=== PATIENT | female | born 1945 | race Caucasian/White ===

== ENCOUNTER → 2020-01-14 12:59 | Outpatient (BNVA) | payer MEDICARE, SELFPAY | PROVIDERS: PCP Pediatrics; Referring Provider Pediatrics; Visit Provider Hospitalist | DX: J44.9 Chronic obstructive pulmonary disease, unspecified (principal); Z79.899 Other long term (current) drug therapy | CPT/HCPCS: Q3014 ==

== ENCOUNTER → 2020-05-04 14:03 | Outpatient (BNVA) | payer MEDICARE, SELFPAY | PROVIDERS: PCP Pediatrics; Visit Provider Internal Medicine Pulmonary Disease | DX: J44.1 Chronic obstructive pulmonary disease with (acute) exacerbation (principal); Z87.891 Personal history of nicotine dependence | CPT/HCPCS: Q3014 ==

== ENCOUNTER → 2020-05-16 10:10 | Outpatient (BNVA) | payer MEDICARE, SELFPAY | PROVIDERS: PCP Pediatrics; Visit Provider Hospitalist | DX: J44.1 Chronic obstructive pulmonary disease with (acute) exacerbation (principal); J40 Bronchitis, not specified as acute or chronic; I50.9 Heart failure, unspecified | CPT/HCPCS: 99212 ==

== ENCOUNTER → 2020-06-13 13:39 | Outpatient (BNVA) | payer MEDICARE, SELFPAY | PROVIDERS: PCP Pediatrics; Visit Provider Hospitalist | DX: J44.9 Chronic obstructive pulmonary disease, unspecified (principal); I50.9 Heart failure, unspecified | CPT/HCPCS: 99212 ==

== ENCOUNTER → 2020-10-31 10:23 | Outpatient (BNVA) | payer MEDICARE, SELFPAY | PROVIDERS: PCP Pediatrics; Visit Provider Hospitalist | DX: J44.9 Chronic obstructive pulmonary disease, unspecified (principal); I50.9 Heart failure, unspecified; Z79.899 Other long term (current) drug therapy | CPT/HCPCS: 99212 ==

== ENCOUNTER → 2020-11-11 12:34 | Outpatient (REF) | payer MEDICARE, SELFPAY ==
--- NOTE | 2020-11-11 12:42 | ECG_ITS ---
Test Reason : COPD Blood Pressure : / mmHG Vent. Rate : 053 BPM Atrial Rate : 053 BPM P-R Int : 148 ms QRS Dur : 148 ms QT Int : 532 ms P-R-T Axes : 079 041 118 degrees QTc Int : 499 ms Sinus bradycardia Left bundle branch block Abnormal ECG No previous ECGs available Referred By: Yon Jordan Electronically Signed By:RASHAAD HOOVER
== END ==
LOC: HO.CARD 12:34
PROVIDERS: PCP Pediatrics; Visit Provider Hospitalist
DX: J44.9 Chronic obstructive pulmonary disease, unspecified (principal)
CPT/HCPCS: 93005

== ENCOUNTER → 2021-06-29 09:49 | Outpatient (BNVA) | payer OTHER, SELFPAY | PROVIDERS: PCP Pediatrics; Visit Provider Hospitalist | DX: J44.9 Chronic obstructive pulmonary disease, unspecified (principal); I50.9 Heart failure, unspecified | CPT/HCPCS: 99212 ==

== ENCOUNTER → 2021-09-29 10:13 | Outpatient (BNVA) | payer OTHER, SELFPAY | PROVIDERS: PCP Pediatrics; Visit Provider Hospitalist | DX: J44.9 Chronic obstructive pulmonary disease, unspecified (principal); I50.9 Heart failure, unspecified | CPT/HCPCS: 99212 ==

== ENCOUNTER → 2022-03-21 09:25 | Outpatient (BNVA) | payer OTHER, SELFPAY | PROVIDERS: PCP Pediatrics; Visit Provider Hospitalist | DX: J44.9 Chronic obstructive pulmonary disease, unspecified (principal); I50.9 Heart failure, unspecified; Z79.899 Other long term (current) drug therapy | CPT/HCPCS: 99212 ==

== ENCOUNTER → 2022-04-13 10:19 | Outpatient (REF) | payer OTHER, SELFPAY ==
--- NOTE | 2022-04-13 10:25 | ECG_ITS ---
Test Reason : copd Blood Pressure : / mmHG Vent. Rate : 058 BPM Atrial Rate : 058 BPM P-R Int : 152 ms QRS Dur : 160 ms QT Int : 482 ms P-R-T Axes : 088 030 119 degrees QTc Int : 473 ms Sinus bradycardia Left bundle branch block Abnormal ECG When compared with ECG of 11-NOV-2020 12:46, No significant change was found Referred By: Yon Jordan Electronically Signed By:REYNALDO JETT MD
== END ==
LOC: HO.CARD 10:19
PROVIDERS: PCP Pediatrics; Visit Provider Hospitalist
DX: J44.9 Chronic obstructive pulmonary disease, unspecified (principal)
CPT/HCPCS: 93005

== ENCOUNTER → 2022-06-01 09:27 | Outpatient (BNVA) | payer OTHER, SELFPAY | PROVIDERS: PCP Pediatrics; Visit Provider Hospitalist | DX: J44.9 Chronic obstructive pulmonary disease, unspecified (principal); J30.0 Vasomotor rhinitis; I50.9 Heart failure, unspecified | CPT/HCPCS: 99212 ==

== ENCOUNTER 2022-11-16 08:50 | Outpatient (REF) | payer OTHER, SELFPAY ==
[2022-11-16 15:02] LABS: MANUAL DIFF FLAG NO
[2022-11-16 15:09] LABS: Basophils Absolute Auto 0.1 X10*3/uL (0.0-0.2); Basophils Percent Auto 0.8 % (0-2); Eosinophils Absolute Auto 0.4 X10*3/uL (0.0-0.4); Eosinophils Percent Auto 3.9 % (0-4); Hematocrit 40.2 % (37.0-47.0); Hemoglobin 12.6 g/dl (12.0-16.0); Imm Gran Abs Auto 0.02 X10*3/uL (0.00-0.03); Imm Gran Pct Auto 0.2 % (0.0-0.4); Lymphocytes Absolute Auto 2.5 X10*3/uL (1.2-4.9); Lymphocytes Percent Auto 27.2 % (20-40); Mean Corpuscular HGB Conc 31.3 g/dl (31.0-35.0); Mean Corpuscular Volume 86.3 fL (80.0-98.0); Mean Platelet Volume 10.5 fL (9.4-12.3); Monocytes Absolute Auto 0.7 X10*3/uL (0.1-1.2); Monocytes Percent Auto 7.5 % (2-11); Neutrophils Absolute Auto 5.5 x10*3/uL (2.0-8.3); Neutrophils Percent Auto 60.4 % (45-73); Platelet Count 393 X10*3/uL (160-400); Red Blood Count 4.66 X10*6/uL (4.20-5.50); Red Cell Distribution Width 15.7 % (11.0-16.0)
[2022-11-16 15:59] LABS: Alanine Aminotransferase 10 U/L (0-31); Albumin Level 3.8 g/dL (3.5-5.0); Alkaline Phosphatase 91 U/L (39-117); Anion Gap 12 (12-20); Aspartate Amino Transferase 15 U/L (5-31); Bilirubin Direct 0.2 mg/dL (0.0-0.5); Bilirubin Total 0.3 mg/dL (0.0-1.0); Blood Urea Nitrogen 13 mg/dL (9-16); Calcium 9.7 mg/dL (8.4-10.2); Carbon Dioxide 27 mmol/L (22-29); Chloride 107 mmol/L (96-108); Cholesterol 111 mg/dL (<200); Estimated Glomerular Filt Rate 53; Glucose Fasting 81 mg/dL (60-99); HDL Cholesterol 36 mg/dL (>40); LDL Cholesterol Calculated 62 mg/dL (<100); Potassium 4.3 mmol/L (3.3-5.1); Sodium 142 mmol/L (135-145); TSH reflex Free T4 0.74 uIU/mL (0.32-4.0); Total Protein 6.4 g/dL (6.5-8.0); Triglycerides 69 mg/dL (<150)
== END 2022-11-16 08:51 | disposition home or self-care (01) ==
LOC: HO.CHCLDS 08:50
PROVIDERS: Absent Provider Nurse Practitioner; Visit Provider Pediatrics
DX: I11.0 Hypertensive heart disease with heart failure (principal); I50.20 Unspecified systolic (congestive) heart failure; E78.2 Mixed hyperlipidemia; E11.9 Type 2 diabetes mellitus without complications; Z79.4 Long term (current) use of insulin
CPT/HCPCS: 36415; 80048; 80061; 80076; 84443; 85025

== ENCOUNTER 2022-12-03 09:47 | Outpatient (AMB) | payer OTHER, SELFPAY ==
[2022-12-03 09:58] VITALS: BP 124/60; PULSE 66; O2SAT 95; BMI 22.9
--- NOTE | 2022-12-03 09:58 | A.OFFVIS_ITS ---
Intake Vital Signs 12/03/22 09:58 Height 5 ft 4 in Weight 133 lb 2.547 oz BMI 22.9 BP 124/60 Blood Pressure Location Lt brachial Position Sitting Pulse 66 Pulse Source Pulse Oximeter Pulse Oximetry (%) 95 Oxygen Delivery Method Room Air Intake Visit Reasons: COPD Credit Manager Required: No Allergies mirtazapine [From Remeron] Adverse Reaction (Verified 12/03/22 10:02) Weakness HPI HPI Comments History of Present Illness Details The patient is a 77-year-old woman with known asthma COPD overlap syndrome who apparently started developing worsening respiratory symptoms for the last week. She has been using her nebulized therapy in addition to her short-acting beta agonist. However, she has not been using any maintenance inhalers. She has been noticing more coughing. Moderate severity. Nonproductive in nature. At this point with trying to minimize the use of steroids due to her diabetes. The patient has not had any recent x-rays or imaging. Her last chest x-ray was from [facility] December 04, 2017 demonstrating some areas of atelectasis. Her previous blood work demonstrated a low subclass 2 IgG. 01/14/2020 patient has a telephone visit. The patient has been having increasing shortness of breath. She has not been able to get her Bevespi covered. I believe is wonder going prior approval. She has tried and failed Anoro in the past. Currently she is getting budesonide via the nebulizer twice a day along with albuterol. She is also tolerating the Daliresp. She is having more issues with her balance and also tremors. She has been evaluated for Parkinson's. She has been falling numerous times. The family is been trying to keep her safe. In the meantime we did talk about the beta agonist causing tremors. Her, she needs her respiratory medications in order to improve her re spiratory status. Her nebulizer is no longer working. She does use a nebulizer twice a day. I will request a new nebulizer through a [employer], [employer]. 05/16/2020 the patient is here for pulmonary follow-up visit. Since we last spoke the patient fell and she fractured her arm needed surgery in place. This area is healing apparently well. In addition to that the patient has had worsening respiratory symptoms. She was evaluated back in beginning of the month. She was treated with antibiotics however her conditionup being admitted briefly to [facility]. She had a chest x-ray demonstrating bilateral pleural effusions and what appeared to be cephalization and opacities at the bases more consistent with congestive heart failure. Her brain atretic peptide was approximately 3000. The patient also was found to be wheezy and she was treated with bronchodilators and also prednisone. Currently the patient has been discharged she is using her albuterolvia nebulizer to 4 times a day and has been using the Daliresp. She has also noticed weight loss and also decreased appetite. We talked about very decreasing the Daliresp to every other day when she feels better. In the meantime she is having significant wheezing on examination. I am reluctant to give her any prednisone at this time because of on her to have proper healing of her bone fracture. In the meantime will start antibiotics with azithromycin Saturday in the patient will start DuoNebs instead of albuterol 4 times a day. 06/13/2020 the patient is here for pulmonary follow-up visit. Overall she is doing better. She did now requiring prednisone. She did complete the antibiotics. She continues using the nebulizer 4 times a day. At this point the patient does not feel like she needs to that often. Therefore, will have her do a treatment in the morning with both budesonide and DuoNeb. Then later on the day she is able to use the DuoNeb as needed. She is continuing to use of Daliresp in addition to the singular at nighttime. At some point she may want to go back to inhaler therapy instead of the nebulizer. We will discuss this further during her next visit in 4 months. 10/31/2020 the patient is here for a pulmonary follow-up visit. Overall she is doing better. She has been off the prednisone. She has been tolerating the azithromycin 3 times a week. She has also been tolerating the Daliresp. Although she has been losing weight. Her appetite is down. She continue his respiratory therapy. She is using the budesonide and DuoNeb. She is currently not using the Stiolto. I did tell of the does okay as long she is using nebulized therapies at least twice a day. She also continues on the singular. The patient will be followed up with Cardiology soon and he can do an EKG. Otherwise she can have done an EKG in the hospital in order to make sure that she is tolerating the macrolide therapy without any worsening QT changes. The patient in the meantime will try to decrease the Daliresp due to the fact that she is losing weight has decreased appetite to every other day. Otherwise she will continue with her nebulized therapy and is okay for her to start the Stiolto. Will follow up in 6 months. 06/29/2021 the patient is here for a pulmonary follow-up visit. Since we last spoke she has developed chest discomfort she was taken to the [facility] ER where she was admitted to the hospital. When she was there she did have a chest x-ray that I personally reviewed demonstrating some mild perivascular congestion and small pleural effusion. Her brain atretic peptide was slightly elevated as well. She does not appear to be volume overloaded at this time. The patient has been on cardioprotective medications. From a COPD standpoint she has had some wheezing. She is responding very well to the azithromycin treating her for chronic bronchitis. However, now with the issues of underlying cardiac conditions will see about weaning her off it and she can follow up with Cardiology to make sure that she is stable. In the meantime I will give her half a does of prednisone just for 3 days to try to improve her v olume status. 09/29/2021 the patient is here for a pulmonary follow-up visit. She recently did follow-up with Cardiology and apparently was noted to have a wheeze cardiac function and abnormal stress test. She will be undergoing a cardiac catheterization soon. In the meantime she continue was with respiratory therapy with good results. Has been tolerating the Daliresp. She continues use the Stiolto on a daily basis. During the last visit she did receive Lasix x3 days. Her volume status improved significantly. After that she did not require any additional diuretics. She is monitoring closely the sodium intake. She does complain of worsening productive cough with white phlegm. [id number] severity. She did come off the azithromycin. This is likely the reasoning why. However, in view of her cardiac issues will hold off on macrolide therapy as it can worsen her QT interval. 03/21/2022 the patient is here for a pulmonary follow-up visit. Since we last spoke the patient was admitted to the hospital with COVID. She was treated in the hospital for few days. While she was there she had a chest x-ray that was reassuring. Prior to that in January [address] she did have a CT scan of the chest demonstrating airspace disease and a masslike consolidation in the left lower lobe. She had significant inflammation. Upper she will need a follow-up CT scan in the near future. In the meantime she has had worsening cough and she was taken off the azithromycin. Initially she was taken off because she was having arrhythmias in addition to the fact that the azithromycin can worsen QT prolongation. But, since coming off the medication her respiratory status has been often she has required multiple evaluations for her COPD exacerbations. Therefore will place him back on the azithromycin but she needs to monitor with EKG. Will have an EKG ordered and she can just come in to the hospital next week and have an EKG while on the medicine. Will continue to follow serial EKGs while on the medicine. We can also increase Daliresp to daily since she is tolerating it. Unfortunately because she does have increased wheezing she will also need a small dose of prednisone. She does have diabetes so therefore her sugars do elevate will try just a small dose to see if we can maintain her relatively stable with a sugars. She does continue to use her nebulized therapy twice a day and also continues with her inhalers as prescribed. 06/01/2022 the patient is here for pulmonary follow-up visit. She just recently had worked ago. Followed she is feeling better. She is tolerating the azithromycin 3 times a week. We had done an EKG demonstrating normal QTC. In addition to that she is tolerating the higher dose Daliresp. She continues use the budesonide with the albuterol. Also using Stiolto. She does have some increased wheezing since arriving from [place]. Also has nasal drainage. Denies any fevers or chills. Otherwise she feels she is doing fairly good. No recent imaging studies to review. We did look at the EKG together. She does have a left bundle branch block. Explained to patient that this is something that is her baseline. 12/03/2022 the patient is here for pulmonary follow-up visit. The patient continues have asthma symptoms. Having to use her nebulizer up to 4 times a day a few weeks ago. Now she is down to twice a day. He continues on her respiratory therapy. She has been losing some weight sometimes she takes Daliresp every other day to minimize on the weight loss. She continues to follow closely with Cardiology. At this point she is on a maximize respiratory regimen but still only partially responding as she is still continues to be symptomatic. She does have wheezing on examination today. Therefore will do allergy testing and blood work to assess her candidacy for biologics. I do believe that she will do good on Dupixent. She did have an EKG she does have a left bundle branch block with the has not changed her QT interval is within normal limits. The patient will undergo blood working well assessed her candidacy for biologic therapy at this time we also talked about vaccines. The patient should get her hours the vaccine and also should be up today with her pneumonia vaccine. COUNTS INCLUDE 234 BEDS AT THE [facility] Medical History (Updated 11/13/22 @ 11:38 by Genius GA) Vasomotor rhinitis CHF (congestive heart failure) Bronchitis Anxiety Depression History of heart attack Hyperlipidemia Hypothyroidism Chronic gouty arthritis Diabetes HTN (hypertension) Asthma B12 deficiency Iron deficiency anemia COPD (chronic obstructive pulmonary disease) Surgical History Hx of cholecystectomy Hx of tubal ligation Family History Sister Diabetes Mother Diabetes Arthritis Asthma Social History (Updated 01/11/22 @ 10:03 by Rupali De La Cruz CMA) Household Members: None Housing: Apartment Are you a primary residential caregiver to a significant other at home: No Do you presently have visiting nurse or other home services: No Alcohol intake: former Patient Tobacco Use Status: Former Tobacco user Tobacco use type: Cigarette Cigarette Packs Per Day: 1 service: No Current occupational status: unemployed Review of Systems Const Denies night sweats and Reports weight loss ENT Denies change in voice, Denies lip swelling, Denies mouth pain, Reports nasal congestion, Reports nasal discharge and Denies tongue swelling Card Denies chest pain and Reports dyspnea on exertion Resp Denies chest congestion, Reports cough, Reports dyspnea on exertion and Reports wheezing GI Denies abdominal pain Musc Denies no additional complaints Neuro Denies Neuro-related abnormal movements Psych Denies no additional complaints Ascencion/Lymph Denies easy bleeding and Denies lymphadenopathy Aller/Immun Denies lip swelling, Denies tongue swelling and Reports wheezing Physical Exam Vital Signs: Last Vital Signs Pulse 66 12/03/22 09:58 BP 124/60 12/03/22 09:58 Pulse Ox 95 12/03/22 09:58 Oxygen Delivery Method Room Air 12/03/22 09:58 BMI result Body Mass Index 22.9 Const General: alert Neck Neck: Yes normal visual inspection, Yes full ROM and Yes no lymphadenopathy Chest Chest palpation & inspection: normal inspection of the chest Resp Auscultation: no rhonchi, wheezes and diminished lung sounds Cardio Rate: regular rate Rhythm: regular rhythm Heart sounds: S1 normal heart sound present and S2 normal heart sound present GI Palpation (GI): Soft to palpation and nontender Auscultation: normal bowel sounds Skin General skin exam: rashes and/or lesions noted Assessment & Plan Assessment & Plan (1) Asthma-COPD overlap syndrome: Code(s): J44.9 - Chronic obstructive pulmonary disease, unspecified (2) CHF (congestive heart failure): Code(s): I50.9 - Heart failure, unspecified Qualifiers: Heart failure chronicity: unspecified Heart failure type: unspecified Qualified Code(s): I50.9 - Heart failure, unspecified (3) Vasomotor rhinitis: Code(s): J30.0 - Vasomotor rhinitis Plan start Prednione taper Bloodwork/allergy testing, maybe a good candidate for Dupixent continue Daliresp continue azithromycin MWF Budesonide BID Duoneb BID continue Stiolto daily Continue Singulair Ipratropiun nasal spray Trazadone for sleep F/U 3-4 month Orders: Orders Immunoglobulin G Subclasses Today J40 - Bronchitis, not specified as acute or chronic Complete Blood Count Auto Diff Today J40 - Bronchitis, not specified as acute or chronic Rast Allergen Today J40 - Bronchitis, not specified as acute or chronic Immunoglobulin E Today J40 - Bronchitis, not specified as acute or chronic Hypersensitive Pneumonitis Prf Today J40 - Bronchitis, not specified as acute or chronic, R91.8 - Other nonspecific abnormal finding of lung field Medications: New prednisone PO daily; Take 2 tabs daily x 5 days, then 1 tablet daily x 5 days 15 tabs 0RF 10 days Coding Level of Care Code Est Pt Level 4 (43865) Diagnoses Asthma-COPD overlap syndrome J44.9 Congestive heart failure, unspecified HF chronicity, unspecified heart failure type I50.9 Heart failure chronicity: unspecified Heart failure type: unspecified Vasomotor rhinitis J30.0 Time Spent (min) 16
== END 2022-12-03 10:20 | disposition home or self-care (01) ==
PROVIDERS: PCP Pediatrics; Visit Provider Hospitalist
DX: J44.9 Chronic obstructive pulmonary disease, unspecified (principal); I50.9 Heart failure, unspecified; J30.0 Vasomotor rhinitis
CPT/HCPCS: 99214

== ENCOUNTER 2022-12-03 09:47 | Outpatient (REF) | payer OTHER, SELFPAY ==
[2022-12-03 10:50] LABS: MANUAL DIFF FLAG NO
[2022-12-03 12:05] LABS: Basophils Absolute Auto 0.1 X10*3/uL (0.0-0.2); Basophils Percent Auto 0.4 % (0-2); Eosinophils Absolute Auto 0.3 X10*3/uL (0.0-0.4); Eosinophils Percent Auto 2.6 % (0-4); Hematocrit 38.2 % (37.0-47.0); Hemoglobin 12.3 g/dl (12.0-16.0); Imm Gran Abs Auto 0.03 X10*3/uL (0.00-0.03); Imm Gran Pct Auto 0.3 % (0.0-0.4); Lymphocytes Absolute Auto 2.7 X10*3/uL (1.2-4.9); Lymphocytes Percent Auto 22.8 % (20-40); Mean Corpuscular HGB Conc 32.2 g/dl (31.0-35.0); Mean Corpuscular Hemoglobin 27.2 pg (27.0-33.0); Mean Corpuscular Volume 84.5 fL (80.0-98.0); Mean Platelet Volume 9.7 fL (9.4-12.3); Monocytes Absolute Auto 0.9 X10*3/uL (0.1-1.2); Monocytes Percent Auto 7.6 % (2-11); Neutrophils Absolute Auto 7.9 x10*3/uL (2.0-8.3); Neutrophils Percent Auto 66.3 % (45-73); Platelet Count 348 X10*3/uL (160-400); Red Blood Count 4.52 X10*6/uL (4.20-5.50); Red Cell Distribution Width 15.6 % (11.0-16.0)
[2022-12-05 07:09] LABS: Immunoglobulin E 49 kU/L (<OR=114)
[2022-12-05 13:24] LABS: Immunoglobulin G Subclass 1 575 mg/dL (382-929); Immunoglobulin G Subclass 2 133 mg/dL (241-700); Immunoglobulin G Subclass 3 57 mg/dL (22-178); Immunoglobulin G Subclass 4 34.7 mg/dL (4-86); Immunoglobulin G Total 796 mg/dL (600-1540)
[2022-12-10 13:48] LABS: Asperg fumigatus Precip Abs NEGATIVE (NEGATIVE); Micropoly faeni Abs NEGATIVE (NEGATIVE); Pigeon serum Abs NEGATIVE (NEGATIVE); Saccharo pora viridis Abs NEGATIVE (NEGATIVE); Thermo candidus Abs NEGATIVE (NEGATIVE); Thermoa vulgaris #1 NEGATIVE (NEGATIVE)
== END 2022-12-03 09:48 | disposition home or self-care (01) ==
LOC: HO.LAB 09:47
PROVIDERS: PCP Pediatrics; Visit Provider Hospitalist
DX: J40 Bronchitis, not specified as acute or chronic (principal); I50.9 Heart failure, unspecified; J30.0 Vasomotor rhinitis; Z79.899 Other long term (current) drug therapy
CPT/HCPCS: 36415; 82784; 82785; 85025; 86003; 86331; 86606; 86609; 99212

== ENCOUNTER 2023-03-05 13:14 | Outpatient (AMB) | payer OTHER, SELFPAY ==
--- NOTE | 2023-03-05 13:33 | A.OFFVIS_ITS ---
Intake Vital Signs 03/05/23 13:34 Height 5 ft 4 in Weight 133 lb 2.547 oz BMI 22.9 Pulse 63 Pulse Source Pulse Oximeter Pulse Oximetry (%) 97 Oxygen Delivery Method Room Air Intake Visit Reasons: copd Hearings Reporter Required: No Allergies mirtazapine [From Remeron] Adverse Reaction (Verified 03/05/23 13:35) Weakness HPI HPI Comments History of Present Illness Details The patient is a 77-year-old woman with known asthma COPD overlap syndrome who apparently started developing worsening respiratory symptoms for the last week. She has been using her nebulized therapy in addition to her short-acting beta agonist. However, she has not been using any maintenance inhalers. She has been noticing more coughing. Moderate severity. Nonproductive in nature. At this point with trying to minimize the use of steroids due to her diabetes. The patient has not had any recent x-rays or imaging. Her last chest x-ray was from [facility] December 04, 2017 demonstrating some areas of atelectasis. Her previous blood work demonstrated a low subclass 2 IgG. 01/14/2020 patient has a telephone visit. The patient has been having increasing shortness of breath. She has not been able to get her Bevespi covered. I believe is wonder going prior approval. She has tried and failed Anoro in the past. Currently she is getting budesonide via the nebulizer twice a day along with albuterol. She is also tolerating the Daliresp. She is having more issues with her balance and also tremors. She has been evaluated for Parkinson's. She has been falling numerous times. The family is been trying to keep her safe. In the meantime we did talk about the beta agonist causing tremors. Her, she needs her respiratory medications in order to improve her respiratory status. Her nebulizer is no longer working. She does use a nebulizer twice a day. I will request a new nebulizer through a [employer]. 05/16/2020 the patient is here for pulmonary follow-up visit. Since we last spoke the patient fell and she fractured her arm needed surgery in place. This area is healing apparently well. In addition to that the patient has had worsening respiratory symptoms. She was evaluated back in beginning of the month. She was treated with antibiotics however her conditionup being admitted briefly to [facility]. She had a chest x-ray demonstrating bilateral pleural effusions and what appeared to be cephalization and opacities at the bases more consistent with congestive heart failure. Her brain atretic peptide was approximately 3000. The patient also was found to be wheezy and she was treated with bronchodilators and also prednisone. Currently the patient has been discharged she is using her albuterolvia nebulizer to 4 times a day and has been using the Daliresp. She has also noticed weight loss and also decreased appetite. We talked about very decreasing the Daliresp to every other day when she feels better. In the meantime she is having significant wheezing on examination. I am reluctant to give her any prednisone at this time because of on her to have proper healing of her bone fracture. In the meantime will start antibiotics with azithromycin Saturday in the patient will start DuoNebs instead of albuterol 4 times a day. 06/13/2020 the patient is here for pulmonary follow-up visit. Overall she is doing better. She did now requiring prednisone. She did complete the antibiotics. She continues using the nebulizer 4 times a day. At this point the patient does not feel like she needs to that often. Therefore, will have her do a treatment in the morning with both budesonide and DuoNeb. Then later on the day she is able to use the DuoNeb as needed. She is continuing to use of Daliresp in addition to the singular at nighttime. At some point she may want to go back to inhaler therapy instead of the nebulizer. We will discuss this further during her next visit in 4 months. 10/31/2020 the patient is here for a pulmonary follow-up visit. Overall she is doing better. She has been off the prednisone. She has been tolerating the azithromycin 3 times a week. She has also been tolerating the Daliresp. Although she has been losing weight. Her appetite is down. She continue his respiratory therapy. She is using the budesonide and DuoNeb. She is currently not using the Stiolto. I did tell of the does okay as long she is using nebulized therapies at least twice a day. She also continues on the singular. The patient will be followed up with Cardiology soon and he can do an EKG. Otherwise she can have done an EKG in the hospital in order to make sure that she is tolerating the macrolide therapy without any worsening QT changes. The patient in the meantime will try to decrease the Daliresp due to the fact that she is losing weight has decreased appetite to every other day. Otherwise she will continue with her nebulized therapy and is okay for her to start the Stiolto. Will follow up in 6 months. 06/29/2021 the patient is here for a pulmonary follow-up visit. Since we last spoke she has developed chest discomfort she was taken to the [facility] ER where she was admitted to the hospital. When she was there she did have a chest x-ray that I personally reviewed demonstrating some mild perivascular congestion and small pleural effusion. Her brain atretic peptide was slightly elevated as well. She does not appear to be volume overloaded at this time. The patient has been on cardioprotective medications. From a COPD standpoint she has had some wheezing. She is responding very well to the azithromycin treating her for chronic bronchitis. However, now with the issues of underlying cardiac conditions will see about weaning her off it and she can follow up with Cardiology to make sure that she is stable. In the meantime I will give her half a does of prednisone just for 3 days to try to improve her volume status. 09/29/2021 the patient is here for a pulmonary follow-up visit. She recently did follow-up with Cardiology and apparently was noted to have a wheeze cardiac function and abnormal stress test. She will be undergoing a cardiac catheterization soon. In the meantime she continue was with respiratory therapy with good results. Has been tolerating the Daliresp. She continues use the Stiolto on a daily basis. During the last visit she did receive Lasix x3 days. Her volume status improved significantly. After that she did not require any additional diuretics. She is monitoring closely the sodium intake. She does complain of worsening productive cough with white phlegm. [id number] severity. She did come off the azithromycin. This is likely the reasoning why. However, in view of her cardiac issues will hold off on macrolide therapy as it can worsen her QT interval. 03/21/2022 the patient is here for a pulmonary follow-up visit. Since we last spoke the patient was admitted to the hospital with COVID. She was treated in the hospital for few days. While she was there she had a chest x-ray that w as reassuring. Prior to that in January [address] she did have a CT scan of the chest demonstrating airspace disease and a masslike consolidation in the left lower lobe. She had significant inflammation. Upper she will need a follow-up CT scan in the near future. In the meantime she has had worsening cough and she was taken off the azithromycin. Initially she was taken off because she was having arrhythmias in addition to the fact that the azithromycin can worsen QT prolongation. But, since coming off the medication her respiratory status has been often she has required multiple evaluations for her COPD exacerbations. Therefore will place him back on the azithromycin but she needs to monitor with EKG. Will have an EKG ordered and she can just come in to the hospital next week and have an EKG while on the medicine. Will continue to follow serial EKGs while on the medicine. We can also increase Daliresp to daily since she is tolerating it. Unfortunately because she does have increased wheezing she will also need a small dose of prednisone. She does have diabetes so therefore her sugars do elevate will try just a small dose to see if we can maintain her relatively stable with a sugars. She does continue to use her nebulized therapy twice a day and also continues with her inhalers as prescribed. 06/01/2022 the patient is here for pulmonary follow-up visit. She just r ecently had worked ago. Followed she is feeling better. She is tolerating the azithromycin 3 times a week. We had done an EKG demonstrating normal QTC. In addition to that she is tolerating the higher dose Daliresp. She continues use the budesonide with the albuterol. Also using Stiolto. She does have some increased wheezing since arriving from [place]. Also has nasal drainage. Denies any fevers or chills. Otherwise she feels she is doing fairly good. No recent imaging studies to review. We did look at the EKG together. She does have a left bundle branch block. Explained to patient that this is something that is her baseline. 12/03/2022 the patient is here for pulmonary follow-up visit. The patient continues have asthma symptoms. Having to use her nebulizer up to 4 times a day a few weeks ago. Now she is down to twice a day. He continues on her respiratory therapy. She has been losing some weight sometimes she takes Daliresp every other day to minimize on the weight loss. She continues to follow closely with Cardiology. At this point she is on a maximize respiratory regimen but still only partially responding as she is still continues to be symptomatic. She does have wheezing on examination today. Therefore will do allergy testing and blood work to assess her candidacy for biologics. I do believe that she will do good on Dupixent. She did have an EKG she does have a left bundle branch block with the has not changed her QT interval is within normal limits. The patient will undergo blood working well assessed her candidacy for biologic therapy at this time we also talked about vaccines. The patient should get her hours the vaccine and also should be up today with her pneumonia vaccine. 03/05/2023 the patient is here for a pulmonary follow-up visit. She has a trip to [place] soon. She wants to make sure that she is doing okay before her trip. She is having increasing dyspnea symptoms and chest tightness and cough. Moderate severity. She has been using all her respiratory medications as prescribed which have been partially helpful. We did request blood work during the last visit to see if she would be a candidate for any biologic therapy. Her IgE level and allergy testing was all within normal limits and also her eosinophil levels were also within normal limits. Therefore she is not a candidate for most of the biologics although because her should come prednisone use she would benefit from Tezspire. The patient is having active wheezing at this time. I will send her additional prednisone to the pharmacy. She will continue with current respiratory regimen as prescribed. [facility] Medical History (Updated 03/05/23 @ 15:31 by Yon Jordan MD) Vasomotor rhinitis CHF (congestive heart failure) Bronchitis Anxiety Depression History of heart attack Hyperlipidemia Hypothyroidism Chronic gouty arthritis Diabetes HTN (hypertension) Asthma B12 deficiency Iron deficiency anemia COPD (chronic obstructive pulmonary disease) Surgical History Hx of cholecystectomy Hx of tubal ligation Family History Sister Diabetes Mother Diabetes Arthritis Asthma Social History (Updated 01/11/22 @ 10:03 by Rupali De La Cruz CMA) Household Members: None Housing: Apartment Are you a primary pharmacy customer care specialist to a significant other at home: No Do you presently have visiting nurse or other home services: No Alcohol intake: former Patient Tobacco Use Status: Former Tobacco user Tobacco use type: Cigarette Cigarette Packs Per Day: 1 service: No Current occupational status: unemployed Review of Systems Const Denies night sweats and Reports weight loss ENT Denies change in voice, Denies lip swelling, Denies mouth pain, Reports nasal congestion, Reports nasal discharge and Denies tongue swelling Card Denies chest pain and Reports dyspnea on exertion Resp Denies chest congestion, Reports cough, Reports dyspnea on exertion and Reports wheezing GI Denies abdominal pain Musc Denies no additional complaints Neuro Denies Neuro-related abnormal movements Psych Denies no additional complaints Ascencion/Lymph Denies easy bleeding and Denies lymphadenopathy Aller/Immun Denies lip swelling, Denies tongue swelling and Reports wheezing Physical Exam Vital Signs: Last Vital Signs Pulse 63 03/05/23 13:34 Pulse Ox 97 03/05/23 13:34 Oxygen Delivery Method Room Air 03/05/23 13:34 BMI result Body Mass Index 22.9 Const General: alert Neck Neck: Yes normal visual inspection, Yes full ROM and Yes no lymphadenopathy Chest Chest palpation & inspection: normal inspection of the chest Resp Auscultation: no rhonchi, wheezes and diminished lung sounds Cardio Rate: regular rate Rhythm: regular rhythm Heart sounds: S1 normal heart sound present and S2 normal heart sound present GI Palpation (GI): Soft to palpation and nontender Auscultation: normal bowel sounds Skin General skin exam: rashes and/or lesions noted Assessment & Plan Assessment & Plan (1) Asthma: Code(s): J45.909 - Unspecified asthma, uncomplicated Qualifiers: Asthma severity: severe Asthma persistence: persistent Asthma complication type: with acute exacerbation Qualified Code(s): J45.51 - Severe persistent asthma with (acute) exacerbation (2) Asthma-COPD overlap syndrome: Code(s): J44.9 - Chronic obstructive pulmonary disease, unspecified (3) Vasomotor rhinitis: Code(s): J30.0 - Vasomotor rhinitis (4) CHF (congestive heart failure): Code(s): I50.9 - Heart failure, unspecified Qualifiers: Heart failure chronicity: unspecified Heart failure type: unspecified Qualified Code(s): I50.9 - Heart failure, unspecified Plan Start Prednisone taper start Tezspire continue Daliresp continue azithromycin MWF Budesonide BID Duoneb BID continue Stiolto daily Continue Singulair Ipratropiun nasal spray Trazadone for sleep F/U 3-4 month Medications: New prednisone PO daily; Take 6 tabs daily x 3 days, then 5 tabs x 3 days, then 4 tabs x 3 days, then 3 tabs x 3 days, then 2 tabs daily x 3 days, then 1 tab x 3 days to complete. 18 days 63 tabs 0RF Coding Level of Care Code Est Pt Level 4 (90109) Diagnoses Severe persistent asthma with acute exacerbation J45.51 Asthma severity: severe Asthma persistence: persistent Asthma complication type: with acute exacerbation Asthma-COPD overlap syndrome J44.9 Vasomotor rhinitis J30.0 Congestive heart failure, unspecified HF chronicity, unspecified heart failure type I50.9 Heart failure chronicity: unspecified Heart failure type: unspecified Time Spent (min) 17
[2023-03-05 13:34] VITALS: PULSE 63; O2SAT 97; BMI 22.9
== END 2023-03-05 13:55 | disposition home or self-care (01) ==
PROVIDERS: PCP Pediatrics; Visit Provider Hospitalist
DX: J45.51 Severe persistent asthma with (acute) exacerbation (principal); J44.9 Chronic obstructive pulmonary disease, unspecified; J30.0 Vasomotor rhinitis; I50.9 Heart failure, unspecified
CPT/HCPCS: 99214

== ENCOUNTER → 2023-03-05 13:14 | Outpatient (BNVA) | payer OTHER, SELFPAY | PROVIDERS: PCP Pediatrics; Visit Provider Hospitalist | DX: J45.51 Severe persistent asthma with (acute) exacerbation (principal); J44.9 Chronic obstructive pulmonary disease, unspecified; J30.0 Vasomotor rhinitis; I50.9 Heart failure, unspecified; Z79.899 Other long term (current) drug therapy | CPT/HCPCS: 99212 ==

== ENCOUNTER 2023-06-25 10:34 | Outpatient (REF) | payer OTHER, SELFPAY ==
--- NOTE | ~2023-06-25 | XR_ITS ---
EXAMINATION: XR CHEST CLINICAL INFORMATION: Chest pain COMPARISON: Chest 01/04/2006 TECHNIQUE: 2 views of the chest were obtained. FINDINGS: The lungs are hyperinflated with flattening of the hemidiaphragms. There is slight streaky density in the right middle lobe and lingula which likely represents atelectasis and/or scar, less likely pneumonia. Central peribronchial thickening is noted. Again noted is mild elevation of the right hemidiaphragm. No pleural effusions. The cardiomediastinal silhouette is within normal limits. There is extensive calcification of the thoracic aorta indicative of marked atherosclerotic disease. At the level of the aortic arch, thoracic aorta measures 3.2 cm. No acute osseous abnormality. XR/XR chest 2V IMPRESSION: 1. Right middle lobe and lingular atelectasis and/or scar, less likely pneumonia. 2. Central peribronchial thickening which may represent bronchitis. 3. Marked atherosclerotic disease of the thoracic aorta. The aortic arch measures 3.2 cm.
== END 2023-06-25 10:35 | disposition home or self-care (01) ==
LOC: HO.XRAY 10:34
PROVIDERS: PCP Pediatrics; Visit Provider Hospitalist
DX: J45.51 Severe persistent asthma with (acute) exacerbation (principal)
CPT/HCPCS: 71046; 99212

== ENCOUNTER 2023-06-25 10:34 | Outpatient (AMB) | payer OTHER, SELFPAY ==
[2023-06-25 11:19] VITALS: PULSE 60; O2SAT 97; BMI 21.5
--- NOTE | 2023-06-25 11:19 | A.OFFVIS_ITS ---
Vital Signs 06/25/23 11:19 Height 5 ft 4 in Weight 125 lb BMI 21.5 Pulse 60 Pulse Source Pulse Oximeter Pulse Oximetry (%) 97 Oxygen Delivery Method Room Air Intake Visit Reasons: copd Bobbin Inspector Required: No Allergies mirtazapine [From Remeron] Adverse Reaction (Verified 06/25/23 11:21) Weakness HPI Comments Details: The patient is a 77-year-old woman with known asthma COPD overlap syndrome who apparently started developing worsening respiratory symptoms for the last week. She has been using her nebulized therapy in addition to her short-acting beta agonist. However, she has not been using any maintenance inhalers. She has been noticing more coughing. Moderate severity. Nonproductive in nature. At this point with trying to minimize the use of steroids due to her diabetes. The patient has not had any recent x-rays or imaging. Her last chest x-ray was from [facility] December 04, 2017 demonstrating some areas of atelectasis. Her previous blood work demonstrated a low subclass 2 IgG. 01/14/2020 patient has a telephone visit. The patient has been having increasing shortness of breath. She has not been able to get her Bevespi covered. I believe is wonder going prior approval. She has tried and failed Anoro in the past. Currently she is getting budesonide via the nebulizer twice a day along with albuterol. She is also tolerating the Daliresp. She is having more issues with her balance and also tremors. She has been evaluated for Parkinson's. She has been falling numerous times. The family is been trying to keep her safe. In the meantime we did talk about the beta agonist causing tremors. Her, she needs her respiratory medications in order to improve her respiratory status. Her nebulizer is no longer working. She does use a nebulizer twice a day. I will request a new nebulizer through a [employer], [employer]. 05/16/2020 the patient is here for pulmonary follow-up visit. Since we last spoke the patient fell and she fractured her arm needed surgery in place. This area is healing apparently well. In addition to that the patient has had worsening respiratory symptoms. She was evaluated back in beginning of the month. She was treated with antibiotics however her conditionup being admitted briefly to [facility]. She had a chest x-ray demonstrating bilateral pleural effusions and what appeared to be cephalization and opacities at the bases more consistent with congestive heart failure. Her brain atretic peptide was approximately 3000. The patient also was found to be wheezy and she was treated with bronchodilators and also prednisone. Currently the patient has been discharged she is using her albuterolvia nebulizer to 4 times a day and has been using the Daliresp. She has also noticed weight loss and also decreased appetite. We talked about very decreasing the Daliresp to every other day when she feels better. In the meantime she is having significant wheezing on examination. I am reluctant to give her any prednisone at this time because of on her to have proper healing of her bone fracture. In the meantime will start antibiotics with azithromycin Saturday in the patient will start DuoNebs instead of albuterol 4 times a day. 06/13/2020 the patient is here for pulmonary follow-up visit. Overall she is doing better. She did now requiring prednisone. She did complete the antibiotics. She continues using the nebulizer 4 times a day. At this point the patient does not feel like she needs to that often. Therefore, will have her do a treatment in the morning with both budesonide and DuoNeb. Then later on the day she is able to use the DuoNeb as needed. She is continuing to use of Daliresp in addition to the singular at nighttime. At some point she may want to go back to inhaler therapy instead of the nebulizer. We will discuss this further during her next visit in 4 months. 10/31/2020 the patient is here for a pulmonary follow-up visit. Overall she is doing better. She has been off the prednisone. She has been tolerating the azithromycin 3 times a week. She has also been tolerating the Daliresp. Although she has been losing weight. Her appetite is down. She continue his respiratory therapy. She is using the budesonide and DuoNeb. She is currently not using the Stiolto. I did tell of the does okay as long she is using nebulized therapies at least twice a day. She also continues on the singular. The patient will be followed up with Cardiology soon and he can do an EKG. Otherwise she can have done an EKG in the hospital in order to make sure that she is tolerating the macrolide therapy without any worsening QT changes. The patient in the meantime will try to decrease the Daliresp due to the fact that she is losing weight has decreased appetite to every other day. Otherwise she will continue with her nebulized therapy and is okay for her to start the Stiolto. Will follow up in 6 months. 06/29/2021 the patient is here for a pulmonary follow-up visit. Since we last spoke she has developed chest discomfort she was taken to the [facility] ER where she was admitted to the hospital. When she was there she did have a chest x-ray that I personally reviewed demonstrating some mild perivascular congestion and small pleural effusion. Her brain atretic peptide was slightly elevated as well. She does not appear to be volume overloaded at this time. The patient has been on cardioprotective medications. From a COPD standpoint she has had some wheezing. She is responding very well to the azithr omycin treating her for chronic bronchitis. However, now with the issues of underlying cardiac conditions will see about weaning her off it and she can follow up with Cardiology to make sure that she is stable. In the meantime I will give her half a does of prednisone just for 3 days to try to improve her volume status. 09/29/2021 the patient is here for a pulmonary follow-up visit. She r ecently did follow-up with Cardiology and apparently was noted to have a wheeze cardiac function and abnormal stress test. She will be undergoing a cardiac catheterization soon. In the meantime she continue was with respiratory therapy with good results. Has been tolerating the Daliresp. She continues use the Stiolto on a daily basis. During the last visit she did receive Lasix x3 days. Her volume status improved significantly. After that she did not require any additional diuretics. She is monitoring closely the sodium intake. She does complain of worsening productive cough with white phlegm. [id number] severity. She did come off the azithromycin. This is likely the reasoning why. However, in view of her cardiac issues will hold off on macrolide therapy as it can worsen her QT interval. 03/21/2022 the patient is here for a pulmonary follow-up visit. Since we last spoke the patient was admitted to the hospital with COVID. She was treated in the hospital for few days. While she was there she had a chest x-ray that was reassuring. Prior to that in January [address] she did have a CT scan of the chest demonstrating airspace disease and a masslike consolidation in the left lower lobe. She had significant inflammation. Upper she will need a follow-up CT scan in the near future. In the meantime she has had worsening cough and she was taken off the azithromycin. Initially she was taken off because she was having arrhythmias in addition to the fact that the azithromycin can worsen QT prolongation. But, since coming off the medication her respiratory status has been often she has required multiple evaluations for her COPD exacerbations. Therefore will place him back on the azithromycin but she needs to monitor with EKG. Will have an EKG ordered and she can just come in to the hospital next week and have an EKG while on the medicine. Will continue to follow serial EKGs while on the medicine. We can also increase Daliresp to daily since she is tolerating it. Unfortunately because she does have increased wheezing she will also need a small dose of prednisone. She does have diabetes so therefore her sugars do elevate will try just a small dose to see if we can maintain her relatively stable with a sugars. She does continue to use her nebulized therapy twice a day and also continues with her inhalers as prescribed. 06/01/2022 the patient is here for pulmonary follow-up visit. She just recently had worked ago. Followed she is feeling better. She is tolerating the azithromycin 3 times a week. We had done an EKG demonstrating normal QTC. In addition to that she is tolerating the higher dose Daliresp. She continues use the budesonide with the albuterol. Also using Stiolto. She does have some increased wheezing since arriving from [place]. Also has nasal drainage. Denies any fevers or chills. Otherwise she feels she is doing fairly good. No recent imaging studies to review. We did look at the EKG together. She does have a left bundle branch block. Explained to patient that this is something that is her baseline. 12/03/2022 the patient is here for pulmonary follow-up visit. The patient continues have asthma symptoms. Having to use her nebulizer up to 4 times a day a few weeks ago. Now she is down to twice a day. He continues on her respiratory therapy. She has been losing some weight sometimes she takes Daliresp every other day to minimize on the weight loss. She continues to follow closely with Cardiology. At this point she is on a maximize respiratory regimen but still only partially responding as she is still continues to be symptomatic. She does have wheezing on examination today. Therefore will do allergy testing and blood work to assess her candidacy for biologics. I do believe that she will do good on Dupixent. She did have an EKG she does have a left bundle branch block with the has not changed her QT interval is within normal limits. The patient will undergo blood working well assessed her candidacy for biologic therapy at this time we also talked about vaccines. The patient should get her hours the vaccine and also should be up today with her pneumonia vaccine. 03/05/2023 the patient is here for a pulmonary follow-up visit. She has a trip to [place] soon. She wants to make sure that she is doing okay before her trip. She is having increasing dyspnea symptoms and chest tightness and cough. Moderate severity. She has been using all her respiratory medications as prescribed which have been partially helpful. We did request blood work du ring the last visit to see if she would be a candidate for any biologic therapy. Her IgE level and allergy testing was all within normal limits and also her eosinophil levels were also within normal limits. Therefore she is not a candidate for most of the biologics although because her should come prednisone use she would benefit from Tezspire. The patient is having active wheezing at this time. I will send her additional prednisone to the pharmacy. She will continue with current respiratory regimen as prescribed. 06/25/2023 the patient is here for pulmonary follow-up visit. Since we last spoke she had to go to urgent care because she had worsening respiratory symptoms. Does about a week ago. She was placed on 40 mg prednisone for 5 days. Now she is done she is still having difficulty breathing. She required also prednisone back in March. The patient also already maximize her respiratory therapy and using her nebulizer and rescue medication several times a day. I do believe she had be a great candidate for biologic therapy. Unfortunately her insurance denied Tezspire. However, she does have an elevated eosinophil count of 300 and would benefit from Dupixent. Therefore will go ahead and request Dupixent at this time. In the meantime I will send her additional prednisone because she is still having significant wheezing on examination. She does continue to use her respiratory therapy as prescribed. The patient also should get a chest x-ray since she has been a while since her last 1. She will do that in the coming days. [facility] Medical History (Updated 03/05/23 @ 15:31 by Yon Jordan MD) Vasomotor rhinitis CHF (congestive heart failure) Bronchitis Anxiety Depression History of heart attack Hyperlipidemia Hypothyroidism Chronic gouty arthritis Diabetes HTN (hypertension) Asthma B12 deficiency Iron deficiency anemia COPD (chronic obstructive pulmonary disease) Surgical History Hx of cholecystectomy Hx of tubal ligation Family History Sister Diabetes Mother Diabetes Arthritis Asthma Social History (Updated 01/11/22 @ 10:03 by Rupali De La Cruz CMA) Household Members: None Housing: Apartment Are you a primary school childcare attendant to a significant other at home: No Do you presently have visiting nurse or other home services: No Alcohol intake: former Patient Tobacco Use Status: Former Tobacco user Tobacco use type: Cigarette Cigarette Packs Per Day: 1 service: No Current occupational status: unemployed Review of Systems Const Denies night sweats and Reports weight loss ENT Denies change in voice, Denies lip swelling, Denies mouth pain, Reports nasal congestion, Reports nasal discharge and Denies tongue swelling Card Denies chest pain and Reports dyspnea on exertion Resp Denies chest congestion, Reports cough, Reports dyspnea on exertion and Reports wheezing GI Denies abdominal pain Musc Denies no additional complaints Neuro Denies Neuro-related abnormal movements Psych Denies no additional complaints Ascencion/Lymph Denies easy bleeding and Denies lymphadenopathy Aller/Immun Denies lip swelling, Denies tongue swelling and Reports wheezing Physical Exam Vital Signs: Last Vital Signs Pulse 60 06/25/23 11:19 Pulse Ox 97 06/25/23 11:19 Oxygen Delivery Method Room Air 06/25/23 11:19 BMI result Body Mass Index 21.5 Const General: alert Neck Neck: Yes normal visual inspection, Yes full ROM and Yes no lymphadenopathy Chest Chest palpation & inspection: normal inspection of the chest Resp Auscultation: rhonchi, wheezes and diminished lung sounds Cardio Rate: regular rate Rhythm: regular rhythm Heart sounds: S1 normal heart sound present and S2 normal heart sound present GI Palpation (GI): Soft to palpation and nontender Auscultation: normal bowel sounds Skin General skin exam: rashes and/or lesions noted Assessment & Plan Assessment & Plan (1) Asthma: Code(s): J45.909 - Unspecified asthma, uncomplicated Category: Medical Qualifiers: Asthma complication type: with acute exacerbation Asthma persistence: persistent Asthma severity: severe Qualified Code(s): J45.51 - Severe persist ent asthma with (acute) exacerbation (2) Asthma-COPD overlap syndrome: Code(s): J44.9 - Chronic obstructive pulmonary disease, unspecified Category: Medical (3) Vasomotor rhinitis: Code(s): J30.0 - Vasomotor rhinitis Category: Medical (4) CHF (congestive heart failure): Code(s): I50.9 - Heart failure, unspecified Category: Medical Qualifiers: Heart failure chronicity: unspecified Heart failure type: unspecified Qualified Code(s): I50.9 - Heart failure, unspecified Plan Start Prednisone taper start Dupixent continue Daliresp continue azithromycin MWF Budesonide BID Duoneb BID continue Stiolto daily Continue Singulair Ipratropiun nasal spray CXR Trazadone for sleep F/U 3-4 month Orders: Orders XR chest 2V Today J45.51 - Severe persistent asthma with (acute) exacerbation Medications: New prednisone PO daily; Take 6 tabs daily x 3 days, then 5 tabs x 3 days, then 4 tabs x 3 days, then 3 tabs x 3 days, then 2 tabs daily x 3 days, then 1 tab x 3 days to complete. 63 tabs 0RF 18 days Coding Level of Care Code Est Pt Level 4 (94535) Diagnoses Severe persistent asthma with acute exacerbation J45.51 Asthma complication type: with acute exacerbation Asthma persistence: persistent Asthma severity: severe Asthma-COPD overlap syndrome J44.9 Vasomotor rhinitis J30.0 Congestive heart failure, unspecified HF chronicity, unspecified heart failure type I50.9 Heart failure chronicity: unspecified Heart failure type: unspecified Time Spent (min) 17
== END 2023-06-25 11:38 | disposition home or self-care (01) ==
PROVIDERS: PCP Pediatrics; Visit Provider Hospitalist
DX: J45.51 Severe persistent asthma with (acute) exacerbation (principal); J44.9 Chronic obstructive pulmonary disease, unspecified; J30.0 Vasomotor rhinitis; I50.9 Heart failure, unspecified
CPT/HCPCS: 99214

== ENCOUNTER 2023-08-01 11:09 | Outpatient (REF) | payer OTHER, SELFPAY ==
--- NOTE | ~2023-08-01 | XR_ITS ---
EXAMINATION: XR ANKLE, RIGHT CLINICAL INFORMATION: Lateral swelling COMPARISON: None available. TECHNIQUE: AP, lateral, and mortise views of the right ankle. FINDINGS: The mortise is intact. No fracture, dislocation or destructive process or radiopaque foreign body. Vascular calcifications are noted. There is a small plantar spur as well as minor spurring along the posterior calcaneus at the insertion of the Achilles tendon. There is a small joint effusion. XR/XR ankle RT min 3V IMPRESSION: Chronic-appearing changes. Small joint effusion. Degenerative change noted. No acute findings.
== END 2023-08-01 11:10 | disposition home or self-care (01) ==
LOC: HO.HHCX 11:09
PROVIDERS: Visit Provider Family Medicine
DX: M25.471 Effusion, right ankle (principal)
CPT/HCPCS: 73610

== ENCOUNTER 2023-08-01 15:00 | Outpatient (REF) | payer OTHER, SELFPAY | END 2023-08-01 15:01 | disposition home or self-care (01) | LOC: HO.HHCLNP 15:00 | PROVIDERS: Visit Provider Family Medicine | DX: M25.471 Effusion, right ankle (principal) | CPT/HCPCS: 87070; 87077; 87186; 87205 ==

== ENCOUNTER 2023-09-20 10:38 | Outpatient (AMB) | payer OTHER, SELFPAY ==
[2023-09-20 10:46] VITALS: BP 118/60; PULSE 64; O2SAT 97; BMI 21.6
--- NOTE | 2023-09-20 10:46 | MHC.OFFVIS ---
Vital Signs 09/20/23 10:46 Height 5 ft 4 in Weight 126 lb BMI 21.6 BP 118/60 Blood Pressure Location Lt brachial Position Sitting Pulse 64 Pulse Source Pulse Oximeter Pulse Oximetry (%) 97 Oxygen Delivery Method Room Air Intake Visit Reasons: COPD Sky [employer]er Required: No Allergies mirtazapine [From Remeron] Adverse Reaction (Verified 09/20/23 10:48) Weakness HPI Comments Details: The patient is a 78-year-old woman with known asthma COPD overlap syndrome who apparently started developing worsening respiratory symptoms for the last week. She has been using her nebulized therapy in addition to her short-acting beta agonist. However, she has not been using any maintenance inhalers. She has been noticing more coughing. Moderate severity. Nonproductive in nature. At this point with trying to minimize the use of steroids due to her diabetes. The patient has not had any recent x-rays or imaging. Her last chest x-ray was from [facility] December 04, 2017 demonstrating some areas of atelectasis. Her previous blood work demonstrated a low subclass 2 IgG. 01/14/2020 patient has a telephone visit. The patient has been having increasing shortness of breath. She has not been able to get her Bevespi covered. I believe is wonder going prior approval. She has tried and failed Anoro in the past. Currently she is getting budesonide via the nebulizer twice a day along with albuterol. She is also tolerating the Daliresp. She is having more issues with her balance and also tremors. She has been evaluated for Parkinson's. She has been falling numerous times. The family is been trying to keep her safe. In the meantime we did talk about the beta agonist causing tremors. Her, she needs her respiratory medications in order to improve her respiratory status. Her nebulizer is no longer working. She does use a nebulizer twice a day. I will request a new nebulizer through a [employer]. 05/16/2020 the patient is here for pulmonary follow-up visit. Since we last spoke the patient fell and she fractured her arm needed surgery in place. This area is healing apparently well. In addition to that the patient has had worsening respiratory symptoms. She was evaluated back in beginning of the month. She was treated with antibiotics however her conditionup being admitted briefly to [facility]. She had a chest x-ray demonstrating bilateral pleural effusions and what appeared to be cephalization and opacities at the bases more consistent with congestive heart failure. Her brain atretic peptide was approximately 3000. The patient also was found to be wheezy and she was treated with bronchodilators and also prednisone. Currently the patient has been discharged she is using her albuterolvia nebulizer to 4 times a day and has been using the Daliresp. She has also noticed weight loss and also decreased appetite. We talked about very decreasing the Daliresp to every other day when she feels better. In the meantime she is having significant wheezing on examination. I am reluctant to give her any prednisone at this time because of on her to have proper healing of her bone fracture. In the meantime will start antibiotics with azithromycin Saturday in the patient will start DuoNebs instead of albuterol 4 times a day. 06/13/2020 the patient is here for pulmonary follow-up visit. Overall she is doing better. She did now requiring prednisone. She did complete the antibiotics. She continues using the nebulizer 4 times a day. At this point the patient does not feel like she needs to that often. Therefore, will have her do a treatment in the morning with both budesonide and DuoNeb. Then later on the day she is able to use the DuoNeb as needed. She is continuing to use of Daliresp in addition to the singular at nighttime. At some point she may want to go back to inhaler therapy instead of the nebulizer. We will discuss this further during her next visit in 4 months. 10/31/2020 the patient is here for a pulmonary follow-up visit. Overall she is doing better. She has been off the prednisone. She has been tolerating the azithromycin 3 times a week. She has also been tolerating the Daliresp. Although she has been losing weight. Her appetite is down. She continue his respiratory therapy. She is using the budesonide and DuoNeb. She is currently not using the Stiolto. I did tell of the does okay as long she is using nebulized therapies at least twice a day. She also continues on the singular. The patient will be followed up with Cardiology soon and he can do an EKG. Otherwise she can have done an EKG in the hospital in order to make sure that she is tolerating the macrolide therapy without any worsening QT changes. The patient in the meantime will try to decrease the Daliresp due to the fact that she is losing weight has decreased appetite to every other day. Otherwise she will continue with her nebulized therapy and is okay for her to start the Stiolto. Will follow up in 6 months. 06/29/2021 the patient is here for a pulmonary follow-up visit. Since we last spoke she has developed chest discomfort she was taken to the [facility] ER where she was admitted to the hospital. When she was there she did have a chest x-ray that I personally reviewed demonstrating some mild perivascular congestion and small pleural effusion. Her brain atretic peptide was slightly elevated as well. She does not appear to be volume overloaded at this time. The patient has been on cardioprotective medications. From a COPD standpoint she has had some wheezing. She is responding very well to the azithromycin treating her for chronic bronchitis. However, now with the issues of underlying cardiac conditions will see about weaning her off it and she can follow up with Cardiology to make sure that she is stable. In the meantime I will give her half a does of prednisone just for 3 days to try to improve her volume status. 09/29/2021 the patient is here for a pulmonary follow-up visit. She recently did follow-up with Cardiology and apparently was noted to have a wheeze cardiac function and abnormal stress test. She will be undergoing a cardiac catheterization soon. In the meantime she continue was with respiratory therapy with good results. Has been tolerating the Daliresp. She continues use the Stiolto on a daily basis. During the last visit she did receive Lasix x3 days. Her volume status improved significantly. After that she did not require any additional diuretics. She is monitoring closely the sodium intake. She does complain of worsening productive cough with white phlegm. Uqgn-or-dbdrbnrd severity. She did come off the azithromycin. This is likely the reasoning why. However, in view of her cardiac issues will hold off on macrolide therapy as it can worsen her QT interval. 03/21/2022 the patient is here for a pulmonary follow-up visit. Since we last spoke the patient was admitted to the hospital with COVID. She was treated in the hospital for few days. While she was there she had a chest x-ray that was reassuring. Prior to that in January [address] she did have a CT scan of the chest demonstrating airspace disease and a masslike consolidation in the left lower lobe. She had significant inflammation. Upper she will need a follow-up CT scan in the near future. In the meantime she has had worsening cough and she was taken off the azithromycin. Initially she was taken off because she was having arrhythmias in addition to the fact that the azithromycin can worsen QT prolongation. But, since coming off the medication her respiratory status has been often she has required multiple evaluations for her COPD exacerbations. Therefore will place him back on the azithromycin but she needs to monitor with EKG. Will have an EKG ordered and she can just come in to the hospital next week and have an EKG while on the medicine. Will continue to follow serial EKGs while on the medicine. We can also increase Daliresp to daily since she is tolerating it. Unfortunately because she does have increased wheezing she will also need a small dose of prednisone. She does have diabetes so therefore her sugars do elevate will try just a small dose to see if we can maintain her relatively stable with a sugars. She does continue to use her nebulized therapy twice a day and also continues with her inhalers as prescribed. 06/01/2022 the patient is here for pulmonary follow-up visit. She just recently had worked ago. Followed she is feeling better. She is tolerating the azithromycin 3 times a week. We had done an EKG demonstrating normal QTC. In addition to that she is tolerating the higher dose Daliresp. She continues use the budesonide with the albuterol. Also using Stiolto. She does have some increased wheezing since arriving from [place]. Also has nasal drainage. Denies any fevers or chills. Otherwise she feels she is doing fairly good. No recent imaging studies to review. We did look at the EKG together. She does have a left bundle branch block. Explained to patient that this is something that is her baseline. 12/03/2022 the patient is here for pulmonary follow-up visit. The patient continues have asthma symptoms. Having to use her nebulizer up to 4 times a day a few weeks ago. Now she is down to twice a day. He continues on her respiratory therapy. She has been losing some weight sometimes she takes Daliresp every other day to minimize on the weight loss. She continues to follow closely with Cardiology. At this point she is on a maximize respiratory regimen but still only partially responding as she is still continues to be symptomatic. She does have wheezing on examination today. Therefore will do allergy testing and blood work to assess her candidacy for biologics. I do believe that she will do good on Dupixent. She did have an EKG she does have a left bundle branch block with the has not changed her QT interval is within normal limits. The patient will undergo blood working well assessed her candidacy for biologic therapy at this time we also talked about vaccines. The patient should get her hours the vaccine and also should be up today with her pneumonia vaccine. 03/05/2023 the patient is here for a pulmonary follow-up visit. She has a trip to [place] soon. She wants to make sure that she is doing okay before her trip. She is having increasing dyspnea symptoms and chest tightness and cough. Moderate severity. She has been using all her respiratory medications as prescribed which have been partially helpful. We did request blood work during the last visit to see if she would be a candidate for any biologic therapy. Her IgE level and allergy testing was all within normal limits and also her eosinophil levels were also within normal limits. Therefore she is not a candidate for most of the biologics although because her should come prednisone use she would benefit from Tezspire. The patient is having active wheezing at this time. I will send her additional prednisone to the pharmacy. She will continue with current respiratory regimen as prescribed. 06/25/2023 the patient is here for pulmonary follow-up visit. Since we last spoke she had to go to urgent care because she had worsening respiratory symptoms. Does about a week ago. She was placed on 40 mg prednisone for 5 days. Now she is done she is still having difficulty breathing. She required also prednisone back in March. The patient also already maximize her respiratory therapy and using her nebulizer and rescue medication several times a day. I do believe she had be a great candidate for biologic therapy. Unfortunately her insurance denied Tezspire. However, she does have an elevated eosinophil count of 300 and would benefit from Dupixent. Therefore will go ahead and request Dupixent at this time. In the meantime I will send her additional prednisone because she is still having significant wheezing on examination. She does continue to use her respiratory therapy as prescribed. The patient also should get a chest x-ray since she has been a while since her last 1. She will do that in the coming days. 09/20/2023 the patient is here for pulmonary follow-up visit. The patient has been doing fair. She did get the Dupixent approve however she has not started as of yet. We did call the pharmacy and will be ready to product picker. We did offer her to start the Dupixent today but she is concerned about going to the weekend. Therefore though schedule something next week. In the meantime the patient continues to use all her respiratory therapy with good effect. She has been responding well to Daliresp. However, she has had significant weight loss in therefore will going to have to stop it. She has no appetite. Hopefully her appetite improves once she comes off the Daliresp. She will continue the azithromycin for now. Once she starts the patient will try to simplify the respiratory regimen. She continues wheezing on examination. [facility] Medical History (Updated 03/05/23 @ 15:31 by Yon Jordan MD) Vasomotor rhinitis CHF (congestive heart failure) Bronchitis Anxiety Depression History of heart attack Hyperlipidemia Hypothyroidism Chronic gouty arthritis Diabetes HTN (hypertension) Asthma B12 deficiency Iron deficiency anemia COPD (chronic obstructive pulmonary disease) Surgical History Hx of cholecystectomy Hx of tubal ligation Family History Sister Diabetes Mother Diabetes Arthritis Asthma Social History (Updated 01/11/22 @ 10:03 by Rupali De La Cruz CMA) Household Members: None Housing: Apartment Are you a primary healthcare administrator to a significant other at home: No Do you presently have visiting nurse or other home services: No Alcohol intake: former Patient Tobacco Use Status: Former Tobacco user Tobacco use type: Cigarette Cigarette Packs Per Day: 1 service: No Current occupational status: unemployed Review of Systems Const Denies night sweats and Reports weight loss ENT Denies change in voice, Denies lip swelling, Denies mouth pain, Reports nasal congestion, Reports nasal discharge and Denies tongue swelling Card Denies chest pain and Reports dyspnea on exertion Resp Denies chest congestion, Reports cough, Reports dyspnea on exertion and Reports wheezing GI Denies abdominal pain Musc Denies no additional complaints Neuro Denies Neuro-related abnormal movements Psych Denies no additional complaints Ascencion/Lymph Denies easy bleeding and Denies lymphadenopathy Aller/Immun Denies lip swelling, Denies tongue swelling and Reports wheezing Physical Exam Vital Signs: Last Vital Signs Pulse 64 09/20/23 10:46 BP 118/60 09/20/23 10:46 Pulse Ox 97 09/20/23 10:46 Oxygen Delivery Method Room Air 09/20/23 10:46 BMI result Body Mass Index 21.6 Const General: alert Neck Neck: Yes normal visual inspection, Yes full ROM and Yes no lymphadenopathy Chest Chest palpation & inspection: normal inspection of the chest Resp Auscultation: rhonchi, wheezes and diminished lung sounds Cardio Rate: regular rate Rhythm: regular rhythm Heart sounds: S1 normal heart sound present and S2 normal heart sound present GI Palpation (GI): Soft to palpation and nontender Auscultation: normal bowel sounds Skin General skin exam: rashes and/or lesions noted Assessment & Plan Assessment & Plan (1) Asthma: Code(s): J45.909 - Unspecified asthma, uncomplicated Category: Medical Qualifiers: Asthma complication type: with acute exacerbation Asthma persistence: persistent Asthma severity: severe Qualified Code(s): J45.51 - Severe persistent asthma with (acute) exacerbation (2) Asthma-COPD overlap syndrome: Code(s): J44.9 - Chronic obstructive pulmonary disease, unspecified Category: Medical (3) Vasomotor rhinitis: Code(s): J30.0 - Vasomotor rhinitis Category: Medical (4) CHF (congestive heart failure): Code(s): I50.9 - Heart failure, unspecified Category: Medical Qualifiers: Heart failure chronicity: unspecified Heart failure type: unspecified Qualified Code(s): I50.9 - Heart failure, unspecified Plan start Dupixent stop Daliresp continue azithromycin MWF Budesonide BID Duoneb BID continue Stiolto daily Continue Singulair Ipratropiun nasal spray Trazadone for sleep F/U 3-4 month Coding Level of Care Code Est Pt Level 4 (05316) Diagnoses Severe persistent asthma with acute exacerbation J45.51 Asthma complication type: with acute exacerbation Asthma persistence: persistent Asthma severity: severe Asthma-COPD overlap syndrome J44.9 Vasomotor rhinitis J30.0 Congestive heart failure, unspecified HF chronicity, unspecified heart failure type I50.9 Heart failure chronicity: unspecified Heart failure type: unspecified Time Spent (min) 17
== END 2023-09-20 11:09 | disposition home or self-care (01) ==
PROVIDERS: PCP Pediatrics; Visit Provider Hospitalist
DX: J45.51 Severe persistent asthma with (acute) exacerbation (principal); J44.9 Chronic obstructive pulmonary disease, unspecified; J30.0 Vasomotor rhinitis; I50.9 Heart failure, unspecified
CPT/HCPCS: 99214

== ENCOUNTER → 2023-09-20 10:38 | Outpatient (BNVA) | payer OTHER, SELFPAY | PROVIDERS: PCP Pediatrics; Visit Provider Hospitalist | DX: J45.51 Severe persistent asthma with (acute) exacerbation (principal); J44.9 Chronic obstructive pulmonary disease, unspecified; I30.0 Acute nonspecific idiopathic pericarditis; I50.9 Heart failure, unspecified | CPT/HCPCS: 99212 ==

== ENCOUNTER 2023-11-05 13:45 | Outpatient (AMB) | payer OTHER, SELFPAY ==
[2023-11-05 14:06] VITALS: BP 120/54; PULSE 57; O2SAT 97; BMI 20.8
--- NOTE | 2023-11-05 14:06 | A.OFFVIS_ITS ---
Vital Signs 11/05/23 14:06 Height 5 ft 4 in Weight 121 lb BMI 20.8 BP 120/54 L Blood Pressure Location Rt brachial Position Sitting Pulse 57 Pulse Source Pulse Oximeter Pulse Oximetry (%) 97 Oxygen Delivery Method Room Air Intake Visit Reasons: Cough/Chest Discomfort Allergies mirtazapine [From Remeron] Adverse Reaction (Verified 11/05/23 14:10) Weakness HPI HPI Cough/Chest Discomfort: Details: is a pleasant 78 year old female, former smoker, with underlying asthma COPD overlap syndrome, CHF, DMII and h/o [place]. She is under the care of Dr. Jordan and presents for an acute visit. She is moderately controlled on current regimen of Stiolto, DuoNeb PRN, budesonide neb, Singulair, ipratropium nasal spray, and suppressive azithromycin MWF. She reports worsening chest congestion, productive cough, intermittent wheezing and chest tightness for the past week. She denies fever, chills or sick contacts. [facility] Medical History (Updated 03/05/23 @ 15:31 by Yon Jordan MD) Vasomotor rhinitis CHF (congestive heart failure) Bronchitis Anxiety Depression History of heart attack Hyperlipidemia Hypothyroidism Chronic gouty arthritis Diabetes HTN (hypertension) Asthma B12 deficiency Iron deficiency anemia COPD (chronic obstructive pulmonary disease) Surgical History Hx of cholecystectomy Hx of tubal ligation Family History Sister Diabetes Mother Diabetes Arthritis Asthma Social History Household Members: None Housing: Apartment Are you a primary women's health care nurse practitioner to a significant other at home: No Do you presently have visiting nurse or other home services: No Alcohol intake: former Patient Tobacco Use Status: Former Tobacco user Tobacco use type: Cigarette Cigarette Packs Per Day: 1 service: No Current occupational status: unemployed Review of Systems Const Denies chills, Denies excessive sweating, Denies fever(s), Denies headache(s) and Denies night sweats Eyes Denies dry eyes, Denies irritation and Denies itchy eyes ENT Reports Normal hearing present and Denies headache(s) Card Denies chest pain, Denies chest pain at rest, Denies chest pain with activity, Denies claudication, Denies leg edema, Denies orthopnea and Denies paroxysmal nocturnal dyspnea Resp Denies excessive phlegm production, Denies pain on inspiration, Denies pain with cough and Denies stridor Musc Denies myalgias Neuro Reports Normal hearing present and Denies headache(s) Endo Denies excessive sweating Ascencion/Lymph Denies lymphadenopathy Aller/Immun Denies itchy eyes and Denies seasonal rhinorrhea Physical Exam Vital Signs: Last Vital Signs Pulse 57 11/05/23 14:06 BP 120/54 L 11/05/23 14:06 Pulse Ox 97 11/05/23 14:06 Oxygen Delivery Method Room Air 11/05/23 14:06 BMI result Body Mass Index 20.8 Const General: cooperative, no acute distress, well developed and alert Orientation/consciousness: patient oriented x3 Limitations: no limitations HEENT Head: Yes normal to inspection, Yes normocephalic and Yes atraumatic Ears: hearing grossly normal bilaterally and external ears normal Eyes General: appearance normal, both eyes and all related structures Eyelids: Yes eyelids normal Sclerae: sclerae normal EOM: EOMs intact bilaterally Neck Neck: Yes normal visual inspection and Yes no lymphadenopathy Lymphatic: no lymphadenopathy noted Chest Chest palpation & inspection: normal inspection of the chest Resp Other: diminished lung sounds with expiratory wheezes and rhonchi throughout, mildly improved with duoneb Effort & Inspection: normal respiratory effort, able to speak in complete sentences, no audible wheezes, no stridor, not tachypneic, no tripod positioning and no use of accessory muscles Cardio Jugular venous distension: no JVD Rate: regular rate Rhythm: regular rhythm Skin Other: warm, dry General skin exam: no rashes or lesions noted Neuro General: patient oriented x3 Cranial nerves: Yes Normal hearing present Cognition (Neuro): normal cognition Gait exam (Neuro): Normal gait present Extrem General: Yes normal to inspection, Yes capillary refill normal, Yes no clubbing, cyanosis or edema and Yes no pedal edema Psych Appearance: grossly normal and well kempt Speech and movement: Normal speech and movement present and Clear speech present Affect: normal affect Attitude: cooperative Thought process: Normal thought process present Thought content: Normal thought content present Insight: Good insight present (Psych) Judgement: Good judgement present (Psych) Office Procedures Nebulizer Treatment Nebulizer Treatment 13720-Gmeudibtw/MDI RX initial, or Nebulizer Subsequent Treatment Office Meds ipratropium 0.5 mg-albuterol 3 mg (2.5 mg base)/3 mL nebulization lyubov Performing Provider: Viktoriya Walker NP [place] [facility] Administered by: Megan Falcon LPN on 11/05/23 15:14 Dose Route Admin Location Dispensed Lot Number Expiration Date [facility] Women'S Health Care Nurse Practitioner 3 mL inhalation 3 mL [id number] 06/01/25 66231-366-98 [employer] Assessment & Plan Assessment & Plan (1) Asthma-COPD overlap syndrome: Code(s): J44.9 - Chronic obstructive pulmonary disease, unspecified Category: Medical Plan Will treat bronchitic symptoms and asthma exacerbation with prednisone. Nebulizer given in office with moderate improvements. She is aware to stop supressive azithromycin while taking doxycycline and restart once completed. Aware if symptoms do not improve to call office and if worsen seek emergent care. If symptoms do not improve will send for CXR. All questions were answered and patient is in agreement of plan. Will follow up with Dr. Jordan for regularly scheduled appointment. Orders: Orders AMB Nebulizer Treatment 11/05/23 J44.9 - Chronic obstructive pulmonary disease, unspecified Medications: New doxycycline hyclate 100 mg PO BID 14 caps 0RF prednisone 40 mg x 5 days followed by 20 mg x 5 days 40 mg (2 x 20 mg) PO DAILY 15 tabs 0RF Discontinued roflumilast (Daliresp) Discontinued Reason: Patient Completed Course 500 mcg PO DAILY 90 days 90 tabs 3RF Coding Level of Care Code Est Pt Level 4 (54003) Diagnoses Asthma-COPD overlap syndrome J44.9 CPT Codes Nebulizer Treatment - Nebulizer Treatment, initial or subsequent: 42929- Nebulizer/MDI RX initial, or Nebulizer Subsequent Treatment ([id number])
== END 2023-11-05 15:38 | disposition home or self-care (01) ==
PROVIDERS: PCP Pediatrics; Visit Provider Nurse Practitioner Family
DX: J44.9 Chronic obstructive pulmonary disease, unspecified (principal)
CPT/HCPCS: 99214

== ENCOUNTER → 2023-11-05 13:45 | Outpatient (BNVA) | payer OTHER, SELFPAY | PROVIDERS: PCP Pediatrics; Visit Provider Nurse Practitioner Family | DX: J44.9 Chronic obstructive pulmonary disease, unspecified (principal) | CPT/HCPCS: 94640; 99212 ==

== ENCOUNTER 2023-11-29 09:45 | Outpatient (REF) | payer OTHER, SELFPAY ==
--- NOTE | ~2023-11-29 | XR_ITS ---
EXAMINATION: XR HIP, RIGHT CLINICAL INFORMATION: pain after fall COMPARISON: None available. TECHNIQUE: Two views of the right hip. FINDINGS: No fracture, dislocation, or suspicious bone lesion. Normal alignment of the hip. 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 There is an overriding acetabulum present suggesting pincer-type JOSE LUIS. There are mild degenerative hip joint changes. Remainder of the bony structures appear normal. Soft tissues demonstrate early vascular calcifications but are otherwise normal. XR/XR hip RT min 2V IMPRESSION: 1. No acute fracture or dislocation. 2. 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 3. 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 Electronically signed by: Timur Moran MD 02/07/2024 02:23 PM GARRY SOLOMON
== END 2023-11-29 09:46 | disposition home or self-care (01) ==
LOC: HO.XRAY 09:45
PROVIDERS: PCP Pediatrics; Visit Provider Internal Medicine
DX: M25.551 Pain in right hip (principal)
CPT/HCPCS: 73502

== ENCOUNTER → 2023-11-29 09:50 | Outpatient (BNV) | payer OTHER, SELFPAY | PROVIDERS: PCP Pediatrics; Visit Provider Radiology Diagnostic Radiology | DX: M87.851 Other osteonecrosis, right femur (principal) | CPT/HCPCS: 73502 ==

== ENCOUNTER 2023-12-05 11:38 | Outpatient (REF) | payer OTHER, SELFPAY ==
[2023-12-05 14:07] LABS: MANUAL DIFF FLAG NO
[2023-12-05 14:18] LABS: Basophils Absolute Auto 0.1 X10*3/uL (0.0-0.2); Basophils Percent Auto 0.5 % (0-2); Eosinophils Absolute Auto 0.4 X10*3/uL (0.0-0.4); Eosinophils Percent Auto 3.6 % (0-4); Hematocrit 38.6 % (37.0-47.0); Hemoglobin 12.3 g/dl (12.0-16.0); Imm Gran Abs Auto 0.05 X10*3/uL (0.00-0.03); Imm Gran Pct Auto 0.5 % (0.0-0.4); Lymphocytes Absolute Auto 3.1 X10*3/uL (1.2-4.9); Lymphocytes Percent Auto 32.1 % (20-40); Mean Corpuscular HGB Conc 31.9 g/dl (31.0-35.0); Mean Corpuscular Hemoglobin 26.7 pg (27.0-33.0); Mean Corpuscular Volume 83.7 fL (80.0-98.0); Mean Platelet Volume 9.3 fL (9.4-12.3); Monocytes Absolute Auto 0.8 X10*3/uL (0.1-1.2); Neutrophils Absolute Auto 5.4 x10*3/uL (2.0-8.3); Neutrophils Percent Auto 55.3 % (45-73); Platelet Count 577 X10*3/uL (160-400); Red Blood Count 4.61 X10*6/uL (4.20-5.50); Red Cell Distribution Width 16.1 % (11.0-16.0); White Blood Count 9.7 X10*3/uL (4.8-10.8)
[2023-12-05 14:41] LABS: Alanine Aminotransferase 14 U/L (0-31); Albumin Level 3.7 g/dL (3.5-5.0); Alkaline Phosphatase 100 U/L (39-117); Anion Gap 14 (12-20); Aspartate Amino Transferase 19 U/L (5-31); Bilirubin Direct < 0.2 mg/dL (0.0-0.5); Bilirubin Total 0.2 mg/dL (0.0-1.0); Blood Urea Nitrogen 19 mg/dL (9-16); Calcium 10.2 mg/dL (8.4-10.2); Carbon Dioxide 27 mmol/L (22-29); Chloride 104 mmol/L (96-108); Estimated Glomerular Filt Rate 42; Glucose Random 158 mg/dL (60-115); Potassium 5.6 mmol/L (3.3-5.1); Sodium 139 mmol/L (135-145)
[2023-12-05 14:48] LABS: TSH reflex Free T4 4.07 uIU/mL (0.32-4.0)
[2023-12-05 15:00] LABS: Folate 9.9 ng/mL (> or = 4.0); Vitamin B12 337 pg/mL (200-900)
[2023-12-05 15:40] LABS: Free T4 (Free Thyroxine) 1.11 ng/dL (0.71-1.85)
[2023-12-06 08:12] LABS: Syphilis Screen Reactive (Nonreactive)
[2023-12-13 15:30] LABS: RPR Quantitative Non-Reactive (Nonreactive); T.Pallidum Particle Agg Test Reactive (Nonreactive)
== END 2023-12-05 11:39 | disposition home or self-care (01) ==
LOC: HO.CHCLDS 11:38
PROVIDERS: Visit Provider Pediatrics
DX: M81.0 Age-related osteoporosis without current pathological fracture (principal); J41.8 Mixed simple and mucopurulent chronic bronchitis; Z23 Encounter for immunization; R41.3 Other amnesia
CPT/HCPCS: 36415; 80048; 80076; 82607; 82746; 84439; 84443; 85025; 86592; 86780

== ENCOUNTER 2023-12-18 09:04 | Outpatient (AMB) | payer OTHER, SELFPAY ==
[2023-12-18 09:13] VITALS: BP 124/60; PULSE 62; O2SAT 98; BMI 21.0
--- NOTE | 2023-12-18 09:13 | A.OFFVIS_ITS ---
Vital Signs 12/18/23 09:13 Height 5 ft 4 in Weight 122 lb 5.705 oz BMI 21.0 BP 124/60 Blood Pressure Location Lt brachial Position Sitting Pulse 62 Pulse Source Pulse Oximeter Pulse Oximetry (%) 98 Oxygen Delivery Method Room Air Intake Visit Reasons: COPD Avionic Technician Required: No Allergies No Known Allergies Allergy (Verified 12/18/23 09:18) HPI Comments Details: The patient is a 78-year-old woman with known asthma COPD overlap syndrome who apparently started developing worsening respiratory symptoms for the last week. She has been using her nebulized therapy in addition to her short-acting beta agonist. However, she has not been using any maintenance inhalers. She has been noticing more coughing. Moderate severity. Nonproductive in nature. At this point with trying to minimize the use of steroids due to her diabetes. The patient has not had any recent x-rays or imaging. Her last chest x-ray was from [facility] December 04, 2017 demonstrating some areas of atelectasis. Her previous blood work demonstrated a low subclass 2 IgG. 01/14/2020 patient has a telephone visit. The patient has been having increasing shortness of breath. She has not been able to get her Bevespi covered. I believe is wonder going prior approval. She has tried and failed Anoro in the past. Currently she is getting budesonide via the nebulizer twice a day along with albuterol. She is also tolerating the Daliresp. She is having more issues with her balance and also tremors. She has been evaluated for Parkinson's. She has been falling numerous times. The family is been trying to keep her safe. In the meantime we did talk about the beta agonist causing tremors. Her, she needs her respiratory medications in order to improve her respiratory status. Her nebulizer is no longer working. She does use a nebulizer twice a day. I will request a new nebulizer through a [employer], [employer]. 05/16/2020 the patient is here for pulmonary follow-up visit. Since we last spoke the patient fell and she fractured her arm needed surgery in place. This area is healing apparently well. In addition to that the patient has had worsening respiratory symptoms. She was evaluated back in beginning of the month. She was treated with antibiotics however her conditionup being admitted briefly to [facility]. She had a chest x-ray demonstrating bilateral pleural effusions and what appeared to be cephalization and opacities at the bases more consistent with congestive heart failure. Her brain atretic peptide was approximately 3000. The patient also was found to be wheezy and she was treated with bronchodilators and also prednisone. Currently the patient has been discharged she is using her albuterolvia nebulizer to 4 times a day and has been using the Daliresp. She has also noticed weight loss and also decreased appetite. We talked about very decreasing the Daliresp to every other day when she feels better. In the meantime she is having significant wheezing on examination. I am reluctant to give her any prednisone at this time because of on her to have proper healing of her bone fracture. In the meantime will start antibiotics with azithromycin Saturday in the patient will start DuoNebs instead of albuterol 4 times a day. 06/13/2020 the patient is here for pulmonary follow-up visit. Overall she is doing better. She did now requiring prednisone. She did complete the antibiotics. She continues using the nebulizer 4 times a day. At this point the patient does not feel like she needs to that often. Therefore, will have her do a treatment in the morning with both budesonide and DuoNeb. Then later on the day she is able to use the DuoNeb as needed. She is continuing to use of Daliresp in addition to the singular at nighttime. At some point she may want to go back to inhaler therapy instead of the nebulizer. We will discuss this further during her next visit in 4 months. 10/31/2020 the patient is here for a pulmonary follow-up visit. Overall she is doing better. She has been off the prednisone. She has been tolerating the azithromycin 3 times a week. She has also been tolerating the Daliresp. Although she has been losing weight. Her appetite is down. She continue his respiratory therapy. She is using the budesonide and DuoNeb. She is currently not using the Stiolto. I did tell of the does okay as long she is using nebulized therapies at least twice a day. She also continues on the singular. The patient will be followed up with Cardiology soon and he can do an EKG. Otherwise she can have done an EKG in the hospital in order to make sure that she is tolerating the macrolide therapy without any worsening QT changes. The patient in the meantime will try to decrease the Daliresp due to the fact that she is losing weight has decreased appetite to every other day. Otherwise she will continue with her nebulized therapy and is okay for her to start the Stiolto. Will follow up in 6 months. 06/29/2021 the patient is here for a pulmonary follow-up visit. Since we last spoke she has developed chest discomfort she was taken to the [facility] ER where she was admitted to the hospital. When she was there she did have a chest x-ray that I personally reviewed demonstrating some mild perivascular congestion and small pleural effusion. Her brain atretic peptide was slightly elevated as well. She does not appear to be volume overloaded at this time. The patient has been on cardioprotective medications. From a COPD standpoint she has had some wheezing. She is responding very well to the azithromycin treating her for chronic bronchitis. However, now with the issues of underlying cardiac conditions will see about weaning her off it and she can follow up with Cardiology to make sure that she is stable. In the meantime I will give her half a does of prednisone just for 3 days to try to improve her volume status. 09/29/2021 the patient is here for a pulmonary follow-up visit. She recently did follow-up with Cardiology and apparently was noted to have a wheeze cardiac function and abnormal stress test. She will be undergoing a cardiac catheterization soon. In the meantime she continue was with respiratory therapy with good results. Has been tolerating the Daliresp. She continues use the Stiolto on a daily basis. During the last visit she did receive Lasix x3 days. Her volume status improved significantly. After that she did not require any additional diuretics. She is monitoring closely the sodium intake. She does complain of worsening productive cough with white phlegm. [id number] severity. She did come off the azithromycin. This is likely the reasoning why. However, in view of her cardiac issues will hold off on macrolide therapy as it can worsen her QT interval. 03/21/2022 the patient is here for a pulmonary follow-up visit. Since we last spoke the patient was admitted to the hospital with COVID. She was treated in the hospital for few days. While she was there she had a chest x-ray that was reassuring. Prior to that in January [address] she did have a CT scan of the chest demonstrating airspace disease and a masslike consolidation in the left lower lobe. She had significant inflammation. Upper she will need a follow-up CT scan in the near future. In the meantime she has had worsening cough and she was taken off the azithromycin. Initially she was taken off because she was having arrhythmias in addition to the fact that the azithromycin can worsen QT prolongation. But, since coming off the medication her respiratory status has been often she has required multiple evaluations for her COPD exacerbations. Therefore will place him back on the azithromycin but she needs to monitor with EKG. Will have an EKG ordered and she can just come in to the hospital next week and have an EKG while on the medicine. Will continue to follow serial EKGs while on the medicine. We can also increase Daliresp to daily since she is tolerating it. Unfortunately because she does have increased wheezing she will also need a small dose of prednisone. She does have diabetes so therefore her sugars do elevate will try just a small dose to see if we can maintain her relatively stable with a sugars. She does continue to use her nebulized therapy twice a day and also continues with her inhalers as prescribed. 06/01/2022 the patient is here for pulmonary follow-up visit. She just recently had worked ago. Followed she is feeling better. She is tolerating the azithromycin 3 times a week. We had done an EKG demonstrating normal QTC. In addition to that she is tolerating the higher dose Daliresp. She continues use the budesonide with the albuterol. Also using Stiolto. She does have some increased wheezing since arriving from [place]. Also has nasal drainage. Denies any fevers or chills. Otherwise she feels she is doing fairly good. No recent imaging studies to review. We did look at the EKG together. She does have a left bundle branch block. Explained to patient that this is something that is her baseline. 12/03/2022 the patient is here for pulmonary follow-up visit. The patient continues have asthma symptoms. Having to use her nebulizer up to 4 times a day a few weeks ago. Now she is down to twice a day. He continues on her respiratory therapy. She has been losing some weight sometimes she takes Daliresp every other day to minimize on the weight loss. She continues to follow closely with Cardiology. At this point she is on a maximize respiratory regimen but still only partially responding as she is still continues to be symptomatic. She does have wheezing on examination today. Therefore will do allergy testing and blood work to assess her candidacy for biologics. I do believe that she will do good on Dupixent. She did have an EKG she does have a left bundle branch block with the has not changed her QT interval is within normal limits. The patient will undergo blood working well assessed her candidacy for biologic therapy at this time we also talked about vaccines. The patient should get her hours the vaccine and also should be up today with her pneumonia vaccine. 03/05/2023 the patient is here for a pulmonary follow-up visit. She has a trip to [place] soon. She wants to make sure that she is doing okay before her trip. She is having increasing dyspnea symptoms and chest tightness and cough. Moderate severity. She has been using all her respiratory medications as prescribed which have been partially helpful. We did request blood work during the last visit to see if she would be a candidate for any biologic therapy. Her IgE level and allergy testing was all within normal limits and also her eosinophil levels were also within normal limits. Therefore she is not a candidate for most of the biologics although because her should come prednisone use she would benefit from Tezspire. The patient is having active wheezing at this time. I will send her additional prednisone to the pharmacy. She will continue with current respiratory regimen as prescribed. 06/25/2023 the patient is here for pulmonary follow-up visit. Since we last spoke she had to go to urgent care because she had worsening respiratory symptoms. Does about a week ago. She was placed on 40 mg prednisone for 5 days. Now she is done she is still having difficulty breathing. She required also prednisone back in March. The patient also already maximize her respiratory therapy and using her nebulizer and rescue medication several times a day. I do believe she had be a great candidate for biologic therapy. Unfortunately her insurance denied Tezspire. However, she does have an elevated eosinophil count of 300 and would benefit from Dupixent. Therefore will go ahead and request Dupixent at this time. In the meantime I will send her additional prednisone because she is still having significant wheezing on examination. She does continue to use her respiratory therapy as prescribed. The patient also should get a chest x-ray since she has been a while since her last 1. She will do that in the coming days. 09/20/2023 the patient is here for pulmonary follow-up visit. The patient has been doing fair. She did get the Dupixent approve however she has not started as of yet. We did call the pharmacy and will be ready to fern picker. We did offer her to start the Dupixent today but she is concerned about going to the weekend. Therefore though schedule something next week. In the meantime the patient continues to use all her respiratory therapy with good effect. She has been responding well to Daliresp. However, she has had significant weight loss in therefore will going to have to stop it. She has no appetite. Hopefully her appetite improves once she comes off the Daliresp. She will con tinue the azithromycin for now. Once she starts the patient will try to simplify the respiratory regimen. She continues wheezing on examination. 12/18/2023 the patient is here for a pulmonary follow-up visit. The patient is doing okay. She is reluctant to start the Dupixent. I did encourage her to started so she can see how effective it is going to be. I do believe that the Dupixent very effective for and she will need as much steroids. She has been concerned because she has already injecting a lot of different things including her insulins and her pinprick. She will think about it for now. She rather go back on Daliresp. I will resend to the pharmacy. She is going to monitor closely for any weight loss or decreased appetite. In addition to that she continues with the azithromycin 3 times a week. She is going to go on a trip to [place]. I will give her some prednisone to take with her. No recent x-rays to review at this time. The patient will return in 3-4 months and will will discuss the whole issue with the biologic therapy. She did have x- rays of her hip because she is having hip pain after a fall. She is going to follow-up with orthopedics for that. [facility] Medical History (Updated 03/05/23 @ 15:31 by Yon Jordan MD) Vasomotor rhinitis CHF (congestive heart failure) Bronchitis Anxiety Depression History of heart attack Hyperlipidemia Hypothyroidism Chronic gouty arthritis Diabetes HTN (hypertension) Asthma B12 deficiency Iron deficiency anemia COPD (chronic obstructive pulmonary disease) Surgical History Hx of cholecystectomy Hx of tubal ligation Family History Sister Diabetes Mother Diabetes Arthritis Asthma Social History Household Members: None Housing: Apartment Are you a primary animal care technician to a significant other at home: No Do you presently have visiting nurse or other home services: No Alcohol intake: former Patient Tobacco Use Status: Former Tobacco user Tobacco use type: Cigarette Cigarette Packs Per Day: 1 service: No Current occupational status: unemployed Review of Systems Const Denies night sweats and Reports weight loss ENT Denies change in voice, Denies lip swelling, Denies mouth pain, Reports nasal congestion, Reports nasal discharge and Denies tongue swelling Card Denies chest pain and Reports dyspnea on exertion Resp Denies chest congestion, Reports cough, Reports dyspnea on exertion and Reports wheezing GI Denies abdominal pain Musc Denies no additional complaints Neuro Denies Neuro-related abnormal movements Psych Denies no additional complaints Ascencion/Lymph Denies easy bleeding and Denies lymphadenopathy Aller/Immun Denies lip swelling, Denies tongue swelling and Reports wheezing Physical Exam Vital Signs: Last Vital Signs Pulse 62 12/18/23 09:13 BP 124/60 12/18/23 09:13 Pulse Ox 98 12/18/23 09:13 Oxygen Delivery Method Room Air 12/18/23 09:13 BMI result Body Mass Index 21.0 Const General: alert Neck Neck: Yes normal visual inspection, Yes full ROM and Yes no lymphadenopathy Chest Chest palpation & inspection: normal inspection of the chest Resp Auscultation: no rhonchi, wheezes and diminished lung sounds Cardio Rate: regular rate Rhythm: regular rhythm Heart sounds: S1 normal heart sound present and S2 normal heart sound present GI Palpation (GI): Soft to palpation and nontender Auscultation: normal bowel sounds Skin General skin exam: rashes and/or lesions noted Assessment & Plan Assessment & Plan (1) Asthma: Code(s): J45.909 - Unspecified asthma, uncomplicated Category: Medical Qualifiers: Asthma complication type: with acute exacerbation Asthma persistence: persistent Asthma severity: severe Qualified Code(s): J45.51 - Severe persistent asthma with (acute) exacerbation (2) Asthma-COPD overlap syndrome: Code(s): J44.9 - Chronic obstructive pulmonary disease, unspecified Category: Medical (3) Vasomotor rhinitis: Code(s): J30.0 - Vasomotor rhinitis Category: Medical (4) CHF (congestive heart failure): Code(s): I50.9 - Heart failure, unspecified Category: Medical Qualifiers: Heart failure chronicity: unspecified Heart failure type: unspecified Qualified Code(s): I50.9 - Heart failure, unspecified Plan consider Dupixent, she should try it Restart Daliresp continue azithromycin MWF Budesonide BID Duoneb BID continue Stiolto daily Continue Singulair Ipratropiun nasal spray Trazadone for sleep F/U 4-6 month Medications: New roflumilast (Daliresp) 500 mcg PO DAILY 30 tabs 0RF 30 days prednisone PO daily; Take 6 tabs daily x 3 days, then 5 tabs x 3 days, then 4 tabs x 3 days, then 3 tabs x 3 days, then 2 tabs daily x 3 days, then 1 tab x 3 days to complete. 63 tabs 0RF 18 days Coding Level of Care Code Est Pt Level 4 (05924) Diagnoses Severe persistent asthma with acute exacerbation J45.51 Asthma complication type: with acute exacerbation Asthma persistence: persistent Asthma severity: severe Asthma-COPD overlap syndrome J44.9 Vasomotor rhinitis J30.0 Congestive heart failure, unspecified HF chronicity, unspecified heart failure type I50.9 Heart failure chronicity: unspecified Heart failure type: unspecified Time Spent (min) 16
== END 2023-12-18 09:38 | disposition home or self-care (01) ==
PROVIDERS: PCP Pediatrics; Visit Provider Hospitalist
DX: J45.51 Severe persistent asthma with (acute) exacerbation (principal); J44.9 Chronic obstructive pulmonary disease, unspecified; J30.0 Vasomotor rhinitis; I50.9 Heart failure, unspecified
CPT/HCPCS: 99214

== ENCOUNTER → 2023-12-18 09:04 | Outpatient (BNVA) | payer OTHER, SELFPAY | PROVIDERS: PCP Pediatrics; Visit Provider Hospitalist | DX: J45.51 Severe persistent asthma with (acute) exacerbation (principal); J44.9 Chronic obstructive pulmonary disease, unspecified; J30.0 Vasomotor rhinitis; I50.9 Heart failure, unspecified | CPT/HCPCS: 99212 ==

== ENCOUNTER 2024-01-14 14:30 | Outpatient (REF) | payer OTHER, SELFPAY | END 2024-01-14 14:31 | disposition home or self-care (01) | LOC: HO.HOSX 14:30 | PROVIDERS: Visit Provider Physician Assistant | DX: Z13.89 Encounter for screening for other disorder (principal) ==

== ENCOUNTER 2024-01-16 13:29 | Outpatient (REF) | payer OTHER, SELFPAY | END 2024-01-16 13:30 | disposition home or self-care (01) | LOC: HO.CT 13:29 | PROVIDERS: PCP Pediatrics; Visit Provider Pediatrics | DX: R41.3 Other amnesia (principal); E11.9 Type 2 diabetes mellitus without complications; Z79.4 Long term (current) use of insulin | CPT/HCPCS: 70450 ==

== ENCOUNTER 2024-01-28 09:24 | Outpatient (AMB) | payer OTHER, SELFPAY ==
--- NOTE | 2024-01-28 09:28 | MHC.OFFVIS ---
Vital Signs 01/28/24 09:41 Height 5 ft 4 in Weight 122 lb BMI 20.9 Intake Visit Reasons: New Pt - Right hip pain, DOI 11/27/23 Intake Note: a 78 year old female who presents today for a new patient evaluation of right hip, DOI 11/27/23. Patient reports that she had a slip and fall on her right side a few months ago. She was seen by her PCP who ordered x-rays and referred to orthopedics. Currently she is doing much better, states having intermittent mild pain at the posterior aspect of hip. States a tingling sensation in her hip. Travel Registered Nurse Icu Required: Yes Travel Registered Nurse Icu Services: Travel Registered Nurse Icu Offered & Declined Accompanied by: Daughter Allergies No Known Allergies Allergy (Verified 01/28/24 09:42) HPI HPI New Pt - Right hip pain, DOI 11/27/23: Details: 78-year-old female who presents to the office today with an global program director for an evaluation of right hip injury after she slipped and fell on her right side, 11/27/23. She was seen by her PCP who ordered x-rays and referred her to our office. She currently states she has improvement however she continues to have intermittent pain and tingling sensation at the posterior aspect of her bilateral hips that is worse on her right hip. Her pain is aggravated with ambulation. She has not had any other treatment. She uses a walker and a cane for support. [facility] Medical History (Updated 01/28/24 @ 09:53 by Jeferson Roman PA-C) Vasomotor rhinitis CHF (congestive heart failure) Bronchitis Anxiety Depression History of heart attack Hyperlipidemia Hypothyroidism Chronic gouty arthritis Diabetes HTN (hypertension) Asthma B12 deficiency Iron deficiency anemia COPD (chronic obstructive pulmonary disease) Surgical History Hx of cholecystectomy Hx of tubal ligation Family History Sister Diabetes Mother Diabetes Arthritis Asthma Social History Household Members: None Housing: Apartment Are you a primary administrator health care facility to a significant other at home: No Do you presently have visiting nurse or other home services: No Alcohol intake: former Patient Tobacco Use Status: Former Tobacco user Tobacco use type: Cigarette Cigarette Packs Per Day: 1 service: No Current occupational status: unemployed Review of Systems Const All systems reviewed & are unremarkable except as noted in HPI and below Physical Exam Vital Signs: BMI result Body Mass Index 20.9 Const General: cooperative, healthy appearing, comfortable, no acute distress, well developed and alert Orientation/consciousness: patient oriented x3 HEENT Head: Yes normal to inspection, Yes normocephalic and Yes atraumatic Eyes General: appearance normal, both eyes and all related structures Resp Effort & Inspection: normal respiratory effort and able to speak in complete sentences Cardio Rate: regular rate Peripheral pulses: Peripheral pulses 2+ throughout GI Palpation (GI): Soft to palpation Skin Lesions: no lesions Rashes: no rashes Neuro General: patient oriented x3 Extrem Other: Right hip: Normal to inspection. No pain with ROM of the hip. Pain along the greater trochanter. No pain with hip flexion or abduction. Negative tenderness along the SI joint, Negative SLR. NVI. Results Reviewed Results Reviewed: xrays of the right hip obtained on 11/29/23 show mild oa Assessment & Plan Assessment & Plan (1) Trochanteric bursitis, right hip: Code(s): M70.61 - Trochanteric bursitis, right hip Category: Medical (2) Osteoarthritis of right hip: Code(s): M16.11 - Unilateral primary osteoarthritis, right hip Category: Medical Plan We discussed options which include PT, NSAIDs and injections. The patient will defer on the injection today and proceed with PT and NSAIDs. I did send a prescription of Celebrex to her pharmacy. If symptoms persist, she will contact me for an injection, otherwise, PRN. Orders: Orders PT Evaluation and Treatment Today M16.11 - Unilateral primary osteoarthritis, right hip, M70.61 - Trochanteric bursitis, right hip Medications: New celecoxib (Celebrex) 200 mg PO BID 60 caps 3RF 30 days Patient Instructions: Scribed for Jeferson Roman PA-C, by Lobo Curiel medical doctor md/medical director, on 01/28/2024 at 9:45 AM EST.? I, Jeferson Roman PA-C, have personally reviewed and agree with the information entered by the scribe. Coding Level of Care Code New Pt Level 3 (96766) Complex EM visit Add On G2211 Diagnoses Trochanteric bursitis, right hip M70.61 Osteoarthritis of right hip M16.11
[2024-01-28 09:41] VITALS: BMI 20.9
== END 2024-01-28 09:59 | disposition home or self-care (01) ==
PROVIDERS: PCP Pediatrics; Visit Provider Physician Assistant
DX: M70.61 Trochanteric bursitis, right hip (principal); M16.11 Unilateral primary osteoarthritis, right hip
CPT/HCPCS: 99203; G2211

== ENCOUNTER → 2024-01-28 09:24 | Outpatient (BNVA) | payer OTHER, SELFPAY | PROVIDERS: PCP Pediatrics; Visit Provider Physician Assistant | DX: M70.61 Trochanteric bursitis, right hip (principal); M16.11 Unilateral primary osteoarthritis, right hip; Z91.81 History of falling | CPT/HCPCS: 99202 ==

== ENCOUNTER 2024-05-15 09:48 | Outpatient (REF) | payer OTHER, SELFPAY ==
--- OUTSIDE RECORDS SUMMARY | 2024-05-15 10:59 | XMS_ITS | Encounter Summary ---
Author Organization [employer] [facility] Address [address] [place] [address] [address] [address] Care Team Providers Care Telephone Triage Nurse Name Role Phone Tiara Bran MD Primary Care Provider [phone] Reason for Visit * Reason Comments Med Refill Encounter Details Date Type Department Care Team ([facility] Contact Info) Description 10/05/2022 Refill [facility] [address] [place] [address] Tiara Bran MD [address] [place] [address] Type 2 diabetes mellitus without complication, with long-term current use of insulin ([facility]); Chest pain, unspecified type; Allergy, subsequent encounter Social History Tobacco Use Types Packs/Day Years Used Date Smoking Tobacco: Never Passive Smoke Exposure: Never Smokeless Tobacco: Never Depression Answer Date Recorded Patient Health Questionnaire-9 Score 0 06/21/2022 Depression Answer Date Recorded Patient Health Questionnaire-2 Score 0 06/21/2022 Comments Unknown Sex and Gender Information Value Date Recorded Sex Assigned at Female 01/01/2022 10:18 AM EDT Legal Sex Female 10:18 AM EDT Gender Identity Female 01/01/2022 10:18 AM EDT Sexual Orientation Straight 01/01/2022 10 :18 AM EDT documented as of this encounter Plan of Treatment Upcoming Encounters Date Type Department Care Team ([facility] Contact Info) Description 07/28/2024 10:30 AM EDT Office Visit [facility] [address] [place] [address] Tiara Bran MD [address] [place] [address] documented as of this encounter Visit Diagnoses Diagnosis Type 2 diabetes mellitus without complication, with long-term current use of insulin ([facility]) Chest pain, unspecified type Allergy, subsequent encounter documented in this encounter Additional Health Concerns Assessment Noted Time PHQ-9 Depression Total Score: 0 06/22/19 23 3:15 PM EDT documented as of this encounter Care Teams Telephone Triage Nurse Relationship Specialty Start Date End Date Tiara Bran MD [address] [place] [address] PCP - General Family Medicine 11/21/16 documented as of this encounter
--- OUTSIDE RECORDS SUMMARY | 2024-05-15 10:59 | XMS_ITS | Data Portability ---
Author Organization [employer] [employer] Address [address] [place] [address] Care Team Providers Care Gerontology Aide Name Role Phone [facility] Referring Provider Assessment Encounter Date Assessment Date Assessment LastModified by Organization Details LastModified Time 07/27/2022 07/27/2022 I have reviewed and agree with the Assessment and Plan as documented by the Senior Cisco Network Engineer. I provided real-time medical direction via phone for this encounter, and was available for additional phone based assistance as needed. Patient seen for palpitations and chest pain. ECG w/ LBBB of unclear chronicity. To ED for further eval. pallfather Not available 07/27/2022 19:09:20 Plan of Treatment Reminders Order Date Submit Date Provider Last Modified By Organization Details Last Modified Time Details Appointments None recorded. Lab None recorded. Referral None recorded. Procedures None recorded. Surgeries None recorded. Imaging None recorded. Medication Orders ibuprofen 400 mg tablet 2022 023 [id number], [address] [facility] [place], [place], [id number], 12:09:28 Patient TargetsNo targets recorded. Patient InstructionsNo instructions recorded. Reason for Referral None Reported. Medical Equipment None Reported. Medications Name Sig Start Date Stop Date Status Note LastModified by Organization Details LastModified Time medbox status USE DIRECTED active Not Available Not Available No t Available poise*pads active Not Available Not Av ailable Not Available fluoxetine 40 mg capsule TAKE ONE CAPSULE DAILY AT NOON active Not Available Not Available No t Available atorvastatin 80 mg tablet TAKE ONE TABLET AT BEDTIME active Not Available Not Available No t Available prednisone 10 mg tablet TAKE DIRECTED ON sheet active Not Available Not Available No t Available doxycycline hyclate 100 mg capsule TAKE 1 CAPSULE BY MOUTH EVERY DAY FOR 3DAYS active Not Available Not Available No t Available albuterol sulfate 2.5 mg/3 mL (0.083 %) solution for nebulization INHALE ONE AMPULE USING A NEBULIZER EVERY 6 HOURS NEEDED active Not Available Not Available No t Available trazodone 50 mg tablet TAKE ONE TABLET BY MOUTH AT BEDTIME active Not Available Not Available No t Available azithromycin 250 mg tablet TAKE ONE TABLET THREE TIMES PER WEEK ON SATURDAY, SATURDAY AND SATURDAY active Not Available Not Available N ot Available donepezil 10 mg tablet TAKE ONE TABLET BY MOUTH EVERY EVENING active Not Available Not Available No t Available sucralfate 1 gram tablet TAKE ONE TABLET THREE TIMES DAILY IN THE MORNING, EVENING AND BEDTIME BEFORE MEALS ON AN EMPTY STOMACH active Not Available Not Available No t Available famotidine 40 mg tablet TAKE ONE TABLET BY MOUTH AT BEDTIME active Not Available Not Available No t Available prednisone 20 mg tablet TAKE 2 TABLETS BY MOUTH EVERY DAY FOR 3 DAYS active Not Available Not Available No t Available cyanocobalam in (vit B-12) 1,000 mcg tablet TAKE ONE TABLET AT NOON active Not Available Not Available No t Available clopidogrel 75 mg tablet TAKE ONE TABLET DAILY AT NOON active Not Available Not Available No t Available chlorthalido ne 25 mg tablet TAKE ONE TABLET EVERY MORNING active Not Available Not Available No t Available aspirin 81 mg tablet,delay ed release TAKE ONE TABLET DAILY AT NOON active Not Available Not Available No t Available spironolacto ne 25 mg tablet TAKE ONE TABLET EVERY MORNING active Not Available Not Available No t Available levothyroxin e 88 mcg tablet TAKE ONE TABLET EVERY MORNING active Not Available Not Available No t Available ascorbic acid (vitamin C) 250 mg tablet TAKE ONE TABLET DAILY AT NOON active Not Available Not Available No t Available amlodipine 10 mg tablet TAKE ONE TABLET AT NOON active Not Available Not Available No t Available cephalexin 500 mg capsule active Not Available Not Available Not Available pantoprazole 40 mg tablet,delay ed release TAKE 1 TABLET BY MOUTH TWO TIMES A DAY active Not Available Not Available Not Available ferrous sulfate 325 mg (65 mg iron) tablet TAKE ONE TABLET TWICE DAILY AT NOON AND IN THE EVENING active Not Available Not Available No t Available prednisone 50 mg tablet TAKE ONE TABLET BY MOUTH EVERY MORNING FOR 5 DAYS active Not Available Not Available No t Available ibuprofen 400 mg tablet TAKE 1 TABLET BY MOUTH EVERY 6 HOURS NEEDED FOR PAIN active Not Available Not Available No t Available nitroglyceri n 0.4 mg sublingual tablet DISSOLVE 1 TABLET UNDER THE TONGUE EVERY 5 MINUTES NEEDED FOR CHEST PAIN. DO NOT EXCEED A TOTAL OF 3 DOSES IN 15 MINUTES. active Not Available Not Available No t Available budesonide 0.5 mg/2 mL suspension for nebulization INHALE ONE AMPULE USING A NEBULIZER TWICE DAILY active Not Available Not Available Not Available montelukast 10 mg tablet TAKE ONE TABLET EVERY EVENING active Not Available Not Available No t Available ipratropium bromide 42 mcg (0.06 %) nasal spray INHALE TWO SPRAYS IN EACH NOSTRIL THREE TIMES DAILY NEEDED FOR ALLERGY active Not Available Not Available No t Available lisinopril 40 mg tablet TAKE ONE TABLET EVERY MORNING active Not Available Not Available No t Available fluticasone propionate 50 mcg/actuatio n nasal spray,suspen chon USE ONE SPRAY IN EACH NOSTRIL TWICE DAILY active Not Available Not Available Not Available Ventolin HFA 90 mcg/actuatio n aerosol inhaler INHALE 2 PUFFS BY MOUTH EVERY 4-6 HOURS NEEDED FOR WHEEZING OR SHORTNESS OF BREATH active Not Available Not Available No t Available Novolog FlexPen U-100 Insulin aspart 100 unit/mL (3 mL) subcutaneous INJECT 2-12 UNITS BY SUBCUTANEOU S ROUTE PER SLIDING SCALE STRENGTH: 100 UNIT/ML active Not Available Not Available Not Available bupropion HCl XL 150 mg 24 hr tablet, extended release TAKE ONE TABLET BY MOUTH AT NOON active Not Available Not Available No t Available Alcohol Prep Pads USE ONE FIVE TIMES DAILY active Not Available Not Available No t Available Sure Comfort Pen Needle 31 gauge x 5/16 USE FOUR DAILY active Not Available Not Available No t Available FreeStyle Lite Strips TEST BLOOD SUGAR FOUR TIMES DAILY active Not Available Not Available Not Available Lantus Solostar U-100 Insulin 100 unit/mL (3 mL) subcutaneous pen INJECT 20 UNITS SUBCUTANEOU SLY ONCE DAILY IN THE EVENING active Not Available Not Available Not Available roflumilast 500 mcg tablet TAKE ONE TABLET DAILY AT NOON active Not Available Not Available No t Available TRUEplus Lancets 33 gauge TEST BLOOD SUGAR FOUR TIMES DAILY active Not Available Not Available Not Available Stiolto Respimat 2.5 mcg-2.5 mcg/actuatio n solution for inhalation INHALE TWO PUFFS ONCE DAILY active Not Available Not Available No t Available Entresto 97 mg-103 mg tablet TAKE ONE TABLET BY MOUTH IN THE MORNING AND EVENING active Not Available Not Available Not Available Entresto 49 mg-51 mg tablet TAKE ONE TABLET IN THE MORNING AND EVENING active Not Available Not Available Not Available Paxlovid 300 mg (150 mg x 2)-100 mg tablets in a dose pack TAKE 2 TABLETS (300 MG) OF NIRMATRELVI R & 1 TABLET (100 MG) OF RITONAVIR BY MOUTH TWICE DAILY FOR 5 DAYS active Not Available Not Available N ot Available Vitals Date Recorded Oxygen saturation Oxygen saturation in Arterial blood by Pulse oximetry Respiratory rate Body temperature Heart rate Systolic blood pressure Diastolic blood pressure Provider Name and Address Organization Details Last Updated DateTime 3 96 % 96 % 18 /min 98 [degF] 59 /min 116 mm[Hg] 65 mm[Hg] Not Available [employer] [facility] 3 12:06:08 Date Recorded Oxygen saturation Oxygen saturation in Arterial blood by Pulse oximetry Respiratory rate Body temperature Body weight Heart rate Body height Body weight Respiratory rate Oxygen saturation Oxygen saturation in Arterial blood by Pulse oximetry Body height Heart rate Body temperature Systolic blood pressure Diastolic blood pressure Systolic blood pressure Diastolic blood pressure Provider Name and Address Organization Details Last Updated DateTime 3 96 % 96 % 18 /min 98.4 [degF] 98410 g 80 /min 157.48 cm 95009.8 g 18 /min 98 % 98 % 152.4 cm 64 /min 98.4 [degF] 134 mm[Hg] 68 mm[Hg] 108 mm[Hg] 62 mm[Hg] Not Available [employer] 3 13:32:05 Social History None recorded. Functional Status None recorded. Mental Status None recorded. Family History Nothing Reported. Medical History No medical history recorded. Gynecological HistoryNo gynecological history recorded. Obstetrics History GPAL:G 0 P 0 0 0 0 Past Encounters Encounter ID Performer Location Encounter Start Date Encounter Closed Date Diagnosis/Indication Diagnosis SNOMED-CT Code Diagnosis ICD10 Code Diagnosis Note [id number] Janny Rodriguez MD [facility] [address] [place] [phone] 07/07/2022 12:06:03 07/09/2022 10:38:17 Foot pain 13888610 M79.673 Evaluation in the field was performed by my animal husbandry teacher colleague, as noted above, I provided real-time direction and supervisio n for this visit. 76yo F PMHx gout p/w atraumatic foot pain and non-tender nodule on dorsal aspect of mid-foot mild erythema. ED eval last night unremarkab le. Overall presentati on most c/w tophi from gout, symptoms not c/w acute gout flare or abscess though was given cephalexin by ED for possible cellulitis so would complete. Recommend ibuprofen prn (denies hx CKD, on PPI for GERD, no high risk features for GIB), cold, PCP f/up if not improving or worsening. We discussed the diagnostic uncertaint y of home visits and the risk associated with this. In this case, the patient and I felt this to be an acceptable and reasonable amount of risk given the benefit of avoiding an ED visit. We discussed the need to seek care urgently/e mergently in the setting of any new or worsening serious symptoms, shortness of breath, cough, chest pain, fever. [id number] Jacob Thomas MD [facility] [address] [place] [phone] 07/27/2022 12:53:17 07/30/2022 18:34:12 Chest pain 47350371 R07.9 Health Concerns Section Related Observation LastModified by Organization Detai ls LastModified Time None Recorded Concern Status LastModified by Organization Details LastModified Time None Recorded Advance Directives Directive None Recorded Payers Encounter Date Sequence Insurance Name Policy Number Policy Soria Covered Member ID Soria Member ID Guarantor Name 07/07/2022 1 [facility] - DOS PRIOR TO 2022 - DUAL ELIGIBLE (MEDICARE REPLACEMENT/ADV ANTAGE - HMO) Luz Hicks [id number] Luz Hicks 07/27/2022 1 [facility] - DOS ON OR AFTER 2022 - DUAL ELIGIBLE - SHELTER OPTIONS AND ONE CARE (MEDICARE REPLACEMENT/ADV ANTAGE - HMO) Luz Hicks [id number] Luz Hicks Notes Date Note Type Note Provider Name and Address Organization Details Recorded Time 07/07/2022 text/html [facility] Nursing Assessment: Reason For Request: pain Chief Complaints: Pain PMH: Diabetes, Hypertension, CHF, COPD/Asthma, Severe Dementia, Other Allergies: Unknown Pain Assessment: Level 10 out of 10 Comments: Member c/o right foot pain that started yesterday . Member went to the ER , xray done , did not find a fx. Member has a small bump . gave her motrin. Member was prescribed antibiotic. Member does have a h/o gout and daughter feels that she has a flare up. Member is not on anything for gout. Member has not taken BS yet today Verified identity for ................... ................... ................... ................... ................... ................... ................... ........ Senior Cisco Network Engineer Note From Selena Powell: Community Senior Cisco Network Engineer Colten Powell [id number] dispatched to a [facility] for a 76 yof C/O right foot pain. Upon arrival, the pt was sitting in her living room (w/ legs elevated), awake and alert, in no apparent distress. Pt's daughter/interior plant caretaker on scene translated (pt Scottish speaking only). The pt was oriented to her baseline w/ dementia per daughter. The pt stated that sometime in the past few days, her right foot started to hurt, and that it was so painful on weight bearing she could not walk on it. She stated at rest that the pain was minimal, and could tolerate palpation without excess pain as well. There was a nodule on the medial dorsal part of her right foot, located approximately on the first metatarsal, about the size of a quarter. It was not red, warm to the touch, or swollen, and was firm to the touch (no fluid). The pt's lateral right foot was slightly red and slightly more swollen than her left, and this is where she indicated she had the majority of her pain. CMS present and equal on both sides. The pt denied any headache, dizziness, sore throat, cough, N/V/D, fevers, CP, SOB, abd pain, or urinary S/S. The pt and her daughter visited the ED the day prior and obtained x-rays, which R/O fx. The pt was rx cephalexin and had not taken any ibuprofen that day. C consulted; pt was given rx for ibuprofen w/ instructions to prevent GI upset. Pt and her daughter were educated on mobility, elevation, NSAID and abx use, as well as next steps (contact PCP, etc...) Red flags discussed. ................... ................... ................... ................... ................... ................... ................... ........ Disposition: Fulfilled Janny Rodriguez MD [address] [place] [address],[address], [place], [phone], [employer] 07/07/2022 14:29:14 07/27/2022 text/html [facility] Nursing Assessment: Reason For Request: Daughter reporting p last night palpitation, discomfort left side chest, went to PCP today, BP was fine and vitals were fine. DOC recommended staff rn appt>nurse from cardiology notified no appointment until late august 2022. Recently was in ED 2 week but waited 10 hours, but EKG and vitals were regular, not seen. Chief Complaints: Tachycardia/Palpita tions, Chest Pain PMH: Diabetes, Hypertension, CHF, COPD/Asthma, Severe Dementia Allergies: No Known Comments: Daughter calling on behalf of member with request for [facility] visit for eval palpitations x 5 min last night. Eval at PCP office this am. told by PCP everything was fine BS elevated a bit. told to follow up with staff rn 08/22. Daughter states EKG was not performed and called back by PCP to have emergent eval. Member refuse ED at this time request [facility] visit and if advised will go to ED. Discuss red flags and if symptoms progress to seek Ed/911. Verbalize understanding. Verify member name/- ................... ................... ................... ................... ................... ................... ................... ........ Senior [employer] Network Engineer Note From Buddy Lara: PT caox3 complains of left sternal chest pain x 12 hours. Pt reports 5 minute episode of palpations last night that woke her from sleep. Pt denies recent illness or cough or any other pain or comlaints. Pt pink warm and dry, describes pressure on right chest , increase of pain on palpation, no change in pain on movemen or inspiration. No edema, secondary exam unremarkable. [facility] advises pt to be seen at ED. Vascular access and ECG as noted. Pt transported via ALS ambulance to [facility] ED. ................... ................... ................... ................... ................... ................... ................... ........ Disposition: Fulfilled Jacob Thomas MD [address] [facility],[address], [place], [address], [employer] 07/27/2022 19:09:29 OBGyn Episode No OBEpisode recorded.
--- OUTSIDE RECORDS SUMMARY | 2024-05-15 10:59 | XMS_ITS | Encounter Summary ---
Author Organization [facility] Address [address] [place] [address] Care Team Providers Care Balance Staff Inspector Name Role Phone Tiara Bran MD Primary Care Provider [phone] Reason for Visit * Reason Onset Date Comments lab results 05/11/2024 Encounter Details Date Type Department Care Team (Late st Contact Info) Description 05/11/2024 Telephone [facility] Cardiology [facility] [address] [facility] [address] [place] [phone] Deja Andrews MA lab results Social History Tobacco Use Types Packs/Day Years Used Date Smoking Tobacco: Former Cigarettes Q uit: 03/04/1999 Smokeless Tobacco: Former Alcohol Use Standard Drinks/Week Comments No 0 (1 standard drink = 0.6 oz pur e alcohol) Comments Unknown Sex and Gender Information Value Date Recorded Sex Assigned at Not on file Legal Sex Female 1:34 AM EST Gender Identity Not on file Sexual Orientation Not on file documented as of this encounter Progress Notes * Deja Andrews MA - 05/12/2024 8:58 AM EDT Spoke to daughter on verbal and made her aware of results Lab req sent to [facility] * Rahul Moseley - 05/12/2024 8:51 AM EDT Patient called back in regards to message down below. Please return call back at your earliest convenience. * Deja Andrews MA - 05/11/2024 4:15 PM EDT Images from the original note were not included. Left voice mail for patient to give the office a call back to give results SHAILESH Stark MA Cholesterol levels well-controlled. On the other hand, heart kidney function is slightly elevated and her potassium level is borderline elevated. Please have her repeat a CMP for reassessment. 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 73 [facility] 1 BUN/Creatinine Ratio 16 12 - 28 [facility] 1 Sodium 140 134 - 144 mmol/L [facility] 1 Potassium 4.9 3.5 - 5.2 mmol/L [facility] 1 Chloride 103 96 - 106 mmol/L [facility] 1 Carbon Dioxide 25 20 - 29 mmol/L [facility] 1 Calcium 9.7 8.7 - 10.3 mg/dL [facility] Protein Total 6.3 6.0 - 8.5 g/dL [facility] 1 Albumin 4.1 3.8 - 4.8 g/dL [facility] 1 Globulin Total 2.2 1.5 - 4.5 g/dL [facility] 1 Bilirubin Total 0.4 0.0 - 1.2 mg/dL [facility] 1 Alkaline Phosphatase 114 44 - 121 IU/L [facility] 1 Aspartate aminotransferase??(A ST) 20 0 - 40 IU/L [facility] 1 Alanine Aminotransferase (ALT) 18 0 - 32 IU/L [facility] 1 Blood Venous blood specimen / Unknown 05/13/2024 9:47 AM EDT 05/13/2024 Narrative [facility] 1 - 05/13/2024 11:06 PM EDT Performed at: ??01 - [facility] [address] ??[id number] Receiving Specialist: Erin Gardiner MD, Phone: ??[phone] Bibiana Deluna NP LAB BLOOD ORDERABLES Final Result [facility] 1 documented in this encounter Visit Diagnoses Diagnosis Coronary artery disease, unspecified vessel or lesion type, unspecified whether angina present, unspecified whether shawnee or transplanted heart Heart failure with reduced ejection fraction (CMS/HCC) Primary hypertension Unspecified essential hypertension documented in this encounter Care Teams Balance Staff Inspector Relationship Specialty Start Date End Date Tiara Bran MD [address] [place] [address] PCP - General 07/05/17 documented as of this encounter
--- OUTSIDE RECORDS SUMMARY | 2024-05-15 10:59 | XMS_ITS | Encounter Summary ---
Author Organization [facility] Address [address] [place] [address] Care Team Providers Care Supervisor Central Supply Name Role Phone Tiara Bran MD Primary Care Provider [phone] Reason for Visit * Reason Comments Follow-up Diabetic foot exam Encounter Details Date Type Department Care Team (Late st Contact Info) Description 04/28/2024 10:15 AM EST Office Visit Orthopedic Surgery - [place] [address] [phone] Gideon Mojica, DPM [address] [address] Dermatophytosis of nail (Primary Dx); Pain in toe of right foot; Pain in toe of left foot; Corns and callosities; Metatarsalgia of both feet; Acquired hammer toe of right foot; Hammer toe of left foot; Acquired hallux valgus of left foot; Acquired hallux valgus of right foot; 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/HCC); Diabetic mononeuropathy simplex (CMS/HCC) Social History Tobacco Use Types Packs/Day Years [...] on file documented as of this encounter Last Filed Vital Signs Vital Sign Reading Time Taken Comments Blood Pressure - - Pulse - - Temperature - - Respiratory Rate - - Oxygen Saturation - - Inhaled Oxygen Concentration - - Weight 56.2 kg (124 lb) 04/28/2024 9:44 AM EST Height 157.5 cm (5' 2.01 ) 04/28/2024 9:44 AM ES T Body Mass Index 22.67 04/28/2024 9:44 AM EST documented in this encounter Ordered Prescriptions Prescription Sig Dispense Quantity Refills Last Filled Start Date End Date ammonium lactate (AMLACTIN) 12 % cream Apply topically if needed for dry skin. 770 g 04/28/2024 documented in this encounter Progress Notes * Gideon Mojica, DPM - 04/28/2024 10:15 AM EST ast PCP visit:Referring MD: Dr. Shant COSTELLO 11/28/23 S Patient presents essentially worsening thickened fungal nails and skin with ingrowing of her right great toe and left great toe she notes that she has not had any infection since last appointment does not her calluses getting slightly worse and as her deformities of getting worse she has been trying to wear more, new shoe gear s reports that she feels like her toes been curling more she also notes she is worsening dryness skin of both feet has been bothering her constantly she has chronic achy throbbing itchy skin she would like to know what can be done about it is worse in the winter weather ROS: GENERAL: Pt denies nausea, fever, vomiting, chills, or shortness of breath. Pt in NAD. CARDIOLOGY: pt denies chest pain, palpitations LUNGS: pt denies shortness of breath MUSCULOSKELETAL: See HPI, otherwise no joint pain or swelling, back pain, or muscle pain. 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 History of diverticulitis Z87.19 GERD (gastroesophageal reflux disease) K21.9 Insomnia G47.00 History of HI (myocardial infarction) I25.2 Colon polyps K63.5 Right lower lobe lung mass R91.8 CAD (coronary artery disease) I25.10 S/P cardiac cath Z98.890 Heart failure with reduced ejection fraction (HCC) I50.20 SOCIAL HISTORY: Social History Tobacco Use Smoking status: Former Packs/day: 1.00 Types: Cigarettes Quit date: 2000 Years since quittin.7 Smokeless tobacco: Former Tobacco comments: quit about more than 15 years ago Substance Use Topics Alcohol use: No Comment: IN THE PAST History Last Reviewed by Bibiana Deluna NP on 02/05/2023 at 10:13 AM Sections Reviewed Tobacco, Family, Medical, Surgical ACTIVE MEDICATIONS: Current Outpatient Medications Medication Sig Dispense Refill spironolactone (ALDACTONE) 25 MG tablet Take 1 Tablet by mouth daily. 90 Tablet 1 mupirocin (BACTROBAN) 2 % ointment Apply topically to wound dialy 22 g 0 Dexlansoprazole 30 MG CAPSULE DELAYED RELEASE TAKE 1 CAPSULE BY MOUTH EVERY DAY ON AN EMPTY [id number] TO 60 MINUTES BEFORE BREAKFAST. fluticasone 50 MCG/ACT nasal spray INHALE ONE SPRAY IN EACH NOSTRIL TWICE DAILY ipratropium (ATROVENT) 0.06 % nasal spray INHALE TWO SPRAYS IN EACH NOSTRIL THREE TIMES DAILY NEEDED FOR ALLERGY magnesium oxide (MAG-OX) 400 MG tablet TAKE ONE TABLET BY MOUTH EVERY MORNING naproxen (NAPROSYN) 500 MG tablet TAKE ONE TABLET TWICE DAILY predniSONE (DELTASONE) 10 MG tablet TAKE SIX TABLETS EVERY DAY FOR THREE DAYS, FIVE TABLETS FOR THREE DAYS, FOUR TABLETS FOR THREE DAYS, THREE TABLETS FOR THREE DAYS, TWO TABLETS FOR THREE DAYS ONE TABLET FOR THREE DAYS Stiolto Respimat 2.5-2.5 MCG/ACT Aero Soln INHALE TWO PUFFS DAILY Sacubitril-Valsartan (Entresto) 97-103 MG Tab Take 1 Tablet by mouth 2 times daily. 180 Tablet 3 famotidine (PEPCID) 40 MG tablet Take 1 Tablet by mouth daily. Magnesium 400 MG Tab Take 1 Tablet by mouth daily. trazodone (DESYREL) 50 MG tablet Take 1 Tablet by mouth at bedtime. AZITHROMYCIN OR Take by mouth 3 times daily. budesonide (PULMICORT) 0.5 MG/2ML nebulizer solution as needed. Roflumilast (DALIRESP OR) Take 500 mcg by mouth daily. Every other day ALBUTEROL SULFATE 108 (90 Base) MCG/ACT Aero Soln Inhale 2 Puffs into the lungs every 4 hours as needed. amlodipine (NORVASC) 10 MG tablet Take 10 mg by mouth daily. levothyroxine (SYNTHROID, LEVOTHROID) 88 MCG tablet Take 88 mcg by mouth daily. Insulin Aspart (NOVOLOG SC) Inject into the skin. Sliding scale nitroGLYCERIN (NITRODUR) 0.4 MG/HR Place 1 Patch onto the skin as needed. Apply for no more than 12hours in any 24 hour period. atorvastatin (LIPITOR) 80 MG tablet Take 80 mg by mouth at bedtime. buPROPion (WELLBUTRIN XL) 150 MG 24 hr tablet Take 150 mg by mouth every 24 hours. donepezil (ARICEPT) 5 MG tablet Take 10 mg by mouth at bedtime. pantoprazole (PROTONIX) 40 MG tablet Take 40 mg by mouth daily. Respiratory Therapy Supplies (FLUTTER) Device 1 Device by Does not apply route 4 times daily as needed (use througout day when chest congestion is present). 1 Device 0 Aspirin (ASPIR-81 OR) Take by mouth. Insulin Syringe-Needle U-100 30G X 1/2 0.5 ML Misc by Does not apply route. insulin glargine (LANTUS) 100 UNIT/ML injection Inject 20 Units into the skin at bedtime. montelukast (SINGULAIR) 10 MG tablet Take 10 mg by mouth at bedtime. INSULIN SYRINGE 1CC/29G 29G X 1/2 1 ML Misc by Does not apply route. No current facility-administered medications for this visit. ALLERGIES: Mirtazapine PHYSICAL EXAM: Height 5' 2 (1.575 m), weight 124 lb (56.2 kg). Estimated body mass index is 22.68 kg/m?? as calculated from the following: Height as of this encounter: 5' 2 (1.575 m). Weight as of this encounter: 124 lb (56.2 kg). PODIATRIC EXAMINATION: GENERAL: Patient appears well nourished, with NAD. VASCULAR: Dorsalis pedis pulses are 0/4 bilaterally and Posterior tibial pulses are0/4 bilaterally.Capillary filling time within normal limits the digits. No pallor on elevation or rubor on dependency. hair growth. No varicosities. Denies rest pain or claudication pain. NEUROLOGICAL: Sharp/dull sensation , protective sensation 10/10 with 5.07 semmes danni bilaterally, vibratory sensation with tuning fork intact to the tibial tuberosity. ORTHOPEDIC: Good muscle strength 5/5 of all flexors and extensors. Dorsi flexion of ankle ,10 degrees, plantar flexion WNL. No muscle atrophy. DERMATOLOGICAL: Toenails: Left Toenail(s) 1-5: Crumbling upon debridement, subungual debris, discoloration, dystrophy, elongation, mycotic appearance, onychomycosis, pain and thickening. Right Toenail(s) 1-5: Crumbling upon debridement, subungual debris, discoloration, dystrophy, elongation, mycotic appearance, onychomycosis, pain and thickening. Annular scaling bilateral feet moccasin distribution Hyperkeratotic tissue subfirst metatarsal bilateral Xerosis both feet . BIOMECHANICS: STJ ROM wnl, MTJ ROM wnl, 1st MPJ ROM wnl. Severe hammertoe contractures 2 through 5 rigid metatarsalgia 2 through 5 bilateral pain discomfort with palpation heterotrophic skin formation subfirst metatarsal bilateral IMAGING: IMPRESSION: 1. Dermatophytosis of nail 2. Pain in toe of right foot 3. Pain in toe of left foot 4. Corns and callosities 5. Metatarsalgia of both feet 6. Acquired hammer toe of right foot 7. Hammer toe of left foot 8. Acquired hallux valgus of left foot 9. Acquired hallux valgus of right foot 10. 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/HCC) 11. Diabetic mononeuropathy simplex (CMS/HCC) PLAN: Pt was seen and examined, history reviewed. Discussed with patient regarding proper glucose control, exercise, and diet. Explained to patient proper shoe gear, and importance of daily foot checks. I reviewed neuropathy and why it occurs in diabetics. I educated the patient on proper blood sugar control and the importance of an HgBA1c of less than 7.0%. I reviewed the signs and symptoms of neuropathy with the patient Worsening hammertoe contractures discussed reviewed the fifth digit bilaterally strongly recommend continue silicone toe sleeves to discuss surgical options she would require vascular surgery clearance prior to pursuing elective surgical procedure alternative options including open flexor tenotomy were discussed and reviewed as well as arthroplasty with also distal Symes amputation as an option would recommend strongly patient continues conservative treat modalities at this time X-ray ordered right foot 3 views Ammonium lactate prescribed for worsening xerosis of both feet Follow-up in 3 months Debridement of mycotic toenails 6-10: Verbal informed consent was obtained from the patient. Greater than 6 nails were aseptically debrided in thickness and length with nail nippers Hyperkeratotic tissue debrided pared with a number #15 scalpel blade x2 Gideon Mojica DPM documented in this encounter Plan of Treatment Upcoming Encounters Date Type Department Care Team (Late st Contact Info) Description 08/04/2024 9:00 AM EDT Office Visit Orthopedic Surgery - [place] [address] [phone] Gideon Mojica DPM [address] [address] documented as of this encounter Visit Diagnoses Diagnosis Dermatophytosis of nail- Primary Pain in toe of right foot Pain in soft tissues of limb Pain in toe of left foot Pain in soft tissues of limb Corns and callosities Metatarsalgia of both feet Acquired hammer toe of right foot Hammer toe of left foot Acquired hallux valgus of left foot Acquired hallux valgus of right foot 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/HCC) Type II or unspecified type diabetes mellitus with peripheral circulatory disorders, not stated as uncontrolled Diabetic mononeuropathy simplex (CMS/HCC) Type II or unspecified type diabetes mellitus with neurological manifestations, not stated as uncontrolled documented in this encounter Care Teams Supervisor Central Supply Relationship Specialty Start Date End Date Tiara Bran MD [address] [place] [address] PCP - General 07/05/17 documented as of this encounter
--- OUTSIDE RECORDS SUMMARY | 2024-05-15 10:59 | XMS_ITS | Encounter Summary ---
Author Organization [facility] Address [address] [place] [address] Care Team Providers Care Hot Box Checker Name Role Phone Tiara Bran MD Primary Care Provider [phone] Reason for Visit * Imaging (Routine) - Closed Specialty Diagnoses / Procedures Referred By Contac t Referred To Contact Cardiology Diagnoses Coronary artery disease involving [place] coronary artery of [place] heart without angina pectoris Procedures Transthoracic echocardiogram (TTE) complete with PRN contrast, bubble, strain, and 3D order panel IA TTE W 2D IMAGE COMPLETE W DOPPLER ECHO & COLOR FLOW DOPPLER ECHO IA QIAN 2D COMPLETE W/CONTRAST OR W & WO CONTRAST WITH DOPPLER Keo Mcmillan MD [address] [place] [address] Dr Tucker [address] [place] [address] Phone: tel: fax: [facility] Referral ID Status Reason Start Date Expiration Date Visits Re quested Visits Authorized [id number] Closed 02/11/2024 02/10/2025 1 1 Encounter Details Date Type Department Care Team (Latest Contact Info) Description 05/05/2024 9:00 AM EST Ancillary Procedure [facility] [address] [place] [address] Coronary artery disease involving [place] coronary artery of [place] heart without angina pectoris Social History Tobacco Use Types Packs/Day Years [...] Sign Reading Time Taken Comments Blood Pressure 114/82 05/05/2024 9:34 AM EST Pulse - - Temperature - - Respiratory Rate - - Oxygen Saturation - - Inhaled Oxygen Concentration - - Weight 58.5 kg (129 lb) 05/05/2024 9:34 AM EST Height 162.6 cm (5' 4 ) 05/05/2024 9:34 AM EST Body Mass Index 22.14 05/05/2024 9:34 AM EST documented in this encounter Plan of Treatment Upcoming Encounters Date Type Department Care Team (Late st Contact Info) Description 08/04/2024 9:00 AM EDT Office Visit Orthopedic Surgery - [place] [address] [phone] Gideon Mojica, DPM [address] [address] Pending Results Name Type Priority Associated Diagnoses Date/Time Transthoracic echocardiogram (TTE) complete with PRN contrast, bubble, strain, and 3D order panel Echocardiography Routine Coronary artery disease involving [place] coronary artery of [place] heart without angina pectoris 05/05/2024 9:35 AM EST documented as of this encounter Visit Diagnoses Diagnosis Coronary artery disease involving [place] coronary artery of [place] heart without angina pectoris documented in this encounter Care Teams Hot Box Checker Relationship Specialty Start Date End Date Tiara Bran MD [address] [place] [address] PCP - General 07/05/17 documented as of this encounter
--- OUTSIDE RECORDS SUMMARY | 2024-05-15 10:59 | XMS_ITS | Clinical Summary ---
Author Organization [facility] Address [address] [place] [address] Phone Care Team Providers Care Volunteer Recruitment Coordinator Name Role Phone Tiara Bran MD Primary Care Provider [phone] Allergies Active Allergy Reactions Criticality Noted Date Comments Mirtazapine 07/13/2021 nightmare Medications aspirin (ASPIR-81 ORAL) Take by mouth. Active AZITHROMYCIN ORAL Take by mouth 3 times daily. Active insulin aspart (NovoLOG) 100 UNIT/ML injection Inject into the skin. Sliding scale Active insulin syringe-needle U-100 0.5 mL 30 gauge x 1/2 syringe by Does not apply route. Active mucus clearing device (FLUTTER MISC) 1 Device by Does not apply route 4 times daily as needed (use througout day when chest congestion is present). 8 Active ROFLUMILAST ORAL Take 500 mcg by mouth daily. Every other day Active albuterol HFA (PROAIR HFA ; PROVENTIL HFA ; VENTOLIN HFA) 90 mcg/actuation inhaler Inhale 2 Puffs into the lungs every 4 hours as needed. Active amLODIPine (NORVASC) 10 mg tablet Take 10 mg by mouth daily. Active atorvastatin (LIPITOR) 80 mg tablet Take 80 mg by mouth at bedtime. Active budesonide (PULMICORT) 0.5 mg/2 mL nebulizer solution as needed. 2 Active donepeziL (ARICEPT) 5 mg tablet Take 10 mg by mouth at bedtime. Active fluticasone propionate (FLONASE) 50 mcg/actuation nasal spray INHALE ONE SPRAY IN EACH NOSTRIL TWICE DAILY 4 Active insulin glargine (LANTUS) 100 unit/mL injection Inject 20 Units into the skin at bedtime. Active ipratropium (ATROVENT) 42 mcg (0.06 %) nasal spray INHALE TWO SPRAYS IN EACH NOSTRIL THREE TIMES DAILY NEEDED FOR ALLERGY 4 Active levothyroxine (SYNTHROID, LEVOTHROID) 88 mcg tablet Take 88 mcg by mouth daily. Active magnesium oxide (MAG-OX) 400 mg (241.3 elemental magnesium) tablet TAKE ONE TABLET BY MOUTH EVERY MORNING 4 Active montelukast (SINGULAIR) 10 mg tablet Take 10 mg by mouth at bedtime. Active mupirocin (BACTROBAN) 2 % ointment Apply topically to wound dialy 4 Active naproxen (NAPROSYN) 500 mg tablet TAKE ONE TABLET TWICE DAILY 4 Active nitroglycerin (NITRODUR) 0.4 mg/hr Place 1 Patch onto the skin as needed. Apply for no more than 12 hours in any 24 hour period. Active pantoprazole (PROTONIX) 40 mg EC tablet Take 40 mg by mouth daily. Active predniSONE (DELTASONE) 10 mg tablet TAKE SIX TABLETS EVERY DAY FOR THREE DAYS, FIVE TABLETS FOR THREE DAYS, FOUR TABLETS FOR THREE DAYS, THREE TABLETS FOR THREE DAYS, TWO TABLETS FOR THREE DAYS ONE TABLET FOR THREE DAYS 4 Active insulin syringe-needle U-100 1 mL 29 gauge x 1/2 syringe by Does not apply route. Active tiotropium-olod ateroL (Stiolto Respimat) 2.5-2.5 mcg/actuation mist inhaler INHALE TWO PUFFS DAILY 4 Active sacubitriL-vals jaja (Entresto) 97-103 mg per tablet Take 1 tablet by mouth 2 (two) times a day. 180 tablet 2 5 Active spironolactone (ALDACTONE) 25 mg tablet Take 1 tablet (25 mg total) by mouth 1 (one) time each day. 90 tablet 2 5 Active ammonium lactate (AMLACTIN) 12 % cream Apply topically if needed for dry skin. 770 g 5 04/28/19 26 Active Active Problems Problem Noted Date Diagnosed Date Coronary artery disease invo lving platinum coronary artery of platinum heart without angina pectoris 02/11/2024 Assessment & Plan (02/11/2024 10:22 AM EST): The patient has a history of coronary artery disease. Currently, the patient denies any chest pain at rest or with exertion. The patient continues on secondary preventive therapy for CAD, including: aspirin, statin and calcium channel lissa. Will continue current therapy. Orders: Comprehensive metabolic panel; Future Transthoracic echocardiogram (TTE) complete with PRN contrast, bubble, strain, and 3D order panel; Future perflutren lipid microsphere (DEFINITY) 1.3 mL in sodium chloride 0.9% 8.7 mL injection Lipid panel; Future Comprehensive metabolic panel Lipid panel Pure hypercholesterolemia 02/11/2024 Assessment & Plan (02/11/2024 10:22 AM EST): The patient has a history of hyperlipidemia. The patient is currently on atorvastatin 80 mg orally daily. We will order a new lipid panel to evaluate the patient's current lipid control and determine if any adjustment are needed in the lipid lowering therapy. Orders: Lipid panel; Future Lipid panel Heart failure with reduced ejection fraction 08/2021 Overview (01/06/2024): Last Assessment & Plan: HFrEF-EF 40 to 45%, ACC/AHA stage C with NYHA class 2 symptoms. Last echocardiogram 08/2021 LVEF of 40 to 45%. Cardiac MRI April 2022 showed LVEF 50% and no evidence of infiltrative cardiomyopathy. Last ischemic evaluation: Coronary angiogram completed 10/2021 showing no progression of her nonobstructive coronary artery disease. GDMT Betablocker: None due to baseline bradycardia. OSCAR Inhibitor-YESI/ARB/ARNI: Entresto 97/103 mg orally twice daily. Diuretic: None Aldosterone antagonist: Spironolactone 25 mg once a day. SGLT2 inhibitors: None ICD: Not a candidate due to LVEF Patient appears euvolemic on physical exam today without clinical signs of acute heart failure. We will continue her current dose of spironolactone and Entresto as prescribed. She is not currently on beta-lissa due to resting bradycardia. She continues to deny any exertional symptoms or lower extremity edema. She completed a cardiac MRI in April 2022 which showed low normal LV function with an LVEF of 50%. At this point, I will not further titrate her GDMT. We can consider initiating an SGLT2 inhibitor for HFpEF in the future if she develops symptoms. I've asked the patient to call if they develop worsening symptoms of heart failure such as increased shortness of breath, new or worsening cough, increased swelling in the legs or ankles, or weight gain of more than 2 pounds in one day or 4 pounds in one week. Assessment & Plan (02/11/2024 10:22 AM EST): The patient has heart failure with reduced ejection fraction. Etiology: Predominantly nonischemic EKG: Left bundle branch block with a QRS of 148 ms Last ischemic work-up: Left heart cath in October 2021 (mild to moderate CAD) Nonischemic cardiomyopathy evaluation: 1. Cardiac MRI completed in April 2022 did not show any evidence of an infiltrative cardiomyopathy. Last documented LVEF: 50% on cardiac MRI in April 2022 Current symptom classification: NYHA class 2 Guideline directed medical therapy: 1. Beta-blockers: Not on beta-lissa therapy due to resting heart rate 2. ARNI / YESI inhibitor / ARB: Entresto 97/103 mg orally twice a day 3. MRA: Spironolactone 25 mg orally daily 4. SGL2 inhibitor: None Candidate for ICD or APPLICATION DEVELOPMENT INTERN: Not a candidate due to the LVEF Plan of care: 1. Continue current dose of spironolactone and Entresto. 2. Echocardiogram to reevaluate the LVEF. Orders: Comprehensive metabolic panel; Future Comprehensive metabolic panel GERD (gastroesophageal reflux disease) 8 Overview (01/06/2024): EGD 03/23/12 Dr. Rodriguez, Stomach revealed reactive gastropathy/chemical gastritis/active esophagitis. Asthma-COPD overlap syndrome 04/11/2017 DM (diabetes mellitus), type 2 with renal compli cations 03/29/2017 Hyperlipidemia 03/29/2017 Overview (01/06/2024): Last Assessment & Plan: Patient continues on atorvastatin 80 mg orally daily. We will update a new fasting lipid panel to reassess her lipid control. Hypertension 03/29/2017 Overview (01/06/2024): Last Assessment & Plan: Patient's blood pressure is well controlled today with a reading 110/60. We will continue her current antihypertensive medication regimen as prescribed. Assessment & Plan (02/11/2024 10:22 AM EST): The patient has a history of arterial hypertension. The patient's blood pressure today was noted to be well controlled. We'll continue the current antihypertensive medication regimen. Hypothyroid 03/29/2017 Osteopenia 03/29/2017 Renal insufficiency 03/29/2017 Insomnia 08/28/2013 Colon polyps 12/29/2012 Overview (01/06/2024): Of benign appearance, biopsy pending. Colonoscopy recommended in 1 year (August 2013) Right lower lobe lung mass 12/29/2012 Overview (01/06/2024): s/p CT/PET (skull base to mid thigh) on March 2012: Showed decreased size of Rt LL mass (1.4cm vs 3.1cm on prior CT) No hypermetabolic activity. Done at [facility] Follows with Dr Yon frances (pulmonary) [facility] Resolved Problems Problem Noted Date Diagnosed Date Resolved Date CAD (coronary artery disease) 05/20/2020 02/11/2024 Overview (01/06/2024): Last Assessment & Plan: Patient has a history of nonobstructive coronary artery disease. She denies any exertional anginal symptoms. She continues on medical therapy with aspirin and statin. She is not on a beta-lissa due to history of baseline bradycardia. We will continue current therapies. Patient advised to seek emergency medical attention by calling 911 if they were to develop severe dyspnea, chest pain that did not resolve with rest or nitroglycerin, or if they were to faint. History of SC (myocardial infarction) 12/24/2016 02/11/2024 Overview (01/06/2024): NSTEMI 12/09/16 Encounters Date Type Department Care Team Description 05/11/2024 Telephone [facility] [address] [phone] Deja Andrews [place] lab results 05/05/2024 9:00 AM EST Ancillary Procedure [facility] [address] [phone] Coronary artery disease involving platinum coronary artery of platinum heart without angina pectoris 04/28/2024 10:15 AM EST Office Visit [facility] [place] [address] [phone] Gideon Mojica DPM Dermatophytosis of nail (Primary Dx); Pain in toe of right foot; Pain in toe of left foot; Corns and callosities; Metatarsalgia of both feet; Acquired hammer toe of right foot; Hammer toe of left foot; Acquired hallux valgus of left foot; Acquired hallux valgus of right foot; 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/HCC); Diabetic mononeuropathy simplex (CMS/HCC) 03/19/2024 Telephone [facility] [address] [phone] Keo Mcmillan MD from Last 3 Months Surgical History Surgery Date Site/Laterality Comments COLONOSCOPY 08/2012 PROCEDURE: HISTORICAL COLONOSCOPY; COMMENT: Recommended: Repeat colonoscopy August 2013 (in 1 yr) CHOLECYSTECTOMY PROCEDURE: HISTORICAL CHOLECYSTECTOMY ESOPHAGOGASTRODUODENOSCOPY PROCEDURE: [place] ESOPHAGOGASTRODUODENOSCOPY TRANSORAL DIAGNOSTIC COLONOSCOPY 05/08/2017 PROCEDURE: HISTORICAL COLONOSCOPY COLONOSCOPY 07/31/2016 PROCEDURE: HISTORICAL COLONOSCOPY COLONOSCOPY 06/01/2014 PROCEDURE: HISTORICAL COLONOSCOPY OTHER SURGICAL HISTORY 12/05/2018 PROCEDURE: [place] ERCP W/SPHINCTEROTOMY/PAPILLOTOMY Medical History Medical History Date Comments Asthma 03/29/2017 DX:Asthma Hypothyroid 03/29/2017 DX:Hypothyroid Osteopenia 03/29/2017 DX:Osteopenia Renal insufficiency 03/29/2017 DX:Renal ins ufficiency DM (diabetes mellitus), type 2 with renal complications (CMS/HCC) 03/29/2017 DX:DM (diabetes mellitus ), type 2 with renal complications (HCC) Hyperlipidemia 03/29/2017 DX:Hyperlipidemi a Hypertension 03/29/2017 DX:Hypertension Colon polyps 12/29/2012 DX:Colon polyps; COMMENT: Overview: Of benign appearance, biopsy pending. Colonoscopy recommended in 1 year (August 2013) History of SC (myocardial infarction) 12/24/2016 DX:History of SC (myocardial infarction); COMMENT: NSTEMI 12/09/16 GERD (gastroesophageal reflu x disease) 07/02/2017 DX:GERD (gastroesophageal re flux disease); COMMENT: Overview: EGD 03/23/12 Dr. Rodriguez, Stomach revealed reactive gastropathy/chemical gastritis/active esophagitis. History of diverticulitis 03/03/2014 DX:His tory of diverticulitis Right lower lobe lung mass 12/29/2012 DX:Ri ght lower lobe lung mass; COMMENT: Overview: s/p CT/PET (skull base to mid thigh) on March 2012: Showed decreased size of Rt LL mass (1.4cm vs 3.1cm on prior CT) No hypermetabolic activity. Done at [facility] Follows with Dr Yon frances (pulmonary) [facility] Takotsubo cardiomyopathy 12/24/2016 DX:Tako tsubo cardiomyopathy; COMMENT: Overview: Cath on 12/10/16 - ECHO showed left ventrucular size normal. LV EF is 52%. Diverticulitis DX:Diverticuliti s Nephropathy DX:Nephropathy Chest pain DX:Chest pain Social History Tobacco Use Types Packs/Day Years [...] on file Sexual Orientation Not on file Obstetrics History Last Filed Vital Signs Vital Sign Reading Time Taken Comments Blood Pressure 114/82 05/05/2024 9:34 AM EST Pulse 82 02/11/2024 9:41 AM EST Temperature - - Respiratory Rate - - Oxygen Saturation 98% 02/11/2024 9:41 AM EST Inhaled Oxygen Concentration - - Weight 58.5 kg (129 lb) 05/05/2024 9:34 AM EST Height 162.6 cm (5' 4 ) 05/05/2024 9:34 AM EST Body Mass Index 22.14 05/05/2024 9:34 AM EST Plan of Treatment Upcoming Encounters Date Type Department Care Team (Late st Contact Info) Description 08/04/2024 9:00 AM EDT Office Visit [facility] - [place] [address] [phone] Gideon Mojica, DPM [address] [address] Health Maintenance Due Date Last Done Comments Diabetes: Annual Foot Exam 1955 Diabetes: Annual Retina Eye Exam 1955 Colorectal Cancer Screening: Stool Based Tests (FOBT/FIT) 02/04/2022 Falls Risk Assessment 02/04/2022 Hepatitis C Screening 02/04/2022 Medicare Annual Wellness Visit 02/04/2022 Osteoporosis Screening (Bone Density Screening) 02/04/2022 Social Influencers of Health Screening 02/04/2022 Diabetes: Annual Urine Albumin-Creatinine Ratio (uACR) 02/17/2022 COVID-19 Vaccine ( season) 2023 01/18/2021, 06/08/2020, 05/11/2020 Diabetes: Blood Sugar Control Test (HGBA1C) 10/28/2024 04/30/2024, 12/05/2023, 09/27/2016 Depression Screening 04/30/2025 04/30/2024 Diabetes: Annual GFR (Glomerular Filtration Rate) 05/13/2025 05/13/2024, 05/05/2024, 12/05/2023, Additional history exists Hypertension/CHF/CAD Annual BMP Blood Test 05/13/2025 05/13/2024, 05/05/2024, 12/05/2023, Additional history exists DTaP,Tdap,and Td Vaccines (2 - Td or Tdap) 12/25/2028 12/25/2018 Cholesterol Screening (Lipid Panel) 05/05/2029 05/05/2024, 11/16/2022 Colorectal Cancer Screening: Colonoscopy Discontinued 08/28/2012 Pneumococcal Vaccine: 50+ Years Completed 01/29/2018, 10/17/2016, 11/01/2012, Additional history exists Zoster Vaccines Completed 05/01/2019, 02/18/2019 RSV Immunization Patients 60+ Years Old Completed 03/05/2023 Influenza Vaccine Completed 12/05/2023, , 12/06/2021, Additional history exists HIB Vaccines Aged Out No longer eligi ble based on patient's age to complete this topic HPV Vaccines Aged Out No longer eligi ble based on patient's age to complete this topic Hepatitis A Vaccines Aged Out No long er eligible based on patient's age to complete this topic Hepatitis B Vaccines Aged Out No long er eligible based on patient's age to complete this topic IPV Vaccines Aged Out No longer eligi ble based on patient's age to complete this topic MMR Vaccines Aged Out No longer eligi ble based on patient's age to complete this topic Meningococcal ACWY Vaccine Aged Out N o longer eligible based on patient's age to complete this topic Meningococcal B Vacine Aged Out No lo nger eligible based on patient's age to complete this topic RSV Immunization Patients Under 20 months Aged Out No longer eligible based on patient's age to complete this topic Varicella Vaccines Aged Out No longer eligible based on patient's age to complete this topic Procedures Procedure Name Priority Date/Time Associated Diagnosis Comments COMPREHENSIVE METABOLIC PANEL Routine 05/13/2024 9:47 AM EDT Coronary artery disease involving platinum coronary artery of platinum heart without angina pectoris Heart failure with reduced ejection fraction (CMS/HCC) Primary hypertension Coronary artery disease, unspecified vessel or lesion type, unspecified whether angina present, unspecified whether platinum or transplanted heart LIPID PANEL Routine 05/05/2024 10:09 AM EST Coronary artery disease involving platinum coronary artery of platinum heart without angina pectoris Pure hypercholesterolemia COMPREHENSIVE METABOLIC PANEL Routine 05/05/2024 10:09 AM EST Heart failure with reduced ejection fraction (CMS/HCC) Coronary artery disease involving platinum coronary artery of platinum heart without angina pectoris HM COLONOSCOPY Routine 08/28/2012 from Last 3 Months or Most Recently Relevant to Health Maintenance Results * (ABNORMAL) Comprehensive metabolic panel (05/13/2024 9:47 AM EDT) Only the most recent of2 resultswithin the time period is included. Glucose 142(H) 70 - 99 mg/dL [facility] [...] PM EDT Performed at: ??01 - [facility] [address] ??[id number] [employer]ge Shop Machine Repairer: Erin Gardiner MD, Phone: ??[phone] Bibiana Deluna NP LAB BLOOD ORDERABLES Final Result [facility] 1 * Lipid panel (05/05/2024 10:09 AM EST) Cholesterol Total 124 100 - 199 mg/dL [facility] 1 Triglycerides 117 0 - 149 mg/dL [facility] 1 HDL Cholesterol 43 >39 mg/dL [facility] 1 VLDL Cholesterol Calculated 21 5 - 40 mg/dL [facility] 1 LDL Chol Calc (NIH) 60 0 - 99 mg/dL [facility] 1 Blood Venous blood specimen / Unknown 05/05/2024 10:09 AM EST 05/05/2024 Narrative [facility] 1 - 05/06/2024 1:06 AM EST Performed at: ??01 - [facility] [address] ??[id number] [employer] Machine Repairer: Erin Gardiner MD, Phone: ??[phone] Keo Mcmillan MD LAB BLOOD ORDERABLES F inal Result [facility] 1 * Colonoscopy (08/28/2012) Colonoscopy No Interpretation , Abstracted Anatomical Region Laterality Modality Other Historical Provider HEALTH MAINTENANCE Final Result from Last 3 Months or Most Recently Relevant to Health Maintenance Insurance [employer] MEDICARE Member Subscriber Plan / Payer (Ef fective 2016-Present) Name:Luz Hicks Relation to Subscriber:Self Name:Luz Hicks Payer ID:[id number] Group ID:[id number] Type:Not on file Address: [place] [address] [address] [id number] Care Teams Volunteer Recruitment Coordinator Relationship Specialty Start Date End Date Tiara Bran MD [address] [place] [phone] PCP - General 07/05/17
--- OUTSIDE RECORDS SUMMARY | 2024-05-15 10:59 | XMS_ITS | Encounter Summary ---
Author Organization [employer] Address [address] [place] [address] [address] [address] Care Team Providers Care Generalist Name Role Phone Tiara Bran MD Primary Care Provider [phone] Encounter Details Date Type Department Care Team ([facility] Contact Info) Description 07/24/2022 Orders Only [facility] [address] [place] [address] Tiara Bran MD [address] [place] [address] Social History Tobacco Use Types Packs/Day Years Used Date Smoking Tobacco: Never Assessed Depression Answer Date Recorded Patient Health Questionnaire-9 Score 0 06/21/2022 Depression Answer Date Recorded Patient Health Questionnaire-2 Score 0 06/21/2022 Comments Unknown Sex and Gender Information Value Date Recorded Sex Assigned at Female 01/01/2022 10:18 AM EDT Legal Sex Female 10:18 AM EDT Gender Identity Female 01/01/2022 10:18 AM EDT Sexual Orientation Straight 01/01/2022 10 :18 AM EDT COVID-19 Exposure Response Date Recorded In the last 10 days, have yo u been in contact with someone who was confirmed or suspected to have Coronavirus/COVID-19? No / Unsure 07/27/2022 9:42 AM EDT documented as of this encounter Plan of Treatment Upcoming Encounters Date Type Department Care Team (Late Contact Info) Description 07/28/2024 10:30 AM EDT Office Visit [facility] [address] [place] [address] Tiara Bran MD [address] [place] [address] documented as of this encounter Visit Diagnoses Not on filedocumented in this encounter Additional Health Concerns Assessment Noted Time PHQ-9 Depression Total Score: 0 06/22/19 23 3:15 PM EDT documented as of this encounter Care Teams Generalist Relationship Specialty Start Date End Date Tiara Bran MD [address] [place] [address] PCP - General Family Medicine 11/21/16 documented as of this encounter
--- OUTSIDE RECORDS SUMMARY | 2024-05-15 10:59 | XMS_ITS | Encounter Summary ---
Author Organization Maintenance Assistant [facility] Address [address] [place] [address] 7[place] [address] Care Team Providers Care [facility] Nurse Name Role Phone Tiara Bran MD Primary Care Provider [phone] Encounter Details Date Type Department Care Team (Late Contact Info) Description 07/13/2022 Orders Only [facility] [address] [place], [place] [phone] Rosy Alexis LPN Social History Tobacco Use Types Packs/Day Years [...] suspected to have Coronavirus/COVID-19? No / Unsure 07/09/2022 11:07 AM EDT documented as of this encounter Plan of Treatment Upcoming Encounters Date Type Department Care Team (Late st Contact Info) Description 07/28/2024 10:30 AM EDT Office Visit [facility] [address] [place], [place] [phone] Tiara Bran MD [address] [place], [place] [phone] documented as of this encounter Visit Diagnoses Not on filedocumented in this encounter Additional Health Concerns Assessment Noted Time PHQ-9 Depression Total Score: 0 06/22/19 23 3:15 PM EDT documented as of this encounter Care Teams [facility] Nurse Relationship Specialty Start Date End Date Tiara Bran MD [address] [place] [address] PCP - General Family Medicine 11/21/16 documented as of this encounter
--- OUTSIDE RECORDS SUMMARY | 2024-05-15 10:59 | XMS_ITS | Encounter Summary ---
Author Organization [employer] Address [address] [place] [address] Care Team Providers Care Community Representative Name Role Phone Tiara Bran MD Primary Care Provider [phone] Encounter Details Date Type Department Care Team (Late st Contact Info) Description 01/07/2023 Abstract [facility] [address] [place], [place] [phone] Danisha Andrews Social History Tobacco Use Types Packs/Day Years Used Date Smoking Tobacco: Never Passive Smoke Exposure: Never Smokeless Tobacco: Never Depression Answer Date Recorded Patient Health Questionnaire-9 Score 0 06/21/2022 Housing Stability Answer Date Recorded What is your housing situation today? I have rolanda ivy 12/19/[address] you li ve. Do you have problems with any of the following? None of the above 12/19/2022 Food Insecurity Answer Date Recorded Within the past 12 months, y ou worried that your food would run out before you got money to buy more: Never True 12/19/2022 Within the past 12 months,th e food you bought just didn't last and you didn't have enough money to get more: Never True Transportation Answer Date Recorded In the past 12 months, has l ack of transportation kept you from medical appts, meetings, work or from getting things needed for daily living? No 12/19/2022 Utilities Answer Date Recorded In the past 12 months, has t he electric, gas, oil or water company threatened to shut off services in your home? No 12/19/2022 Depression Answer Date Recorded Patient Health Questionnaire-2 Score 0 06/21/2022 Comments Unknown Sex and Gender Information Value Date Recorded Sex Assigned at Female 01/01/2022 10:18 AM EDT Legal Sex Female 10:18 AM EDT Gender Identity Female 01/01/2022 10:18 AM EDT Sexual Orientation Straight 01/01/2022 10 :18 AM EDT documented as of this encounter Plan of Treatment Upcoming Encounters Date Type Department Care Team ([facility] st Contact Info) Description 07/28/2024 10:30 AM EDT Office Visit [facility] [address] [place] [address] Tiara Bran MD [address] [place] [address] documented as of this encounter Visit Diagnoses Not on filedocumented in this encounter Additional Health Concerns Assessment Noted Time PHQ-9 Depression Total Score: 0 06/22/19 23 3:15 PM EDT documented as of this encounter Care Teams Community Representative Relationship Specialty Start Date End Date Tiara Bran MD [address] [place] [address] PCP - General Family Medicine 11/21/16 documented as of this encounter
--- OUTSIDE RECORDS SUMMARY | 2024-05-15 10:59 | XMS_ITS | Encounter Summary ---
Author Organization [employer] Address [address] [place] [address] Care Team Providers Care Asset Recovery Specialist Name Role Phone Tiara Bran MD Primary Care Provider [phone] Encounter Details Date Type Department Care Team (Late st Contact Info) Description 02/12/[address] [facility] [address] [place] [address] Provider, MD Luis Eduardo Social History Tobacco Use Types Packs/Day Years Used Date Smoking Tobacco: Never Passive Smoke Exposure: Never Smokeless Tobacco: Never Depression Answer Date Recorded Patient Health Questionnaire-9 Score 0 06/21/2022 Housing Stability Answer Date Recorded What is your housing situation today? I have [place] [employer] 12/19/[address] you [...] Description 07/28/2024 10:30 AM EDT Office Visit [facility] [address] [place] [address] Tiara Bran MD [address] [place] [address] documented as of this encounter Procedures Procedure Name Priority Date/Time Associated Diagnosis Comments ECG 12-LEAD Routine 02/11/2024 11:31 AM EST documented in this encounter Results * ECG 12 lead (02/11/2024 11:31 AM EST) us Historical Provider ECG ORDERABLES Final Res ult documented in this encounter Visit Diagnoses Not on filedocumented in this encounter Additional Health Concerns Assessment Noted Time PHQ-9 Depression Total Score: 0 06/22/19 23 3:15 PM EDT documented as of this encounter Care Teams Asset Recovery Specialist Relationship Specialty Start Date End Date Tiara Bran MD [address] [place] [address] PCP - General Family Medicine 11/21/16 documented as of this encounter
--- OUTSIDE RECORDS SUMMARY | 2024-05-15 11:00 | XMS_ITS | Clinical Summary ---
Author Organization [facility] Address [address] [place] [address] Care Team Providers Care Craft Superintendent Name Role Phone Ashley Henao TRACY Primary Care Provider [phone] Source Comments PLEASE NOTE, if this patient is a minor, it may be UNLAWFUL to discuss sensitive information that is contained in these records (such as FAMILY PLANNING, MENTAL HEALTH or SUBSTANCE ABUSE) with the minor patient's parent or other person without the patient's specific authorization.[facility] Allergies No known active allergies Medications nebulizer and compressorIndicati ons:COPD (chronic obstructive pulmonary disease) ([facility]) DX: Severe COPD 1 Device 1 05/06/19 14 Active nebulizer accessoriesIndicat ions:COPD (chronic obstructive pulmonary disease) ([facility]) Dx: severe COPD 1 Device 1 05/06/19 14 Active insulin syringe (BD INSULIN SYRINGE ULTRA-FINE) 1 mL 31 x 5/16 Indications:D M (diabetes mellitus) ([facility]) Dx: 250.00 To use QAC and HS (4 times a day with insulin) 120 Syringe 12 05/12/19 14 Active Insulin [place], Disposable, (OSCAR PEN NEEDLE) 32 x 5/32 ndleIndications:DM (diabetes mellitus) ([facility]) 1 Units by miscellaneous (misc) route 4 (four) times daily. Dx: 250.00 Use insulin as prescribed TID AC and QHS 120 Units 12 05/12/19 14 Active docusate sodium (COLACE) 100 mg capsule Take 1 Cap by mouth 2 (two) times daily. 180 Cap 3 12/03/19 15 Active leg brace (KNEE BRACE)Indications: Generalized osteoarthrosis, unspecified site Rt knee Oa, provide knee brace, during the day, remove at night. 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 Give wrist/foprearm neoprene support 1 Each 0 12/02/19 15 Active SPIRIVA RESPIMAT 2.5 mcg/actuation mist INHALE 2 SPRAYS (5 MCG) BY MOUTH ONCE A DAY 3 08/17/19 16 Active VENTOLIN HFA 90 mcg/actuation inhaler Inhale 2 Puffs into the lungs every 4 (four) hours as needed. 0 07/10/19 16 Active lancetsIndications :Insulin-requiring or dependent type II diabetes mellitus ([facility]) Uses insulin 4 times a day. E11.9 Freestyle meter 150 Each 11 09/13/19 16 Active cetirizine (ZYRTEC) 10 mg tabletIndications: Other allergic rhinitis Take 1 Tab by mouth once daily. 90 Tab 3 10/29/19 16 Active fluticasone-vilant niraj (BREO ELLIPTA) 200-25 mcg/dose dsdvIndications:CO PD exacerbation ([facility]) Inhale 1 Puff into the lungs once daily. 60 Each 6 10/31/19 16 Active insulin aspart (NOVOLOG FLEXPEN) 100 unit/mL injectionIndicatio ns:Type 2 diabetes mellitus without complication, with long-term current use of insulin ([facility]) DM: e11.9. Per SS start at 100-150mg/dl 2units and increase 2 units for every 50 above 150mg/dl 15 Pen 3 01/06/20 16 Active polyethylene glycol (GLYCOLAX, MIRALAX) 17 gram/dose powder Take 17 g by mouth once daily. Per GI 1530 g 3 01/06/20 16 Active fluticasone (FLONASE) 50 mcg/actuation nasal spray Place 2 Sprays into the nostril(s) once daily 16 g 6 06/08/19 17 Active diltiazem (CARDIZEM CD) 240 mg 24 hr capsule Take 1 Cap by mouth once daily Swallow whole. Do not crush or chew. 90 Cap 4 06/14/19 17 Active albuterol (PROVENTIL) 2.5 mg /3 mL (0.083 %) nebulizer solutionIndication s:Chronic obstructive pulmonary disease, unspecified COPD type (HCC-CMS) Take 3 mL by nebulization every 6 (six) hours as needed for wheezing 60 mL 11 06/20/19 17 Active hydroCHLOROthiazid e (HYDRODIURIL) 25 mg tabletIndications: Essential hypertension Take 1 Tab by mouth once daily 90 Tab 3 06/20/19 17 Active lisinopril (PRINIVIL,ZESTRIL) 20 mg tabletIndications: Type 2 diabetes mellitus without complication, unspecified ferry terminal agent insulin use status,Essential hypertension Take 1 Tab by mouth once daily 90 Tab 3 06/20/19 17 Active simvastatin (ZOCOR) 10 mg tabletIndications: Type 2 diabetes mellitus without complication, unspecified intermediate insulin use status,Dyslipidemi a Take 1 Tab by mouth nightly at bedtime 90 Tab 3 06/20/19 17 Active montelukast (SINGULAIR) 10 mg tabletIndications: Simple chronic bronchitis ([facility]) Take 1 Tab by mouth nightly at bedtime 90 Tab 2 06/20/19 17 Active omeprazole (PRILOSEC) [address] capsuleIndications :Dyspepsia Take 1 Cap by mouth every morning before breakfast Do not crush or chew. 90 Cap 3 06/20/19 17 Active insulin needles (BD ULTRAFINE III SHORT PEN) 31 gauge x 05/17 Dx:E11.9 DM on insulin 4 times a day. 150 Each 06/20/19 17 Active blood sugar diagnostic (FREESTYLE LITE STRIPS) stripsIndications: Insulin-requiring or dependent type II diabetes mellitus ([facility]) 1 Strip as needed for high blood sugar Dx: DM2 on insulin Checks 4 times a day. 150 Each 11 07/14/19 [address] tabletIndications: Type 2 diabetes mellitus without complication, unspecified ferry terminal agent insulin use status Take 1 Tab by mouth once daily 30 Tab 5 08/20/19 17 Active polyethylene glycol-electrolyte s (NULYTELY) 420 gram solution 09/14/19 17 Active insulin glargine (LANTUS SOLOSTAR) 100 unit/mL (3 mL) injectionIndicatio ns:type 2 diabetes mellitus Inject 45 Units into the skin every evening 15 Pen 2 09/30/19 17 Active ammonium lactate (LAC-HYDRIN) 12 % lotionIndications: Dry skin dermatitis Apply topically on extremities once daily and as needed for dry skin and itching 400 g 2 10/03/19 17 Active levothyroxine (SYNTHROID, LEVOTHROID) 150 mcg tabletIndications: Other specified hypothyroidism TAKE 1 TABLET BY MOUTH EVERY DAY ON EMPTY STOMACH 30 Tab 12/04/19 17 Active alendronate (FOSAMAX) 35 mg tabletIndications: Osteopenia of both thighs Take 1 Tab by mouth every 7 (seven) days Take with full glass of water and stay upright for atleast 30min 4 Tab 1 12/04/19 17 Active calcium carbonate-vitamin D3 500 mg(1,250mg) -400 unit tabletIndications: Osteopenia of both thighs Take 1 Tab by mouth 2 (two) times daily 60 Tab 3 12/04/19 17 Active Active Problems Problem Noted Date Diagnosed Date NSTEMI (non-ST elevated myocardial infarction) ( [facility]) 12/24/2016 Overview (12/26/2016): Hospitalized 12/09/16 - 12/12/16 - Cardiac cath. Lipitor has been started at 80mg. Takotsubo cardiomyopathy 12/24/2016 Overview (12/24/2016): Cath on 12/10/16 - ECHO showed left ventrucular size normal. LV EF is 52%. CKD (chronic kidney disease) 04/18/2016 Diverticulitis 03/03/2014 Insomnia 08/28/2013 Personal history of colonic polyps 12/29/2012 Overview (12/29/2012): Of benign appearance, biopsy pending. Colonoscopy recommended in 1 year (August 2013) Right lower lobe lung mass 12/29/2012 Overview (12/29/2012): s/p CT/PET (skull base to mid thigh) on March 2012: Showed decreased size of Rt LL mass (1.4cm vs 3.1cm on prior CT) No hypermetabolic activity. Done at [facility] Follows with Dr Yon frances (pulmonary) [facility] H/O colonoscopy 08/28/2012 Overview (12/29/2012): August 28 2012 DX: Diverticulosis of Sigmoid Colon Polyps in descending colon (resected: biopsy results pending) Recommended: Repeat colonoscopy August 2013 (in 1 yr) Diverticulosis of sigmoid colon 08/28/2012 Overview (12/29/2012): Dx by Colonoscopy on August 28 2012 Osteopenia 06/17/2012 Overview (12/03/2016): DEXA 06/17/12.Lowest Tscore -1.2 (rt and left femoral neck >> DEXA( 11/14/16, [facility]): Osteopenia. Lowest Tscore -1.5 (rt and left femoral necks) HTN (hypertension) COPD (chronic obstructive pulmonary disease) ([facility]) Overview (03/26/2014): Pulm F/u at [facility]. Dr Eloy Shah On Advair diskus powder 500/50 1puff BID Albuterol, singulair Hyperlipidemia Overview (10/28/2013): Component Latest Ref Rng 10/10/2013 04/15/2013 12/31/2012 CHOLESTEROL TOTAL 0 - 200 mg/dL 243 (H) 176 256 (H) TRIGLYCERIDES 0 - 150 mg/dL 193 (H) 115 222 (H) HDL >40 mg/dL 45 36 (L) 45 LDL 0 - 100 mg/dL 160 (H) 117 (H) 167 (H) TC-HDLC RATIO 0 - 4.4 mg/dL 5.4 (H) 4.9 (H) 5.7 (H) DM type 2 (diabetes mellitus, type 2) ([facility]) Overview (01/19/2015): Endo F/u at [facility]. Hypothyroidism GERD (gastroesophageal reflux disease) Overview (09/25/2012): EGD 03/23/12 Dr. Rodriguez, Stomach revealed reactive gastropathy/chemical gastritis/active esophagitis. Immunizations Name Administration Dates Next Due INFLUENZA, SEASONAL, INJECTABLE 12/01/2014,11/21 INFLUENZA, SEASONAL, INJECTABLE, PRESERVATIVE FR EE 12/29/2012 Social History Tobacco Use Types Packs/Day Years Used Date Smoking Tobacco: Former Cigarettes 1 43 1 - 12/30/2003 Alcohol Use Standard Drinks/Week Comments No 0 (1 standard drink = 0.6 oz pur e alcohol) Social Connections Answer Date Recorded Social Connections and Isolation 0 10/25/2018 Financial Resource Strain Answer Date R ecorded Financial Resource Strain 0 2018 Stress Answer Date Recorded Stress 0 10/25/2018 Physical Activity Answer Date Recorded Physical Activity 0 10/25/2018 Food Insecurity Answer Date Recorded Food 0 10/25/2018 Transportation Needs Answer Date Record ed Transportation 0 10/25/2018 Housing Stability Answer Date Recorded Housing 0 10/25/2018 Safety and Environment Answer Date Ion rded Safety 0 10/25/2018 Utilities Answer Date Recorded Utilities 0 10/25/2018 Employment Answer Date Recorded Employment 0 10/25/2018 Comments No Sex and Gender Information Value Date Recorded Sex Assigned at Not on file Legal Sex Female 11:36 AM PDT Gender Identity Not on file Sexual Orientation Not on file Last Filed Vital Signs Vital Sign Reading Time Taken Comments Blood Pressure 132/78 09/27/2016 9:44 AM EDT Pulse 72 09/27/2016 9:44 AM EDT Temperature 36.7 ??C (98.1 ??F) 09/27/2016 9:44 AM ED T Respiratory Rate 18 09/27/2016 9:44 AM EDT Oxygen Saturation 98% 10/29/2015 9:18 AM EDT Inhaled Oxygen Concentration - - Weight 72.3 kg (159 lb 8 oz) 09/27/2016 9:44 AM EDT Height 160 cm (5' 3 ) 09/27/2016 9:44 AM EDT Body Mass Index 28.25 09/27/2016 9:44 AM EDT Plan of Treatment Not on file Insurance [place] Care Teams Craft Superintendent Relationship Specialty Start Date End Date Ashley Henao FNP [address] [place] [address] PCP - General 04/29/18
--- OUTSIDE RECORDS SUMMARY | 2024-05-15 11:00 | XMS_ITS | Encounter Summary ---
Author Organization [employer] Address [address] [place] [address] Care Team Providers Care Biometrics Technician Name Role Phone Tiara Bran MD Primary Care Provider [phone] Encounter Details Date Type Department Care Team (Latest Contact Info) Description 04/30/2024 10:00 AM EST Office Visit [facility] [address] [place], [place] [id number] Tiara Bran MD [address] [place], [place] [id number] Type 2 diabetes mellitus without complication, with long-term current use of insulin (CMS/HCC) (Primary Dx); Moderate major depression (CMS/HCC); Mixed simple and mucopurulent chronic bronchitis (CMS/HCC); Acquired hypothyroidism Social History Tobacco Use Types Packs/Day Years Used Date Smoking Tobacco: Never Passive Smoke Exposure: Never Smokeless Tobacco: Never Depression Answer Date Recorded Patient Health Questionnaire-9 Score 2 04/30/2024 Patient Health Questionnaire-9 Score 2 04/30/2024 Last PHQ-9: Questionnaire Data Not on file 0 04/30/2024 Housing Stability Answer Date Recorded What is your housing situation today? I have [place] ivy 04/30/[address] you li ve. Do you have problems with any of the following? None of the above 04/30/2024 Food Insecurity Answer Date Recorded Within the past 12 months, y ou worried that your food would run out before you got money to buy more: Never True 04/30/2024 Within the past 12 months,th e food you bought just didn't last and you didn't have enough money to get more: Never True Transportation Answer Date Recorded In the past 12 months, has l ack of transportation kept you from medical appts, meetings, work or from getting things needed for daily living? No 04/30/2024 Utilities Answer Date Recorded In the past 12 months, has t he electric, gas, oil or water company threatened to shut off services in your home? No 04/30/2024 Depression Answer Date Recorded Patient Health Questionnaire-2 Score 0 04/30/2024 Internet Access Answer Date Recorded Internet Access Q1 Yes 04/30/2024 Internet Access Q2 Not on file 04/30/2024 Comments Unknown Sex and Gender Information Value Date Recorded Sex Assigned at Female 01/01/2022 10:18 AM EDT Legal Sex Female 10:18 AM EDT Gender Identity Female 01/01/2022 10:18 AM EDT Sexual Orientation Straight 01/01/2022 10 :18 AM EDT documented as of this encounter Last Filed Vital Signs Vital Sign Reading Time Taken Comments Blood Pressure 132/67 04/30/2024 9:52 AM EST Pulse 58 04/30/2024 9:52 AM EST Temperature 36.1 ??C (97 ??F) 04/30/2024 9:52 AM EST Respiratory Rate 16 04/30/2024 9:52 AM EST Oxygen Saturation 97% 04/30/2024 9:52 AM EST Inhaled Oxygen Concentration - - Weight 57.6 kg (127 lb) 04/30/2024 9:52 AM EST Height 157.5 cm (5' 2 ) 04/30/2024 9:52 AM EST Body Mass Index 23.23 04/30/2024 9:52 AM EST documented in this encounter Progress Notes * Tiara Bran MD - 04/30/2024 10:00 AM EST Subjective Patient ID: Luz Hicks is a 78 y.o. female who presents for follow up. Natalia is a 78-year-old female patient with type 2 diabetes, stable COPD, stable hypertension, etc. here with her daughter for follow-up. She feels overall well. She is in her usual state of mind and health. Looks happy. Her A1c has increased to 9.3 today which is unusual. Daughter states that Francoise is compliant with all of her meds which are in a med box. Loose injects herself her Lantus insulin ebony ly and the mother states she is absolutely sure that she does not miss any doses. Her weight is stable. Her morning fasting sugars are mostly around 110 but her p.m. sugars are elevated and usually around 220. Diabetes She presents for her follow-up diabetic visit. She has type 2 diabetes mellitus. Her disease coursehas been worsening. There are no hypoglycemic associated symptoms. Pertinent negatives for hypoglycemia include no dizziness, headaches or nervousness/anxiousness. There are no diabetic associated symptoms. Pertinent negatives for diabetes include no chest pain, no polydipsia and no polyuria. Thereare no hypoglycemic complications. Risk factors for coronary artery disease include dyslipidemia, diabetes mellitus, hypertension, post-menopausal and sedentary lifestyle. Current diabetic treatment includes oral agent (monotherapy), insulin injections and diet. She is compliant with treatment all of the time. She is following a generally healthy diet. She rarely participates in exercise. Her breakfast blood glucose range is generally 90-110 mg/dl. Her lunch blood glucose range is generally >200 mg/dl. Her bedtime blood glucose range is generally >200 mg/dl. An YESI inhibitor/angiotensinII receptor lissa is being taken. She sees a precision lens grinder.Eye exam is current. Review of Systems Constitutional: Negative for activity change, chills, fever and unexpected weight change. Respiratory: Negative for cough, shortness of breath and wheezing. Cardiovascular: Negative for chest pain, palpitations and leg swelling. Gastrointestinal: Negative for abdominal pain and blood in stool. Endocrine: Negative for polydipsia and polyuria. Genitourinary: Negative for decreased urine volume, difficulty urinating, dysuria and hematuria. Musculoskeletal: Negative for arthralgias and gait problem. Skin: Negative for color change and rash. Neurological: Negative for dizziness and headaches. Hematological: Negative for adenopathy. Psychiatric/Behavioral: Negative for dysphoric mood, hallucinations, sleep disturbance and suicidalideas. The patient is not nervous/anxious. Objective BP 132/67 (BP Location: Left arm, Patient Position: Sitting, BP Cuff Size: Adult) Pulse58 Temp 97 ??F (36.1 ??C) (Oral) Resp 16 Ht 5' 2 (1.575 m) Wt 127 lb (57.6 kg) SpO2 97% BMI 23.23 kg/m?? Physical Exam Vitals reviewed. Constitutional: General: She is not in acute distress. Appearance: Normal appearance. She is not ill-appearing. HENT: Head: Normocephalic. Right Ear: Tympanic membrane and ear canal normal. Left Ear: Tympanic membrane and ear canal normal. Nose: Nose normal. Mouth/Throat: Mouth: Mucous membranes are moist. Pharynx: No oropharyngeal exudate or posterior oropharyngeal erythema. Eyes: Extraocular Movements: Extraocular movements intact. Conjunctiva/sclera: Conjunctivae normal. Pupils: Pupils are equal, round, and reactive to light. Cardiovascular: Rate and Rhythm: Normal rate and regular rhythm. Pulses: Normal pulses. Heart sounds: Normal heart sounds. Pulmonary: Effort: Pulmonary effort is normal. No respiratory distress. Breath sounds: Normal breath sounds. Abdominal: Palpations: Abdomen is soft. Musculoskeletal: General: Normal range of motion. Cervical back: Normal range of motion. Skin: General: Skin is warm. Capillary Refill: Capillary refill takes less than 2 seconds. Neurological: General: No focal deficit present. Mental Status: She is alert and oriented to person, place, and time. Psychiatric: Mood and Affect: Mood normal. Behavior: Behavior normal. Thought Content: Thought content normal. Judgment: Judgment normal. Assessment/Plan Diagnoses and all orders for this visit: Type 2 diabetes mellitus without complication, with long-term current use of insulin (CMS/HCC) Comments: Diabetes is not well-controlled and her A1c is 9.3 today. Continue current management but added Farxiga 5 mg daily. Return to clinic with me for recheck A1c. Orders: - POCT Glucose - POCT HGB A1C Moderate major depression (CMS/HCC) Mixed simple and mucopurulent chronic bronchitis (CMS/HCC) Comments: Patient is doing well on current inhalers. She sees Dr. Jordan who is her pulmonary physician. Vaccines are up-to-date. She is not smoking. Acquired hypothyroidism Comments: is overdue for thyroid function test to be drawn. Lab order given today. Continue levothyroxineat current dose unless those needs to be changed. Orders: - TSH W/Reflex to FT4; Future Other orders - dapagliflozin (Farxiga) 5 MG; Take 1 tab orally daily documented in this encounter Plan of Treatment Upcoming Encounters Date Type Department Care Team (Late st Contact Info) Description 07/28/2024 10:30 AM EDT Office Visit [facility]S [address] [place] [address] Tiara Bran MD [address] [place] [address] Scheduled Orders Name Type Priority Associated Diagnoses Orde r Schedule TSH W/Reflex to FT4 Lab Routine Acquired hypothyroidism Expected: 04/30/2024 (Approximate), Expires: 04/30/2025 documented as of this encounter Procedures Procedure Name Priority Date/Time Associated Diagnosis Comments POCT GLYCATED HEMOGLOBIN, TOTAL Routine 04/30/2024 9:59 AM EST Type 2 diabetes mellitus without complication, with long-term current use of insulin ([facility]) POCT GLUCOSE Routine 04/30/2024 9:59 AM EST Type 2 diabetes mellitus without complication, with long-term current use of insulin ([facility]) documented in this encounter Results * (ABNORMAL) POCT HGB A1C (04/30/2024 9:59 AM EST) Hemoglobin A1C 9.3(A) 4.0 - 6.0 % QC Media Lot # [id number] Lot# Expiration Date 11,425 Blood 04/30/2024 9:59 AM EST Tiara Bran MD POINT OF CARE TEST ENTER/EDIT ORDERABLES Final Result * (ABNORMAL) POCT Glucose (04/30/2024 9:59 AM EST) Glucose Blood, POC 229(A) 60 - 200 mg/dL QC Media Lot # [id number] Lot# Expiration Date 7,325 Blood Capillary blood specimen / Unknown 04/30/2024 9:59 AM EST Tiara Bran MD POINT OF CARE TEST ENTER/EDIT ORDERABLES Final Result documented in this encounter Visit Diagnoses Diagnosis Type 2 diabetes mellitus without complication, with long-term current use of insulin (CMS/HCC)- Primary Moderate major depression (CMS/HCC) Major depressive disorder, single episode, moderate Mixed simple and mucopurulent chronic bronchitis (CMS/HCC) Other chronic bronchitis Acquired hypothyroidism Unspecified hypothyroidism documented in this encounter Additional Health Concerns Assessment Noted Time PHQ-9 Depression Total Score: 2 04/30/19 25 9:56 AM EST documented as of this encounter Care Teams Biometrics Technician Relationship Specialty Start Date End Date Tiara Bran MD [address] [place] [address] PCP - General Family Medicine 11/21/16 documented as of this encounter
--- OUTSIDE RECORDS SUMMARY | 2024-05-15 11:00 | XMS_ITS | Encounter Summary ---
Author Organization [employer] Address [address] [place] [address] Care Team Providers Care Setup Technician Name Role Phone Tiara Bran MD Primary Care Provider Encounter Details Date Type Department Care Team (Latest Contact Info) Description 04/30/2024 Travel Social History Tobacco Use Types Packs/Day Years [...] [facility] [address] [place] [address] Tiara Bran MD [address] [place] [address] documented as of this encounter Visit Diagnoses Not on filedocumented in this encounter Additional Health Concerns Assessment Noted Time PHQ-9 Depression Total Score: 2 04/30/19 25 9:56 AM EST documented as of this encounter Care Teams Setup Technician Relationship Specialty Start Date End Date Tiara Bran MD [address] [place] [address] PCP - General Family Medicine 11/21/16 documented as of this encounter
--- OUTSIDE RECORDS SUMMARY | 2024-05-15 11:00 | XMS_ITS | Clinical Summary ---
Author Organization [employer] Address [address] [place] [address] 7[address] [place] [address] Care Team Providers Care Primary Substance Abuse Counselor Name Role Phone Tiara Bran MD Primary Care Provider [phone] Allergies Active Allergy Reactions Criticality Noted Date Comments Mirtazapine Unknown 11/10/2010 Other reaction(s): nightmare nightmare Other reaction(s): nightmare Medications sucralfate (Carafate) 1 g tablet Take 1 g by mouth. 01/13/20 22 Active Stiolto Respimat 2.5-2.5 MCG/ACT aerosol solution inhaler INHALE TWO PUFFS ONCE DAILY 06/20/19 23 Active spironolactone (Aldactone) 25 MG tablet Take 25 mg by mouth in the morning. 04/12/19 23 Active sacubitril-vals jaja (Entresto) 97-103 MG tablet TAKE ONE TABLET BY MOUTH IN THE MORNING AND EVENING 01/03/20 22 Active Entresto 97-103 MG tablet TAKE ONE TABLET BY MOUTH IN THE MORNING AND EVENING 04/12/19 23 Active Roflumilast 500 MCG tablet 04/25/19 23 Active ipratropium (Atrovent) 0.06 % nasal spray INHALE TWO SPRAYS IN EACH NOSTRIL THREE TIMES DAILY NEEDED FOR ALLERGY 06/02/19 23 Active donepezil (Aricept) 10 MG tablet Take 10 mg by mouth at bedtime. 04/12/19 23 Active budesonide (Pulmicort) 0.5 MG/2ML nebulizer solution 06/20/19 23 Active Magnesium 400 MG capsule Take 1 capsule orally daily 90 capsule 3 08/23/19 23 Active Alcohol Swabs (Alcohol Prep) 70 % padsIndications :Type 2 diabetes mellitus without complication, with long-term current use of insulin ([facility]),Chest pain, unspecified type,Allergy, subsequent encounter USE ONE FIVE TIMES DAILY 100 each 04/24/19 24 Active pantoprazole (ProtoNix) 40 MG EC tablet TAKE ONE TABLET EVERY MORNING 30 tablet 04/24/19 24 Active bacitracin-poly myxin b (Polysporin) ointment Apply topically 2 times daily. 15 g 06/13/19 24 Active albuterol (2.5 MG/3ML) 0.083% nebulizer solution INHALE ONE AMPULE USING A NEBULIZER EVERY 6 HOURS NEEDED 90 mL 07/01/19 24 Active FREESTYLE LITE test strip TEST BLOOD SUGAR FOUR TIMES DAILY 100 strip 07/04/19 24 Active insulin glargine (Lantus SoloStar) 100 UNIT/ML penIndications: Type 2 diabetes mellitus without complication, with long-term current use of insulin ([facility]) INJECT 20 UNITS SUBCUTANEOUSLY EVERY EVENING 15 mL 07/04/19 24 Active Sure Comfort Pen [place] 31G X 8 MM miscIndications :Type 2 diabetes mellitus without complication, with long-term current use of insulin ([facility]) USE FOUR DAILY 100 each 07/18/19 24 Active magnesium oxide (Mag-Ox) 400 MG tablet TAKE ONE TABLET BY MOUTH EVERY MORNING 90 tablet 08/02/19 24 Active fluticasone (Flonase) 50 MCG/ACT nasal sprayIndication s:Type 2 diabetes mellitus without complication, with long-term current use of insulin ([facility]),Chest pain, unspecified type,Allergy, subsequent encounter INHALE ONE SPRAY IN EACH NOSTRIL TWICE DAILY 48 g 08/02/19 24 Active azithromycin (Zithromax) 250 MG tablet TAKE ONE TABLET THREE TIMES PER WEEK ON SATURDAY, SATURDAY, AND SATURDAY Active urea (Carmol) 40 % cream Apply 1 Application. topically Once per day. 227 g 08/20/19 24 Active ammonium lactate (Lac-Hydrin Twelve) 12 % lotion Apply topically if needed for dry skin. 222 mL 09/10/19 24 025 Active montelukast (Singulair) 10 MG tabletIndicatio ns:Type 2 diabetes mellitus without complication, with long-term current use of insulin ([facility]),Chest pain, unspecified type,Allergy, subsequent encounter TAKE ONE TABLET EVERY EVENING 30 tablet 11 09/27/19 24 Active sucralfate (Carafate) 1 g tabletIndicatio ns:Type 2 diabetes mellitus without complication, with long-term current use of insulin ([facility]),Chest pain, unspecified type,Allergy, subsequent encounter TAKE ONE TABLET THREE TIMES DAILY IN THE MORNING, EVENING AND BEDTIME BEFORE MEALS 90 tablet 09/27/19 24 Active levothyroxine (Synthroid, Levoxyl) 88 MCG tabletIndicatio ns:Type 2 diabetes mellitus without complication, with long-term current use of insulin ([facility]),Chest pain, unspecified type,Allergy, subsequent encounter TAKE ONE TABLET EVERY MORNING 30 tablet 11 09/27/19 24 Active Aspirin Adult Low Strength 81 MG EC tablet TAKE ONE TABLET DAILY AT NOON 90 tablet 3 10/01/19 24 Active insulin aspart (NovoLOG FLEXPEN) 100 UNIT/ML penIndications: Type 2 diabetes mellitus without complication, with long-term current use of insulin ([facility]) INJECT 2-12 UNITS SUBCUTANEOUSLY THREE TIMES DAILY DIRECTED PER SLIDING SCALE 15 mL 5 11/07/19 24 Active atorvastatin (Lipitor) 80 MG tablet TAKE ONE TABLET EVERY NIGHT AT BEDTIME 90 tablet 2 11/25/19 24 Active lidocaine (Lidoderm) 5 % patchIndication s:Right hip pain Apply 1 patch topically Once per day. Remove & discard patch within 12 hours or as directed by MD. 30 patch 1 11/28/19 24 Active memantine (Namenda) 5 MG tablet TAKE ONE TABLET EVERY NIGHT AT BEDTIME 11/22/19 24 Active mirtazapine (Remeron) 15 MG tablet TAKE ONE TABLET EVERY NIGHT AT BEDTIME 11/22/19 24 Active amLODIPine (Norvasc) 10 MG tablet TAKE ONE TABLET DAILY AT NOON 90 tablet 2 12/24/19 24 Active Easy Touch Lancets 33G/Twist miscIndications :Type 2 diabetes mellitus without complication, with long-term current use of insulin ([facility]) TEST BLOOD SUGAR FOUR TIMES DAILY 100 each 11 01/06/20 24 Active nitroglycerin (Nitrostat) 0.4 MG SL tabletIndicatio ns:Type 2 diabetes mellitus without complication, with long-term current use of insulin ([facility]),Chest pain, unspecified type,Allergy, subsequent encounter Place 1 tablet (0.4 mg) under the tongue every 5 (five) minutes if needed for chest pain. 25 tablet 4 01/08/20 24 Active Diclofenac Sodium 1 % gelIndications: Right hip pain APPLY 2 GRAMS TOPICALLY TWICE A DAY TO THE AFFECTED AREA IF NEEDED 100 g 1 01/08/20 24 Active Blood Glucose Monitoring Suppl (TervelaStyle Lite) w/Device kit 1 kit Once per day. 1 kit 01/14/20 24 Active sacubitril-vals jaja (Entresto) 97-103 MG tablet Take 1 tablet by mouth 2 times daily. 02/08/20 23 Active dapagliflozin (Farxiga) 5 MG Take 1 tab orally daily 30 tablet 11 04/30/19 25 Active famotidine (Pepcid) 40 MG tablet Take 1 tablet (40 mg) by mouth at bedtime. 90 tablet 3 02/28/20 23 025 Discontin ued(Thera py completed ) Active Problems Problem Noted Date Diagnosed Date Moderate major depression 04/30/2024 Pre-op evaluation 01/14/2024 Assessment & Plan (01/14/2024 1:14 PM EST): Patient denied chest pain, shortness of breath, she is physically active. 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 Diabetes mellitus 02/05/2022 H/O left bundle branch block 02/05/2022 Decreased hearing 12/19/2017 GERD (gastroesophageal reflux disease) 8 Overview (06/21/2022): EGD 03/23/12 Dr. Rodriguez, Stomach revealed reactive gastropathy/chemical gastritis/active esophagitis. Overview: EGD 03/23/12 Dr. Rodriguez, Stomach revealed reactive gastropathy/chemical gastritis/active esophagitis. Hypothyroid 03/29/2017 Benign essential hypertension 11/21/2016 Hyperlipidemia 11/21/2016 Overview (06/21/2022): Component Latest Ref Rng 10/10/2013 04/15/2013 12/31/2012 CHOLESTEROL TOTAL 0 - 200 mg/dL 243 (H) 176 256 (H) TRIGLYCERIDES 0 - 150 mg/dL 193 (H) 115 222 (H) HDL >40 mg/dL 45 36 (L) 45 LDL 0 - 100 mg/dL 160 (H) 117 (H) 167 (H) TC-HDLC RATIO 0 - 4.4 mg/dL 5.4 (H) 4.9 (H) 5.7 (H) Last Assessment & Plan: The patient has a history of hyperlipidemia. She is currently on atorvastatin 80 mg orally daily. We will continue her current therapy. Colon polyps 12/29/2012 Overview (06/21/2022): Overview: Of benign appearance, biopsy pending. Colonoscopy recommended in 1 year (August 2013) Diverticulosis of sigmoid colon 08/28/2012 Overview (06/21/2022): Dx by Colonoscopy on August 28 2012 Encounters Date Type Department Care Team Description 04/30/2024 10:00 AM EST Office Visit [facility] [address] [place] [address] Tiara Bran MD Type 2 diabetes mellitus without complication, with long-term current use of insulin (CMS/HCC) (Primary Dx); Moderate major depression (CMS/HCC); Mixed simple and mucopurulent chronic bronchitis (CMS/HCC); Acquired hypothyroidism 04/30/2024 Travel from Last 3 Months Immunizations Name Administration Dates Next Due Influenza High-dose Quadrivalent Preservative Fr ee 11/08/2022 Influenza, High Dose Seasonal, Preservative Free 12/05/2023 Social History Tobacco Use Types Packs/Day Years Used Date Smoking Tobacco: Never Passive Smoke Exposure: Never Smokeless Tobacco: Never Tobacco Cessation:Counseling Given: Not Answered Depression Answer Date Recorded Patient Health Questionnaire-9 [...] Orientation Straight 01/01/2022 10 :18 AM EDT Last Filed Vital Signs Vital Sign Reading [...] Mass Index 23.23 04/30/2024 9:52 AM EST Plan of Treatment Upcoming Encounters Date Type Department Care Team (Late st Contact Info) Description 07/28/2024 10:30 AM EDT Office Visit [facility] [address] [place] [address] Tiara Bran MD [address] [place] [address] Health Maintenance Due Date Last Done Comments Eye Exam 1955 Hepatitis C Screening 1964 RSV Patients and Patients Aged 60 years or older (1 - 1-dose 75+ series) 2021 Diabetes: Urine Protein Screening 06/12/2022 06/12/2021, 07/18/2020, 03/31/2019 COVID-19 Vaccine ( season) 2023 01/18/2021, 06/08/2020, 05/11/2020 Lipid Panel 11/17/2023 11/16/2022, 06/02, 04/11/2020 Diabetes: Hemoglobin A1C 07/28/2024 025, 12/05/2023, 08/20/2023, Additional history exists Diabetes: Foot Exam 04/28/2025 04/28/2024, 05/02/2023, 05/02/2023, Additional history exists Alcohol/Substance Use Screening 04/30/2025 04/30/2024 Depression Screening 04/30/2025 04/30/2024, 04/30/19 SDOH Screening 04/30/2025 04/30/2024 Tobacco Screening 04/30/2025 04/30/2024 DTaP/Tdap/Td Vaccines (2 - Td or Tdap) 12/25/2028 12/25/2018 Pneumococcal Vaccine: 50+ Years Completed 01/29/2018, 10/17/2016, 11/01/2012, Additional history exists Zoster Vaccines Completed 05/01/2019, 02/18/2019 Influenza Vaccine Completed 12/05/2023, , 12/06/2021, Additional [...] patient's age to complete this topic Meningococcal Vaccine Aged Out No clay sahil eligible based on patient's age to complete this topic RSV under 20 months Aged Out No longe r eligible based on patient's age to complete this topic Rotavirus Vaccines Aged Out No longer eligible based on patient's age to complete this topic Procedures Procedure Name Priority Date/Time Associated Diagnosis Comments POCT GLYCATED HEMOGLOBIN, TOTAL Routine 04/30/2024 9:59 AM EST Type 2 diabetes mellitus without complication, with long-term current use of insulin (CMS/[facility]) POCT GLUCOSE Routine 04/30/2024 9:59 AM EST Type 2 diabetes mellitus without complication, with long-term current use of insulin (CMS/HCC) LIPID PANEL, STANDARD Routine 11/16/2022 8:59 AM EDT Benign essential hypertension Moderate mixed hyperlipidemia not requiring statin therapy Type 2 diabetes mellitus without complication, with long-term current use of insulin (CMS/[facility]) ALBUMIN, RANDOM URINE W/CREATININE Routine 06/12/2021 9:13 AM EDT from Last 3 Months or Most Recently Relevant to Health Maintenance Results * (ABNORMAL) POCT HGB A1C (04/30/2024 9:59 AM EST) Pathologist [facility] Hemoglobin A1C 9.3(A) 4.0 - 6.0 % QC Media Lot # [id number] Lot# Expiration Date 11425 Blood 04/30/2024 9:59 AM EST Tiara Bran MD POINT OF CARE TEST ENTER/EDIT ORDERABLES Final Result * (ABNORMAL) POCT Glucose (04/30/2024 9:59 AM EST) Pathologist [facility] Glucose Blood, POC 229(A) 60 - 200 mg/dL QC Media Lot # [id number] Lot# Expiration Date 7325 Blood Capillary blood specimen / Unknown 04/30/2024 9:59 AM EST Tiara Bran MD POINT OF CARE TEST ENTER/EDIT ORDERABLES Final Result * (ABNORMAL) Lipid Panel, Standard (11/16/2022 8:59 AM EDT) Pathologist [facility] Triglycerides 69 <150 mg/dL [facility] Comment:Desirable Triglyceri de: less than 150 mg/dLBorderline High Triglyceride 150-199 mg/dLHigh Triglyceride: 200-499 mg/dLVery High Triglyceride: greater than or equal to 5OO mg/dL Cholesterol 111 <200 mg/dL [facility] Comment:Desirable Cholestero l: less than 200 mg/dLBorderline High Cholesterol: 200-239 mg/dLHigh Cholesterol: greater than 239 mg/dL LDL Cholesterol Calculated 62 <100 mg/dL [facility] Comment:Desirable LDL: less than 100 mg/dLNear Optimal/Above Optimal LDL: 110- 129 mg/dLBorderline High LDL: 130-159 mg/dLHigh LDL: 160-189 mg/dLVery High LDL: greater than or equal to 190 mg/dL HDL Cholesterol 36(L) >40 mg/dL [facility] Comment:Desirable HDL: great er than 40 mg/dL Note: This HDL assay may give artificially low results in patients with liver disease. Blood Venous blood specimen / Unknown 11/16/2022 8:59 AM EDT 11/16/2022 2:58 PM EDT us Tiara Bran MD LAB BLOOD ORDERABLES Final Re sult Performing Organization Address [facility]/ZIP Co de Phone Number [facility] [address] [place] [address] [phone] * ALBUMIN, RANDOM URINE W/CREATININE (06/12/2021 9:13 AM EDT) Microalbumin Urine 2.4 See Note: mg/dL [facility] Comment: Reference Range: ?? Reference Range Not established Microalb/Creat Ratio 10 <30 mcg/mg creat [facility] Comment: ?? The ADA defines abnormalities in albumin excretion as follows: ?? Albuminuria Category ?Result (mcg/mg creatinine) ?? Normal to Mildly increased ?? <30 Moderately increased ? 30-299 ?? Severely increased ? > OR = 300 ?? The ADA recommends that at least two of three specimens collected within a 3-6 month period be abnormal before considering a patient to be within a diagnostic category. Creatinine, Urine 245 20 - 275 mg/dL [facility] 06/12/2021 9:13 AM EDT us Tiara Bran MD LAB URINE ORDERABLES Final Re sult Performing Organization Address City/[facility]/ZIP Co de Phone Number [facility] [address] from Last 3 Months or Most Recently Relevant to Health Maintenance Insurance [employer] [facility] Care Teams Primary Substance Abuse Counselor Relationship Specialty Start Date End Date Tiara Bran MD [address] [place] [address] TYLOR Bernabe PCP - General Family Medicine 11/21/16
--- OUTSIDE RECORDS SUMMARY | 2024-05-15 11:00 | XMS_ITS | Encounter Summary ---
Author Organization [employer] Address [address] [facility] [address] [place] [address] Care Team Providers Care Pie Topper Name Role Phone Tiara Bran MD Primary Care Provider [phone] Reason for Visit * Reason Onset Date Comments Pre Op 12/25/2023 Encounter Details Date Type Department Care Team ([facility] st Contact Info) Description 12/25/2023 Telephone [facility] [address] [place], [place] [phone] Tiara Bran MD [address] [facility] [place] [phone] Pre Op Social History Tobacco Use Types Packs/Day Years [...] AM EDT documented as of this encounter Miscellaneous Notes * Telephone Encounter - Alison Simpson - 12/25/2023 1:08 PM EDT Pt scheduled for pre op appointment on 12/31 at 2:15PM with Cesar. Appointment reminder letter mailed. * Telephone Encounter - Prabhu Jordan - 12/25/2023 10:08 AM EDT Date of Surgery: 01/20/24 Surgical procedure being done: Cataracts Surgery Type of anesthesia: IV Sedation Lab needed: No EKG: No Surgeon's name: Dr. Guzman Facility name: [facility] Surgeon's office number: [phone] Surgeon's office fax number: [phone] Contact name: Cynthia documented in this encounter Plan of Treatment Upcoming Encounters Date Type Department Care Team ([facility] st Contact Info) Description 07/28/2024 10:30 AM EDT Office Visit [facility] [address] [place] [address] Tiara Bran MD [address] [place] [address] documented as of this encounter Visit Diagnoses Not on filedocumented in this encounter Additional Health Concerns Assessment Noted Time PHQ-9 Depression Total Score: 0 06/22/19 3:15 PM EDT documented as of this encounter Care Teams Pie Topper Relationship Specialty Start Date End Date Tiara Bran MD [address] [place] [phone] PCP - General Family Medicine 11/21/16 documented as of this encounter
[2024-05-15 15:27] LABS: TSH reflex Free T4 1.39 uIU/mL (0.32-4.0)
== END 2024-05-15 09:49 | disposition home or self-care (01) ==
LOC: HO.CHCLDS 09:48
PROVIDERS: Visit Provider Pediatrics
DX: E03.9 Hypothyroidism, unspecified (principal)
CPT/HCPCS: 36415; 84443

== ENCOUNTER 2024-06-05 09:59 | Outpatient (AMB) | payer OTHER, SELFPAY ==
--- NOTE | 2024-06-05 10:15 | A.OFFVIS_ITS ---
Vital Signs 06/05/24 10:16 Height 5 ft 4 in Weight 130 lb 1.164 oz BMI 22.3 BP 120/52 L Blood Pressure Location Rt brachial Position Sitting Pulse 55 Pulse Source Pulse Oximeter Pulse Oximetry (%) 98 Oxygen Delivery Method Room Air Intake Visit Reasons: COPD Allergies No Known Allergies Allergy (Verified 06/05/24 10:19) HPI Comments Details: The patient is a 78-year-old woman with known asthma COPD overlap syndrome who apparently started developing worsening respiratory symptoms for the last week. She has been using her nebulized therapy in addition to her short-acting beta agonist. However, she has not been using any maintenance inhalers. She has been noticing more coughing. Moderate severity. Nonproductive in nature. At this point with trying to minimize the use of steroids due to her diabetes. The patient has not had any recent x-rays or imaging. Her last chest x-ray was from [facility] December 04, 2017 demonstrating some areas of atelectasis. Her previous blood work demonstrated a low subclass 2 IgG. 01/14/2020 patient has a telephone visit. The patient has been having increasing shortness of breath. She has not been able to get her Bevespi covered. I believe is wonder going prior approval. She has tried and failed Anoro in the past. Currently she is getting budesonide via the nebulizer twice a day along with albuterol. She is also tolerating the Daliresp. She is having more issues with her balance and also tremors. She has been evaluated for Parkinson's. She has been falling numerous times. The family is been trying to keep her safe. In the meantime we did talk about the beta agonist causing tremors. Her, she needs her respiratory medications in order to improve her respiratory status. Her nebulizer is no longer working. She does use a nebulizer twice a day. I will request a new nebulizer through a [employer] / ?[employer]??, [employer]. 05/16/2020 the patient is here for pulmonary follow-up visit. Since we last spoke the patient fell and she fractured her arm needed surgery in place. This area is healing apparently well. In addition to that the patient has had worsening respiratory symptoms. She was evaluated back in beginning of the month. She was treated with antibiotics however her conditionup being admitted briefly to [facility]. She had a chest x-ray demonstrating bilateral pleural effusions and what appeared to be cephalization and opacities at the bases more consistent with congestive heart failure. Her brain atretic peptide was approximately 3000. The patient also was found to be wheezy and she was treated with bronchodilators and also prednisone. Currently the patient has been discharged she is using her albuterolvia nebulizer to 4 times a day and has been using the Daliresp. She has also noticed weight loss and also decreased appetite. We talked about very decreasing the Daliresp to every other day when she feels better. In the meantime she is having significant wheezing on examination. I am reluctant to give her any prednisone at this time because of on her to have proper healing of her bone fracture. In the meantime will start antibiotics with azithromycin Saturday in the patient will start DuoNebs instead of albuterol 4 times a day. 06/13/2020 the patient is here for pulmonary follow-up visit. Overall she is doing better. She did now requiring prednisone. She did complete the antibiotics. She continues using the nebulizer 4 times a day. At this point the patient does not feel like she needs to that often. Therefore, will have her do a treatment in the morning with both budesonide and DuoNeb. Then later on the day she is able to use the DuoNeb as needed. She is continuing to use of Daliresp in addition to the singular at nighttime. At some point she may want to go back to inhaler therapy instead of the nebulizer. We will discuss this further during her next visit in 4 months. 10/31/2020 the patient is here for a pulmonary follow-up visit. Overall she is doing better. She has been off the prednisone. She has been tolerating the azithromycin 3 times a week. She has also been tolerating the Daliresp. Although she has been losing weight. Her appetite is down. She continue his respiratory therapy. She is using the budesonide and DuoNeb. She is currently not using the Stiolto. I did tell of the does okay as long she is using nebulized therapies at least twice a day. She also continues on the singular. The patient will be followed up with Cardiology soon and he can do an EKG. Otherwise she can have done an EKG in the hospital in order to make sure that she is tolerating the macrolide therapy without any worsening QT changes. The patient in the meantime will try to decrease the Daliresp due to the fact that she is losing weight has decreased appetite to every other day. Otherwise she will continue with her nebulized therapy and is okay for her to start the Stiolto. Will follow up in 6 months. 06/29/2021 the patient is here for a pulmonary follow-up visit. Since we last spoke she has developed chest discomfort she was taken to the [facility] ER where she was admitted to the hospital. When she was there she did have a chest x-ray that I personally reviewed demonstrating some mild perivascular congestion and small pleural effusion. Her brain atretic peptide was slightly elevated as well. She does not appear to be volume overloaded at this time. The patient has been on cardioprotective medications. From a COPD standpoint she has had some wheezing. She is responding very well to the azithromycin treating her for chronic bronchitis. However, now with the issues of underlying cardiac conditions will see about weaning her off it and she can follow up with Cardiology to make sure that she is stable. In the meantime I will give her half a does of prednisone just for 3 days to try to improve her volume status. 09/29/2021 the patient is here for a pulmonary follow-up visit. She recently did follow-up with Cardiology and apparently was noted to have a wheeze cardiac function and abnormal stress test. She will be undergoing a cardiac catheterization soon. In the meantime she continue was with respiratory therapy with good results. Has been tolerating the Daliresp. She continues use the S tiolto on a daily basis. During the last visit she did receive Lasix x3 days. Her volume status improved significantly. After that she did not require any additional diuretics. She is monitoring closely the sodium intake. She does complain of worsening productive cough with white phlegm. [id number] severity. She did come off the azithromycin. This is likely the reasoning why. However, in view of her cardiac issues will hold off on macrolide therapy as it can worsen her QT interval. 03/21/2022 the patient is here for a pulmonary follow-up visit. Since we last spoke the patient was admitted to the hospital with COVID. She was treated in the hospital for few days. While she was there she had a chest x-ray that was reassuring. Prior to that in January [address] she did have a CT scan of the chest demonstrating airspace disease and a masslike consolidation in the left lower lobe. She had significant inflammation. Upper she will need a follow-up CT scan in the near future. In the meantime she has had worsening cough and she was taken off the azithromycin. Initially she was taken off because she was having arrhythmias in addition to the fact that the azithromycin can worsen QT prolongation. But, since coming off the medication her respiratory status has been often she has required multiple evaluations for her COPD exacerbations. Therefore will place him back on the azithromycin but she needs to monitor with EKG. Will have an EKG ordered and she can just come in to the hospital next week and have an EKG while on the medicine. Will continue to follow serial EKGs while on the medicine. We can also increase Daliresp to daily since she is tolerating it. Unfortunately because she does have increased wheezing she will also need a small dose of prednisone. She does have diabetes so therefore her sugars do elevate will try just a small dose to see if we can maintain her relatively stable with a sugars. She does continue to use her nebulized therapy twice a day and also continues with her inhalers as prescribed. 06/01/2022 the patient is here for pulmonary follow-up visit. She just recently had worked ago. Followed she is feeling better. She is tolerating the azithromycin 3 times a week. We had done an EKG demonstrating normal QTC. In addition to that she is tolerating the higher dose Daliresp. She continues use the budesonide with the albuterol. Also using Stiolto. She does have some increased wheezing since arriving from [place]. Also has nasal drainage. Denies any fevers or chills. Otherwise she feels she is doing fairly good. No recent imaging studies to review. We did look at the EKG together. She does have a left bundle branch block. Explained to patient that this is something that is her baseline. 12/03/2022 the patient is here for pulmonary follow-up visit. The patient continues have asthma symptoms. Having to use her nebulizer up to 4 times a day a few weeks ago. Now she is down to twice a day. He continues on her respiratory therapy. She has been losing some weight sometimes she takes Daliresp every other day to minimize on the weight loss. She continues to follow closely with Cardiology. At this point she is on a maximize respiratory regimen but still only partially responding as she is still continues to be symptomatic. She does have wheezing on examination today. Therefore will do allergy testing and blood work to assess her candidacy for biologics. I do believe that she will do good on Dupixent. She did have an EKG she does have a left bundle branch block with the has not changed her QT interval is within normal limits. The patient will undergo blood working well assessed her candidacy for biologic therapy at this time we also talked about vaccines. The patient should get her hours the vaccine and also should be up today with her pneumonia vaccine. 03/05/2023 the patient is here for a pulmonary follow-up visit. She has a trip to [place] soon. She wants to make sure that she is doing okay before her trip. She is having increasing dyspnea symptoms and chest tightness and cough. Moderate severity. She has been using all her respiratory medications as prescribed which have been partially helpful. We did request blood work during the last visit to see if she would be a candidate for any biologic therapy. Her IgE level and allergy testing was all within normal limits and also her eosinophil levels were also within normal limits. Therefore she is not a candidate for most of the biologics although because her should come prednisone use she would benefit from Tezspire. The patient is having active wheezing at this time. I will send her additional prednisone to the pharmacy. She will continue with current respiratory regimen as prescribed. 06/25/2023 the patient is here for pulmonary follow-up visit. Since we last spoke she had to go to urgent care because she had worsening respiratory symptoms. Does about a week ago. She was placed on 40 mg prednisone for 5 days. Now she is done she is still having difficulty breathing. She required also prednisone back in March. The patient also already maximize her respirat ory therapy and using her nebulizer and rescue medication several times a day. I do believe she had be a great candidate for biologic therapy. Unfortunately her insurance denied Tezspire. However, she does have an elevated eosinophil count of 300 and would benefit from Dupixent. Therefore will go ahead and request Dupixent at this time. In the meantime I will send her additional prednisone because she is still having significant wheezing on examination. She does continue to use her respiratory therapy as prescribed. The patient also should get a chest x-ray since she has been a while since her last 1. She will do that in the coming days. 09/20/2023 the patient is here for pulmonary follow-up visit. The patient has been doing fair. She did get the Dupixent approve however she has not started as of yet. 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 We did offer her to start the Dupixent today but she is concerned about going to the weekend. Therefore though schedule something next week. In the meantime the patient continues to use all her respiratory therapy with good effect. She has been responding well to Daliresp. However, she has had significant weight loss in therefore will going to have to stop it. She has no appetite. Hopefully her appetite improves once she comes off the Daliresp. She will continue the azithromycin for now. Once she starts the patient will try to simplify the respiratory regimen. She continues wheezing on examination. 12/18/2023 the patient is here for a pulmonary follow-up visit. The patient is doing okay. She is reluctant to start the Dupixent. I did encourage her to started so she can see how effective it is going to be. I do believe that the Dupixent very effective for and she will need as much steroids. She has been concerned because she has already injecting a lot of different things including her insulins and her pinprick. She will think about it for now. She rather go back on Daliresp. I will resend to the pharmacy. She is going to monitor closely for any weight loss or decreased appetite. In addition to that she continues with the azithromycin 3 times a week. She is going to go on a trip to [place]. I will give her some prednisone to take with her. No recent x-rays to review at this time. The patient will return in 3-4 months and will will discuss the whole issue with the biologic therapy. She did have x- rays of her hip because she is having hip pain after a fall. She is going to follow-up with orthopedics for that. 06/05/2024 the patient is here for a pulmonary follow-up visit. Overall she is doing okay. She still has some degree of cough. At times productive. [id number] severity. But overall better on the current therapy. The patient has been using the azithromycin 3 times a week. She also is tolerating the Daliresp but not on a daily basis. Seems like the combination has been able to keep her off the prednisone. She really would like to avoid biologic therapies. She continues using nebulized therapy with good effect. Also has a respiratory inhaler. She has not required any prednisone which is reassuring. We did look for imaging studies. The patient has not had any imaging studies in a year. Will plan to repeat an x-ray when she comes back in 6 months. If she has any issues prior to that she will call for an earlier assessment. [facility] Medical History (Updated 01/28/24 @ 09:53 by Jeferson Roman PA-C) Vasomotor rhinitis CHF (congestive heart failure) Bronchitis Anxiety Depression History of heart attack Hyperlipidemia Hypothyroidism Chronic gouty arthritis Diabetes HTN (hypertension) Asthma B12 deficiency Iron deficiency anemia COPD (chronic obstructive pulmonary disease) Surgical History Hx of cholecystectomy Hx of tubal ligation Family History Sister Diabetes Mother Diabetes Arthritis Asthma Social History Household Members: None Housing: Apartment Are you a primary healthcare administration intern to a significant other at home: No Do you presently have visiting nurse or other home services: No Alcohol intake: former Patient Tobacco Use Status: Former Tobacco user Tobacco use type: Cigarette Cigarette Packs Per Day: 1 service: No Current occupational status: unemployed Review of Systems Const Denies night sweats and Reports weight loss ENT Denies change in voice, Denies lip swelling, Denies mouth pain, Reports nasal congestion, Reports nasal discharge and Denies tongue swelling Card Denies chest pain and Reports dyspnea on exertion Resp Denies chest congestion, Reports cough, Reports dyspnea on exertion and Reports wheezing GI Denies abdominal pain Musc Denies no additional complaints Neuro Denies Neuro-related abnormal movements Psych Denies no additional complaints Ascencion/Lymph Denies easy bleeding and Denies lymphadenopathy Aller/Immun Denies lip swelling, Denies tongue swelling and Reports wheezing Physical Exam Vital Signs: Last Vital Signs Pulse 55 06/05/24 10:16 BP 120/52 L 06/05/24 10:16 Pulse Ox 98 06/05/24 10:16 Oxygen Delivery Method Room Air 06/05/24 10:16 BMI result Body Mass Index 22.3 Const General: alert Neck Neck: Yes normal visual inspection, Yes full ROM and Yes no lymphadenopathy Chest Chest palpation & inspection: normal inspection of the chest Resp Auscultation: no rhonchi, wheezes and diminished lung sounds Cardio Rate: regular rate Rhythm: regular rhythm Heart sounds: S1 normal heart sound present and S2 normal heart sound present GI Palpation (GI): Soft to palpation and nontender Auscultation: normal bowel sounds Skin General skin exam: rashes and/or lesions noted Assessment & Plan Assessment & Plan (1) Asthma: Code(s): J45.909 - Unspecified asthma, uncomplicated Category: Medical Qualifiers: Asthma complication type: with acute exacerbation Asthma persistence: persistent Asthma severity: severe Qualified Code(s): J45.51 - Severe persistent asthma with (acute) exacerbation (2) Asthma-COPD overlap syndrome: Code(s): J44.9 - Chronic obstructive pulmonary disease, unspecified Category: Medical (3) Vasomotor rhinitis: Code(s): J30.0 - Vasomotor rhinitis Category: Medical (4) CHF (congestive heart failure): Code(s): I50.9 - Heart failure, unspecified Category: Medical Qualifiers: Heart failure chronicity: unspecified Heart failure type: unspecified Qualified Code(s): I50.9 - Heart failure, unspecified Plan consider Dupixent, she should try it continueDaliresp continue azithromycin MWF Budesonide BID Duoneb BID continue Stiolto daily Continue Singulair Ipratropiun nasal spray Trazadone for sleep F/U 4-6 month Medications: New prednisone PO daily; Take 6 tabs daily x 3 days, then 5 tabs x 3 days, then 4 t abs x 3 days, then 3 tabs x 3 days, then 2 tabs daily x 3 days, then 1 tab x 3 days to complete. 63 tabs 0RF 18 days Coding Level of Care Code Est Pt Level 4 (08143) Complex EM visit Add On G2211 Diagnoses Severe persistent asthma with acute exacerbation J45.51 Asthma complication type: with acute exacerbation Asthma persistence: persistent Asthma severity: severe Asthma-COPD overlap syndrome J44.9 Vasomotor rhinitis J30.0 Congestive heart failure, unspecified HF chronicity, unspecified heart failure type I50.9 Heart failure chronicity: unspecified Heart failure type: unspecified Time Spent (min) 17
[2024-06-05 10:16] VITALS: BP 120/52; PULSE 55; O2SAT 98; BMI 22.3
--- OUTSIDE RECORDS SUMMARY | 2024-06-05 11:18 | XMS_ITS | Encounter Summary ---
Author Organization [facility] Address [address] [place] [address] [address], [place] [address] Care Team Providers Care Water Treatment Plant Operator Name Role Phone Tiara Bran MD Primary Care Provider [phone] Encounter Details Date Type Department Care Team (Late Contact Info) Description 07/13/2022 Orders Only [facility] & PEDS [address] [place], [place] [phone] Rosy Alexis LPN Social History Tobacco Use [...] Description 07/28/2024 10:30 AM EDT Office Visit [facility] [address], [place] [phone] Tiara Bran MD [address] [place], [place] [phone] documented as of this encounter Visit Diagnoses Not on filedocumented in this encounter Additional Health Concerns Assessment Noted Time PHQ-9 Depression Total Score: 0 06/22/19 23 3:15 PM EDT documented as of this encounter Care Teams Water Treatment Plant Operator Relationship Specialty Start Date End Date Tiara Bran MD [address] [place] [address] PCP - General Family Medicine 11/21/16 documented as of this encounter
--- OUTSIDE RECORDS SUMMARY | 2024-06-05 11:18 | XMS_ITS | Encounter Summary ---
Author Organization [facility] Address [address] [place] [address] [address], [place] [address] Care Team Providers Care Fuel Efficient Aircraft Designer Name Role Phone Tiara Bran MD Primary Care Provider [phone] Encounter Details Date Type Department Care Team ([facility] Contact Info) Description 07/24/2022 Orders Only [facility] & PEDS [address] [place] [address] Tiara Bran MD [address] [place] [address] Social History Tobacco Use Types Packs/Day Years [...] Description 07/28/2024 10:30 AM EDT Office Visit [facility]ED[facility] [address] [place] [address] Tiara Bran MD [address] [place] [address] documented as of this encounter Visit Diagnoses Not on filedocumented in this encounter Additional Health Concerns Assessment Noted Time PHQ-9 Depression Total Score: 0 06/22/19 23 3:15 PM EDT documented as of this encounter Care Teams Fuel Efficient Aircraft Designer Relationship Specialty Start Date End Date Tiara Bran MD [address] [place] [address] PCP - General Family Medicine 11/21/16 documented as of this encounter
--- OUTSIDE RECORDS SUMMARY | 2024-06-05 11:19 | XMS_ITS | Encounter Summary ---
Author Organization [facility] Address [address] [place] [address] Care Team Providers Care Chief Investigator Name Role Phone Tiara Bran MD Primary Care Provider [phone] Encounter Details Date Type Department Care Team (Late st Contact Info) Description 02/12/2024 Orders Only [facility] MED & PEDS [address] [place] [address] Provider, MD Luis Eduardo Social History Tobacco [...] Description 07/28/2024 10:30 AM EDT Office Visit [facility] PED[facility] [address] [place] [address] Tiara Bran MD [address] [place] [address] documented as of this encounter Procedures Procedure [...] documented as of this encounter Care Teams Chief Investigator Relationship Specialty Start Date End Date Tiara Bran MD [address] [place] [address] PCP - General Family Medicine 11/21/16 documented as of this encounter
--- OUTSIDE RECORDS SUMMARY | 2024-06-05 11:19 | XMS_ITS | Data Portability ---
Author Organization [employer], [employer] Address [address] [place] [phone] Care Team Providers Care Gold Charmer Name Role Phone [facility] Referring Provider Assessment Encounter Date Assessment Date Assessment LastModified by Organization Details LastModified Time 07/27/2022 07/27/2022 I have reviewed and agree with the Assessment and Plan as documented by the Scrap Burner. I provided real-time medical direction via phone [...] Orders ibuprofen 400 mg tablet 2022 023 [id number], [address] [facility] [place], [place], [phone], 12:09:28 Patient TargetsNo targets recorded. Patient InstructionsNo [...] /min 116 mm[Hg] 65 mm[Hg] Not Available [employer] - production 3 12:06:08 Date Recorded Oxygen [...] % 96 % 18 /min 98.4 [degF] 42467 g 80 /min 157.48 cm 82782.8 g 18 /min 98 % 98 % 152.4 cm 64 /min 98.4 [degF] 134 mm[Hg] 68 mm[Hg] 108 mm[Hg] 62 mm[Hg] Not Available [employer] production 3 13:32:05 Social History None recorded. Functional Status None recorded. Mental Status None recorded. Family History Nothing Reported. Medical History No medical history recorded. Gynecological HistoryNo gynecological history recorded. Obstetrics History GPAL:G 0 P 0 0 0 0 Past Encounters Encounter ID Performer Location Encounter Start Date Encounter Closed Date Diagnosis/Indication Diagnosis SNOMED-CT Code Diagnosis ICD10 Code Diagnosis Note [id number] Janny Rodriguez MD Main - [facility] [address] [place] [phone] 07/07/2022 12:06:03 07/09/2022 10:38:17 Foot pain 62848598 M79.673 Evaluation in the field was performed by my wafer cleaner colleague, as noted above, I provided real-time [...] shortness of breath, cough, chest pain, fever. [id number] Jacob Thomas MD Main - [facility] [address] [place] [id number] 07/27/2022 12:53:17 07/30/2022 18:34:12 Chest pain 01556022 R07.9 Health Concerns Section Related Observation LastModified by Organization Detai ls LastModified Time None Recorded Concern Status LastModified by Organization Details LastModified Time None Recorded Advance Directives Directive None Recorded Payers Encounter Date Sequence Insurance Name Policy Number Policy Soria Covered Member ID Soria Member ID Guarantor Name 07/07/2022 1 [facility] - DOS PRIOR TO 2022 - DUAL ELIGIBLE (MEDICARE REPLACEMENT/ADV ANTAGE - HMO) Luz Hicks [id number] Luz Hicks 07/27/2022 1 [facility] - DOS ON OR AFTER 2022 - DUAL ELIGIBLE - RESIDENTIAL OPTIONS AND ONE CARE (MEDICARE REPLACEMENT/ADV ANTAGE - HMO) Luz Hicks [id number] Luz Hicks Notes Date Note Type Note [...] ................... ................... ................... ................... ................... ................... ........ Scrap Burner Note From Selena Powell: Community Scrap Burner Colten Powell SC6 dispatched to a [facility] for a 76 yof C/O right foot pain. Upon arrival, the pt was sitting in her living room (w/ legs elevated), awake and alert, in no apparent distress. Pt's daughter/v groove cutter on scene translated (pt Turkish speaking only). The pt was oriented to [...] ................... ........ Disposition: Fulfilled Janny Rodriguez MD [address] [place] [address],[address], [place], [phone], [employer] 07/07/2022 14:29:14 07/27/2022 text/html CRC Nursing Assessment: Reason For Request: Daughter reporting p last night palpitation, discomfort left side chest, went to PCP today, BP was fine and vitals were fine. DOC recommended risk management director appt>nurse from cardiology notified no appointment until late august 2022. Recently was in ED 2 week but waited 10 hours, but EKG and vitals were regular, not seen. Chief Complaints: Tachycardia/Palpita tions, Chest Pain PMH: Diabetes, Hypertension, CHF, COPD/Asthma, Severe Dementia Allergies: No Known Comments: Daughter calling on behalf of member with request for [facility] visit for eval palpitations x 5 min last night. Eval at PCP office this am. told by PCP everything was fine BS elevated a bit. told to follow up with risk management director 08/22. Daughter states EKG was not performed and called back by PCP to have emergent eval. Member refuse ED at this time request [facility] visit and if advised will go to ED. Discuss red flags and if symptoms progress to seek Ed/911. Verbalize understanding. Verify member name/- ................... ................... ................... ................... ................... ................... ................... ........ Scrap Burner Note From Buddy Lara: PT caox3 complains [...] or inspiration. No edema, secondary exam unremarkable. [facility] advises pt to be seen at ED. Vascular access and ECG as noted. Pt transported via ALS ambulance to [facility] ED. ................... ................... ................... ................... ................... ................... ................... ........ Disposition: Fulfilled Jacob Thomas MD [address] [facility],[address], [place], [address], [employer] 07/27/2022 19:09:29 OBGyn Episode No OBEpisode recorded.
--- OUTSIDE RECORDS SUMMARY | 2024-06-05 11:19 | XMS_ITS | Clinical Summary ---
Author Organization [facility] Address [address] [place] [address] Care Team Providers Care Senior Java Software Engineer Name Role Phone Ashley Henao TRACY Primary Care Provider [phone] Source Comments PLEASE NOTE, if this patient is a minor, it may be UNLAWFUL to discuss sensitive information that is contained in these records (such as FAMILY PLANNING, MENTAL HEALTH or SUBSTANCE ABUSE) with the minor patient's parent or other person without the patient's specific authorization.[facility] Allergies No known active allergies Medications nebulizer and compressorIndicati ons:COPD (chronic obstructive pulmonary disease) ([facility]) DX: Severe COPD 1 Device 1 05/06/19 14 Active nebulizer accessoriesIndicat ions:COPD (chronic obstructive pulmonary disease) ([facility]) Dx: severe COPD 1 Device 1 05/06/19 14 Active insulin syringe (BD INSULIN SYRINGE ULTRA-FINE) 1 mL 31 x 5/16 Indications:D M (diabetes mellitus) ([facility]) Dx: 250.00 To use QAC and HS (4 times a day with insulin) 120 Syringe 12 05/12/19 14 Active Insulin [place], Disposable, (OSCAR PEN NEEDLE) 32 x 5/32 ndleIndications:DM (diabetes mellitus) ([facility]) 1 Units by miscellaneous (misc) route [...] :Insulin-requiring or dependent type II diabetes mellitus ([facility]) Uses insulin 4 times a day. E11.9 Freestyle meter 150 Each 11 09/13/19 16 Active cetirizine (ZYRTEC) 10 mg tabletIndications: Other allergic rhinitis Take 1 Tab by mouth once daily. 90 Tab 3 10/29/19 16 Active fluticasone-vilant niraj (BREO ELLIPTA) 200-25 mcg/dose dsdvIndications:CO PD exacerbation ([facility]) Inhale 1 Puff into the lungs once daily. 60 Each 6 10/31/19 16 Active insulin aspart (NOVOLOG FLEXPEN) 100 unit/mL injectionIndicatio ns:Type 2 diabetes mellitus without complication, with long-term current use of insulin ([facility]) DM: e11.9. Per SS start at [...] Type 2 diabetes mellitus without complication, unspecified long chain quiller tender insulin use status,Essential hypertension Take 1 Tab by mouth once daily 90 Tab 3 06/20/19 17 Active simvastatin (ZOCOR) 10 mg tabletIndications: Type 2 diabetes mellitus without complication, unspecified long chain quiller tender insulin use status,Dyslipidemi a Take 1 Tab by mouth nightly at bedtime 90 Tab 3 06/20/19 17 Active montelukast (SINGULAIR) 10 mg tabletIndications: Simple chronic bronchitis ([facility]) Take 1 Tab by mouth nightly at [...] Insulin-requiring or dependent type II diabetes mellitus ([facility]) 1 Strip as needed for high blood sugar Dx: DM2 on insulin Checks 4 times a day. 150 Each 11 07/14/19 [address] tabletIndications: Type 2 diabetes mellitus without complication, unspecified long chain quiller tender insulin use status Take 1 Tab by [...] Date NSTEMI (non-ST elevated myocardial infarction) ( [facility]) 12/24/2016 Overview (12/26/2016): Hospitalized 12/09/16 - [...] prior CT) No hypermetabolic activity. Done at [facility] Follows with Dr Yon frances (pulmonary) [facility] H/O colonoscopy 08/28/2012 Overview (12/29/2012): August 28 2012 DX: Diverticulosis of Sigmoid Colon Polyps in descending colon (resected: biopsy results pending) Recommended: Repeat colonoscopy August 2013 (in 1 yr) Diverticulosis of sigmoid colon 08/28/2012 Overview (12/29/2012): Dx by Colonoscopy on August 28 2012 Osteopenia 06/17/2012 Overview (12/03/2016): DEXA 06/17/12.Lowest Tscore -1.2 (rt and left femoral neck >> DEXA( 11/14/16, [facility]): Osteopenia. Lowest Tscore -1.5 (rt and left femoral necks) HTN (hypertension) COPD (chronic obstructive pulmonary disease) ([facility]) Overview (03/26/2014): Pulm F/u at [facility]. Dr Eloy Shah On Advair diskus powder [...] DM type 2 (diabetes mellitus, type 2) ([facility]) Overview (01/19/2015): Endo F/u at [facility]. Hypothyroidism GERD (gastroesophageal reflux disease) Overview (09/25/2012): EGD 03/23/12 Dr. Rodriguez, Stomach revealed reactive gastropathy/chemical gastritis/active esophagitis. Immunizations Immunization Administration Dates Next Due INFLUENZA, SEASONAL, INJECTABLE [...] [place] Care Teams Senior Java Software Engineer Relationship Specialty Start Date End Date Ashley Henao FNP [address] [place] [address] PCP - General 04/29/18
--- OUTSIDE RECORDS SUMMARY | 2024-06-05 11:19 | XMS_ITS | Encounter Summary ---
Author Organization [facility] Address [address] [place] [address] [address] [address] Care Team Providers Care Emergency Medical Technician Name Role Phone Tiara Bran MD Primary Care Provider Reason for Visit * Reason Comments Med Refill Encounter Details Date Type Department Care Team ([facility] Contact Info) Description 10/05/2022 Refill [facility] MED & PEDS [address] [place] [address] Tiara Bran MD [address] [place] [address] Type 2 diabetes mellitus without complication, with long-term current use of insulin ([facility]); Chest pain, unspecified type; Allergy, subsequent encounter [...] Upcoming Encounters Date Type Department Care Team ([facility] Contact Info) Description 07/28/2024 10:30 AM EDT Office Visit [facility] [address] [place] [address] Tiara Bran MD [address] [place] [address] documented as of this encounter Visit Diagnoses Diagnosis Type 2 diabetes mellitus without complication, with long-term current use of insulin ([facility]) Chest pain, unspecified type Allergy, subsequent encounter documented in this encounter Additional Health Concerns Assessment Noted Time PHQ-9 Depression Total Score: 0 06/22/19 23 3:15 PM EDT documented as of this encounter Care Teams Emergency Medical Technician Relationship Specialty Start Date End Date Tiara Bran MD [address] [place] [address] PCP - General Family Medicine 11/21/16 documented as of this encounter
--- OUTSIDE RECORDS SUMMARY | 2024-06-05 11:19 | XMS_ITS | Clinical Summary ---
Author Organization [employer] Address [address] [place] [address] [address] [place] [address] Care Team Providers Care Pilot Manager Name Role Phone Tiara Bran MD Primary Care Provider [phone] Allergies Active Allergy Reactions Criticality Noted Date [...] complication, with long-term current use of insulin ([facility]),Chest pain, unspecified type,Allergy, subsequent encounter USE ONE [...] complication, with long-term current use of insulin ([facility]) INJECT 20 UNITS SUBCUTANEOUSLY EVERY EVENING 15 mL 07/04/19 24 Active Sure Comfort Pen [place] 31G X 8 MM miscIndications :Type 2 diabetes mellitus without complication, with long-term current use of insulin ([facility]) USE FOUR DAILY 100 each 07/18/19 24 Active magnesium oxide (Mag-Ox) 400 MG tablet TAKE ONE TABLET BY MOUTH EVERY MORNING 90 tablet 08/02/19 24 Active fluticasone (Flonase) 50 MCG/ACT nasal sprayIndication s:Type 2 diabetes mellitus without complication, with long-term current use of insulin ([facility]),Chest pain, unspecified type,Allergy, subsequent encounter INHALE ONE [...] complication, with long-term current use of insulin ([facility]),Chest pain, unspecified type,Allergy, subsequent encounter TAKE ONE TABLET EVERY EVENING 30 tablet 11 09/27/19 24 Active sucralfate (Carafate) 1 g tabletIndicatio ns:Type 2 diabetes mellitus without complication, with long-term current use of insulin ([facility]),Chest pain, unspecified type,Allergy, subsequent encounter TAKE ONE TABLET THREE TIMES DAILY IN THE MORNING, EVENING AND BEDTIME BEFORE MEALS 90 tablet 09/27/19 24 Active levothyroxine (Synthroid, Levoxyl) 88 MCG tabletIndicatio ns:Type 2 diabetes mellitus without complication, with long-term current use of insulin ([facility]),Chest pain, unspecified type,Allergy, subsequent encounter TAKE ONE TABLET EVERY MORNING 30 tablet 11 09/27/19 24 Active Aspirin Adult Low Strength 81 MG EC tablet TAKE ONE TABLET DAILY AT NOON 90 tablet 3 10/01/19 24 Active insulin aspart (NovoLOG FLEXPEN) 100 UNIT/ML penIndications: Type 2 diabetes mellitus without complication, with long-term current use of insulin ([facility]) INJECT 2-12 UNITS SUBCUTANEOUSLY THREE TIMES DAILY [...] complication, with long-term current use of insulin ([facility]) TEST BLOOD SUGAR FOUR TIMES DAILY 100 each 11 01/06/20 24 Active nitroglycerin (Nitrostat) 0.4 MG SL tabletIndicatio ns:Type 2 diabetes mellitus without complication, with long-term current use of insulin ([facility]),Chest pain, unspecified type,Allergy, subsequent encounter Place 1 tablet (0.4 mg) under the tongue every 5 (five) minutes if needed for chest pain. 25 tablet 4 01/08/20 24 Active Diclofenac Sodium 1 % gelIndications: Right hip pain APPLY 2 GRAMS TOPICALLY TWICE A DAY TO THE AFFECTED AREA IF NEEDED 100 g 1 01/08/20 24 Active Blood Glucose Monitoring Suppl (True Sol InnovationsStyle Lite) w/Device kit 1 kit Once per day. 1 kit 01/14/20 24 Active sacubitril-vals jaja (Entresto) 97-103 MG tablet Take 1 tablet by mouth 2 times daily. 02/08/20 23 Active dapagliflozin (Farxiga) 5 MG Take 1 tab orally daily 30 tablet 11 04/30/19 25 Active Active Problems Problem Noted Date Diagnosed [...] Encounters Date Type Department Care Team Description 05/20/2024 Telephone [facility] MED & PEDS [address] [place] [address] Tiara Bran MD 04/30/2024 10:00 AM EST Office Visit [facility] MED & PED[facility] [address] [place] [address] Tiara Bran MD Type 2 diabetes mellitus [...] Upcoming Encounters Date Type Department Care Team ([facility] st Contact Info) Description 07/28/2024 10:30 AM EDT Office Visit [facility]EDS [address] [place] [address] Tiara Bran MD [address] [place] [address] Health Maintenance Due Date Last Done Comments Eye Exam 1955 Hepatitis C Screening 1964 RSV Patients and Patients Aged 60 years or older (1 - 1-dose 75+ series) 2021 Diabetes: Urine Protein Screening 06/12/2022 06/12/2021, 07/18/2020, 03/31/2019 COVID-19 Vaccine ( season) 2023 01/18/2021, 06/08/2020, 05/11/2020 Lipid Panel 11/17/2023 11/16/2022, 06/02, 04/11/2020 Diabetes: Hemoglobin A1C 07/28/20242 025, 12/05/2023, 08/20/2023, Additional history exists Diabetes: [...] Procedure Name Priority Date/Time Associated Diagnosis Comments TSH W/REFLEX TO FT4 Routine 05/15/2024 9:49 AM EDT Acquired hypothyroidism POCT GLYCATED HEMOGLOBIN, TOTAL Routine 04/30/2024 9:59 AM EST Type 2 diabetes mellitus without complication, with long-term current use of insulin ([facility]) POCT GLUCOSE Routine 04/30/2024 9:59 AM EST Type 2 diabetes mellitus without complication, with long-term current use of insulin ([facility]) LIPID PANEL, STANDARD Routine 11/16/2022 8:59 AM EDT Benign essential hypertension Moderate mixed hyperlipidemia not requiring statin therapy Type 2 diabetes mellitus without complication, with long-term current use of insulin ([facility]) ALBUMIN, RANDOM URINE W/CREATININE Routine 06/12/2021 9:13 AM EDT from Last 3 Months or Most Recently Relevant to Health Maintenance Results * TSH W/Reflex to FT4 (05/15/2024 9:49 AM EDT) Pathologist [facility] TSH reflex Free T4 1.39 0.32 - 4.0 uIU/mL [facility] Blood Venous blood specimen / Unknown 05/15/2024 9:49 AM EDT 05/15/2024 2:48 PM EDT Result [facility] us Tiara Bran MD LAB BLOOD ORDERABLES Final Re sult [facility] [address] [place] [phone] * (ABNORMAL) POCT HGB A1C (04/30/2024 9:59 AM EST) [facility] Hemoglobin A1C 9.3(A) 4.0 - 6.0 % QC Media Lot # [id number] Lot# Expiration Date Blood 04/30/2024 9:59 AM EST us Tiara Bran MD POINT OF CARE TEST ENTER/EDIT ORDERABLES Final Result * (ABNORMAL) POCT Glucose (04/30/2024 9:59 AM EST) [facility] Glucose Blood, POC 229(A) 60 - 200 mg/dL QC Media Lot # [id number] Lot# Expiration Date 325 Blood Capillary blood specimen / Unknown 04/30/2024 9:59 AM EST us Tiara Bran MD POINT OF CARE TEST ENTER/EDIT ORDERABLES Final Result * (ABNORMAL) Lipid Panel, Standard (11/16/2022 8:59 AM EDT) [facility] Triglycerides 69 <150 mg/dL [facility] Comment:Desirable Triglyceri de: less than 150 mg/dLBorderline High Triglyceride 150-199 mg/dLHigh Triglyceride: 200-499 mg/dLVery High Triglyceride: greater than or equal to 5OO mg/dL Cholesterol 111 <200 mg/dL [facility] Comment:Desirable Cholestero l: less than 200 mg/dLBorderline High Cholesterol: 200-239 mg/dLHigh Cholesterol: greater than 239 mg/dL LDL Cholesterol Calculated 62 <100 mg/dL [facility] Comment:Desirable LDL: less than 100 mg/dLNear Optimal/Above Optimal LDL: 110- 129 mg/dLBorderline High LDL: 130-159 mg/dLHigh LDL: 160-189 mg/dLVery High LDL: greater than or equal to 190 mg/dL HDL Cholesterol 36(L) >40 mg/dL [facility] Comment:Desirable HDL: great er than 40 mg/dL Note: This HDL assay may give artificially low results in patients with liver disease. Blood Venous blood specimen / Unknown 11/16/2022 8:59 AM EDT 11/16/2022 2:58 PM EDT us Tiara Bran MD LAB BLOOD ORDERABLES Final Re sult [facility] [address] [place] [phone] * ALBUMIN, RANDOM URINE W/CREATININE (06/12/2021 [...] MD LAB URINE ORDERABLES Final Re sult [facility] [address] from Last 3 Months or Most Recently Relevant to Health Maintenance Insurance Care Teams Pilot Manager Relationship Specialty Start Date End Date Tiara Bran MD [address] [facility] [place] [address] PCP - General Family Medicine 11/21/16
--- OUTSIDE RECORDS SUMMARY | 2024-06-05 11:19 | XMS_ITS | Encounter Summary ---
Author Organization [employer] Address [address] [facility] [address] [place] [address] Care Team Providers Care Print And Pattern Designer Name Role Phone Tiara Bran MD Primary Care Provider [phone] Reason for Visit * Reason Onset Date Comments Pre Op 12/25/2023 Encounter Details Date Type Department Care Team ([facility] st Contact Info) Description 12/25/2023 Telephone [facility] [address] [place], [place] [phone] Tiara Bran MD [address] [facility] [place] [phone] Pre Op Social History Tobacco Use Types [...] [facility] Surgeon's office number: [phone] Surgeon's office fax number: [phone] Contact name: Cynthia documented in this encounter Plan of Treatment Upcoming Encounters Date Type Department Care Team ([facility] st Contact Info) Description 07/28/2024 10:30 AM EDT Office Visit [facility] MED & PEDS [address] [place] [address] Tiara Bran MD [address] [place] [address] documented as of this encounter Visit Diagnoses Not on filedocumented in this encounter Additional Health Concerns Assessment Noted Time PHQ-9 Depression Total Score: 0 06/22/19 3:15 PM EDT documented as of this encounter Care Teams Print And Pattern Designer Relationship Specialty Start Date End Date Tiara Bran MD [address] [place] [phone] PCP - General Family Medicine 11/21/16 documented as of this encounter
--- OUTSIDE RECORDS SUMMARY | 2024-06-05 11:19 | XMS_ITS | Clinical Summary ---
Author Organization [facility] Address [address] [place] [address] Phone Care Team Providers Care Economic Analysis Director Name Role Phone Tiara Bran MD Primary Care Provider [phone] Allergies Active Allergy Reactions Criticality Noted Date [...] Diagnosed Date Coronary artery disease invo lving [place] coronary artery of [place] heart without angina pectoris 02/11/2024 Assessment & Plan (02/11/2024 10:22 AM EST): The patient has a history of coronary artery disease. Currently, the patient denies any chest pain at rest or with exertion. The patient continues on secondary preventive therapy for CAD, including: aspirin, statin and calcium channel lisas. Will continue current therapy. 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 Done at [facility] Follows with Dr Yon frances (pulmonary) [facility] Resolved Problems Problem Noted Date Diagnosed Date [...] if they were to faint. History of GA (myocardial infarction) 12/24/2016 02/11/2024 Overview (01/06/2024): NSTEMI 12/09/16 Encounters Date Type Department Care Team Description 05/11/2024 Telephone [facility] [address] [place] [address] Deja Andrews MA lab results 05/05/2024 9:00 AM EST Ancillary Procedure [facility] [address] [place] [id number] Coronary artery disease involving [place] coronary artery of [place] heart without angina pectoris 04/28/2024 10:15 AM EST Office Visit [facility] [place] [address] [place] [id number] Gideon Mojica DPM Dermatophytosis of nail (Primary [...] (CMS/HCC); Diabetic mononeuropathy simplex (CMS/HCC) 03/19/2024 Telephone [facility] [address] [place] [address] eKo Mcmillan MD from Last 3 Months Surgical History Surgery Date Site/Laterality Comments COLONOSCOPY 08/2012 PROCEDURE: HISTORICAL COLONOSCOPY; COMMENT: Recommended: Repeat colonoscopy August 2013 (in 1 yr) CHOLECYSTECTOMY PROCEDURE: HISTORICAL CHOLECYSTECTOMY ESOPHAGOGASTRODUODENOSCOPY PROCEDURE: NC ESOPHAGOGASTRODUODENOSCOPY TRANSORAL DIAGNOSTIC COLONOSCOPY 05/08/2017 PROCEDURE: HISTORICAL COLONOSCOPY COLONOSCOPY 07/31/2016 PROCEDURE: HISTORICAL COLONOSCOPY COLONOSCOPY 06/01/2014 PROCEDURE: HISTORICAL COLONOSCOPY OTHER SURGICAL HISTORY 12/05/2018 PROCEDURE: NC ERCP W/SPHINCTEROTOMY/PAPILLOTOMY Medical History Medical History Date [...] in 1 year (August 2013) History of GA (myocardial infarction) 12/24/2016 DX:History of GA (myocardial infarction); COMMENT: NSTEMI 12/09/16 GERD (gastroesophageal [...] prior CT) No hypermetabolic activity. Done at [facility] Follows with Dr Yon frances (pulmonary) [facility] Takotsubo cardiomyopathy 12/24/2016 DX:Tako tsubo cardiomyopathy; [...] AM EDT Office Visit [facility] [place] [address] [phone] Gideon Mojica, DPM [address] [address] Health Maintenance Due Date Last Done Comments [...] Zoster Vaccines Completed 05/01/2019, 02/18/2019 RSV Immunization Adult Patients Completed 03/05/2023 Influenza Vaccine Completed 12/05/2023, , [...] 9:47 AM EDT Coronary artery disease involving [place] coronary artery of [place] heart without angina pectoris Heart failure with reduced ejection fraction (CMS/HCC) Primary hypertension Coronary artery disease, unspecified vessel or lesion type, unspecified whether angina present, unspecified whether [place] or transplanted heart LIPID PANEL Routine 05/05/2024 10:09 AM EST Coronary artery disease involving [place] coronary artery of [place] heart without angina pectoris Pure hypercholesterolemia COMPREHENSIVE METABOLIC PANEL Routine 05/05/2024 10:09 AM EST Heart failure with reduced ejection fraction (CMS/HCC) Coronary artery disease involving [place] coronary artery of [place] heart without angina pectoris HM COLONOSCOPY Routine [...] PM EDT Performed at: ??01 - [facility] [address] ??[id number] Personal Health Coach: Erin Gardiner MD, Phone: ??[phone] Bibiana Deluna NP LAB BLOOD ORDERABLES Final [...] AM EST Performed at: ??01 - [facility] [address] ??[id number] Personal Health Coach: Erin Gardiner MD, Phone: ??[phone] us Keo Mcmillan MD LAB BLOOD ORDERABLES F inal Result [facility] 1 * Colonoscopy (08/28/2012) Colonoscopy No Interpretation , Abstracted Anatomical Region Laterality Modality Other us Historical Provider HEALTH MAINTENANCE Final Result from Last 3 Months or Most Recently Relevant to Health Maintenance Insurance [employer] MEDICARE Member Subscriber Plan / Payer (Ef fective 2016-Present) Name:Luz Hicks Relation to Subscriber:Self Name:Luz Hicks Payer ID:[id number] Group ID:[id number] Type:Not on file Address: [place] [address] [address] [id number] Care Teams Economic Analysis Director Relationship Specialty Start Date End Date Tiara Bran MD [address] [place] [phone] PCP - General 07/05/17
--- OUTSIDE RECORDS SUMMARY | 2024-06-05 11:19 | XMS_ITS | Encounter Summary ---
Author Organization [employer] Address [address] [place] [address] Care Team Providers Care Tax Associate Attorney Name Role Phone Tiara Bran MD Primary Care Provider [phone] Encounter Details Date Type Department Care Team (Late st Contact Info) Description 01/07/2023 Abstract [facility] [address] [place], [place] [phone] Danisha Andrews Social History Tobacco Use Types [...] Upcoming Encounters Date Type Department Care Team ([facility] st Contact Info) Description 07/28/2024 10:30 AM EDT Office Visit [facility] [address] [place] [address] Tiara Bran MD [address] [place] [address] documented as of this encounter Visit Diagnoses Not on filedocumented in this encounter Additional Health Concerns Assessment Noted Time PHQ-9 Depression Total Score: 0 06/22/19 23 3:15 PM EDT documented as of this encounter Care Teams Tax Associate Attorney Relationship Specialty Start Date End Date Tiara Bran MD [address] [place] [address] PCP - General Family Medicine 11/21/16 documented as of this encounter
== END 2024-06-05 10:41 | disposition home or self-care (01) ==
LOC: HO.HPS 10:00
PROVIDERS: PCP Pediatrics; Visit Provider Hospitalist
DX: J45.51 Severe persistent asthma with (acute) exacerbation (principal); J44.9 Chronic obstructive pulmonary disease, unspecified; J30.0 Vasomotor rhinitis; I50.9 Heart failure, unspecified
CPT/HCPCS: 99214; G2211

== ENCOUNTER → 2024-06-05 09:59 | Outpatient (BNVA) | payer OTHER, SELFPAY | PROVIDERS: PCP Pediatrics; Visit Provider Hospitalist | DX: J45.51 Severe persistent asthma with (acute) exacerbation (principal); J44.9 Chronic obstructive pulmonary disease, unspecified; J30.0 Vasomotor rhinitis; I50.9 Heart failure, unspecified | CPT/HCPCS: 99212 ==

== ENCOUNTER 2024-08-05 09:58 | Outpatient (REF) | payer OTHER, SELFPAY ==
--- OUTSIDE RECORDS SUMMARY | 2024-08-05 10:33 | XMS_ITS | Encounter Summary ---
Author Organization [employer] Address [address] [place] [address] Care Team Providers Care Bartender Helper Name Role Phone Tiara Bran MD Primary Care Provider [phone] Encounter Details Date Type Department Care Team (Late st Contact Info) Description 08/03/2024 6:20 PM EDT Office Visit [facility] [address] [place], [place] [phone] Meera Gongora NP [address] [place], [place] [phone] Open wound of skin (Primary Dx); Edema of left lower leg Social History Tobacco Use Types Packs/Day Years [...] Sign Reading Time Taken Comments Blood Pressure 141/69 08/03/2024 6:32 PM EDT Pulse 61 08/03/2024 6:32 PM EDT Temperature 36.5 ??C (97.7 ??F) 08/03/2024 6:32 PM ED T Respiratory Rate 16 08/03/2024 6:32 PM EDT Oxygen Saturation 97% 08/03/2024 6:32 PM EDT Inhaled Oxygen Concentration - - Weight 59.2 kg (130 lb 9.6 oz) 08/03/2024 6:32 P M EDT Height 162.6 cm (5' 4 ) 08/03/2024 6:32 PM EDT Body Mass Index 22.42 08/03/2024 6:32 PM EDT documented in this encounter Progress Notes * Meera Gongora NP - 08/03/2024 6:20 PM EDT Images from the original note were not included. SUBJECTIVE: Luz Hicks is a 78 y.o. female who [facility] for [facility] sick visit. Denies recent illness, injury, or hospitalization. Here with daughter who is translating/providing HPI HPI Seen last week and was advised application of Per daughter, patient sat on her grandson's motorcycle to take a picture and scratched her leg whengetting off. Was seen by PCP last week and was advised to apply triple antibiotic ointment as therewas no evidence of infection. Daughter states as of today, the area has worsened, has erythema, pus, and pain. Review of Systems Constitutional: Negative. Negative for chills and fever. Respiratory: Negative for chest tightness and shortness of breath. Cardiovascular: Negative for chest pain. Gastrointestinal: Negative for abdominal pain, constipation, diarrhea and nausea. Genitourinary: Negative for dysuria. Musculoskeletal: Negative for arthralgias, back pain, myalgias and neck pain. Skin: Positive for wound. Negative for rash. Neurological: Negative for weakness, light-headedness and headaches. Psychiatric/Behavioral: Negative for behavioral problems, confusion, decreased concentration and suicidal ideas. OBJECTIVE: Visit Vitals BP (!) 141/69 (BP Location: Right arm, BP Cuff Size: Adult) Pulse 61 Temp 97.7 ??F (36.5 ??C) (Temporal) Resp 16 Ht 5' 4 (1.626 m) Wt 130 lb 9.6 oz (59.2 kg) SpO2 97% BMI 22.42 kg/m?? Smoking Status Never BSA 1.64 m?? Problem List[1] Physical Exam Vitals reviewed. Constitutional: General: She is not in acute distress. Appearance: Normal appearance. She is not ill-appearing. HENT: Head: Normocephalic and atraumatic. Right Ear: External ear normal. Left Ear: External ear normal. Nose: Nose normal. Eyes: General: No scleral icterus. Extraocular Movements: Extraocular movements intact. Pulmonary: Effort: Pulmonary effort is normal. No respiratory distress. Musculoskeletal: General: Normal range of motion. Cervical back: Normal range of motion. Right lower le+ Edema present. Left lower le+ Pitting Edema present. Skin: Findings: Erythema and wound present. Comments: See image below Neurological: General: No focal deficit present. Mental Status: She is alert and oriented to person, place, and time. Gait: Gait normal. Psychiatric: Mood and Affect: Mood normal. Behavior: Behavior normal. Assessment/Plan Diagnoses and all orders for this visit: Open wound of skin Comments: -discussed treatment with oral abx given diabetes -rx'ed bactrim with dosing based on renal fx from 12/2023. encouraged to complete BMP for eval of current renal fx; dose will be adjusted as necessary -advised to keep area clean and dry -return precautions reviewed Orders: - sulfamethoxazole-trimethoprim (Bactrim DS) 800-160 MG tablet; Take 1 tablet by mouth 2 times daily for 5 days. 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 COPD exacerbation (CMS/HCC) Diabetes mellitus (CMS/HCC) H/O left bundle branch block Acute congestive heart failure (CMS/HCC) Benign essential hypertension Colon polyps Decreased hearing Diverticulosis of sigmoid colon GERD (gastroesophageal reflux disease) Hyperlipidemia Hypothyroid Chronic obstructive pulmonary disease (CMS/HCC) Right hip pain Pre-op evaluation Moderate major depression (CMS/HCC) documented in this encounter Plan of Treatment Upcoming Encounters Date Type Department Care Team ([facility] st Contact Info) Description 10/28/2024 10:15 AM EDT Office Visit [facility] [address] [place] [address] Tiara Bran MD [address] [place] [address] Scheduled Orders Name Type Priority Associated Diagnoses Orde r Schedule Basic Metabolic Panel Lab Routine Open wound of skin Expected: 08/03/2024 (Approximate), Expires: 08/03/2025 documented as of this encounter Visit Diagnoses Diagnosis Open wound of skin- Primary Edema of left lower leg documented in this encounter Additional Health Concerns Assessment Noted Time PHQ-9 Depression Total Score: 2 04/30/19 25 9:56 AM EST documented as of this encounter Care Teams Bartender Helper Relationship Specialty Start Date End Date Tiara Bran MD [address] [place] [address] PCP - General Family Medicine 11/21/16 documented as of this encounter
[2024-08-05 14:40] LABS: Anion Gap 14 (12-20); Blood Urea Nitrogen 23 mg/dL (9-16); Calcium 9.4 mg/dL (8.4-10.2); Carbon Dioxide 27 mmol/L (22-29); Chloride 108 mmol/L (96-108); Cholesterol 107 mg/dL (<200); Estimated Glomerular Filt Rate 33; Glucose Random 97 mg/dL (60-115); HDL Cholesterol 40 mg/dL (>40); LDL Cholesterol Calculated 48 mg/dL (<100); Potassium 4.5 mmol/L (3.3-5.1); Sodium 144 mmol/L (135-145); Triglycerides 95 mg/dL (<150)
[2024-08-05 14:57] LABS: TSH reflex Free T4 2.06 uIU/mL (0.32-4.0)
== END 2024-08-05 09:59 | disposition home or self-care (01) ==
LOC: HO.CHCLDS 09:58
PROVIDERS: PCP Pediatrics; Referring Provider Nurse Practitioner; Visit Provider Pediatrics
DX: E11.9 Type 2 diabetes mellitus without complications (principal); Z79.4 Long term (current) use of insulin; E03.9 Hypothyroidism, unspecified; T14.8XXA Other injury of unspecified body region, initial encounter
CPT/HCPCS: 36415; 80048; 80061; 84443

== ENCOUNTER 2024-12-07 09:38 | Outpatient (REF) | payer OTHER, SELFPAY ==
[2024-12-07 10:23] LABS: MANUAL DIFF FLAG NO
[2024-12-07 11:09] LABS: Hematocrit 37.0 % (37.0-47.0); Hemoglobin 11.5 g/dl (12.0-16.0); Imm Gran Abs Auto 0.02 X10*3/uL (0.00-0.03); Imm Gran Pct Auto 0.2 % (0.0-0.4); Lymphocytes Absolute Auto 3.2 X10*3/uL (1.2-4.9); Mean Corpuscular HGB Conc 31.1 g/dl (31.0-35.0); Mean Corpuscular Hemoglobin 23.2 pg (27.0-33.0); Mean Corpuscular Volume 74.6 fL (80.0-98.0); NRBC Abs Auto 0.000 X10*3/uL (0.0-0.012); NRBC Pct Auto 0.0 /100WBC (0.0-0.2); Platelet Count 410 X10*3/uL (160-400); Red Blood Count 4.96 X10*6/uL (4.20-5.50); White Blood Count 8.6 X10*3/uL (4.8-10.8)
--- OUTSIDE RECORDS SUMMARY | 2024-12-07 11:46 | XMS_ITS | Continuity of Care Document ---
Author Name Karthik Higgins Address [address] [place] [id number] Organization Unknown Address [address] [place] [address] Medications No known medications Problems No known problems
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
[2024-12-15 16:43] LABS: Asperg fumigatus Precip Abs NEGATIVE (NEGATIVE); Micropoly faeni Abs NEGATIVE (NEGATIVE); Saccharo pora viridis Abs NEGATIVE (NEGATIVE); Thermo candidus Abs NEGATIVE (NEGATIVE)
== END 2024-12-07 09:39 | disposition home or self-care (01) ==
LOC: HO.LAB 09:38
PROVIDERS: PCP Pediatrics; Visit Provider Hospitalist
DX: J44.89 Other specified chronic obstructive pulmonary disease (principal); J45.41 Moderate persistent asthma with (acute) exacerbation; J30.0 Vasomotor rhinitis; I11.0 Hypertensive heart disease with heart failure; I50.9 Heart failure, unspecified; R91.8 Other nonspecific abnormal finding of lung field; Z87.891 Personal history of nicotine dependence; Z79.61 Long term (current) use of immunomodulator; Z79.2 Long term (current) use of antibiotics; Z79.51 Long term (current) use of inhaled steroids; Z79.899 Other long term (current) drug therapy; Z01.84 Encounter for antibody response examination
CPT/HCPCS: 36415; 82784; 85025; 85652; 86331; 86606; 86609; 99212

== ENCOUNTER 2024-12-07 09:38 | Outpatient (AMB) | payer OTHER, SELFPAY ==
[2024-12-07 09:40] VITALS: BP 120/50; PULSE 56; O2SAT 99; BMI 21.9
--- NOTE | 2024-12-07 09:40 | A.OFFVIS_ITS ---
Vital Signs 12/07/24 09:40 Height 5 ft 4 in Weight 127 lb 13.89 oz BMI 21.9 BP 120/50 L Blood Pressure Location Lt brachial Position Sitting Pulse 56 Pulse Source Pulse Oximeter Pulse Oximetry (%) 99 Oxygen Delivery Method Room Air Intake Visit Reasons: COPD Allergies No Known Allergies Allergy (Verified 12/07/24 09:42) HPI Comments Details: The patient is a 79-year-old woman with known asthma COPD overlap syndrome who apparently started developing worsening respiratory symptoms for the last week. She has been using her nebulized therapy in addition to her short-acting beta agonist. However, she has not been using any maintenance inhalers. She has been noticing more coughing. Moderate severity. Nonproductive in nature. At this point with trying to minimize the use of steroids due to her diabetes. The patient has not had any recent x-rays or imaging. Her last chest x-ray was from [facility] December 04, 2017 demonstrating some areas of atelectasis. Her previous blood work demonstrated a low subclass 2 IgG. 01/14/2020 patient has a telephone visit. The patient has been having increasing shortness of breath. She has not been able to get her Bevespi covered. I believe is wonder going prior approval. She has tried and failed Anoro in the past. Currently she is getting budesonide via the nebulizer twice a day along with albuterol. She is also tolerating the Daliresp. She is having more issues with her balance and also tremors. She has been evaluated for Parkinson's. She has been falling numerous times. The family is been trying to keep her safe. In the meantime we did talk about the beta agonist causing tremors. Her, she needs her respiratory medications in order to improve her respiratory status. Her nebulizer is no longer working. She does use a nebulizer twice a day. I will request a new nebulizer through a [employer], [employer]. 05/16/2020 the patient is here for pulmonary follow-up visit. Since we last spoke the patient fell and she fractured her arm needed surgery in place. This area is healing apparently well. In addition to that the patient has had worsening respiratory symptoms. She was evaluated back in beginning of the month. She was treated with antibiotics however her conditionup being admitted briefly to [facility]. She had a chest x-ray demonstrating bilateral pleural effusions and what appeared to be cephalization and opacities at the bases more consistent with congestive heart failure. Her brain atretic peptide was approximately 3000. The patient also was found to be wheezy and she was treated with bronchodilators and also prednisone. Currently the patient has been discharged she is using her albuterolvia nebulizer to 4 times a day and has been using the Daliresp. She has also noticed weight loss and also decreased appetite. We talked about very decreasing the Daliresp to every other day when she feels better. In the meantime she is having significant wheezing on examination. I am reluctant to give her any prednisone at this time because of on her to have proper healing of her bone fracture. In the meantime will start antibiotics with azithromycin Saturday in the patient will start DuoNebs instead of albuterol 4 times a day. 06/13/2020 the patient is here for pulmonary follow-up visit. Overall she is doing better. She did now requiring prednisone. She did complete the antibiotics. She continues using the nebulizer 4 times a day. At this point the patient does not feel like she needs to that often. Therefore, will have her do a treatment in the morning with both budesonide and DuoNeb. Then later on the day she is able to use the DuoNeb as needed. She is continuing to use of Daliresp in addition to the singular at nighttime. At some point she may want to go back to inhaler therapy instead of the nebulizer. We will discuss this further during her next visit in 4 months. 10/31/2020 the patient is here for a pulmonary follow-up visit. Overall she is doing better. She has been off the prednisone. She has been tolerating the azithromycin 3 times a week. She has also been tolerating the Daliresp. Although she has been losing weight. Her appetite is down. She continue his respiratory therapy. She is using the budesonide and DuoNeb. She is currently not using the Stiolto. I did tell of the does okay as long she is using nebulized therapies at least twice a day. She also continues on the singular. The patient will be followed up with Cardiology soon and he can do an EKG. Otherwise she can have done an EKG in the hospital in order to make sure that she is tolerating the macrolide therapy without any worsening QT changes. The patient in the meantime will try to decrease the Daliresp due to the fact that she is losing weight has decreased appetite to every other day. Otherwise she will continue with her nebulized therapy and is okay for her to start the Stiolto. Will follow up in 6 months. 06/29/2021 the patient is here for a pulmonary follow-up visit. Since we last spoke she has developed chest discomfort she was taken to the [facility] ER where she was admitted to the hospital. When she was there she did have a chest x-ray that I personally reviewed demonstrating some mild perivascular congestion and small pleural effusion. Her brain atretic peptide was slightly elevated as well. She does not appear to be volume overloaded at this time. The patient has been on cardioprotective medications. From a COPD standpoint she has had some wheezing. She is responding very well to the azithromycin treating her for chronic bronchitis. However, now with the issues of underlying cardiac conditions will see about weaning her off it and she can follow up with Cardiology to make sure that she is stable. In the meantime I will give her half a does of prednisone just for 3 days to try to improve her volume status. 09/29/2021 the patient is here for a pulmonary follow-up visit. She recently did follow-up with Cardiology and apparently was noted to have a wheeze cardiac function and abnormal stress test. She will be undergoing a cardiac catheterization soon. In the meantime she continue was with respiratory therapy with good results. Has been tolerating the Daliresp. She continues use the S tiolto on a daily basis. During the last visit she did receive Lasix x3 days. Her volume status improved significantly. After that she did not require any additional diuretics. She is monitoring closely the sodium intake. She does complain of worsening productive cough with white phlegm. [id number]-[id number] severity. She did come off the azithromycin. This is likely the reasoning why. However, in view of her cardiac issues will hold off on macrolide therapy as it can worsen her QT interval. 03/21/2022 the patient is here for a pulmonary follow-up visit. Since we last spoke the patient was admitted to the hospital with COVID. She was treated in the hospital for few days. While she was there she had a chest x-ray that was reassuring. Prior to that in January [address] she did have a CT scan of the chest demonstrating airspace disease and a masslike consolidation in the left lower lobe. She had significant inflammation. Upper she will need a follow-up CT scan in the near future. In the meantime she has had worsening cough and she was taken off the azithromycin. Initially she was taken off because she was having arrhythmias in addition to the fact that the azithromycin can worsen QT prolongation. But, since coming off the medication her respiratory status has been often she has required multiple evaluations for her COPD exacerbations. Therefore will place him back on the azithromycin but she needs to monitor with EKG. Will have an EKG ordered and she can just come in to the hospital next week and have an EKG while on the medicine. Will continue to follow serial EKGs while on the medicine. We can also increase Daliresp to daily since she is tolerating it. Unfortunately because she does have increased wheezing she will also need a small dose of prednisone. She does have diabetes so therefore her sugars do elevate will try just a small dose to see if we can maintain her relatively stable with a sugars. She does continue to use her nebulized therapy twice a day and also continues with her inhalers as prescribed. 06/01/2022 the patient is here for pulmonary follow-up visit. She just recently had worked ago. Followed she is feeling better. She is tolerating the azithromycin 3 times a week. We had done an EKG demonstrating normal QTC. In addition to that she is tolerating the higher dose Daliresp. She continues use the budesonide with the albuterol. Also using Stiolto. She does have some increased wheezing since arriving from [place]. Also has nasal drainage. Denies any fevers or chills. Otherwise she feels she is doing fairly good. No recent imaging studies to review. We did look at the EKG together. She does have a left bundle branch block. Explained to patient that this is something that is her baseline. 12/03/2022 the patient is here for pulmonary follow-up visit. The patient continues have asthma symptoms. Having to use her nebulizer up to 4 times a day a few weeks ago. Now she is down to twice a day. He continues on her respiratory therapy. She has been losing some weight sometimes she takes Daliresp every other day to minimize on the weight loss. She continues to follow closely with Cardiology. At this point she is on a maximize respiratory regimen but still only partially responding as she is still continues to be symptomatic. She does have wheezing on examination today. Therefore will do allergy testing and blood work to assess her candidacy for biologics. I do believe that she will do good on Dupixent. She did have an EKG she does have a left bundle branch block with the has not changed her QT interval is within normal limits. The patient will undergo blood working well assessed her candidacy for biologic therapy at this time we also talked about vaccines. The patient should get her hours the vaccine and also should be up today with her pneumonia vaccine. 03/05/2023 the patient is here for a pulmonary follow-up visit. She has a trip to [place] soon. She wants to make sure that she is doing okay before her trip. She is having increasing dyspnea symptoms and chest tightness and cough. Moderate severity. She has been using all her respiratory medications as prescribed which have been partially helpful. We did request blood work during the last visit to see if she would be a candidate for any biologic therapy. Her IgE level and allergy testing was all within normal limits and also her eosinophil levels were also within normal limits. Therefore she is not a candidate for most of the biologics although because her should come prednisone use she would benefit from Tezspire. The patient is having active wheezing at this time. I will send her additional prednisone to the pharmacy. She will continue with current respiratory regimen as prescribed. 06/25/2023 the patient is here for pulmonary follow-up visit. Since we last spoke she had to go to urgent care because she had worsening respiratory symptoms. Does about a week ago. She was placed on 40 mg prednisone for 5 days. Now she is done she is still having difficulty breathing. She required also prednisone back in March. The patient also already maximize her respirat ory therapy and using her nebulizer and rescue medication several times a day. I do believe she had be a great candidate for biologic therapy. Unfortunately her insurance denied Tezspire. However, she does have an elevated eosinophil count of 300 and would benefit from Dupixent. Therefore will go ahead and request Dupixent at this time. In the meantime I will send her additional prednisone because she is still having significant wheezing on examination. She does continue to use her respiratory therapy as prescribed. The patient also should get a chest x-ray since she has been a while since her last 1. She will do that in the coming days. 09/20/2023 the patient is here for pulmonary follow-up visit. The patient has been doing fair. She did get the Dupixent approve however she has not started as of yet. We did call the pharmacy and will be ready to pickle processor. We did offer her to start the Dupixent today but she is concerned about going to the weekend. Therefore though schedule something next week. In the meantime the patient continues to use all her respiratory therapy with good effect. She has been responding well to Daliresp. However, she has had significant weight loss in therefore will going to have to stop it. She has no appetite. Hopefully her appetite improves once she comes off the Daliresp. She will continue the azithromycin for now. Once she starts the patient will try to simplify the respiratory regimen. She continues wheezing on examination. 12/18/2023 the patient is here for a pulmonary follow-up visit. The patient is doing okay. She is reluctant to start the Dupixent. I did encourage her to started so she can see how effective it is going to be. I do believe that the Dupixent very effective for and she will need as much steroids. She has been concerned because she has already injecting a lot of different things including her insulins and her pinprick. She will think about it for now. She rather go back on Daliresp. I will resend to the pharmacy. She is going to monitor closely for any weight loss or decreased appetite. In addition to that she continues with the azithromycin 3 times a week. She is going to go on a trip to [place]. I will give her some prednisone to take with her. No recent x-rays to review at this time. The patient will return in 3-4 months and will will discuss the whole issue with the biologic therapy. She did have x- rays of her hip because she is having hip pain after a fall. She is going to follow-up with orthopedics for that. 06/05/2024 the patient is here for a pulmonary follow-up visit. Overall she is doing okay. She still has some degree of cough. At times productive. [id number] severity. But overall better on the current therapy. The patient has been using the azithromycin 3 times a week. She also is tolerating the Daliresp but not on a daily basis. Seems like the combination has been able to keep her off the prednisone. She really would like to avoid biologic therapies. She continues using nebulized therapy with good effect. Also has a respiratory inhaler. She has not required any prednisone which is reassuring. We did look for imaging studies. The patient has not had any imaging studies in a year. Will plan to repeat an x-ray when she comes back in 6 months. If she has any issues prior to that she will call for an earlier assessment. 12/07/2024 the patient is here for pulmonary follow-up visit. She continues to struggle with her cough chest congestion. Moderate severity. She also has wheezing on a regular basis. The patient is on maximum respiratory therapy with only partial improvement of her symptoms. Unfortunately she has diabetes and she does not tolerate high doses of prednisone. Although right now she is having significant wheezing and she will require some prednisone. We did review her previous blood work demonstrating significant eosinophilia with the eosinophilic count of 400. Will go ahead and request blood work at this time. Based on ongoing obstructive airway disease and frequent exacerbations with the eosinophilia she will be a great candidate for Nucala. Will go ahead and start the process to get her approved and start on the therapy. In the meantime will send some prednisone. Hopefully if she responds well to the Nucala we can simplify her respiratory regimen. Will follow-up in 6 months if she has any issues prior to this she can always call for further recommendations. [facility] Medical History (Updated 01/28/24 @ 09:53 by Jeferson Roman PA-C) Vasomotor rhinitis CHF (congestive heart failure) Bronchitis Anxiety Depression History of heart attack Hyperlipidemia Hypothyroidism Chronic gouty arthritis Diabetes HTN (hypertension) Asthma B12 deficiency Iron deficiency anemia COPD (chronic obstructive pulmonary disease) Surgical History Hx of cholecystectomy Hx of tubal ligation Family History Sister Diabetes Mother Diabetes Arthritis Asthma Social History Household Members: None Housing: Apartment Are you a primary wound care physician to a significant other at home: No Do you presently have visiting nurse or other home services: No Alcohol intake: former Patient Tobacco Use Status: Former Tobacco user Tobacco use type: Cigarette Cigarette Packs Per Day: 1 service: No Current occupational status: unemployed Review of Systems Const Denies chills, Denies fatigue, Denies fever(s), Denies weight gain and Denies weight loss ENT Denies dizziness, Denies lip swelling and Denies tongue swelling Card Denies chest pain, Denies leg edema, Denies lightheadedness, Denies palpitations, Reports dyspnea on exertion, Denies orthopnea and Denies other Resp Reports chest congestion, Reports cough, Reports dyspnea on exertion and Reports wheezing GI Denies hematochezia and Denies change in stool character Musc Denies abnormal gait, Denies muscle weakness, Denies numbness, Denies radiating pain into limb and Denies tingling Neuro Denies abnormal gait, Denies dizziness, Denies numbness and Denies tingling Psych Denies no additional complaints Endo Denies fatigue and Denies palpitations Ascencion/Lymph Denies easy bleeding and Denies lymphadenopathy Aller/Immun Denies lip swelling, Denies tongue swelling and Reports wheezing Physical Exam Vital Signs: Last Vital Signs Pulse 56 12/07/24 09:40 BP 120/50 L 12/07/24 09:40 Pulse Ox 99 12/07/24 09:40 Oxygen Delivery Method Room Air 12/07/24 09:40 BMI result Body Mass Index 21.9 Const General: alert Neck Neck: Yes normal visual inspection, Yes full ROM and Yes no lymphadenopathy Chest Chest palpation & inspection: normal inspection of the chest Resp Auscultation: no rhonchi, wheezes and diminished lung sounds Cardio Rate: regular rate Rhythm: regular rhythm Heart sounds: S1 normal heart sound present and S2 normal heart sound present GI Palpation (GI): Soft to palpation and nontender Auscultation: normal bowel sounds Skin General skin exam: rashes and/or lesions noted Assessment & Plan Assessment & Plan (1) Asthma: Code(s): J45.909 - Unspecified asthma, uncomplicated Category: Medical Qualifiers: Asthma complication type: with acute exacerbation Asthma persistence: persistent Asthma severity: severe Qualified Code(s): J45.51 - Severe persistent asthma with (acute) exacerbation (2) Asthma-COPD overlap syndrome: Code(s): J44.9 - Chronic obstructive pulmonary disease, unspecified Category: Medical (3) Vasomotor rhinitis: Code(s): J30.0 - Vasomotor rhinitis Category: Medical (4) CHF (congestive heart failure): Code(s): I50.9 - Heart failure, unspecified Category: Medical Qualifiers: Heart failure chronicity: unspecified Heart failure type: unspecified Qualified Code(s): I50.9 - Heart failure, unspecified (5) COPD (chronic obstructive pulmonary disease): Code(s): J44.9 - Chronic obstructive pulmonary disease, unspecified Category: Medical Plan Start Nucala 100mg SC [id number] continue Daliresp continue azithromycin MWF Budesonide BID Duoneb BID continue Stiolto daily Continue Singulair Ipratropiun nasal spray Trazadone for sleep start Prednisone taper Bloodwork F/U 4-6 month Orders: Orders Complete Blood Count Auto Diff Today J44.9 - Chronic obstructive pulmonary disease, unspecified Hypersensitive Pneumonitis Prf Today J44.9 - Chronic obstructive pulmonary disease, unspecified, R91.8 - Other nonspecific abnormal finding of lung field Immunoglobulins,IgG IgA IgM Today J44.9 - Chronic obstructive pulmonary disease, unspecified Erythrocyte Sedimentation Rate Today J44.9 - Chronic obstructive pulmonary disease, unspecified Medications: New prednisone PO daily; Take 2 daily x 7 days, then 1 tab daily x 7 days 21 tabs 0RF 14 days Coding Level of Care Code Est Pt Level 4 (71494) Complex EM visit Add On G2211 Diagnoses Severe persistent asthma with acute exacerbation J45.51 Asthma complication type: with acute exacerbation Asthma persistence: persistent Asthma severity: severe Asthma-COPD overlap syndrome J44.9 Vasomotor rhinitis J30.0 Congestive heart failure, unspecified HF chronicity, unspecified heart failure type I50.9 Heart failure chronicity: unspecified Heart failure type: unspecified COPD (chronic obstructive pulmonary disease) J44.9 Time Spent (min) 16
--- OUTSIDE RECORDS SUMMARY | 2024-12-07 11:03 | XMS_ITS | Encounter Summary ---
Author Organization [employer] Address [address] [place] [address] Care Team Providers Care Manager Commodities Name Role Phone Tiara Bran MD Primary Care Provider [phone] Encounter Details Date Type Department Care Team (Late st Contact Info) Description 06/10/2024 Orders Only [facility] [address] [place] [address] Provider, MD Luis Eduardo Social History Tobacco [...] as of this encounter Plan of Treatment Not on file documented as of this encounter Procedures Procedure Name Priority Date/Time Associated Diagnosis Comments TRANSTHORACIC ECHO (TTE) COMPLETE Routine 05/05/2024 9:40 AM EST documented in this encounter Results * Transthoracic echo (TTE) complete (05/05/2024 9:40 AM EST) us Historical Provider CV ECHO PROCEDURES Final Result documented in this encounter Visit Diagnoses Not on filedocumented in this encounter Additional Health Concerns Assessment Noted Time PHQ-9 Depression Total Score: 2 04/30/19 25 9:56 AM EST documented as of this encounter Care Teams Manager Commodities Relationship Specialty Start Date End Date Tiara Bran MD [address] [place] [id number] PCP - General Family Medicine 11/21/16 documented as of this encounter
--- OUTSIDE RECORDS SUMMARY | 2024-12-07 11:03 | XMS_ITS | Clinical Summary ---
Author Organization [facility] Address [address] [place] [address] Care Team Providers Care Roofer Helper Vinyl Coating Name Role Phone Ashley Henao LABORATORY SCIENTIST Primary Care Provider [phone] Source Comments PLEASE NOTE, if this patient is a minor, it may be UNLAWFUL to discuss sensitive information that is contained in these records (such as FAMILY PLANNING, MENTAL HEALTH or SUBSTANCE ABUSE) with the minor patient's parent or other person without the patient's specific authorization.[facility] Allergies No known active allergies Medications nebulizer and compressorIndicati ons:COPD (chronic obstructive pulmonary disease) DX: Severe COPD 1 Device 1 05/06/19 14 Active nebulizer accessoriesIndicat ions:COPD (chronic obstructive pulmonary disease) Dx: severe COPD 1 Device 1 05/06/19 14 Active insulin syringe (BD INSULIN SYRINGE ULTRA-FINE) 1 mL 31 x 5/16 Indications:D M (diabetes mellitus) Dx: 250.00 To use QAC and HS (4 times a day with insulin) 120 Syringe 12 05/12/19 14 Active Insulin [place], Disposable, (OSCAR PEN NEEDLE) 32 x 5/32 ndleIndications:DM (diabetes mellitus) 1 Units by miscellaneous (misc) route 4 [...] mod or severe pain 1 Each 0 09/30/20 15 Active arm brace (NEOPRENE WRIST SPLINT [...] :Insulin-requiring or dependent type II diabetes mellitus Uses insulin 4 times a day. E11.9 Freestyle meter 150 Each 11 09/13/19 16 Active cetirizine (ZYRTEC) 10 mg tabletIndications: Other allergic rhinitis Take 1 Tab by mouth once daily. 90 Tab 3 10/29/19 16 Active fluticasone-vilant niraj (BREO ELLIPTA) 200-25 mcg/dose dsdvIndications:CO PD exacerbation Inhale 1 Puff into the lungs once daily. 60 Each 6 10/31/19 16 Active insulin aspart (NOVOLOG FLEXPEN) 100 unit/mL injectionIndicatio ns:Type 2 diabetes mellitus without complication, with long-term current use of insulin DM: e11.9. Per SS start at 100-150mg/dl [...] s:Chronic obstructive pulmonary disease, unspecified COPD type Take 3 mL by nebulization every 6 (six) hours as needed for wheezing 60 mL 11 06/20/19 17 Active hydroCHLOROthiazid e (HYDRODIURIL) 25 mg tabletIndications: Essential hypertension Take 1 Tab by mouth once daily 90 Tab 3 06/20/19 17 Active lisinopril (PRINIVIL,ZESTRIL) 20 mg tabletIndications: Type 2 diabetes mellitus without complication, unspecified senior living insulin use status,Essential hypertension Take 1 Tab by mouth once daily 90 Tab 3 06/20/19 17 Active simvastatin (ZOCOR) 10 mg tabletIndications: Type 2 diabetes mellitus without complication, unspecified senior living insulin use status,Dyslipidemi a Take 1 Tab by mouth nightly at bedtime 90 Tab 3 06/20/19 17 Active montelukast (SINGULAIR) 10 mg tabletIndications: Simple chronic bronchitis Take 1 Tab by mouth nightly at bedtime 90 Tab 2 06/20/19 17 Active omeprazole (PRILOSEC) [address] capsuleIndications :Dyspepsia Take 1 Cap by mouth every morning before breakfast Do not crush or chew. 90 Cap 3 06/20/19 17 Active insulin needles (BD ULTRAFINE III SHORT PEN) 31 gauge x 05/17 Dx:E11.9 DM on insulin 4 times a day. 150 Each 11 06/20/19 17 Active blood sugar diagnostic (FREESTYLE LITE STRIPS) stripsIndications: Insulin-requiring or dependent type II diabetes mellitus 1 Strip as needed for high blood sugar Dx: DM2 on insulin Checks 4 times a day. 150 Each 11 07/14/19 [address] tabletIndications: Type 2 diabetes mellitus without complication, unspecified computer terminal operator insulin use status Take 1 Tab by [...] Diagnosed Date NSTEMI (non-ST elevated myocardial infarction) 1 Overview (12/26/2016): Hospitalized 12/09/16 - 12/12/16 - [...] prior CT) No hypermetabolic activity. Done at [facility] Follows with Dr Yon frances (pulmonary) [facility] H/O colonoscopy 08/28/2012 Overview (12/29/2012): August 28 2012 DX: Diverticulosis of Sigmoid Colon Polyps in descending colon (resected: biopsy results pending) Recommended: Repeat colonoscopy August 2013 (in 1 yr) Diverticulosis of sigmoid colon 08/28/2012 Overview (12/29/2012): Dx by Colonoscopy on August 28 2012 Osteopenia 06/17/2012 Overview (12/03/2016): DEXA 06/17/12.Lowest Tscore -1.2 (rt and left femoral neck >> DEXA( 11/14/16, [facility]): Osteopenia. Lowest Tscore -1.5 (rt and left femoral necks) HTN (hypertension) COPD (chronic obstructive pulmonary disease) Overview (03/26/2014): Pulm F/u at [facility]. Dr Eloy Shah On Advair diskus [...] DM type 2 (diabetes mellitus, type 2) Overview (01/19/2015): Endo F/u at [facility]. Hypothyroidism GERD (gastroesophageal reflux disease) Overview [...] 72 09/27/2016 9:44 AM EDT Temperature 36.7 C (98.1 F) 09/27/2016 9:44 AM EDT Respiratory Rate 18 09/27/2016 9:44 AM EDT Oxygen Saturation 98% 10/29/2015 9:18 AM EDT Inhaled Oxygen Concentration - - Weight 72.3 kg (159 lb 8 oz) 09/27/2016 9:44 AM EDT Height 160 cm (5' 3 ) 09/27/2016 9:44 AM EDT Body Mass Index 28.25 09/27/2016 9:44 AM EDT Plan of Treatment Health Maintenance Due Date Last Done Comments Hepatitis C Screening 1945 Tobacco Screening 1945 Medicare Annual Wellness Visit 1964 Imm-DTaP/Tdap/Td (1 - Tdap) 1965 Imm-Pneumococcal 50+ (1 of 2 - PCV) 1965 Imm-Zoster, Recombinant (1 of 2) 1996 Bone Density Screening 08/26/2011 Falls Prevention 08/26/2011 Retinopathy Screening 02/08/2015 02/08/2014 (Managed by Outside Provider) Diabetes Foot Exam 03/26/2015 03/26/2014 (Declined) Hemoglobin A1c 03/30/2017 09/27/2016, 04/1 10/2016, 04/17/2016, Additional history exists Lipid Screening 04/17/2017 04/17/2016, 10/03, 07/05/2015, Additional history exists Urine Albumin Creatinine Rat io Screening 06/19/2017 06/19/2016, 04/17/2016, 07/05/2015, Additional history exists Serum Creatinine 09/27/2017 09/27/2016, , 04/17/2016, Additional history exists TSH Monitoring 09/27/2017 09/27/2016, 06/02, 04/17/2016, Additional history exists Imm-RSV (adult) (1 - 1-dose 75+ series) 2021 Alcohol and Drug Screen 03/04/2024 06/24/19 16, 04/30/2014 (Declined), 03/26/2014 (Declined) Depression Annual Screen 03/04/2024 015 (Managed by Outside Provider) [id number] ( season) 2024 Imm-Influenza (#1) 2024 12/01/2014, 1 04/19/2013 (Managed by Outside Provider), 12/29/2012, Additional history exists Procedures Procedure Name Priority Date/Time Associated Diagnosis Comments THYROID CASCADE PROFILE Routine 09/27/2016 10:35 AM EDT Other specified hypothyroidism BASIC METABOLIC PANEL CALCIUM TOTAL Routine 09/27/2016 10:35 AM EDT Stage 3 chronic kidney disease HEMOGLOBIN GLYCOSYLATED A1C Routine 09/27/2016 10:35 AM EDT Type 2 diabetes mellitus with complication, with long-term current use of insulin (HCC) MICROALBUMIN/CREATIN INE RATIO, URINE, RANDOM Routine 06/19/2016 11:52 AM EDT Type 2 diabetes mellitus without complication, with long-term current use of insulin (HCC) CKD (chronic kidney disease), stage 3 (moderate) LIPID PANEL Routine 04/17/2016 10:20 AM EST Diabetes mellitus without complication (HCC) from Last 3 Months or Most Recently Relevant to Health Maintenance Results * (ABNORMAL) THYROID CASCADE PROFILE (09/27/2016 10:35 AM EDT) TSH CASCADE 11.92(H) 0.40 - 4.00 uIU/ml [facility] Blood specimen (specimen) Blood / Unknown 09/27/2016 10:35 AM EDT 09/27/2016 10:47 AM EDT [facility] - 09/27/2016 12:53 PM EDT [employer] [address] [place] [address] [place] [id number] ORD# [id number] Aroldo Caballero MD LAB - BLOOD DRAW Final Resul t Performing Organization Address City/[facility]/ZIP Co de Phone Number [address] [address], * (ABNORMAL) HEMOGLOBIN, GLYCOSYLATED (A1C) (09/27/2016 10:35 AM EDT) GLYCATED HEMOGLOBIN A1C 8.4(H) <6.5 % [facility] ESTIMATED AVERAGE GLUCOSE 194 mg/dL [facility] Blood specimen (specimen) Blood / Unknown 09/27/2016 10:35 AM EDT 09/27/2016 10:47 AM EDT [facility] - 09/27/2016 1:37 PM EDT [facility] [employer] [address] [place] [address] [place] [id number] ORD# [id number] Aroldo Caballero MD LAB - BLOOD DRAW Final Resul t [address] [address], [place] [phone] * (ABNORMAL) BASIC METABOLIC PANEL CALCIUM TOTAL (09/27/2016 10:35 AM EDT) GLUCOSE 124(H) 70 - 100 mg/dL [facility] Comment:Reference range appl icable to fasting specimens only BUN 24 5 - 25 mg/dL [facility] CREAT 1.24(H) 0.5 - 1.1 mg/dL [facility] GLOMERULAR FILTRATION RATE 43 [facility] Comment: If patient is -Ivorian, multiply result by 1.21 Chronic Kidney Disease: < 60 ml/min/1.73 square meters Kidney Failure: < 15 ml/min/1.73 square meters SODIUM 140 133 - 145 mmol/L [facility] POTASSIUM 4.5 3.5 - 5.5 mmol/L [facility] CHLORIDE 101 96 - 110 mmol/L [facility] CO2 30 21 - 32 mmol/L [facility] ANION GAP 9 3 - 11 [facility] CALCIUM 10.1 8.5 - 10.5 mg/dL [facility] Blood specimen (specimen) Blood / Unknown 09/27/2016 10:35 AM EDT 09/27/2016 10:47 AM EDT Narrative [facility] - 09/27/2016 12:42 PM EDT [employer] [address] [place] [address] [place] [id number] ORD# [id number] Aroldo Caballero MD LAB - BLOOD DRAW Final Resul t [address] [address], * MICROALBUMIN/CREATININE RATIO, URINE, RANDOM (06/19/2016 11:52 AM EDT) CREATININE, RANDOM URINE 89 mg/dL [facility] MICROALBUMIN, RANDOM < 5.0 0.0 - 29.0 mg/L [facility] MICROALB/CRE RATIO RANDOM < 5.6 0.0 - 30.0 mg/G [facility] Urine specimen (specimen) Urine specimen / Unknown 06/19/2016 11:52 AM EDT 06/19/2016 12:35 PM EDT Narrative [facility] - 06/19/2016 4:26 PM EDT [employer] [address] [place] [address] [place] [address] [place] [id number] ORD# [id number] Odessa Shaver MD LAB URINE AMBUL ATORY Edited Result - Final Performing Organization Address City/[facility]/ZIP Co de Phone Number [facility] [address] [place] [address], [place] [phone] * (ABNORMAL) LIPID PANEL (04/17/2016 10:20 AM EST) CHOLESTEROL 206(H) 0 - 200 mg/dL [facility] TRIGLYCERIDES 171(H) 0 - 150 mg/dL [facility] HDL CHOLESTEROL 45 >40 mg/dL [facility] LDL CALCULATED 127(H) 0 - 100 mg/dL [facility] TC-HDLC RATIO 4.6(H) 0 - 4.4 mg/dL [facility] Blood specimen (specimen) Blood / Unknown 04/17/2016 10:20 AM EST 04/17/2016 10:40 AM EST Narrative [facility] - 04/17/2016 1:52 PM EST [employer] [address] [place] [address] [place] [id number] ORD# [id number] Odessa Shaver MD LAB - BLOOD INDU W Edited Result - Final [facility] [address] [place] [address], [place] [phone] from Last 3 Months or Most Recently Relevant to Health Maintenance Insurance [place] Care Teams Roofer Helper Vinyl Coating Relationship Specialty Start Date End Date Ashley Henao FNP [address] [place] [address] PCP - General 04/29/18
--- OUTSIDE RECORDS SUMMARY | 2024-12-07 11:03 | XMS_ITS | Encounter Summary ---
Author Organization [employer] Address [address] [facility] 7t [place] [address] Care Team Providers Care Bee Farmer Name Role Phone Tiara Bran MD Primary Care Provider [phone] Encounter Details Date Type Department Care Team ([facility] st Contact Info) Description 07/24/2022 Orders Only [facility] CHC MED & PEDS [address] [place], [place] [phone] Tiara Bran MD [address] [place] [address] Social History Tobacco Use Types Packs/Day Years [...] on file documented as of this encounter Visit Diagnoses Not on filedocumented in this encounter Additional Health Concerns Assessment Noted Time PHQ-9 Depression Total Score: 0 06/22/19 3:15 PM EDT documented as of this encounter Care Teams Bee Farmer Relationship Specialty Start Date End Date Tiara Bran MD [address] [place] [phone] PCP - General Family Medicine 11/21/16 documented as of this encounter
--- OUTSIDE RECORDS SUMMARY | 2024-12-07 11:03 | XMS_ITS | Encounter Summary ---
Author Organization [employer] Address [address] [place] [address] 7 [place] [address] Care Team Providers Care Screen Operator Name Role Phone Tiara Bran MD Primary Care Provider [phone] Reason for Visit * Reason Comments Med Refill Encounter Details Date Type Department Care Team ([facility] st Contact Info) Description 10/05/2022 Refill [facility] CHC MED & PEDS [address] [place] [address] Tiara Bran MD [address] [place] [address] Type 2 diabetes mellitus without complication, with long-term current use of insulin ([facility]); Chest pain, unspecified type; Allergy, subsequent encounter [...] complication, with long-term current use of insulin ([facility]) Chest pain, unspecified type Allergy, subsequent encounter documented in this encounter Additional Health Concerns Assessment Noted Time PHQ-9 Depression Total Score: 0 06/22/19 23 3:15 PM EDT documented as of this encounter Care Teams Screen Operator Relationship Specialty Start Date End Date Tiara Bran MD [address] [place] [phone] PCP - General Family Medicine 11/21/16 documented as of this encounter
--- OUTSIDE RECORDS SUMMARY | 2024-12-07 11:03 | XMS_ITS | Clinical Summary ---
Author Organization [facility] [email or web address] Address [address] 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 Continue current dose of spironolactone and Entresto. 2. Echocardiogram to reevaluate the LVEF. Orders: Comprehensive metabolic panel; Future Comprehensive metabolic panel GERD (gastroesophageal reflux disease) 8 Overview (01/06/2024): EGD 03/23/12 Dr. Rodriguez, Stomach revealed reactive gastropathy/chemical gastritis/active esophagitis. Asthma-COPD overlap syndrome (CMS/HCC V24, CMS/H CC V28) 04/11/2017 DM (diabetes mellitus), type 2 with renal complications ([facility] V24, [facility] V28) 03/29/2017 Hyperlipidemia 03/29/2017 Overview (01/06/2024): Last Assessment [...] prior CT) No hypermetabolic activity. Done at [facility] Follows with Dr Yon frances (pulmonary) [facility] Resolved Problems Problem Noted Date Diagnosed Date [...] if they were to faint. History of LA (myocardial infarction) 12/24/2016 02/11/2024 Overview (01/06/2024): NSTEMI 12/09/16 Encounters Date Type Department Care Team Description 10/27/2024 10:15 AM EDT Office Visit Orthopedic Surgery - [facility] [address] [place] [address] [place] [address] Gideon Mojica, DPM Acquired hallux valgus of left foot (Primary Dx); Hammer toe of left foot; Acquired hallux valgus of right foot; Dermatophytosis of nail; Pain in toe of right foot; Pain in toe of left foot; Corns and callosities; Metatarsalgia of both feet; Type II diabetes mellitus with peripheral circulatory disorder ([facility] V24, [facility] V28); Acquired hammer toe of right foot; Diabetic mononeuropathy simplex ([facility] V24, [facility] V28) from Last 3 Months Surgical History Surgery Date Site/Laterality Comments COLONOSCOPY 08/2012 PROCEDURE: HISTORICAL COLONOSCOPY; COMMENT: Recommended: Repeat colonoscopy August 2013 (in 1 yr) CHOLECYSTECTOMY PROCEDURE: HISTORICAL CHOLECYSTECTOMY ESOPHAGOGASTRODUODENOSCOPY PROCEDURE: NM ESOPHAGOGASTRODUODENOSCOPY TRANSORAL DIAGNOSTIC COLONOSCOPY 05/08/2017 PROCEDURE: HISTORICAL COLONOSCOPY COLONOSCOPY 07/31/2016 PROCEDURE: HISTORICAL COLONOSCOPY COLONOSCOPY 06/01/2014 PROCEDURE: HISTORICAL COLONOSCOPY OTHER SURGICAL HISTORY 12/05/2018 PROCEDURE: NM ERCP W/SPHINCTEROTOMY/PAPILLOTOMY Medical History Medical History Date Comments Asthma 03/29/2017 DX:Asthma Hypothyroid 03/29/2017 DX:Hypothyroid Osteopenia 03/29/2017 DX:Osteopenia Renal insufficiency 03/29/2017 DX:Renal ins ufficiency DM (diabetes mellitus), type 2 with renal complications ([facility] V24, [facility] V28) 03/29/2017 DX:DM (diabetes mellitus), t ype 2 with renal complications ([facility]) Hyperlipidemia 03/29/2017 DX:Hyperlipidemi a Hypertension 03/29/2017 DX:Hypertension Colon polyps 12/29/2012 DX:Colon polyps; COMMENT: Overview: Of benign appearance, biopsy pending. Colonoscopy recommended in 1 year (August 2013) History of LA (myocardial infarction) 12/24/2016 DX:History of LA (myocardial infarction); COMMENT: NSTEMI 12/09/16 GERD (gastroesophageal [...] prior CT) No hypermetabolic activity. Done at [facility] Follows with Dr Yon frances (pulmonary) [facility] Takotsubo cardiomyopathy 12/24/2016 DX:Tako tsubo cardiomyopathy; COMMENT: [...] Care Team (Late st Contact Info) Description 04/29/2025 10:15 AM EST Office Visit [facility] - [facility] [address] [address] Gideon Mojica, DPTho [address] [phone] Health Maintenance Due Date Last Done Comments Diabetes: Annual Foot Exam 1955 Diabetes: Annual Retina Eye Exam 1955 Colorectal Cancer Screening: Stool Based Tests (FOBT/FIT) 02/04/2022 Falls Risk Assessment 02/04/2022 Hepatitis C Screening 02/04/2022 Medicare Annual Wellness Visit 02/04/2022 Osteoporosis Screening (Bone Density Screening) 02/04/2022 Social Influencers of Health Screening 02/04/2022 Diabetes: Annual Urine Albumin-Creatinine Ratio (uACR) 02/17/2022 Depression Screening 03/04/2024 COVID-19 Vaccine ( season) 2024 01/18/2021, 06/08/2020, 05/11/2020 Influenza Vaccine (#1) 2024 , 11/08/2022, 12/06/2021, Additional history exists Diabetes: Blood Sugar Control Test (HGBA1C) 01/28/2025 07/28/2024, 04/30/2024, 12/05/2023, Additional history exists Diabetes: Annual GFR (Glomerular Filtration Rate) 08/05/2025 08/05/2024, 05/13/2024, 05/05/2024, Additional history exists Hypertension/CHF/CAD Annual BMP Blood Test 08/05/2025 08/05/2024, 05/13/2024, 05/05/2024, Additional history exists DTaP,Tdap,and Td Vaccines (2 - Td or Tdap) 12/25/2028 12/25/2018 Cholesterol Screening (Lipid Panel) 08/05/2029 08/05/2024, 05/05/2024, 11/16/2022, Additional history exists Colorectal Cancer Screening: Colonoscopy Discontinued 08/28/2012 Pneumococcal Vaccine: 50+ Years Completed 01/29/2018, 10/17/2016, 11/01/2012, Additional history exists Zoster Vaccines Completed 05/01/2019, 02/18/2019 RSV Immunization Adult Patients Completed 03/05/2023 HIB Vaccines Aged Out No longer eligi [...] age to complete this topic Meningococcal B Vaccine Aged Out No l onger eligible based on patient's age to complete this topic RSV Immunization Patients Under 20 months Aged Out No longer eligible based on patient's age to complete this topic Varicella Vaccines Aged Out No longer eligible based on patient's age to complete this topic Procedures Procedure Name Priority Date/Time Associated Diagnosis Comments COMPREHENSIVE METABOLIC PANEL Routine 05/13/2024 9:47 AM EDT Coronary artery disease involving rosebud coronary artery of rosebud heart without angina pectoris Heart failure with reduced ejection fraction (CMS/HCC V24, CMS/HCC V28) Primary hypertension Coronary artery disease, unspecified vessel or lesion type, unspecified whether angina present, unspecified whether rosebud or transplanted heart LIPID PANEL Routine 05/05/2024 10:09 AM EST Coronary artery disease involving rosebud coronary artery of rosebud heart without angina pectoris Pure hypercholesterolemia HM COLONOSCOPY Routine 08/28/2012 from Last 3 [...] 44 - 121 IU/L [facility] Aspartate aminotransferase (AST) 20 0 - 40 IU/L [facility] Alanine Aminotransferase (ALT) 18 0 - 32 IU/L [facility] 1 Blood Venous blood specimen / Unknown 05/13/2024 9:47 AM EDT 05/13/2024 Narrative [facility] - 05/13/2024 11:06 PM EDT Performed at: [address] [id number] Band Splicer: Erin Gardiner MD, Phone: [phone] Bibiana Deluna NP LAB BLOOD ORDERABLES Final Result [facility] 1 * Lipid panel (05/05/2024 10:09 AM EST) [facility] Cholesterol Total 124 100 - 199 mg/dL [facility] 1 Triglycerides 117 0 - 149 mg/dL [facility] HDL Cholesterol 43 >39 mg/dL [facility] 1 VLDL Cholesterol Calculated 21 5 - 40 mg/dL [facility] 1 LDL Chol Calc ([facility]) 60 0 - 99 mg/dL [facility] 1 Blood Venous blood specimen / Unknown 05/05/2024 10:09 AM EST 05/05/2024 Narrative [facility] - 05/06/2024 1:06 AM EST Performed at: [address] [facility] [address] [id number] Band Splicer: Erin Gardiner MD, Phone: [phone] Keo Mcmillan MD LAB BLOOD ORDERABLES F [...] ID:[id number] Group ID:[id number] Type:Not on file Address: [place] [address] [address] [address] Care Teams Center Director Relationship Specialty Start Date End Date Tiara Bran MD [address] [place] [phone] PCP - General 07/05/17
--- OUTSIDE RECORDS SUMMARY | 2024-12-07 11:03 | XMS_ITS | Encounter Summary ---
Author Organization [employer] Address [address] [facility] 7t [place] [address] Care Team Providers Care Residential Care Officer Name Role Phone Tiara Bran MD Primary Care Provider [phone] Encounter Details Date Type Department Care Team (Late st Contact Info) Description 02/12/2024 Orders Only [facility] CHC MED & PEDS [address] [place] [address] Provider, MD Luis Eduardo Social History Tobacco [...] documented as of this encounter Care Teams Residential Care Officer Relationship Specialty Start Date End Date Tiara Bran MD [address] [place] [address] PCP - General Family Medicine 11/21/16 documented as of this encounter
--- OUTSIDE RECORDS SUMMARY | 2024-12-07 11:03 | XMS_ITS | Encounter Summary ---
Author Organization [employer] Address [address] [facility] 7 [place] [address] Care Team Providers Care Veneer Sheet Repairer Name Role Phone Tiara Bran MD Primary Care Provider [phone] Reason for Visit * Reason Comments Med Refill Encounter Details Date Type Department Care Team ([facility] Contact Info) Description 12/07/2024 Refill [facility] [address] [place] [address] Tiara Bran MD [address] [place] [address] Type 2 diabetes mellitus without complication, with long-term current use of insulin (HCC); Chest pain, unspecified type; Allergy, subsequent encounter [...] Access Q2 Not on file 04/30/2024 Comments No Sex and Gender Information Value [...] with long-term current use of insulin (HCC) Chest pain, unspecified type Allergy, subsequent encounter documented in this encounter Additional Health Concerns Assessment Noted Time PHQ-9 Depression Total Score: 2 04/30/19 25 9:56 AM EST documented as of this encounter Care Teams Veneer Sheet Repairer Relationship Specialty Start Date End Date Tiara Bran MD [address] [place] [address] PCP - General Family Medicine 11/21/16 documented as of this encounter
--- OUTSIDE RECORDS SUMMARY | 2024-12-07 11:03 | XMS_ITS | Encounter Summary ---
Author Organization [employer] Address [address] [facility] 7 [place] [address] Care Team Providers Care Hall Clerk Name Role Phone Tiara Bran MD Primary Care Provider [phone] Reason for Visit * Reason Onset Date Comments Pre Op 12/25/2023 Encounter Details Date Type Department Care Team ([facility] st Contact Info) Description 12/25/2023 Telephone [facility] MED[facility] [address] [place] [address] Tiara Bran MD [address] [facility] [place] [id number] Pre Op Social History Tobacco Use Types [...] [facility] Surgeon's office number: [phone] Surgeon's office fax number: [phone] Contact name: Cynthia documented in this encounter Plan of Treatment Not on file documented as of this encounter Visit Diagnoses Not on filedocumented in this encounter Additional Health Concerns Assessment Noted Time PHQ-9 Depression Total Score: 0 06/22/19 3:15 PM EDT documented as of this encounter Care Teams Hall Clerk Relationship Specialty Start Date End Date Tiara Bran MD [address] [place] [id number] PCP - General Family Medicine 11/21/16 documented as of this encounter
--- OUTSIDE RECORDS SUMMARY | 2024-12-07 11:03 | XMS_ITS | Encounter Summary ---
Author Organization [employer] Address [address] [place] [address] 7 [place] [address] Care Team Providers Care Security Lead Name Role Phone Tiara Bran MD Primary Care Provider [phone] Encounter Details Date Type Department Care Team ([facility] st Contact Info) Description 07/13/2022 Orders Only [facility] [address] [place] [address] Rosy Alexis LPN Social History Tobacco Use [...] documented as of this encounter Care Teams Security Lead Relationship Specialty Start Date End Date Tiara Bran MD [address] [place], [place] [id number] PCP - General Family Medicine 11/21/16 documented as of this encounter
--- OUTSIDE RECORDS SUMMARY | 2024-12-07 11:03 | XMS_ITS | Clinical Summary ---
Author Organization [employer] Address [address] [place] [address] 7t [place] [address] Care Team Providers Care Chief Port Director Name Role Phone Tiara Bran MD Primary Care Provider [phone] Allergies Active Allergy Reactions Criticality Noted Date Comments Mirtazapine Unknown 11/10/2010 Other reaction(s): nightmare nightmare Other reaction(s): nightmare Medications sucralfate (Carafate) 1 g tablet Take 1 g by mouth. 022 Active Stiolto Respimat 2.5-2.5 MCG/ACT aerosol solution inhaler INHALE TWO PUFFS ONCE DAILY 023 Active spironolactone (Aldactone) 25 MG tablet Take 25 mg by mouth in the morning. 023 Active sacubitril-russell sartan (Entresto) 97-103 MG tablet TAKE ONE TABLET BY MOUTH IN THE MORNING AND EVENING 022 Active Entresto 97-103 MG tablet TAKE ONE TABLET BY MOUTH IN THE MORNING AND EVENING 023 Active Roflumilast 500 MCG tablet 023 Active ipratropium (Atrovent) 0.06 % nasal spray INHALE TWO SPRAYS IN EACH NOSTRIL THREE TIMES DAILY NEEDED FOR ALLERGY 023 Active donepezil (Aricept) 10 MG tablet Take 10 mg by mouth at bedtime. 023 Active budesonide (Pulmicort) 0.5 MG/2ML nebulizer solution 023 Active Magnesium 400 MG capsule Take 1 capsule orally daily 90 capsule 3 023 Active pantoprazole (ProtoNix) 40 MG EC tablet TAKE ONE TABLET EVERY MORNING 30 tablet 11 024 Active bacitracin-sheng ymyxin b (Polysporin) ointment Apply topically 2 times daily. 15 g 024 Active albuterol (2.5 MG/3ML) 0.083% nebulizer solution INHALE ONE AMPULE USING A NEBULIZER EVERY 6 HOURS NEEDED 90 mL 024 Active azithromycin (Zithromax) 250 MG tablet TAKE ONE TABLET THREE TIMES PER WEEK ON SATURDAY, SATURDAY, AND SATURDAY Active urea (Carmol) 40 % cream Apply 1 Application. topically Once per day. 227 g 024 Active lidocaine (Lidoderm) 5 % patchIndicatio ns:Right hip pain Apply 1 patch topically Once per day. Remove & discard patch within 12 hours or as directed by MD. 30 patch 1 024 Active memantine (Namenda) 5 MG tablet TAKE ONE TABLET EVERY NIGHT AT BEDTIME Active mirtazapine (Remeron) 15 MG tablet TAKE ONE TABLET EVERY NIGHT AT BEDTIME 024 Active Easy Touch Lancets 33G/Twist miscIndication s:Type 2 diabetes mellitus without complication, with long-term current use of insulin ([facility]) TEST BLOOD SUGAR FOUR TIMES DAILY 100 each 11 Active Diclofenac Sodium 1 % gelIndications :Right hip pain APPLY 2 GRAMS TOPICALLY TWICE A DAY TO THE AFFECTED AREA IF NEEDED 100 g 1 024 Active Blood Glucose Monitoring Suppl (FreeStyle Lite) w/Device kit 1 kit Once per day. 1 kit 024 Active sacubitril-russell sartan (Entresto) 97-103 MG tablet Take 1 tablet by mouth 2 times daily. 023 Active FREESTYLE LITE test strip TEST BLOOD SUGAR FOUR TIMES DAILY 100 strip 11 025 Active nitroglycerin (Nitrostat) 0.4 MG SL tabletIndicati ons:Type 2 diabetes mellitus without complication, with long-term current use of insulin ([facility]),Chest pain, unspecified type,Allergy, subsequent encounter DISSOLVE 1 TABLET UNDER THE TONGUE EVERY 5 MINUTES NEEDED FOR CHEST PAIN. DO NOT EXCEED A TOTAL OF 3 DOSES IN 15 MINUTES. 25 tablet 4 Active B-D ULTRAFINE III SHORT PEN 31G X 8 MM miscIndication s:Type 2 diabetes mellitus without complication, with long-term current use of insulin ([facility]) USE FOUR DAILY 100 each Active magnesium oxide (Mag-Ox) 400 MG tablet TAKE ONE TABLET EVERY MORNING 90 tablet Active dapagliflozin (Farxiga) 10 MG Take 1 tablet (10 mg) by mouth Once per day. 30 tablet 2025 Active insulin aspart (NovoLOG FLEXPEN) 100 UNIT/ML penIndications :Type 2 diabetes mellitus without complication, with long-term current use of insulin ([facility]) INJECT 2 TO 12 UNITS SUBCUTANEOUSLY THREE TIMES DAILY DIRECTED PER SLIDING SCALE 15 mL Active atorvastatin (Lipitor) 80 MG tablet TAKE ONE TABLET EVERY NIGHT AT BEDTIME 90 tablet 2 Active Lantus SoloStar 100 UNIT/ML penIndications :Type 2 diabetes mellitus without complication, with long-term current use of insulin ([facility]) INJECT 20 UNITS SUBCUTANEOUSLY EVERY EVENING 15 mL Active Aspirin Adult Low Strength 81 MG EC tablet TAKE ONE TABLET DAILY AT NOON 90 tablet Active montelukast (Singulair) 10 MG tabletIndicati ons:Type 2 diabetes mellitus without complication, with long-term current use of insulin ([facility]),Chest pain, unspecified type,Allergy, subsequent encounter TAKE ONE TABLET EVERY EVENING 90 tablet Active amLODIPine (Norvasc) 10 MG tablet TAKE ONE TABLET AT NOON 90 tablet Active sucralfate (Carafate) 1 g tabletIndicati ons:Type 2 diabetes mellitus without complication, with long-term current use of insulin ([facility]),Chest pain, unspecified type,Allergy, subsequent encounter TAKE ONE TABLET THREE TIMES DAILY IN THE MORNING, EVENING AND BEDTIME BEFORE MEALS 90 tablet Active levothyroxine (Synthroid, Levoxyl) 88 MCG tabletIndicati ons:Type 2 diabetes mellitus without complication, with long-term current use of insulin ([facility]),Chest pain, unspecified type,Allergy, subsequent encounter TAKE ONE TABLET EVERY MORNING 30 tablet 11 025 Active fluticasone (Flonase) 50 MCG/ACT nasal sprayIndicatio ns:Type 2 diabetes mellitus without complication, with long-term current use of insulin (HCC),Chest pain, unspecified type,Allergy, subsequent encounter INHALE ONE SPRAY IN EACH NOSTRIL TWICE DAILY 48 g 3 025 Active Alcohol Swabs (Alcohol Prep) 70 % padsIndication s:Type 2 diabetes mellitus without complication, with long-term current use of insulin (HCC),Chest pain, unspecified type,Allergy, subsequent encounter USE FIVE DAILY 100 each 11 025 Active Alcohol Swabs (Alcohol Prep) 70 % padsIndication s:Type 2 diabetes mellitus without complication, with long-term current use of insulin (HCC),Chest pain, unspecified type,Allergy, subsequent encounter USE ONE FIVE TIMES DAILY 100 each 11 024 2024 Discontinued celecoxib (CeleBREX) 100 MG capsule Take 1 capsule (100 mg) by mouth 2 times daily. 60 capsule 1 025 2024 Active Problems Problem Noted Date Diagnosed Date Moderate major depression (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) 02/05/2022 Assessment & Plan (07/09/2022 5:30 PM [...] Encounters Date Type Department Care Team Description 12/07/2024 Refill [facility] [address] [place] [address] Tiara Bran MD Type 2 diabetes mellitus without complication, with long-term current use of insulin (HCC); Chest pain, unspecified type; Allergy, subsequent encounter 11/10/2024 Refill [facility] [address] [place] [address] Tiara Bran MD Type 2 diabetes mellitus without complication, with long-term current use of insulin (CMS/HCC); Chest pain, unspecified type; Allergy, subsequent encounter 10/28/2024 10:15 AM EDT Office Visit [facility] [address] [place] [address] Tiara Bran MD Mixed hyperlipidemia (Primary Dx); Type 2 diabetes mellitus without complication, with long-term current use of insulin (CMS/[facility]); Chronic obstructive pulmonary disease, unspecified COPD type (CMS/[facility]); Acquired hypothyroidism 10/28/2024 Travel 10/27/2024 Telephone [facility] [address] [place] [address] Tiara Bran MD chart prep 09/22/2024 Refill [facility] [address] [place] [address] Tiara Bran MD Type 2 diabetes mellitus without complication, with long-term current use of insulin ([facility]); Chest pain, unspecified type; Allergy, subsequent encounter 09/13/2024 Refill [facility] [address] [place] [address] Tiara rBan MD Type 2 diabetes mellitus without complication, with long-term current use of insulin ([facility]); Chest pain, unspecified type; Allergy, subsequent encounter 09/10/2024 Refill [facility] [address] [place] [address] Tiara Bran MD Type 2 diabetes mellitus without complication, with long-term current use of insulin (CMS/[facility]); Chest pain, unspecified type; Allergy, subsequent encounter from Last 3 Months Immunizations Immunization Administration Dates Next Due Influenza High-dose Quadrivalent [...] Sign Reading Time Taken Comments Blood Pressure 118/60 10/28/2024 10:23 AM EDT Pulse 65 10/28/2024 10:23 AM EDT Temperature 36.2 C (97.2 F) 10/28/2024 10:23 AM EDT Respiratory Rate 16 10/28/2024 10:23 AM EDT Oxygen Saturation 97% 10/28/2024 10:23 AM EDT Inhaled Oxygen Concentration - - Weight 55.8 kg (123 lb) 10/28/2024 10:23 AM EDT Height 162.6 cm (5' 4 ) 08/03/2024 6:32 PM EDT Body Mass Index 21.11 08/03/2024 6:32 PM EDT Plan of Treatment Health Maintenance Due Date Last Done Comments Eye Exam 1955 Hepatitis C Screening 1963 Diabetes: Urine Protein Screening 06/12/2022 06/12/2021, 07/18/2020, 03/31/2019 COVID-19 Vaccine ( season) 2024 01/18/2021, 06/08/2020, 05/11/2020 Influenza Vaccine (#1) 2024 , 11/08/2022, 12/06/2021, Additional history exists Diabetes: Hemoglobin A1C 01/28/2025 025, 07/28/2024, 04/30/2024, Additional history exists Diabetes: Foot Exam 04/28/2025 04/28/2024, 05/02/2023, 05/02/2023, Additional history exists Alcohol/Substance Use Screening 04/30/2025 04/30/2024 Depression Screening 04/30/2025 04/30/2024, 04/30/19 25 SDOH Screening 04/30/2025 04/30/2024 Lipid Panel 08/05/2025 08/05/2024, 11/02, 06/12/2021, Additional history exists Tobacco Screening 10/28/2025 10/28/2024 DTaP/Tdap/Td Vaccines (2 - Td or Tdap) 12/25/2028 12/25/2018 Pneumococcal Vaccine: 50+ Years Completed 01/29/2018, 10/17/2016, 11/01/2012, Additional history exists Zoster Vaccines Completed 05/01/2019, 02/18/2019 RSV Patients and Patients Aged 60 years or older Completed 03/05/2023 HIB Vaccines Aged Out No [...] Diagnosis Comments POCT GLYCATED HEMOGLOBIN, TOTAL Routine 10/28/2024 10:28 AM EDT Type 2 diabetes mellitus without complication, with long-term current use of insulin ([facility]) POCT GLUCOSE Routine 10/28/2024 10:26 AM EDT Type 2 diabetes mellitus without complication, with long-term current use of insulin ([facility]) LIPID PANEL, STANDARD Routine 08/05/2024 9:59 AM EDT Type 2 diabetes mellitus without complication, with long-term current use of insulin ([facility]) ALBUMIN, RANDOM URINE W/CREATININE Routine 06/12/2021 9:13 AM EDT from Last 3 Months or Most Recently Relevant to Health Maintenance Results * (ABNORMAL) POCT HGB A1C (10/28/2024 10:28 AM EDT) Hemoglobin A1C 7.2(A) 4.0 - 5.7 % QC Media Lot # [id number] Lot# Expiration Date 72 Blood 10/28/2024 10:2 8 AM EDT Tiara Bran MD POINT OF CARE TEST ENTER/EDIT ORDERABLES Final Result * (ABNORMAL) POCT Glucose (10/28/2024 10:26 AM EDT) Glucose Blood, POC 235(A) 60 - 200 mg/dL QC Media Lot # [id number] Lot# Expiration Date 122,025 Blood Capillary blood specimen / Unknown 10/28/2024 10:26 AM EDT Tiara Bran MD POINT OF CARE TEST ENTER/EDIT ORDERABLES Final Result * (ABNORMAL) Lipid Panel, Standard (08/05/2024 9:59 AM EDT) Triglycerides 95 <150 mg/dL [facility] Comment:Desirable Triglyceri de: less than 150 mg/dLBorderline High Triglyceride 150-199 mg/dLHigh Triglyceride: 200-499 mg/dLVery High Triglyceride: greater than or equal to 5OO mg/dL Cholesterol 107 <200 mg/dL [facility] Comment:Desirable Cholestero l: less than 200 mg/dLBorderline High Cholesterol: 200-239 mg/dLHigh Cholesterol: greater than 239 mg/dL LDL Cholesterol Calculated 48 <100 mg/dL [facility] Comment:Desirable LDL: less than 100 mg/dLNear Optimal/Above Optimal LDL: 110- 129 mg/dLBorderline High LDL: 130-159 mg/dLHigh LDL: 160-189 mg/dLVery High LDL: greater than or equal to 190 mg/dL HDL Cholesterol 40(L) >40 mg/dL [facility] Comment:Desirable HDL: great er than 40 mg/dL Note: This HDL assay may give artificially low results in patients with liver disease. Blood Venous blood specimen / Unknown 08/05/2024 9:59 AM EDT 08/05/2024 2:15 PM EDT us Tiara Bran MD LAB BLOOD ORDERABLES Final Re sult [facility] [address] [place] [address] [phone] * ALBUMIN, RANDOM URINE W/CREATININE (06/12/2021 9:13 AM EDT) Microalbumin Urine 2.4 See Note: mg/dL [facility] Comment: Reference Range: Reference Range Not established Microalb/Creat Ratio 10 <30 mcg/mg creat [facility] Comment: The ADA defines abnormalities in albumin excretion as follows: Albuminuria Category Result (mcg/mg creatinine) Normal to Mildly increased <30 Moderately increased 30-299 Severely increased > OR = 300 The ADA recommends that at least two of three specimens collected within a 3-6 month period be abnormal before considering a patient to be within a diagnostic category. Creatinine, Urine 245 20 - 275 mg/dL [facility] 06/12/2021 9:13 AM EDT us Tiara Bran MD LAB URINE ORDERABLES Final Re sult [facility] [address] from Last 3 Months or Most Recently Relevant to Health Maintenance Insurance [facility] LONG-TERM OPTIONS (O D-SNP) SANAM KURTZ [id number] Care Teams Chief Port Director Relationship Specialty Start Date End Date Tiara Bran MD [address] [facility] [place] [address] PCP - General Family Medicine 11/21/16
--- OUTSIDE RECORDS SUMMARY | 2024-12-07 11:03 | XMS_ITS | Encounter Summary ---
Author Organization [employer] Address [address] [place] [address] Care Team Providers Care Radiology Services Manager Name Role Phone Tiara Bran MD Primary Care Provider [phone] Encounter Details Date Type Department Care Team (Late st Contact Info) Description 01/07/2023 Abstract [facility] MED[facility]INE [address] [place] [address] Danisha Andrews Social History Tobacco Use Types [...] documented as of this encounter Care Teams Radiology Services Manager Relationship Specialty Start Date End Date Tiara Bran MD [address] [place] [address] PCP - General Family Medicine 11/21/16 documented as of this encounter
== END 2024-12-07 10:06 | disposition home or self-care (01) ==
LOC: HO.HPS 09:39
PROVIDERS: PCP Pediatrics; Visit Provider Hospitalist
DX: J45.51 Severe persistent asthma with (acute) exacerbation (principal); J44.9 Chronic obstructive pulmonary disease, unspecified; J30.0 Vasomotor rhinitis; I50.9 Heart failure, unspecified
CPT/HCPCS: 99214; G2211

== ENCOUNTER 2024-12-23 11:12 | Outpatient (AMB) | payer OTHER, SELFPAY ==
--- NOTE | 2024-12-23 11:32 | MHC.OFFVIS ---
Vital Signs 12/23/24 11:40 Height 5 ft 4 in Weight 127 lb BMI 21.8 Intake Visit Reasons: ov- RT hip pain Intake Note: is a 79 year old female who presents today for a follow up of right hip OA. Patient was previously seen status post fall on 11/26/24. Today patient is requesting a prescription of celebrex. She feels most relief with medication, once medication was discontinued her pain had returned. She is currently receiving a temporary celebrex prescription through her PCP. Environmental Program Manager Required: Yes Environmental Program Manager Services: Environmental Program Manager Offered & Declined Accompanied by: Daughter Allergies No Known Allergies Allergy (Verified 12/23/24 11:40) Medication List - Last Reconciled 01/01/25 by Jeferson Roman PA-C albuterol sulfate 1 mg inhalation Q6H PRN albuterol sulfate 90 mcg/actuation (Ventolin HFA) 2 puffs inhalation Q4-6H PRN amlodipine 10 mg PO DAILY aspirin 81 mg PO DAILY atorvastatin 80 mg PO BEDTIME azithromycin 250 mg PO 3XW budesonide 0.5 mg (2 mL) inhalation BID celecoxib 200 mg PO BID dapagliflozin propanediol (Farxiga) 5 mg PO DAILY donepezil (Aricept) 10 mg PO DAILY insulin aspart U-100 (Novolog FlexPen U-100 Insulin aspart) 2 - 12 units subcut TID insulin glargine (Lantus Solostar U-100 Insulin) 45 units subcut BEDTIME ipratropium bromide 2 sprays intranasal TID PRN ipratropium-albuterol 0.5 mg-3 mg(2.5 mg base)/3 mL 3 mL inhalation QID 30 days levothyroxine 88 mcg PO DAILY magnesium oxide 400 mg PO DAILY mirtazapine 15 mg PO BEDTIME montelukast 10 mg PO BEDTIME nebulizers As directed nitroglycerin (Nitrostat) 0 mg sublingual NEEDED pantoprazole 40 mg PO DAILY prednisone PO daily; Take 2 daily x 7 days, then 1 tab daily x 7 days 14 days roflumilast 500 mcg PO DAILY sacubitril-valsartan 97-103 mg (Entresto) 1 tab PO BID spironolactone 25 mg PO DAILY Stiolto Respimat 2.5-2.5 mcg/actuation (tiotropium-olodaterol) 2 puffs inhalation DAILY NS sucralfate 1 g PO TID HPI HPI ov- RT hip pain: Details: 79-year-old female returns to the office today for occasional right hip pain. She has seen me in the past for her right hip and was diagnosed with trochanteric bursitis. She has been to physical therapy for her hip. She has also taken Celebrex in the past with good relief. [facility] Medical History (Updated 01/28/24 @ 09:53 by Jeferson Roman PA-C) Vasomotor rhinitis CHF (congestive heart failure) Bronchitis Anxiety Depression History of heart attack Hyperlipidemia Hypothyroidism Chronic gouty arthritis Diabetes HTN (hypertension) Asthma B12 deficiency Iron deficiency anemia COPD (chronic obstructive pulmonary disease) Surgical History Hx of cholecystectomy Hx of tubal ligation Family History Sister Diabetes Mother Diabetes Arthritis Asthma Social History Household Members: None Housing: Apartment Are you a primary manager intensive care unit to a significant other at home: No Do you presently have visiting nurse or other home services: No Alcohol intake: former Patient Tobacco Use Status: Former Tobacco user Tobacco use type: Cigarette Cigarette Packs Per Day: 1 service: No Current occupational status: unemployed Review of Systems Const All systems reviewed & are unremarkable except as noted in HPI and below Physical Exam Vital Signs: BMI result Body Mass Index 21.8 Const General: cooperative, healthy appearing, comfortable, no acute distress, well developed and alert Orientation/consciousness: patient oriented x3 HEENT Head: Yes normal to inspection, Yes normocephalic and Yes atraumatic Eyes General: appearance normal, both eyes and all related structures Resp Effort & Inspection: normal respiratory effort and able to speak in complete sentences Cardio Rate: regular rate Peripheral pulses: Peripheral pulses 2+ throughout GI Palpation (GI): Soft to palpation Skin Lesions: no lesions Rashes: no rashes Neuro General: patient oriented x3 Extrem Other: Right hip: Normal to inspection. No pain with ROM of the hip. Pain along the greater trochanter. No pain with hip flexion or abduction. Negative tenderness along the SI joint, Negative SLR. NVI. Assessment & Plan Assessment & Plan (1) Trochanteric bursitis, right hip: Code(s): M70.61 - Trochanteric bursitis, right hip Category: Medical (2) Osteoarthritis of right hip: Code(s): M16.11 - Unilateral primary osteoarthritis, right hip Category: Medical Plan We discussed options which include PT, NSAIDs and injections. The patient will defer on the injection today and proceed with home exercises and NSAIDs. I did send a prescription of Celebrex to her pharmacy. If symptoms persist, she will contact me for an injection, otherwise, PRN. Orders: Orders XR shoulder LT min 2V 12/23/24 M25.512 - Pain in left shoulder Comprehensive Met. Panel 12/23/24 Z79.1 - emt intermediate (current) use of non-steroidal anti-inflammatories (NSAID) Medications: Refilled celecoxib 200 mg PO BID 60 caps 3RF Coding Level of Care Code Est Pt Level 3 (46325) Complex EM visit Add On G2211 Diagnoses Trochanteric bursitis, right hip M70.61 Osteoarthritis of right hip M16.11
[2024-12-23 11:40] VITALS: BMI 21.8
--- OUTSIDE RECORDS SUMMARY | 2024-12-23 15:17 | XMS_ITS | Encounter Summary ---
Author Organization [employer] Address [address] [place] [address] 7 [place] [address] Care Team Providers Care Brake Assembler Name Role Phone Tiara Bran MD Primary Care Provider [phone] Reason for Visit * Reason Comments Med Refill Encounter Details Date Type Department Care Team ([facility] Contact Info) Description 12/15/2024 Refill [facility] CHC MED & PEDS [address] [place] [address] Tiara Bran MD [address] [place] [address] Social History Tobacco Use Types Packs/Day Years [...] documented as of this encounter Care Teams Brake Assembler Relationship Specialty Start Date End Date Tiara Bran MD [address] [place] [phone] PCP - General Family Medicine 11/21/16 documented as of this encounter
--- OUTSIDE RECORDS SUMMARY | 2024-12-23 15:17 | XMS_ITS | Encounter Summary ---
Author Organization [employer] Address [address] [facility] 7 [place] [address] Care Team Providers Care Opal Polisher Name Role Phone Tiara Bran MD Primary Care Provider [phone] Reason for Visit * Reason Onset Date Comments Pre Op 12/25/2023 Encounter Details Date Type Department Care Team ([facility] st Contact Info) Description 12/25/2023 Telephone [facility] MEDICINE [address] [place] [address] Tiara Bran MD [address] [facility] [place] [phone] Pre Op Social History Tobacco Use Types [...] [facility] Surgeon's office number: [phone] Surgeon's office fax number: [phone] Contact name: Cynthia documented in this encounter Plan of Treatment Not on file documented as of this encounter Visit Diagnoses Not on filedocumented in this encounter Additional Health Concerns Assessment Noted Time PHQ-9 Depression Total Score: 0 06/22/19 3:15 PM EDT documented as of this encounter Care Teams Opal Polisher Relationship Specialty Start Date End Date Tiara Bran MD [address] [place] [phone] PCP - General Family Medicine 11/21/16 documented as of this encounter
--- OUTSIDE RECORDS SUMMARY | 2024-12-23 15:17 | XMS_ITS | Encounter Summary ---
Author Organization [employer] Address [address] [facility] 7t [place] [address] Care Team Providers Care Maintenance Shop Technician Name Role Phone Tiara Bran MD Primary Care Provider [phone] Encounter Details Date Type Department Care Team (Late st Contact Info) Description 12/23/2024 Orders Only GENERIC EXTERNAL DATA DEPARTMENT Provider, Generic External Data Social History Tobacco Use Types Packs/Day Years [...] Associated Diagnosis Comments COMPREHENSIVE METABOLIC PANEL Routine 12/23/2024 11:57 AM EDT documented in this encounter Results * (ABNORMAL) Comprehensive Metabolic Panel (12/23/2024 11:57 AM EDT) Sodium 143 135 - 145 mmol/L [facility] Potassium 4.2 3.3 - 5.1 mmol/L [facility] Chloride 109(H) 96 - 108 mmol/L [facility] Carbon Dioxide 31(H) 22 - 29 mmol/L [facility] Anion Gap 7(L) 12 - 20 [facility] Urea Nitrogen (BUN) 18(H) 9 - 16 mg/dL [facility] Creatinine, Serum 1.30 0.5 - 1.4 mg/dL [facility] Estimated Glomerular Filt Rate 40 [facility] Comment:Chronic Kidney Disea se: Estimated GFR < 60 mL/min/[id number] Kidney Disease: Estimated GFR < 15 mL/min/1.73m2 Glucose 153(H) 60 - 115 mg/dL [facility] Calcium 9.6 8.4 - 10.2 mg/dL [facility] Bilirubin, Total 0.4 0.0 - 1.0 mg/dL [facility] Aspartate Amino Transferase 21 5 - 31 U/L [facility] Alanine Aminotransferase 18 0 - 31 U/L [facility] Total Protein 6.7 6.5 - 8.0 g/dL [facility] Albumin Level 4.3 3.5 - 5.0 g/dL [facility] Alkaline Phosphatase 93 39 - 117 U/L [facility] 12/23/2024 11:5 7 AM EDT 12/23/2024 11:57 AM EDT us Generic External Data Provider LAB BLOOD ORDERAB LES Final Result Performing Organization Address City/State/[facility] Co de Phone Number [facility] [address] [place] [address] [phone] documented in this encounter Visit Diagnoses Not on filedocumented in this encounter Additional Health Concerns Assessment Noted Time PHQ-9 Depression Total Score: 2 04/30/19 25 9:56 AM EST documented as of this encounter Care Teams Maintenance Shop Technician Relationship Specialty Start Date End Date Tiara Bran MD [address] [place] [id number] PCP - General Family Medicine 11/21/16 documented as of this encounter
--- OUTSIDE RECORDS SUMMARY | 2024-12-23 15:17 | XMS_ITS | Encounter Summary ---
Author Organization [employer] Address [address] [facility] 7t [place] [address] Care Team Providers Care General Farmworker Name Role Phone Tiara Bran MD Primary Care Provider Encounter Details Date Type Department Care Team (Late st Contact Info) Description 06/10/2024 Orders Only [facility] [address] [place] [address] Provider, MD Luis Eduardo Social History Tobacco [...] documented as of this encounter Care Teams General Farmworker Relationship Specialty Start Date End Date Tiara Bran MD [address] [place] [phone] PCP - General Family Medicine 11/21/16 documented as of this encounter
--- OUTSIDE RECORDS SUMMARY | 2024-12-23 15:17 | XMS_ITS | Encounter Summary ---
Author Organization [employer] Address [address] [place] [address] 7 [place] [address] Care Team Providers Care Surgery Assistant Name Role Phone Tiara Bran MD Primary Care Provider [phone] Reason for Visit * Reason Comments Med Refill Encounter Details Date Type Department Care Team ([facility] Contact Info) Description 12/23/2024 Refill [facility] CHC MED & PEDS [address] [place] [address] Tiara Bran MD [address] [place] [address] Social History Tobacco Use Types Packs/Day Years [...] documented as of this encounter Care Teams Surgery Assistant Relationship Specialty Start Date End Date Tiara Bran MD [address] [place] [phone] PCP - General Family Medicine 11/21/16 documented as of this encounter
--- OUTSIDE RECORDS SUMMARY | 2024-12-23 15:17 | XMS_ITS | Encounter Summary ---
Author Organization [employer] Address [address] [facility] 7t [place] [address] Care Team Providers Care Metal Finisher Name Role Phone Tiara Bran MD Primary Care Provider [phone] Encounter Details Date Type Department Care Team (Late st Contact Info) Description 02/12/2024 Orders Only [facility] CHC MED & PEDS [address] [place] [address] Provider, MD Luis Eduardo Social History Tobacco [...] documented as of this encounter Care Teams Metal Finisher Relationship Specialty Start Date End Date Tiara rBan MD [address] [place] [phone] PCP - General Family Medicine 11/21/16 documented as of this encounter
--- OUTSIDE RECORDS SUMMARY | 2024-12-23 15:18 | XMS_ITS | Encounter Summary ---
Author Organization [employer] Address [address] [place] [address] [address] [place] [address] Care Team Providers Care Automotive Internet Sales Manager Name Role Phone Tiara Bran MD Primary Care Provider [phone] Encounter Details Date Type Department Care Team ([facility] st Contact Info) Description 07/13/2022 Orders Only [facility] CHC MED & PEDS [address] [place] [address] Rosy Alexis LPN Social History [...] documented as of this encounter Care Teams Automotive Internet Sales Manager Relationship Specialty Start Date End Date Tiara Bran MD [address] [place], [place] [phone] PCP - General Family Medicine 11/21/16 documented as of this encounter
--- OUTSIDE RECORDS SUMMARY | 2024-12-23 15:18 | XMS_ITS | Encounter Summary ---
Author Organization [email or web address] Address [address] [facility] [address] [place] [address] Care Team Providers Care Cement Crusher Operator Name Role Phone Tiara Bran MD Primary Care Provider [phone] Encounter Details Date Type Department Care Team (Late st Contact Info) Description 01/07/2023 Abstract [facility] MEDICINE [address] [place] [address] Danisha Andrews Social History Tobacco Use Types [...] documented as of this encounter Care Teams Cement Crusher Operator Relationship Specialty Start Date End Date Tiara Bran MD [address] [place] [address] PCP - General Family Medicine 11/21/16 documented as of this encounter
--- OUTSIDE RECORDS SUMMARY | 2024-12-23 15:18 | XMS_ITS | Clinical Summary ---
Author Organization [employer] Address [address] [place] [address] 7[address] [place] [address] Care Team Providers Care Hospital Pharmacy Technician Name Role Phone Tiara Bran MD Primary Care Provider [phone] Allergies Active Allergy Reactions Criticality Noted Date [...] ONE TABLET EVERY MORNING 30 tablet 11 Active bacitracin-sheng ymyxin b (Polysporin) ointment Apply topically 2 times daily. 15 g Active albuterol (2.5 MG/3ML) 0.083% nebulizer solution INHALE ONE AMPULE USING A NEBULIZER EVERY 6 HOURS NEEDED 90 mL Active azithromycin (Zithromax) 250 MG tablet TAKE ONE TABLET THREE TIMES PER WEEK ON SATURDAY, SATURDAY, AND SATURDAY Active urea (Carmol) 40 % cream Apply 1 Application. topically Once per day. 227 g Active lidocaine (Lidoderm) 5 % patchIndicatio ns:Right hip pain Apply 1 patch topically Once per day. Remove & discard patch within 12 hours or as directed by MD. 30 patch 1 Active memantine (Namenda) 5 MG tablet TAKE ONE TABLET EVERY NIGHT AT BEDTIME Active mirtazapine (Remeron) 15 MG tablet TAKE ONE TABLET EVERY NIGHT AT BEDTIME Active Diclofenac Sodium 1 % gelIndications :Right hip pain APPLY 2 GRAMS TOPICALLY TWICE A DAY TO THE AFFECTED AREA IF NEEDED 100 g 1 Active Blood Glucose Monitoring Suppl (FreeStyle Lite) w/Device kit 1 kit Once per day. 1 kit Active sacubitril-russell sartan (Entresto) 97-103 MG tablet Take 1 tablet by mouth 2 times daily. Active FREESTYLE LITE test strip TEST BLOOD SUGAR FOUR TIMES DAILY 100 strip Active B-D ULTRAFINE III SHORT PEN 31G X 8 MM miscIndication s:Type 2 diabetes mellitus without complication, with long-term current use of insulin (HCC) USE FOUR DAILY 100 each Active magnesium oxide (Mag-Ox) 400 MG tablet TAKE ONE TABLET EVERY MORNING 90 tablet 3 Active dapagliflozin (Farxiga) 10 MG Take 1 tablet (10 mg) by mouth Once per day. 30 tablet 025 05/27/ 2026 Active insulin aspart (NovoLOG FLEXPEN) 100 UNIT/ML penIndications :Type 2 diabetes mellitus without complication, with long-term current use of insulin ([facility]) INJECT 2 TO 12 UNITS SUBCUTANEOUSLY THREE TIMES DAILY DIRECTED PER SLIDING SCALE 15 mL 5 025 Active atorvastatin (Lipitor) 80 MG tablet TAKE ONE TABLET EVERY NIGHT AT BEDTIME 90 tablet 2 025 Active Lantus SoloStar 100 UNIT/ML penIndications :Type 2 diabetes mellitus without complication, with long-term current use of insulin ([facility]) INJECT 20 UNITS SUBCUTANEOUSLY EVERY EVENING 15 mL 11 025 Active Aspirin Adult Low Strength 81 MG EC tablet TAKE ONE TABLET DAILY AT NOON 90 tablet 025 Active montelukast (Singulair) 10 MG tabletIndicati ons:Type 2 diabetes mellitus without complication, with long-term current use of insulin ([facility]),Chest pain, unspecified type,Allergy, subsequent encounter TAKE ONE TABLET EVERY EVENING 90 tablet 025 Active amLODIPine (Norvasc) 10 MG tablet TAKE ONE TABLET AT NOON 90 tablet 025 Active sucralfate (Carafate) 1 g tabletIndicati ons:Type 2 diabetes mellitus without complication, with long-term current use of insulin ([facility]),Chest pain, unspecified type,Allergy, subsequent encounter TAKE ONE TABLET THREE TIMES DAILY IN THE MORNING, EVENING AND BEDTIME BEFORE MEALS 90 tablet 025 Active levothyroxine (Synthroid, Levoxyl) 88 MCG tabletIndicati ons:Type 2 diabetes mellitus without complication, with long-term current use of insulin ([facility]),Chest pain, unspecified type,Allergy, subsequent encounter TAKE ONE TABLET EVERY MORNING 30 tablet 025 Active fluticasone (Flonase) 50 MCG/ACT nasal sprayIndicatio ns:Type 2 diabetes mellitus without complication, with long-term current use of insulin ([facility]),Chest pain, unspecified type,Allergy, subsequent encounter INHALE ONE SPRAY IN EACH NOSTRIL TWICE DAILY 48 g 025 Active Alcohol Swabs (Alcohol Prep) 70 % padsIndication s:Type 2 diabetes mellitus without complication, with long-term current use of insulin ([facility]),Chest pain, unspecified type,Allergy, subsequent encounter USE FIVE DAILY 100 each 2 025 Active nitroglycerin (Nitrostat) 0.4 MG SL tabletIndicati ons:Type 2 diabetes mellitus without complication, with long-term current use of insulin ([facility]),Chest pain, unspecified type,Allergy, subsequent encounter DISSOLVE 1 TABLET UNDER THE TONGUE EVERY 5 MINUTES NEEDED FOR CHEST PAIN. DO NOT EXCEED A TOTAL OF 3 DOSES IN 15 MINUTES. 25 tablet 4 Active Easy Touch Lancets 33G/Twist miscIndication s:Type 2 diabetes mellitus without complication, with long-term current use of insulin ([facility]) TEST BLOOD SUGAR FOUR TIMES DAILY 100 each 11 Active celecoxib (CeleBREX) 100 MG capsule TAKE ONE CAPSULE IN THE MORNING AND EVENING 60 capsule 1 Active Easy Touch Lancets 33G/Twist miscIndication s:Type 2 diabetes mellitus without complication, with long-term current use of insulin ([facility]) TEST BLOOD SUGAR FOUR TIMES DAILY 100 each 11 024 2024 Discontinued nitroglycerin (Nitrostat) 0.4 MG SL tabletIndicati ons:Type 2 diabetes mellitus without complication, with long-term current use of insulin ([facility]),Chest pain, unspecified type,Allergy, subsequent encounter DISSOLVE 1 TABLET UNDER THE TONGUE EVERY 5 MINUTES NEEDED FOR CHEST PAIN. DO NOT EXCEED A TOTAL OF 3 DOSES IN 15 MINUTES. 25 tablet 4 025 2024 Discontinued celecoxib (CeleBREX) 100 MG capsule Take 1 capsule (100 mg) by mouth 2 times daily. 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 COPD exacerbation ([facility]) 02/05/2022 Assessment & Plan (07/09/2022 5:30 PM [...] Encounters Date Type Department Care Team Description 12/23/2024 Orders Only GENERIC EXTERNAL DATA DEPARTMENT Provider, Generic External Data 12/23/2024 Refill [facility] [address] [place] [address] Tiara Bran MD 12/15/2024 Refill [facility] [address] [place] [address] Tiara Bran MD 12/10/2024 Refill [facility] [address] [place] [address] Tiara Bran MD Type 2 diabetes mellitus without complication, with long-term current use of insulin (HCC) 12/07/2024 Orders Only GENERIC EXTERNAL DATA DEPARTMENT Provider, Generic External Data 12/07/2024 Refill [facility] [address] [place] [address] Tiara Bran MD Type 2 diabetes mellitus without complication, with long-term current use of insulin (HCC); Chest pain, unspecified type; Allergy, subsequent encounter 11/10/2024 Refill [facility] [address] [place] [address] Tiara Bran MD Type 2 diabetes mellitus without complication, with long-term current use of insulin (CMS/HCC); Chest pain, unspecified type; Allergy, subsequent encounter 10/28/2024 10:15 AM EDT Office Visit [facility] [address] [place] [address] Tiara Bran MD Mixed hyperlipidemia (Primary Dx); Type 2 diabetes mellitus without complication, with long-term current use of insulin (CMS/HCC); Chronic obstructive pulmonary disease, unspecified COPD type ([facility]); Acquired hypothyroidism 10/28/2024 Travel 10/27/2024 Telephone [facility] [address] [place] [address] Tiara Bran MD chart prep 09/22/2024 Refill [facility] [address] [place] [address] Tiara Bran MD Type 2 diabetes mellitus without complication, with long-term current use of insulin ([facility]); Chest pain, unspecified type; Allergy, subsequent [...] METABOLIC PANEL Routine 12/23/2024 11:57 AM EDT HYPERSENSITIVITY PNUEMONITIS PROFILE Routine 12/07/2024 10:21 AM EDT IMMUNOGLOBULINS, QUANTITATIVE, IGA, IGG, IGM Routine 12/07/2024 10:21 AM EDT SED RATE BY MODIFIED WESTERGREN Routine 12/07/2024 10:21 AM EDT CBC WITH AUTO DIFFERENTIAL Routine 12/07/2024 10:21 AM EDT POCT GLYCATED HEMOGLOBIN, TOTAL Routine 10/28/2024 10:28 AM EDT Type 2 diabetes mellitus without complication, with long-term current use of insulin ([facility]) POCT GLUCOSE Routine 10/28/2024 10:26 AM EDT Type 2 diabetes mellitus without complication, with long-term current use of insulin ([facility]) LIPID PANEL, STANDARD Routine 08/05/2024 9:59 AM EDT Type 2 diabetes mellitus without complication, with long-term current use of insulin ([facility]) ALBUMIN, RANDOM URINE W/CREATININE Routine 06/12/2021 9:13 AM EDT from Last 3 Months or Most Recently Relevant to Health Maintenance Results * (ABNORMAL) Comprehensive Metabolic Panel (12/23/2024 11:57 AM EDT) Sodium 143 135 - 145 mmol/L [facility] Potassium 4.2 3.3 - 5.1 mmol/L [facility] Chloride 109(H) 96 - 108 mmol/L [facility] Carbon Dioxide 31(H) 22 - 29 mmol/L [facility] Anion Gap 7(L) 12 - 20 [facility] Urea Nitrogen (BUN) 18(H) 9 - 16 mg/dL [facility] Creatinine, Serum 1.30 0.5 - 1.4 mg/dL [facility] Estimated Glomerular Filt Rate 40 [facility] Comment:Chronic Kidney Disea se: Estimated GFR < 60 mL/min/[id number] Kidney Disease: Estimated GFR < 15 mL/min/1.73m2 Glucose 153(H) 60 - 115 mg/dL [facility] Calcium 9.6 8.4 - 10.2 mg/dL [facility] Bilirubin, Total 0.4 0.0 - 1.0 mg/dL [facility] Aspartate Amino Transferase 21 5 - 31 U/L [facility] Alanine Aminotransferase 18 0 - 31 U/L [facility] Total Protein 6.7 6.5 - 8.0 g/dL [facility] Albumin Level 4.3 3.5 - 5.0 g/dL [facility] Alkaline Phosphatase 93 39 - 117 U/L [facility] 12/23/2024 11:5 7 AM EDT 12/23/2024 11:57 AM EDT us Generic External Data Provider LAB BLOOD ORDERAB LES Final Result [facility] [address] [place] [address] [phone] * (ABNORMAL) CBC auto differential (12/07/2024 10:21 AM EDT) White Blood Count 8.6 4.8 - 10.8 X10*3/uL [facility] Red Blood Count 4.96 4.20 - 5.50 X10*6/uL [facility] Hemoglobin 11.5(L) 12.0 - 16.0 g/dl [facility] Hematocrit 37.0 37.0 - 47.0 % [facility] Mean Corpuscular Volume 74.6(L) 80.0 - 98.0 fL [facility] Mean Corpuscular Hemoglobin 23.2(L) 27.0 - 33.0 pg [facility] Mean Corpuscular HGB Conc 31.1 31.0 - 35.0 g/dl [facility] Red Cell Distribution Width 18.2(H) 11.0 - 16.0 % [facility] Platelet Count 410(H) 160 - 400 X10*3/uL [facility] Mean Platelet Volume 10.4 9.4 - 12.3 fL [facility] Neutrophils Percent Auto 49.5 45 - 73 % [facility] Imm Gran Pct Auto 0.2 0.0 - 0.4 % [facility] Lymphocytes Percent Auto 36.8 20 - 40 % [facility] Monocytes Percent Auto 7.8 2 - 11 % [facility] Eosinophils Percent Auto 5.2(H) 0 - 4 % [facility] Basophils Percent Auto 0.5 0 - 2 % [facility] NRBC Pct Auto 0.0 0.0 - 0.2 /100WBC [facility] Neutrophils Absolute Auto 4.3 2.0 - 8.3 x10*3/uL [facility] Imm Gran Abs Auto 0.02 0.00 - 0.03 X10*3/uL [facility] Lymphocytes Absolute Auto 3.2 1.2 - 4.9 X10*3/uL [facility] Monocytes Absolute Auto 0.7 0.1 - 1.2 X10*3/uL [facility] Eosinophils Absolute Auto 0.5(H) 0.0 - 0.4 X10*3/uL [facility] Basophils Absolute Auto 0.0 0.0 - 0.2 X10*3/uL [facility] NRBC Abs Auto 0.000 0.0 - 0.012 X10*3/uL [facility] 12/07/2024 10:2 1 AM EDT 12/07/2024 10:21 AM EDT us Generic External Data Provider LAB BLOOD ORDERAB LES Final Result [facility] [address] [place] [phone] * Hypersensitivity Pneumonitis Screen (12/07/2024 10:21 AM EDT) Aspergillus fumigatus Ab NEGATIVE NEGATIVE [facility] Micropolyspora Faeni NEGATIVE NEGATIVE [facility] Grandy Serum Abs NEGATIVE NEGATIVE [facility] Thermoactinomyces candidus NEGATIVE NEGATIVE [facility] Thermoactinomyces vulgaris Ab NEGATIVE NEGATIVE [facility] Saccharomonospora viridis Ab NEGATIVE NEGATIVE [facility] Comment:This test was develo ped and its analytical performancecharacteristics have been determined by [employer].It has not been cleared or approved by the FDA. This assayhas been validated pursuant to the CLIA regulations and isused for clinical purposes.THIS TEST WAS PERFORMED AT:[employer] [id number] [place] [id number] JOYCE MD,PHD,ANA 12/07/2024 10:2 1 AM EDT 12/07/2024 10:21 AM EDT us Generic External Data Provider LAB BLOOD ORDERAB LES Final Result Performing Organization Address [facility]/ZIP Co de Phone Number [facility] [address] [place] [address] [phone] * Sed Rate by Modified Westergren (12/07/2024 10:21 AM EDT) Pathologist [facility] [place] Erythrocyte Sedimentation Rate 6 0 - 20 MM/HR [facility] Comment:Patients with polycy themia and many hemoglobin abnormalitiesmay have depressed sed rates whereas patients with anemiamay have elevated sed rates. 12/07/2024 10:2 1 AM EDT 12/07/2024 10:21 AM EDT us Generic External Data Provider LAB BLOOD ORDERAB LES Final Result Performing Organization Address [facility] Co de Phone Number [facility] [address] [place] [phone] * Immunoglobulins, Quantitative, IgA, IgG, IgM (12/07/2024 10:21 AM EDT) Pathologist [facility] [place] IMMUNOGLOBULIN G 941 600 - 1540 mg/dL [facility] IMMUNOGLOBULIN A 165 70 - 320 mg/dL [facility] Immunoglobulin M 62 50 - 300 mg/dL [facility] Comment:THIS TEST WAS PERFOR MED AT:[employer] [place] [id number] OROURKE MD 12/07/2024 10:2 1 AM EDT 12/07/2024 10:21 AM EDT us Generic External Data Provider LAB BLOOD ORDERAB LES Final Result Performing Organization Address [facility]/ZIP Co de Phone Number [facility] [address] [place] [address] [phone] * (ABNORMAL) POCT HGB A1C (10/28/2024 10:28 AM EDT) Hemoglobin A1C 7.2(A) 4.0 - 5.7 % QC Media Lot # [id number] Lot# Expiration Date [id number] Blood 10/28/2024 10:2 8 AM EDT Tiara [...] 9:59 AM EDT) Triglycerides 95 <150 mg/dL [facility] Comment:Desirable Triglyceri de: less than 150 mg/dLBorderline High Triglyceride 150-199 mg/dLHigh Triglyceride: 200-499 mg/dLVery High Triglyceride: greater than or equal to 5OO mg/dL Cholesterol 107 <200 mg/dL [facility] Comment:Desirable Cholestero l: less than 200 mg/dLBorderline High Cholesterol: 200-239 mg/dLHigh Cholesterol: greater than 239 mg/dL LDL Cholesterol Calculated 48 <100 mg/dL [facility] Comment:Desirable LDL: less than 100 mg/dLNear Optimal/Above Optimal LDL: 110- 129 mg/dLBorderline High LDL: 130-159 mg/dLHigh LDL: 160-189 mg/dLVery High LDL: greater than or equal to 190 mg/dL HDL Cholesterol 40(L) >40 mg/dL [facility] Comment:Desirable HDL: great er than 40 mg/dL Note: This HDL assay may give artificially low results in patients with liver disease. Blood Venous blood specimen / Unknown 08/05/2024 9:59 AM EDT 08/05/2024 2:15 PM EDT us Tiara Bran MD LAB BLOOD ORDERABLES Final Re sult [facility] [address] [place] [address] [phone] * ALBUMIN, RANDOM URINE W/CREATININE (06/12/2021 [...] ORDERABLES Final Re sult Performing Organization Address [facility]/ZIP Co de Phone Number [facility] [address] from Last 3 Months or Most Recently Relevant to Health Maintenance Insurance [facility] [employer] (O D-SNP) [place] [id number] Care Teams Hospital Pharmacy Technician Relationship Specialty Start Date End Date Tiara Bran MD [address] [facility] [place] [phone] PCP - General Family Medicine 11/21/16
--- OUTSIDE RECORDS SUMMARY | 2024-12-23 15:18 | XMS_ITS | Clinical Summary ---
Author Organization [facility] [employer] Address [address] [place] [address] Phone Care Team Providers Care Pipe Organ Installer Name Role Phone Tiara Bran MD Primary Care Provider [phone] Allergies Active Allergy Reactions Criticality Noted Date Comments Mirtazapine Unknown 11/10/2010 nightmare Other Reaction(s): nightmare Other reaction(s): nightmare nightmare Other reaction(s): nightmare Medications aspirin (ASPIR-81 ORAL) Take by mouth. Activ e AZITHROMYCIN ORAL Take by mouth 3 times [...] syringe by Does not apply route. Active tiotropium-olo dateroL (Stiolto Respimat) 2.5-2.5 mcg/actuation mist inhaler INHALE TWO PUFFS DAILY 4 Active sacubitriL-russell sartan (Entresto) 97-103 mg per tablet Take 1 tablet by mouth 2 (two) times a day. 180 tablet 2 5 Active ammonium lactate (AMLACTIN) 12 % cream Apply topically if needed for dry skin. 770 g 5 02/25/20 26 Active spironolactone (ALDACTONE) 25 mg tablet Take 1 tablet (25 mg total) by mouth 1 (one) time each day. 90 tablet 2 5 Active spironolactone (ALDACTONE) 25 mg tablet Take 1 tablet (25 mg total) by mouth 1 (one) time each day. 90 tablet 2 5 12/17/19 25 Discontinu ed(Reorder ) Active Problems Problem Noted Date Diagnosed Date Coronary artery disease invo lving kiana coronary artery of kiana heart without angina pectoris 02/11/2024 Assessment & [...] SGL2 inhibitor: None Candidate for ICD or AQUA AMMONIA OPERATOR: Not a candidate due to the LVEF Plan of care: 1. Continue current dose of spironolactone and Entresto. 2. Echocardiogram to reevaluate the LVEF. Orders: Comprehensive metabolic panel; Future Comprehensive metabolic panel GERD (gastroesophageal reflux disease) Overview (01/06/2024): EGD 03/23/12 Dr. Rodriguez, Stomach revealed reactive gastropathy/chemical gastritis/active esophagitis. Asthma-COPD overlap syndrome ([facility] V24, [facility] V28) 04/11/2017 DM (diabetes mellitus), type 2 with renal complications ([facility] V24, [facility] V28) 03/29/2017 Hyperlipidemia 03/29/2017 Overview (01/06/2024): Last [...] prior CT) No hypermetabolic activity. Done at [facility] Follows with Dr Yon frances (pulmonary) [facility] Resolved Problems Problem Noted Date Diagnosed Date [...] AM EDT Office Visit [facility] [address] [phone] Gideon Mojica, ETHEL Acquired hallux valgus of left foot (Primary Dx); Hammer toe of left foot; Acquired hallux valgus of right foot; Dermatophytosis of nail; Pain in toe of right foot; Pain in toe of left foot; Corns and callosities; Metatarsalgia of both feet; Type II diabetes mellitus with peripheral circulatory disorder ([facility] V24, [facility] V28); Acquired hammer toe of right foot; Diabetic mononeuropathy simplex ([facility] V24, [facility] V28) from Last 3 Months Surgical History Surgery Date Site/Laterality Comments COLONOSCOPY 08/2012 PROCEDURE: HISTORICAL COLONOSCOPY; COMMENT: Recommended: Repeat colonoscopy August 2013 (in 1 yr) CHOLECYSTECTOMY PROCEDURE: HISTORICAL CHOLECYSTECTOMY ESOPHAGOGASTRODUODENOSCOPY PROCEDURE: DE ESOPHAGOGASTRODUODENOSCOPY TRANSORAL DIAGNOSTIC COLONOSCOPY 05/08/2017 PROCEDURE: HISTORICAL COLONOSCOPY COLONOSCOPY 07/31/2016 PROCEDURE: HISTORICAL COLONOSCOPY COLONOSCOPY 06/01/2014 PROCEDURE: HISTORICAL COLONOSCOPY OTHER SURGICAL HISTORY 12/05/2018 PROCEDURE: DE ERCP W/SPHINCTEROTOMY/PAPILLOTOMY Medical History Medical History Date Comments Asthma 03/29/2017 DX:Asthma Hypothyroid 03/29/2017 DX:Hypothyroid Osteopenia 03/29/2017 DX:Osteopenia Renal insufficiency 03/29/2017 DX:Renal ins ufficiency DM (diabetes mellitus), type 2 with renal complications (CMS/HCC V24, CMS/[facility] V28) 03/29/2017 DX:DM (diabetes mellitus), t ype 2 with renal complications ([facility]) Hyperlipidemia 03/29/2017 DX:Hyperlipidemi a Hypertension 03/29/2017 DX:Hypertension [...] prior CT) No hypermetabolic activity. Done at [facility] Follows with Dr Yon frances (pulmonary) [facility] Takotsubo cardiomyopathy 12/24/2016 DX:Tako tsubo cardiomyopathy; [...] AM EST Office Visit [facility] [address] [phone] Gideon Mojica, DPM [address] [phone] Health Maintenance Due Date Last Done Comments [...] 9:47 AM EDT Coronary artery disease involving kiana coronary artery of kiana heart without angina pectoris Heart failure with reduced ejection fraction (CMS/HCC V24, CMS/HCC V28) Primary hypertension Coronary artery disease, unspecified vessel or lesion type, unspecified whether angina present, unspecified whether kiana or transplanted heart LIPID PANEL Routine 05/05/2024 10:09 AM EST Coronary artery disease involving kiana coronary artery of kiana heart without angina pectoris Pure hypercholesterolemia HM [...] - 05/13/2024 11:06 PM EDT Performed at: 01 - [facility] [id number] [employer] Sales Agent: Erin Gardiner MD, Phone: [phone] Bibiana Deluna NP LAB BLOOD ORDERABLES Final Result [facility] 1 * Lipid panel (05/05/2024 10:09 AM EST) Pathologist [facility] Cholesterol Total 124 100 - 199 [...] 05/06/2024 1:06 AM EST Performed at: 01 - [facility] [address] [id number] [employer] Sales Agent: Erin Gardiner MD, Phone: [phone] us Keo Mcmillan MD LAB BLOOD ORDERABLES F inal Result [facility] 1 * Colonoscopy (08/28/2012) HM Colonoscopy No Interpretation , Abstracted Anatomical Region Laterality Modality Other us Historical Provider HEALTH MAINTENANCE Final Result from Last 3 Months or Most Recently Relevant to Health Maintenance Insurance [facility] MEDICARE Member Subscriber Plan / Payer (Ef fective 2016-Present) Name:Luz Hicks Relation to Subscriber:Self Name:Luz Hicks Payer ID:[id number] Group ID:[id number] Type:Not on file Address: [place] [address] [place] [id number] Care Teams Pipe Organ Installer Relationship Specialty Start Date End Date Tiara Bran MD [address] [facility] [place] [phone] PCP - General 07/05/17
--- OUTSIDE RECORDS SUMMARY | 2024-12-23 15:18 | XMS_ITS | Encounter Summary ---
Author Organization [employer] Address [address] [place] [address] 7 [place] [address] Care Team Providers Care Diamond Die Polisher Name Role Phone Tiara Bran MD Primary Care Provider [phone] Reason for Visit * Reason Comments Med Refill Encounter Details Date Type Department Care Team ([facility] st Contact Info) Description 10/05/2022 Refill [facility] MED & PEDS [address] [place] [address] Tiara Bran MD [address] [place] [address] Type 2 diabetes mellitus without complication, with long-term current use of insulin ([facility]); Chest pain, unspecified type; Allergy, subsequent encounter [...] complication, with long-term current use of insulin ([facility]) Chest pain, unspecified type Allergy, subsequent encounter documented in this encounter Additional Health Concerns Assessment Noted Time PHQ-9 Depression Total Score: 0 06/22/19 23 3:15 PM EDT documented as of this encounter Care Teams Diamond Die Polisher Relationship Specialty Start Date End Date Tiara Bran MD [address] [place] [address] PCP - General Family Medicine 11/21/16 documented as of this encounter
--- OUTSIDE RECORDS SUMMARY | 2024-12-23 15:18 | XMS_ITS | Encounter Summary ---
Author Organization [employer] Address [address] [facility] 7t [place] [address] Care Team Providers Care Hand Bootmaker Name Role Phone Tiara Bran MD Primary Care Provider [phone] Encounter Details Date Type Department Care Team ([facility] st Contact Info) Description 07/24/2022 Orders Only [facility] CHC MED & PEDS [address] [place], [place] [phone] Tiara Bran MD [address] [place] [address] Social History Tobacco Use Types Packs/Day Years [...] documented as of this encounter Care Teams Hand Bootmaker Relationship Specialty Start Date End Date Tiara Bran MD [address] [place] [address] PCP - General Family Medicine 11/21/16 documented as of this encounter
== END 2024-12-23 11:58 | disposition home or self-care (01) ==
PROVIDERS: PCP Pediatrics; Visit Provider Physician Assistant
DX: M70.61 Trochanteric bursitis, right hip (principal); M16.11 Unilateral primary osteoarthritis, right hip
CPT/HCPCS: 99214; G2211

== ENCOUNTER → 2024-12-23 11:26 | Outpatient (BNV) | payer OTHER, SELFPAY | PROVIDERS: Visit Provider Radiology Vascular & Interventional Radiology | DX: M19.012 Primary osteoarthritis, left shoulder (principal) | CPT/HCPCS: 73030 ==

== ENCOUNTER 2024-12-23 11:47 | Outpatient (REF) | payer OTHER, SELFPAY ==
[2024-12-23 13:08] LABS: Alanine Aminotransferase 18 U/L (0-31); Albumin Level 4.3 g/dL (3.5-5.0); Alkaline Phosphatase 93 U/L (39-117); Anion Gap 7 (12-20); Aspartate Amino Transferase 21 U/L (5-31); Blood Urea Nitrogen 18 mg/dL (9-16); Calcium 9.6 mg/dL (8.4-10.2); Carbon Dioxide 31 mmol/L (22-29); Chloride 109 mmol/L (96-108); Estimated Glomerular Filt Rate 40; Potassium 4.2 mmol/L (3.3-5.1); Sodium 143 mmol/L (135-145); Total Protein 6.7 g/dL (6.5-8.0)
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
== END 2024-12-23 11:48 | disposition home or self-care (01) ==
LOC: HO.LAB 11:47
PROVIDERS: PCP Pediatrics; Visit Provider Physician Assistant
DX: Z13.89 Encounter for screening for other disorder (principal)
CPT/HCPCS: 36415; 80053

== ENCOUNTER 2024-12-23 12:06 | Outpatient (REF) | payer OTHER, SELFPAY ==
--- NOTE | ~2024-12-23 | XR_ITS ---
CLINICAL HISTORY: M25.512 - Pain in left shoulder 3 view left shoulder Comparison: None provided Findings: Bones intact. No dislocations. Mild marginal osteophyte formation is seen at the acromioclavicular joint. Soft tissue structures appear within normal limits. IMPRESSION: 1. No acute osseous abnormality is identified. 2. Mild degenerative changes at the acromioclavicular joint. This document has been electronically signed by: Larissa Garcia on 12/25/2024 08:42:07
--- OUTSIDE RECORDS SUMMARY | 2024-12-24 15:17 | XMS_ITS | Clinical Summary ---
Author Organization [facility] [employer] Address [address] [address] Phone Care Team Providers Care Cutter Machine Tender Name Role Phone Tiara Bran MD Primary Care Provider [phone] Allergies Active Allergy Reactions Criticality Noted Date [...] Diagnosed Date Coronary artery disease invo lving swinomish coronary artery of swinomish heart without angina pectoris 02/11/2024 Assessment & [...] SGL2 inhibitor: None Candidate for ICD or ANIMAL DAMAGE CONTROL AGENT: Not a candidate due to the LVEF Plan of care: 1. Continue current dose of spironolactone and Entresto. 2. Echocardiogram to reevaluate the LVEF. Orders: Comprehensive metabolic panel; Future Comprehensive metabolic panel GERD (gastroesophageal reflux disease) Overview (01/06/2024): EGD 03/23/12 Dr. Rodriguez, Stomach revealed reactive gastropathy/chemical gastritis/active esophagitis. Asthma-COPD overlap syndrome ([facility] V24, [facility] V28) 04/11/2017 DM (diabetes mellitus), type 2 with renal complications ([facility] V24, [facility] V28) 03/29/2017 Hyperlipidemia 03/29/2017 Overview (01/06/2024): Last [...] prior CT) No hypermetabolic activity. Done at [facility] Follows with Dr Yon frances (pulmonary) [facility] Resolved Problems Problem Noted Date [...] AM EDT Office Visit [facility] [place] [address] [address] Gideon Mojica, ETHEL Acquired hallux valgus of left foot (Primary Dx); Hammer toe of left foot; Acquired hallux valgus of right foot; Dermatophytosis of nail; Pain in toe of right foot; Pain in toe of left foot; Corns and callosities; Metatarsalgia of both feet; Type II diabetes mellitus with peripheral circulatory disorder ([facility] V24, [facility] V28); Acquired hammer toe of right foot; Diabetic mononeuropathy simplex ([facility] V24, [facility] V28) from Last 3 Months Surgical History Surgery Date Site/Laterality Comments COLONOSCOPY 08/2012 PROCEDURE: HISTORICAL COLONOSCOPY; COMMENT: Recommended: Repeat colonoscopy August 2013 (in 1 yr) CHOLECYSTECTOMY PROCEDURE: HISTORICAL CHOLECYSTECTOMY ESOPHAGOGASTRODUODENOSCOPY PROCEDURE: HI ESOPHAGOGASTRODUODENOSCOPY TRANSORAL DIAGNOSTIC COLONOSCOPY 05/08/2017 PROCEDURE: HISTORICAL COLONOSCOPY COLONOSCOPY 07/31/2016 PROCEDURE: HISTORICAL COLONOSCOPY COLONOSCOPY 06/01/2014 PROCEDURE: HISTORICAL COLONOSCOPY OTHER SURGICAL HISTORY 12/05/2018 PROCEDURE: HI ERCP W/SPHINCTEROTOMY/PAPILLOTOMY Medical History Medical History Date Comments Asthma 03/29/2017 DX:Asthma Hypothyroid 03/29/2017 DX:Hypothyroid Osteopenia 03/29/2017 DX:Osteopenia Renal insufficiency 03/29/2017 DX:Renal ins ufficiency DM (diabetes mellitus), type 2 with renal complications (CMS/HCC V24, [facility] V28) 03/29/2017 DX:DM (diabetes mellitus), t ype 2 with renal complications ([facility]) Hyperlipidemia 03/29/2017 DX:Hyperlipidemi a Hypertension 03/29/2017 DX:Hypertension [...] prior CT) No hypermetabolic activity. Done at [facility] Follows with Dr Yon frances (pulmonary) [facility] Takotsubo cardiomyopathy 12/24/2016 DX:Tako tsubo [...] AM EST Office Visit [facility] [place] [address] [address] Gideon Mojica, DPM [address] [address] Health Maintenance Due Date Last [...] 9:47 AM EDT Coronary artery disease involving swinomish coronary artery of swinomish heart without angina pectoris Heart failure with reduced ejection fraction (CMS/HCC V24, CMS/HCC V28) Primary hypertension Coronary artery disease, unspecified vessel or lesion type, unspecified whether angina present, unspecified whether swinomish or transplanted heart LIPID PANEL Routine 05/05/2024 10:09 AM EST Coronary artery disease involving swinomish coronary artery of swinomish heart without angina pectoris Pure hypercholesterolemia HM [...] 11:06 PM EDT Performed at: 01 - [facility] [id number] Corporate Consultant: Erin Gardiner MD, Phone: [phone] Bibiana Deluna NP LAB BLOOD ORDERABLES Final Result [facility] 1 * Lipid panel (05/05/2024 10:09 AM EST) Pathologist [facility] Cholesterol Total 124 100 - 199 mg/dL [...] AM EST Performed at: 01 - [facility] [address] [id number] Corporate Consultant: Erin Gardiner MD, Phone: [phone] us Keo Mcmillan MD LAB BLOOD ORDERABLES F inal Result [facility] 1 * Colonoscopy (08/28/2012) HM Colonoscopy No Interpretation , Abstracted Anatomical Region Laterality Modality Other us Historical Provider HEALTH MAINTENANCE Final Result from Last 3 Months or Most Recently Relevant to Health Maintenance Insurance [facility] MEDICARE Member Subscriber Plan / Payer (Ef fective 2016-Present) Name:Luz Hicks Relation to Subscriber:Self Name:Luz Hicks Payer ID:[id number] Group ID:[id number] Type:Not on file Address: [place] [address] [address] [id number] Care Teams Cutter Machine Tender Relationship Specialty Start Date End Date Tiara Bran MD [address] [facility] [place] [phone] PCP - General 07/05/17
--- OUTSIDE RECORDS SUMMARY | 2024-12-24 15:17 | XMS_ITS | Encounter Summary ---
Author Organization [employer] Address [address] [place] [address] 7 [place] [address] Care Team Providers Care Editorial Clerk Name Role Phone Tiara Bran MD Primary Care Provider [phone] Reason for Visit * Reason Comments Med Refill Encounter Details Date Type Department Care Team ([facility] st Contact Info) Description 10/05/2022 Refill [facility] CHC MED & PEDS [address] [place] [address] Tiara Bran MD [address] [place] [address] Type 2 diabetes mellitus without complication, with long-term current use of insulin ([facility]); Chest pain, unspecified [...] of insulin ([facility]) Chest pain, unspecified type Allergy, subsequent encounter documented in this encounter Additional Health Concerns Assessment Noted Time PHQ-9 Depression Total Score: 0 06/22/19 23 3:15 PM EDT documented as of this encounter Care Teams Editorial Clerk Relationship Specialty Start Date End Date Tiara Bran MD [address] [place] [address] PCP - General Family Medicine 11/21/16 documented as of this encounter
--- OUTSIDE RECORDS SUMMARY | 2024-12-24 15:17 | XMS_ITS | Encounter Summary ---
Author Organization [employer] Address [address] [facility] [address] [place] [address] Care Team Providers Care Labelling Machine Operator Name Role Phone Tiara Bran MD Primary Care Provider [phone] Encounter Details Date Type Department Care Team ([facility] st Contact Info) Description 07/24/2022 Orders Only [facility] CHC MED & PEDS [address] [place], [place] [phone] Tiara Bran MD [address] [place] [address] Social History Tobacco Use Types Packs/Day Years [...] documented as of this encounter Care Teams Labelling Machine Operator Relationship Specialty Start Date End Date Tiara Bran MD [address] [place] [address] PCP - General Family Medicine 11/21/16 documented as of this encounter
--- OUTSIDE RECORDS SUMMARY | 2024-12-24 15:17 | XMS_ITS | Clinical Summary ---
Author Organization [facility] Address [address] [place] [address] Care Team Providers Care Well Service Floor Worker Name Role Phone Ashley Henao ROUTER MACHINE OPERATOR Primary Care Provider [phone] Source Comments PLEASE NOTE, if this patient [...] 120 Syringe 12 05/12/19 14 Active Insulin Williams, Disposable, (OSCAR PEN NEEDLE) 32 x 5/32 [...] Type 2 diabetes mellitus without complication, unspecified retirement insulin use status,Essential hypertension Take 1 Tab by mouth once daily 90 Tab 3 06/20/19 17 Active simvastatin (ZOCOR) 10 mg tabletIndications: Type 2 diabetes mellitus without complication, unspecified poultry hatchery laborer insulin use status,Dyslipidemi a Take 1 Tab [...] Type 2 diabetes mellitus without complication, unspecified retirement insulin use status Take 1 Tab by [...] prior CT) No hypermetabolic activity. Done at [facility] Follows with Dr Yon frances (pulmonary) [facility] H/O colonoscopy 08/28/2012 Overview (12/29/2012): August 28 2012 DX: Diverticulosis of Sigmoid Colon Polyps in descending colon (resected: biopsy results pending) Recommended: Repeat colonoscopy August 2013 (in 1 yr) Diverticulosis of sigmoid colon 08/28/2012 Overview (12/29/2012): Dx by Colonoscopy on August 28 2012 Osteopenia 06/17/2012 Overview (12/03/2016): DEXA 06/17/12.Lowest Tscore -1.2 (rt and left femoral neck >> DEXA( 11/14/16, [facility]): Osteopenia. Lowest Tscore -1.5 (rt and left femoral necks) HTN (hypertension) COPD (chronic obstructive pulmonary disease) Overview (03/26/2014): Pulm F/u at [facility]. Dr Eloy Shah On Advair diskus powder [...] type 2) Overview (01/19/2015): Endo F/u at [facility]. Hypothyroidism GERD (gastroesophageal reflux disease) Overview [...] Screen 03/04/2024 015 (Managed by Outside Provider) [id number] ( season) 2024 Imm-Influenza (#1) 2024 12/01/2014, [...] TSH CASCADE 11.92(H) 0.40 - 4.00 uIU/ml [facility] Blood specimen (specimen) Blood / Unknown 09/27/2016 10:35 AM EDT 09/27/2016 10:47 AM EDT [facility] - 09/27/2016 12:53 PM EDT [facility] [address] [place] [address] [place] [id number] ORD# [id number] Aroldo Caballero MD LAB - BLOOD DRAW Final Resul t Performing Organization Address City/[facility]/ZIP Co de Phone Number [address] [address], * (ABNORMAL) HEMOGLOBIN, GLYCOSYLATED (A1C) (09/27/2016 10:35 AM EDT) GLYCATED HEMOGLOBIN A1C 8.4(H) <6.5 % [facility] ESTIMATED AVERAGE GLUCOSE 194 mg/dL [facility] Blood specimen (specimen) Blood / Unknown 09/27/2016 10:35 AM EDT 09/27/2016 10:47 AM EDT [facility] - 09/27/2016 1:37 PM EDT [facility] [address] [place] [address] [place] [id number] ORD# [id number] Aroldo Caballero MD LAB - BLOOD DRAW Final Resul t [address] [address], [place] [phone] * (ABNORMAL) BASIC METABOLIC PANEL CALCIUM TOTAL (09/27/2016 10:35 AM EDT) GLUCOSE 124(H) 70 - 100 mg/dL [facility] Comment:Reference range appl icable to fasting specimens only BUN 24 5 - 25 mg/dL [facility] CREAT 1.24(H) 0.5 - 1.1 mg/dL [facility] GLOMERULAR FILTRATION RATE 43 [facility] Comment: If patient is -[place], multiply result by 1.21 Chronic Kidney Disease: < 60 ml/min/1.73 square meters Kidney Failure: < 15 ml/min/1.73 square meters SODIUM 140 133 - 145 mmol/L [facility] POTASSIUM 4.5 3.5 - 5.5 mmol/L [facility] CHLORIDE 101 96 - 110 mmol/L [facility] CO2 30 21 - 32 mmol/L [facility] ANION GAP 9 3 - 11 [facility] CALCIUM 10.1 8.5 - 10.5 mg/dL [facility] Blood specimen (specimen) Blood / Unknown 09/27/2016 10:35 AM EDT 09/27/2016 10:47 AM EDT Narrative [facility] - 09/27/2016 12:42 PM EDT [facility] [address] [place] [address] [place] [id number] ORD# [id number] Aroldo Caballero MD LAB - BLOOD DRAW Final Resul t [address] [address], * MICROALBUMIN/CREATININE RATIO, URINE, RANDOM (06/19/2016 11:52 AM EDT) CREATININE, RANDOM URINE 89 mg/dL [facility] MICROALBUMIN, RANDOM < 5.0 0.0 - 29.0 mg/L [facility] MICROALB/CRE RATIO RANDOM < 5.6 0.0 - 30.0 mg/G [facility] Urine specimen (specimen) Urine specimen / Unknown 06/19/2016 11:52 AM EDT 06/19/2016 12:35 PM EDT Narrative [facility] - 06/19/2016 4:26 PM EDT [facility] [address] [place] [address] [place] [address] [place] [id number] ORD# [id number] Odessa Shaver MD LAB URINE AMBUL ATORY Edited Result - Final Performing Organization Address City/[facility]/ZIP Co de Phone Number [facility] [address] [place] [address], [place] [phone] * (ABNORMAL) LIPID PANEL (04/17/2016 10:20 AM EST) CHOLESTEROL 206(H) 0 - 200 mg/dL [facility] TRIGLYCERIDES 171(H) 0 - 150 mg/dL [facility] HDL CHOLESTEROL 45 >40 mg/dL [facility] LDL CALCULATED 127(H) 0 - 100 mg/dL [facility] TC-HDLC RATIO 4.6(H) 0 - 4.4 mg/dL [facility] Blood specimen (specimen) Blood / Unknown 04/17/2016 10:20 AM EST 04/17/2016 10:40 AM EST Narrative [facility] - 04/17/2016 1:52 PM EST [facility] [address] [place] [address] [place] [id number] ORD# [id number] Odessa Shaver MD LAB - BLOOD INDU W Edited Result - Final [facility] [address] [place] [address], [place] [phone] from Last 3 Months or Most Recently Relevant to Health Maintenance [place] Care Teams Well Service Floor Worker Relationship Specialty Start Date End Date Ashley Henao FNP [address] [place] [address] PCP - General 04/29/18
--- OUTSIDE RECORDS SUMMARY | 2024-12-24 15:17 | XMS_ITS | Encounter Summary ---
Author Organization [employer] Address [address] [facility] 7 [place] [address] Care Team Providers Care Completions Manager Name Role Phone Tiara Bran MD Primary Care Provider [phone] Reason for Visit * Reason Onset Date Comments Pre Op 12/25/2023 Encounter Details Date Type Department Care Team ([facility] st Contact Info) Description 12/25/2023 Telephone [facility] MEDICINE [address] [place] [address] Tiara Bran MD [address] [facility] [place] [id number] Pre Op Social History Tobacco Use Types [...] [facility] Surgeon's office number: [phone] Surgeon's office fax number: [phone] Contact name: Cynthia documented in this encounter Plan of Treatment Not on file documented as of this encounter Visit Diagnoses Not on filedocumented in this encounter Additional Health Concerns Assessment Noted Time PHQ-9 Depression Total Score: 0 06/22/19 3:15 PM EDT documented as of this encounter Care Teams Completions Manager Relationship Specialty Start Date End Date Tiara Bran MD [address] [place] [phone] PCP - General Family Medicine 11/21/16 documented as of this encounter
--- OUTSIDE RECORDS SUMMARY | 2024-12-24 15:17 | XMS_ITS | Encounter Summary ---
Author Organization [employer] Address [address] [place] [address] [address] [place] [address] Care Team Providers Care Dairy Truck Driver Name Role Phone Tiara Bran MD Primary Care Provider [phone] Encounter Details Date Type Department Care Team ([facility] st Contact Info) Description 07/13/2022 Orders Only [facility] PEDS [address] [place] [address] Rosy Alexis LPN Social History [...] documented as of this encounter Care Teams Dairy Truck Driver Relationship Specialty Start Date End Date Tiara Bran MD [address] [place], [place] [id number] PCP - General Family Medicine 11/21/16 documented as of this encounter
--- OUTSIDE RECORDS SUMMARY | 2024-12-24 15:17 | XMS_ITS | Encounter Summary ---
Author Organization [employer] Address [address] [facility] [address] [place] [address] Care Team Providers Care Fitness Supervisor Name Role Phone Tiara Bran MD Primary Care Provider [phone] Encounter Details Date Type Department Care Team (Late st Contact Info) Description 02/12/2024 Orders Only [facility] MED [facility] PEDS [address] [place] [address] Provider, MD Luis Eduardo Social History Tobacco [...] documented as of this encounter Care Teams Fitness Supervisor Relationship Specialty Start Date End Date Tiara Bran MD [address] [place] [id number] PCP - General Family Medicine 11/21/16 documented as of this encounter
--- OUTSIDE RECORDS SUMMARY | 2024-12-24 15:17 | XMS_ITS | Encounter Summary ---
Author Organization [employer] Address [address] [facility] [address] [place] [address] Care Team Providers Care Android Software Engineer Name Role Phone Tiara Bran MD Primary Care Provider [phone] Encounter Details Date Type Department Care Team [...] EDT) Sodium 143 135 - 145 mmol/L [facility] Potassium 4.2 3.3 - 5.1 mmol/L [facility] Chloride 109(H) 96 - 108 mmol/L [facility] Carbon Dioxide 31(H) 22 - 29 mmol/L [facility] Anion Gap 7(L) 12 - 20 [facility] Urea Nitrogen (BUN) 18(H) 9 - 16 mg/dL [facility] Creatinine, Serum 1.30 0.5 - 1.4 mg/dL [facility] Estimated Glomerular Filt Rate 40 [facility] Comment:Chronic Kidney Disea se: Estimated GFR < 60 mL/min/1.26z1Jedymi Kidney Disease: Estimated GFR < 15 mL/min/1.73m2 Glucose 153(H) 60 - 115 mg/dL [facility] Calcium 9.6 8.4 - 10.2 mg/dL [facility] Bilirubin, Total 0.4 0.0 - 1.0 mg/dL [facility] Aspartate Amino Transferase 21 5 - 31 U/L [facility] Alanine Aminotransferase 18 0 - 31 U/L [facility] Total Protein 6.7 6.5 - 8.0 g/dL [facility] Albumin Level 4.3 3.5 - 5.0 g/dL [facility] Alkaline Phosphatase 93 39 - 117 U/L [facility] 12/23/2024 11:5 7 AM EDT 12/23/2024 11:57 AM EDT us Generic External Data Provider LAB BLOOD ORDERAB LES Final Result Performing Organization Address City/State/[facility] Co de Phone Number [facility] [address] [place] [address] [phone] documented in this encounter Visit Diagnoses Not on filedocumented in this encounter Additional Health Concerns Assessment Noted Time PHQ-9 Depression Total Score: 2 04/30/19 25 9:56 AM EST documented as of this encounter Care Teams Android Software Engineer Relationship Specialty Start Date End Date Tiara Bran MD [address] [place] [address] PCP - General Family Medicine 11/21/16 documented as of this encounter
--- OUTSIDE RECORDS SUMMARY | 2024-12-24 15:17 | XMS_ITS | Clinical Summary ---
Author Organization [employer] Address [address] [place] [address] 7[address] [place] [address] Care Team Providers Care Visitor Services Associate Name Role Phone Tiara Bran MD Primary Care Provider [phone] Allergies Active Allergy Reactions Criticality Noted Date [...] long-term current use of insulin ([facility]) INJECT 2 TO 12 UNITS SUBCUTANEOUSLY THREE TIMES DAILY DIRECTED PER SLIDING SCALE 15 mL 5 025 Active atorvastatin (Lipitor) 80 MG tablet TAKE ONE TABLET EVERY NIGHT AT BEDTIME 90 tablet 2 025 Active Lantus SoloStar 100 UNIT/ML penIndications :Type 2 diabetes mellitus without complication, with long-term current use of insulin ([facility]) INJECT 20 UNITS SUBCUTANEOUSLY EVERY EVENING 15 mL 11 025 Active Aspirin Adult Low Strength 81 MG EC tablet TAKE ONE TABLET DAILY AT NOON 90 tablet 025 Active montelukast (Singulair) 10 MG tabletIndicati ons:Type 2 diabetes mellitus without complication, with long-term current use of insulin ([facility]),Chest pain, unspecified type,Allergy, subsequent encounter TAKE ONE TABLET EVERY EVENING 90 tablet 025 Active amLODIPine (Norvasc) 10 MG tablet TAKE ONE TABLET AT NOON 90 tablet 025 Active sucralfate (Carafate) 1 g tabletIndicati ons:Type 2 diabetes mellitus without complication, with long-term current use of insulin ([facility]),Chest pain, unspecified type,Allergy, subsequent encounter TAKE ONE TABLET THREE TIMES DAILY IN THE MORNING, EVENING AND BEDTIME BEFORE MEALS 90 tablet 025 Active levothyroxine (Synthroid, Levoxyl) 88 MCG tabletIndicati ons:Type 2 diabetes mellitus without complication, with long-term current use of insulin ([facility]),Chest pain, unspecified type,Allergy, subsequent encounter TAKE ONE TABLET EVERY MORNING 30 tablet 025 Active fluticasone (Flonase) 50 MCG/ACT nasal sprayIndicatio ns:Type 2 diabetes mellitus without complication, with long-term current use of insulin ([facility]),Chest pain, unspecified type,Allergy, subsequent encounter INHALE ONE SPRAY IN EACH NOSTRIL TWICE DAILY 48 g 025 Active Alcohol Swabs (Alcohol Prep) 70 % padsIndication s:Type 2 diabetes mellitus without complication, with long-term current use of insulin ([facility]),Chest pain, unspecified type,Allergy, subsequent encounter USE FIVE DAILY 100 each 2 025 Active nitroglycerin (Nitrostat) 0.4 MG SL tabletIndicati ons:Type 2 diabetes mellitus without complication, with long-term current use of insulin ([facility]),Chest pain, unspecified type,Allergy, subsequent encounter DISSOLVE 1 TABLET UNDER THE TONGUE EVERY 5 MINUTES NEEDED FOR CHEST PAIN. DO NOT EXCEED A TOTAL OF 3 DOSES IN 15 MINUTES. 25 tablet 4 Active Easy Touch Lancets 33G/Twist miscIndication s:Type 2 diabetes mellitus without complication, with long-term current use of insulin ([facility]) TEST BLOOD SUGAR FOUR TIMES DAILY 100 each 11 Active celecoxib (CeleBREX) 100 MG capsule TAKE ONE CAPSULE IN THE MORNING AND EVENING 60 capsule 1 Active Easy Touch Lancets 33G/Twist miscIndication s:Type 2 diabetes mellitus without complication, with long-term current use of insulin ([facility]) TEST BLOOD SUGAR FOUR TIMES DAILY 100 each 11 024 2024 Discontinued nitroglycerin (Nitrostat) 0.4 MG SL tabletIndicati ons:Type 2 diabetes mellitus without complication, with long-term current use of insulin ([facility]),Chest pain, unspecified type,Allergy, subsequent encounter [...] Noted Date Diagnosed Date 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) 04/30/2024 Pre-op evaluation 01/14/2024 Assessment & Plan [...] non-thrombotic embolism from heart 02/05/2022 COPD exacerbation ([facility]) 02/05/2022 Assessment & Plan (07/09/2022 [...] DEPARTMENT Provider, Generic External Data 12/23/2024 Refill [facility] [address] [place] [address] Tiara Bran MD 12/15/2024 Refill [facility] [address] [place] [address] Tiara Bran MD 12/10/2024 Refill [facility] [address] [place] [address] Tiara Bran MD Type 2 diabetes mellitus without complication, with long-term current use of insulin (HCC) 12/07/2024 Orders Only GENERIC EXTERNAL DATA DEPARTMENT Provider, Generic External Data 12/07/2024 Refill [facility] [address] [place] [address] Tiara Bran MD Type 2 diabetes mellitus without complication, with long-term current use of insulin (HCC); Chest pain, unspecified type; Allergy, subsequent encounter 11/10/2024 Refill [facility] [address] [place] [address] Tiara Bran MD Type 2 diabetes mellitus without complication, with long-term current use of insulin (CMS/HCC); Chest pain, unspecified type; Allergy, subsequent encounter 10/28/2024 10:15 AM EDT Office Visit [facility] [address] [place] [address] Tiara Bran MD Mixed hyperlipidemia (Primary Dx); Type 2 diabetes mellitus without complication, with long-term current use of insulin (CMS/HCC); Chronic obstructive pulmonary disease, unspecified COPD type (CMS/HCC); Acquired hypothyroidism 10/28/2024 Travel 10/27/2024 Telephone [facility] [address] [place] [address] Tiara Bran MD chart prep from Last 3 Months Immunizations Immunization Administration [...] complication, with long-term current use of insulin ([facility]) POCT GLUCOSE Routine 10/28/2024 10:26 AM EDT Type 2 diabetes mellitus without complication, with long-term current use of insulin ([facility]) LIPID PANEL, STANDARD Routine 08/05/2024 9:59 AM EDT Type 2 diabetes mellitus without complication, with long-term current use of insulin ([facility]) ALBUMIN, RANDOM URINE W/CREATININE Routine 06/12/2021 9:13 AM EDT from Last 3 Months or Most Recently Relevant to Health Maintenance Results * (ABNORMAL) Comprehensive Metabolic Panel (12/23/2024 11:57 AM EDT) Sodium 143 135 - 145 mmol/L [facility] Potassium 4.2 3.3 - 5.1 mmol/L [facility] Chloride 109(H) 96 - 108 mmol/L [facility] Carbon Dioxide 31(H) 22 - 29 mmol/L [facility] Anion Gap 7(L) 12 - 20 [facility] Urea Nitrogen (BUN) 18(H) 9 - 16 mg/dL [facility] Creatinine, Serum 1.30 0.5 - 1.4 mg/dL [facility] Estimated Glomerular Filt Rate 40 [facility] Comment:Chronic Kidney Disea se: Estimated GFR < 60 mL/min/[id number] Kidney Disease: Estimated GFR < 15 mL/min/1.73m2 Glucose 153(H) 60 - 115 mg/dL [facility] Calcium 9.6 8.4 - 10.2 mg/dL [facility] Bilirubin, Total 0.4 0.0 - 1.0 mg/dL [facility] Aspartate Amino Transferase 21 5 - 31 U/L [facility] Alanine Aminotransferase 18 0 - 31 U/L [facility] Total Protein 6.7 6.5 - 8.0 g/dL [facility] Albumin Level 4.3 3.5 - 5.0 g/dL [facility] Alkaline Phosphatase 93 39 - 117 U/L [facility] 12/23/2024 11:5 7 AM EDT 12/23/2024 11:57 AM EDT us Generic External Data Provider LAB BLOOD ORDERAB LES Final Result [facility] [address] [place], [place] [phone] * (ABNORMAL) CBC auto differential (12/07/2024 10:21 AM EDT) White Blood Count 8.6 4.8 - 10.8 X10*3/uL [facility] Red Blood Count 4.96 4.20 - 5.50 X10*6/uL [facility] Hemoglobin 11.5(L) 12.0 - 16.0 g/dl [facility] Hematocrit 37.0 37.0 - 47.0 % [facility] Mean Corpuscular Volume 74.6(L) 80.0 - 98.0 fL [facility] Mean Corpuscular Hemoglobin 23.2(L) 27.0 - 33.0 pg [facility] Mean Corpuscular HGB Conc 31.1 31.0 - 35.0 g/dl [facility] Red Cell Distribution Width 18.2(H) 11.0 - 16.0 % [facility] Platelet Count 410(H) 160 - 400 X10*3/uL [facility] Mean Platelet Volume 10.4 9.4 - 12.3 fL [facility] Neutrophils Percent Auto 49.5 45 - 73 % [facility] Imm Gran Pct Auto 0.2 0.0 - 0.4 % [facility] Lymphocytes Percent Auto 36.8 20 - 40 % [facility] Monocytes Percent Auto 7.8 2 - 11 % [facility] Eosinophils Percent Auto 5.2(H) 0 - 4 % [facility] Basophils Percent Auto 0.5 0 - 2 % [facility] NRBC Pct Auto 0.0 0.0 - 0.2 /100WBC [facility] Neutrophils Absolute Auto 4.3 2.0 - 8.3 x10*3/uL [facility] Imm Gran Abs Auto 0.02 0.00 - 0.03 X10*3/uL [facility] Lymphocytes Absolute Auto 3.2 1.2 - 4.9 X10*3/uL [facility] Monocytes Absolute Auto 0.7 0.1 - 1.2 X10*3/uL [facility] Eosinophils Absolute Auto 0.5(H) 0.0 - 0.4 X10*3/uL [facility] Basophils Absolute Auto 0.0 0.0 - 0.2 X10*3/uL [facility] NRBC Abs Auto 0.000 0.0 - 0.012 X10*3/uL [facility] 12/07/2024 10:2 1 AM EDT 12/07/2024 10:21 AM EDT us Generic External Data Provider LAB BLOOD ORDERAB LES Final Result Performing Organization Address [facility] de Phone Number [facility] [address] [place] [phone] * Hypersensitivity Pneumonitis Screen (12/07/2024 10:21 AM EDT) Aspergillus fumigatus Ab NEGATIVE NEGATIVE [facility] Micropolyspora Faeni NEGATIVE NEGATIVE [facility] [place] Serum Abs NEGATIVE NEGATIVE [facility] Thermoactinomyces candidus NEGATIVE NEGATIVE [facility] Thermoactinomyces vulgaris Ab NEGATIVE NEGATIVE [facility] Saccharomonospora viridis Ab NEGATIVE NEGATIVE [facility] Comment:This test was develo ped and its analytical performancecharacteristics have been determined by [employer]It has not been cleared or approved by the FDA. This assayhas been validated pursuant to the CLIA regulations and isused for clinical purposes.THIS TEST WAS PERFORMED AT:[email or web address] [id number] [place] [id number] JOYCE MD,PHD,ANA 12/07/2024 10:2 1 AM EDT 12/07/2024 10:21 AM EDT us Generic External Data Provider LAB BLOOD ORDERAB LES Final Result Performing Organization Address City/[facility]/ZIP Co de Phone Number [facility] [address] [place] [phone] * Sed Rate by Modified Mattieren (12/07/2024 10:21 AM EDT) Pathologist [facility] Erythrocyte Sedimentation Rate 6 0 - 20 MM/HR [facility] Comment:Patients with polycy themia and many hemoglobin abnormalitiesmay have depressed sed rates whereas patients with anemiamay have elevated sed rates. 12/07/2024 10:2 1 AM EDT 12/07/2024 10:21 AM EDT Generic External Data Provider LAB BLOOD ORDERAB LES Final Result Performing Organization Address [facility] Number [facility] [address] [place] [phone] * Immunoglobulins, Quantitative, IgA, IgG, IgM (12/07/2024 10:21 AM EDT) Pathologist [facility] IMMUNOGLOBULIN G 941 600 - 1540 mg/dL [facility] IMMUNOGLOBULIN A 165 70 - 320 mg/dL [facility] Immunoglobulin M 62 50 - 300 mg/dL [facility] Comment:THIS TEST WAS PERFOR MED AT:[employer] [place] [id number] OROURKE MD 12/07/2024 10:2 1 AM EDT 12/07/2024 10:21 AM EDT Generic External Data Provider LAB BLOOD ORDERAB LES Final Result Performing Organization Address [facility] de Phone Number [facility] [address] [place] [phone] * (ABNORMAL) POCT HGB A1C (10/28/2024 10:28 AM EDT) Pathologist [facility] Hemoglobin A1C 7.2(A) 4.0 - 5.7 % QC Media Lot # [id number] Lot# Expiration Date 72 Blood 10/28/2024 10:2 8 AM EDT us Tiara Bran MD POINT OF CARE TEST ENTER/EDIT ORDERABLES Final Result * (ABNORMAL) POCT Glucose (10/28/2024 10:26 AM EDT) Glucose Blood, POC 235(A) 60 - 200 mg/dL [employer] Media Lot # [id number] Lot# Expiration Date 122,025 Blood Capillary blood specimen / Unknown 10/28/2024 10:26 AM EDT us Tiara Bran MD POINT OF CARE TEST ENTER/EDIT ORDERABLES Final Result * (ABNORMAL) Lipid Panel, Standard (08/05/2024 9:59 AM EDT) Triglycerides 95 <150 mg/dL [facility] Comment:Desirable Triglyceri de: less than 150 mg/dLBorderline High Triglyceride 150-199 mg/dLHigh Triglyceride: 200-499 mg/dLVery High Triglyceride: greater than or equal to 5OO mg/dL Cholesterol 107 <200 mg/dL [facility] Comment:Desirable Cholestero l: less than 200 mg/dLBorderline High Cholesterol: 200-239 mg/dLHigh Cholesterol: greater than 239 mg/dL LDL Cholesterol Calculated 48 <100 mg/dL [facility] Comment:Desirable LDL: less than 100 mg/dLNear Optimal/Above Optimal LDL: 110- 129 mg/dLBorderline High LDL: 130-159 mg/dLHigh LDL: 160-189 mg/dLVery High LDL: greater than or equal to 190 mg/dL HDL Cholesterol 40(L) >40 mg/dL [facility] Comment:Desirable HDL: great er than 40 mg/dL Note: This HDL assay may give artificially low results in patients with liver disease. Blood Venous blood specimen / Unknown 08/05/2024 9:59 AM EDT 08/05/2024 2:15 PM EDT us Tiara Bran MD LAB BLOOD ORDERABLES Final Re sult [facility] [address] [place] [phone] [phone] * ALBUMIN, RANDOM URINE W/CREATININE (06/12/2021 [...] MD LAB URINE ORDERABLES Final Re sult [facility] [address] from Last 3 Months or Most Recently Relevant to Health Maintenance Insurance [facility] [employer] OPTIONS (O D-SNP) SANAM KURTZ [id number] Care Teams Visitor Services Associate Relationship Specialty Start Date End Date Tiara Bran MD [address] [place] [address] T[place] Bernabe [phone] PCP - General Family Medicine 11/21/16
--- OUTSIDE RECORDS SUMMARY | 2024-12-24 15:17 | XMS_ITS | Encounter Summary ---
Author Organization [employer] Address [address] [place] [address] Care Team Providers Care Glass Sagger Name Role Phone Tiara Bran MD Primary Care Provider [phone] Encounter Details Date Type Department Care Team (Late st Contact Info) Description 01/07/2023 Abstract [facility] [address] [place] [address] Danisha Andrews Social History Tobacco Use Types [...] documented as of this encounter Care Teams Glass Sagger Relationship Specialty Start Date End Date Tiara Bran MD [address] [place] [address] PCP - General Family Medicine 11/21/16 documented as of this encounter
--- OUTSIDE RECORDS SUMMARY | 2024-12-24 15:17 | XMS_ITS | Encounter Summary ---
Author Organization [employer] Address [address] [place] [address] [address] [place] [address] Care Team Providers Care Mill Tender Warm Up Name Role Phone Tiara Bran MD Primary Care Provider [phone] Reason for Visit * Reason Comments Med Refill Encounter Details Date Type Department Care Team ([facility] Contact Info) Description 12/15/2024 Refill [facility] [address] [place] [address] Tiara Bran MD [address] [place] [address] Social History Tobacco Use Types Packs/Day Years [...] documented as of this encounter Care Teams Mill Tender Warm Up Relationship Specialty Start Date End Date Tiara Bran MD [address] [place] [phone] PCP - General Family Medicine 11/21/16 documented as of this encounter
--- OUTSIDE RECORDS SUMMARY | 2024-12-24 15:17 | XMS_ITS | Encounter Summary ---
Author Organization [employer] Address [address] [facility] [address] [place] [address] Care Team Providers Care Chimney Builder Brick Name Role Phone Tiara Bran MD Primary Care Provider [phone] Encounter Details Date Type Department Care Team (Late st Contact Info) Description 06/10/2024 Orders Only [facility] [address] [place] [address] Provider, MD Luis Eduardo Social History Tobacco [...] documented as of this encounter Care Teams Chimney Builder Brick Relationship Specialty Start Date End Date Tiara Bran MD [address] [place] [phone] PCP - General Family Medicine 11/21/16 documented as of this encounter
--- OUTSIDE RECORDS SUMMARY | 2024-12-24 15:17 | XMS_ITS | Encounter Summary ---
Author Organization [email or web address] Address [address] [facility] 7 [place] [address] Care Team Providers Care Manganese Wheeler Name Role Phone Tiara Bran MD Primary Care Provider [phone] Reason for Visit * Reason Comments Med Refill Encounter Details Date Type Department Care Team ([facility] Contact Info) Description 12/23/2024 Refill [facility] [address] [place] [address] Tiara Bran MD [address] [place] [address] Social History Tobacco Use Types Packs/Day Years [...] documented as of this encounter Care Teams Manganese Wheeler Relationship Specialty Start Date End Date Tiara Bran MD [address] [place] [phone] PCP - General Family Medicine 11/21/16 documented as of this encounter
== END 2024-12-23 12:07 | disposition home or self-care (01) ==
LOC: HO.HOSX 12:06
PROVIDERS: Visit Provider Physician Assistant
DX: M16.11 Unilateral primary osteoarthritis, right hip (principal); M70.61 Trochanteric bursitis, right hip; M25.512 Pain in left shoulder; Z79.1 Long term (current) use of non-steroidal anti-inflammatories (NSAID)
CPT/HCPCS: 36415; 73030; 80053; 99212

== ENCOUNTER 2025-01-14 13:09 | Outpatient (AMB) | payer OTHER, SELFPAY ==
--- NOTE | 2025-01-14 13:27 | HO.NEPHOV_ITS ---
Vital Signs 01/14/25 13:34 Height 5 ft 4 in Weight 128 lb 8 oz BMI 22.1 BP 136/60 Blood Pressure Location Lt brachial Position Sitting Pulse 62 Pulse Source Pulse Oximeter Pulse Oximetry (%) 97 Oxygen Delivery Method Room Air Intake Visit Reasons: ENP: CKD Stg 3-LVM High Risk Case Manager Required: Yes High Risk Case Manager Language: Deburrer Machine Services: High Risk Case Manager [place] Case [place] refused [place] Accompanied by: Daughter Allergies No Known Allergies Allergy (Verified 01/14/25 13:34) HPI Comments Details: I had the pleasure of seeing in consultation for chronic kidney disease and hypertension. She has longstanding diabetes mellitus. Her last hemoglobin A1c was 7.1(which improved from 7.7). She denies retinopathy, neuropathy or proteinuria. She has history of coronary artery disease as well as congestive heart failure but denies CVA, carotid stenosis peripheral arterial disease or renal artery stenosis. She is hypertensive & dyslipidemic and is on medications. She is currently on Entresto, spironolactone, Farxiga but takes celecoxib twice a day. She denies nausea, vomiting, diarrhea, orthostatic symptoms, pedal edema, shortness of breath, proximal nocturnal dyspnea, orthopnea. Her recent serum creatinine had been 1.51 which has improved to 1.3 since. She denies epistaxis, deafness, photosensitivity, skin rashes, hematemesis, melena, history of malignancy, history of hepatitis or HIV. She did not have any specific systemic complaints at the time of this office visit. [facility] Medical History (Updated 01/14/25 @ 13:34 by Slava Barboza MD) Type 2 diabetes mellitus with stage 3b chronic kidney disease Vasomotor rhinitis CHF (congestive heart failure) Bronchitis Anxiety Depression History of heart attack Hyperlipidemia Hypothyroidism Chronic gouty arthritis Diabetes HTN (hypertension) Asthma B12 deficiency Iron deficiency anemia COPD (chronic obstructive pulmonary disease) Surgical History Hx of cholecystectomy Hx of tubal ligation Family History Sister Diabetes Mother Diabetes Arthritis Asthma Social History Household Members: None Housing: Apartment Are you a primary point of care specialist to a significant other at home: No Do you presently have visiting nurse or other home services: No Alcohol intake: former Patient Tobacco Use Status: Former Tobacco user Tobacco use type: Cigarette Cigarette Packs Per Day: 1 service: No Current occupational status: unemployed Review of Systems Const All systems reviewed & are unremarkable except as noted in HPI and below Physical Exam Const General: comfortable and no acute distress Orientation/consciousness: patient oriented x3 HEENT Head: Yes normocephalic Mouth: Normal oral and palatal mucosa present Eyes EOM: EOMs intact bilaterally Neck Neck: Yes supple Resp Auscultation: clear to auscultation bilaterally Cardio Jugular venous distension: no JVD Rate: regular rate GI Palpation (GI): Soft to palpation Auscultation: normal bowel sounds General: Yes no CVA tenderness Back/Spine/Pelvis Back: no CVA tenderness Skin General skin exam: no rashes or lesions noted Neuro General: patient oriented x3 and moves all extremities Extrem General: Yes no pedal edema Results Reviewed Nephrology Results: Hgb, (12.0-16.0) 11.5 g/dl L 12/07/24 WBC, (4.8-10.8) 8.6 X10*3/uL 12/07/24 Plt Count, (160-400) 410 X10*3/uL H Δ 12/07/24 Sodium, (135-145) 143 mmol/L 12/23/24 Potassium, (3.3-5.1) 4.2 mmol/L 12/23/24 Chloride, (96-108) 109 mmol/L H 12/23/24 Carbon Dioxide, (22-29) 31 mmol/L H 12/23/24 BUN, (9-16) 18 mg/dL H 12/23/24 Creatinine, (0.5-1.4) 1.30 mg/dL 12/23/24 Calcium, (8.4-10.2) 9.6 mg/dL 12/23/24 Assessment & Plan Assessment & Plan (1) CKD (chronic kidney disease) stage 3, GFR 30-59 ml/min: Code(s): N18.30 - Chronic kidney disease, stage 3 unspecified Category: Medical Qualifiers: Chronic kidney disease stage 3 subtype: stage 3a (GFR 45-59) Qualified Code(s): N18.31 - Chronic kidney disease, stage 3a (2) HTN (hypertension): Code(s): I10 - Essential (primary) hypertension Category: Medical Qualifiers: Hypertension type: primary hypertension Qualified Code(s): I10 - Essential (primary) hypertension Plan CKD most likely due to vascular disease. She has coronary artery disease as well as congestive heart failure. She used to take nonsteroidal anti- inflammatories for arthritis. Her volume status is acceptable. She does not have any proteinuria. I have ordered immunofixation, parathyroid hormone, vitamin-D, repeat renal function as well as imaging of her kidneys. Her renal functions are stable now. I plan to do a 24 hour urine for GFR after next visit. She is tolerating Entresto as well as Farxiga well. She does not have any orthostatic symptoms. I did not make any medication changes today but shall optimize her regimen based on evolving data. I answered all her and her daughter's questions. Follow-up appointment given. Orders: Orders Immunofixation Pnl, Serum Today I10 - Essential (primary) hypertension, N18.31 - Chronic kidney disease, stage 3a Vitamin D 25-OH Total Today I10 - Essential (primary) hypertension, N18.31 - Chronic kidney disease, stage 3a Blood Urea Nitrogen Today I10 - Essential (primary) hypertension, N18.31 - Chronic kidney disease, stage 3a Calcium Today I10 - Essential (primary) hypertension, N18.31 - Chronic kidney disease, stage 3a Phosphorus Today I10 - Essential (primary) hypertension, N18.31 - Chronic kidney disease, stage 3a US renal BI 1 Month I10 - Essential (primary) hypertension, N18.31 - Chronic kidney disease, stage 3a Parathyroid Hormone Intact Today I10 - Essential (primary) hypertension, N18.31 - Chronic kidney disease, stage 3a Creatinine Today I10 - Essential (primary) hypertension, N18.31 - Chronic kidney disease, stage 3a Electrolytes Today I10 - Essential (primary) hypertension, N18.31 - Chronic kidney disease, stage 3a US renal doppler 1 Month I10 - Essential (primary) hypertension, N18.31 - Chronic kidney disease, stage 3a Medications: Refilled ipratropium-albuterol 0.5 mg-3 mg(2.5 mg base)/3 mL 3 mL inhalation QID 360 mL 11RF 30 days J44.9 - Chronic obstructive pulmonary disease, unspecified Coding Level of Care Code New Pt Level 4 (28528) Diagnoses Stage 3a chronic kidney disease N18.31 Chronic kidney disease stage 3 subtype: stage 3a (GFR 45-59) Primary hypertension I10 Hypertension type: primary hypertension
[2025-01-14 13:34] VITALS: BP 136/60; PULSE 62; O2SAT 97; BMI 22.1
--- OUTSIDE RECORDS SUMMARY | 2025-01-14 16:26 | XMS_ITS | Encounter Summary ---
Author Organization [employer] Address [address] [place] [address] [address] [place] [address] Care Team Providers Care Freight Delivery Driver Name Role Phone Tiara Bran MD Primary Care Provider [phone] Encounter Details Date Type Department Care Team ([facility] st Contact Info) Description 07/13/2022 Orders Only [facility] MED & PEDS [address] [place] [address] Rosy Alexis LPN Social History [...] documented as of this encounter Care Teams Freight Delivery Driver Relationship Specialty Start Date End Date Tiara Bran MD [address] [place], [place] [id number] PCP - General Family Medicine 11/21/16 documented as of this encounter
--- OUTSIDE RECORDS SUMMARY | 2025-01-14 16:26 | XMS_ITS | Encounter Summary ---
Author Organization [employer] Address [address] [facility] [address] [place] [address] Care Team Providers Care Armhole Feller Handstitching Machine Name Role Phone Tiara Bran MD Primary Care Provider [phone] Encounter Details Date Type Department Care Team ([facility] st Contact Info) Description 07/24/2022 Orders Only [facility] CHC MED & PEDS [address] [place], [place] [phone] Tiara Bran MD [address] [place] [address] Social History Tobacco Use Types Packs/Day Years [...] documented as of this encounter Care Teams Armhole Feller Handstitching Machine Relationship Specialty Start Date End Date Tiara Bran MD [address] [place] [address] PCP - General Family Medicine 11/21/16 documented as of this encounter
--- OUTSIDE RECORDS SUMMARY | 2025-01-14 16:26 | XMS_ITS | Encounter Summary ---
Author Organization [employer] Address [address] [place] [address] Care Team Providers Care Video Systems Engineer Name Role Phone Tiara Bran MD Primary Care Provider [phone] Encounter Details Date Type Department Care Team (Late st Contact Info) Description 01/07/2023 Abstract [facility] MEDICINE [address] [place] [address] Danisha Andrews Social History Tobacco Use Types [...] documented as of this encounter Care Teams Video Systems Engineer Relationship Specialty Start Date End Date Tiara Bran MD [address] [place] [address] PCP - General Family Medicine 11/21/16 documented as of this encounter
--- OUTSIDE RECORDS SUMMARY | 2025-01-14 16:26 | XMS_ITS | Encounter Summary ---
Author Organization [employer] Address [address] [facility] [address] [place] [address] Care Team Providers Care Patrol Agent Name Role Phone Tiara Bran MD Primary Care Provider [phone] Reason for Visit * Reason Comments Med Refill Encounter Details Date Type Department Care Team ([facility] Contact Info) Description 12/15/2024 Refill [facility] CHC MED & PEDS [address] [place] [address] Tiara Bran MD [address] [place] [address] Social History Tobacco Use Types Packs/Day Years [...] documented as of this encounter Care Teams Patrol Agent Relationship Specialty Start Date End Date Tiara Bran MD [address] [place] [address] PCP - General Family Medicine 11/21/16 documented as of this encounter
--- OUTSIDE RECORDS SUMMARY | 2025-01-14 16:26 | XMS_ITS | Data Portability ---
Author Organization [employer] [facility], [facility] Address [address] [place] [address] Care Team Providers Care Lamp Cleaner Street Light Name Role Phone HIM CCA OTHER Unavailable OTHER Assessment Encounter Date Assessment Date Assessment LastModified by Organization Details LastModified Time 07/27/2022 07/27/2022 I have reviewed and agree with the Assessment and Plan as documented by the Crm Coordinator. I provided real-time medical direction via phone for this encounter, and was available for additional phone based assistance as needed. Patient seen for palpitations and chest pain. ECG w/ LBBB of unclear chronicity. To ED for further eval. pallfather Not available 07/27/2022 19:09:20 08/06/2024 08/06/2024 I have reviewed and agree with the assessment and plan as documented by the certified surgical assistant. I provided real time medical direction for this encounter and was immediately available to provide additional phone based assistance as needed. History as noted by certified surgical assistant. Pt with history of Hypertension, Congestive Heart [...] Orders ibuprofen 400 mg tablet 2022 023 [id number], [address] [place], [place], [phone], 12:09:28 Patient TargetsNo targets recorded. Patient InstructionsNo instructions recorded. Reason for Referral None Reported. Medical Equipment None Reported. Allergies Allergen ID Allergen Name Allergen Category Reaction Reaction Severity Criticality Documentation Date Start Date Code Code System Note Provider Name and Address Organization Details Recorded Time 24486 mirtazapi ne medicatio n Not available Not available Not available 08/06/2024 98473 RxNorm Not Available [facility] - production 10:36:50 [...] [degF] 59 /min 116/65 mm[Hg] Not Available [facility] 3 12:06:08 Date Recorded Oxygen saturation Oxygen saturation in Arterial blood by Pulse oximetry Respiratory rate Body temperature Body weight Heart rate Body height Body weight Respiratory rate Oxygen saturation Oxygen saturation in Arterial blood by Pulse oximetry Body height Provider Name and Address Organization Details Last Updated DateTime 3 96 % 96 % 18 /min 98.4 [degF] 22994 g 80 /min 157.48 cm 04851.8 g 18 /min 98 % 98 % 152.4 cm Not Available [facility] 3 13:32:05 Date Recorded Heart rate Body temperature Systolic And Diastolic Systolic And Diastolic Provider Name and Address Organization Details Last Updated DateTime 07/27/2022 64 /min 98.4 [degF] 134/68 mm[Hg] 108/62 mm[Hg] Not Available [facility] 3 13:32:05 Date Recorded Heart rate Body weight Respiratory rate Respiratory rate Oxygen saturation Oxygen saturation in Arterial blood by Pulse oximetry Body temperature Body height Systolic And Diastolic Provider Name and Address Organization Details Last Updated DateTime 5 58 /min 96049.8 g 14 /min 143 /min 96 % 96 % 98 [degF] 157.48 cm 110/62 mm[Hg] Not Available [facility] 5 12:48:01 Social History None recorded. Functional Status None recorded. Mental Status None recorded. Family History Nothing Reported. Medical History No medical history recorded. Gynecological HistoryNo gynecological history recorded. Obstetrics History GPAL:G 0 P 0 0 0 0 Past Encounters Encounter ID Performer Location Encounter Start Date Encounter Closed Date Diagnosis/Indication Diagnosis SNOMED-CT Code Diagnosis ICD10 Code Diagnosis IMO Codes Diagnosis Note [id number] Janny Rodriguez MD Main - [facility] [phone] 07/07/2022 12:06:03 07/09/2022 10:38:17 Foot pain 85500925 M79.673 Evaluation in the field was performed by my certified surgical assistant colleague, as noted above, I provided real-time [...] shortness of breath, cough, chest pain, fever. [id number] [facility] [address] [place] [phone] 07/27/2022 12:53:17 07/30/2022 18:34:12 Chest pain 84883742 R07.9 [id number] Wong Francois MD Main-[facility] [address] [place] [phone] 08/06/2024 12:47:53 08/06/2024 14:19:48 Injury of left leg 2319778289 4012540 S81.802D [id number] Health Concerns Section Related Observation LastModified by Organization Detai ls LastModified Time None Recorded Concern Status LastModified by Organization Details LastModified Time None Recorded Advance Directives Directive None Recorded Payers Insurance Date Sequence Insurance Name Policy Number Policy Soria Covered Member ID Soria Member ID Guarantor Name 07/27/[address] [facility] [place] [place] - DOS PRIOR TO 2022 - DUAL ELIGIBLE (MEDICARE REPLACEMENT/ADV ANTAGE - HMO) Luz Hicks [id number] Luz Hicks 08/07/[address] [facility] [place] [place] - DOS ON OR AFTER 2022 - DUAL ELIGIBLE - CORRECTION OPTIONS AND ONE CARE (MEDICARE REPLACEMENT/ADV ANTAGE - HMO) Luz Hicks [id number] Luz Hicks Notes Date Note Type Note [...] ................... ................... ................... ................... ................... ................... ........ Crm Coordinator Note From Selena Powell: Community Crm Coordinator Colten Powell SC6 dispatched to a [facility] for a 76 yof C/O right foot pain. Upon arrival, the pt was sitting in her living room (w/ legs elevated), awake and alert, in no apparent distress. Pt's daughter/closing machine operator on scene translated (pt English speaking only). The pt was oriented to [...] had not taken any ibuprofen that day. [facility] consulted; pt was given rx for ibuprofen w/ instructions to prevent GI upset. Pt and her daughter were educated on mobility, elevation, NSAID and abx use, as well as next steps (contact PCP, etc...) Red flags discussed. ................... ................... ................... ................... ................... ................... ................... ........ Disposition: Fulfilled Janny Rodriguez MD [address] [place] [address],[address], [place], [phone], [employer] 07/07/2022 14:29:14 07/27/2022 text/html CRC Nursing Assessment: Reason For Request: Daughter reporting p last night palpitation, discomfort left side chest, went to PCP today, BP was fine and vitals were fine. DOC recommended gas desulfurizer appt>nurse from cardiology notified no appointment until late august 2022. Recently was in ED 2 week but waited 10 hours, but EKG and vitals were regular, not seen. Chief Complaints: Tachycardia/Palpita tions, Chest Pain PMH: Diabetes, Hypertension, CHF, COPD/Asthma, Severe Dementia Allergies: No Known Comments: Daughter calling on behalf of member with request for [facility] visit for eval palpitations x 5 min last night. Eval at PCP office this am. told by PCP everything was fine BS elevated a bit. told to follow up with gas desulfurizer 08/22. Daughter states EKG was not performed and called back by PCP to have emergent eval. Member refuse ED at this time request inst[facility] visit and if advised will go to ED. Discuss red flags and if symptoms progress to seek Ed/911. Verbalize understanding. Verify member name/- ................... ................... ................... ................... ................... ................... ................... ........ Crm Coordinator Note From Buddy Lara: PT caox3 complains [...] or inspiration. No edema, secondary exam unremarkable. [facility] advises pt to be seen at ED. Vascular access and ECG as noted. Pt transported via ALS ambulance to [facility] ED. ................... ................... ................... ................... ................... ................... ................... ........ Disposition: Fulfilled Jacob Thomas MD [address] [facility],[address], [place], [phone], [employer] 07/27/2022 19:09:29 08/06/2024 text/html ROS as noted in the HPI This was a supervised home visit with certified surgical assistant Mathew Lara. HPI: Patient on day three [...] ................... ................... ................... ................... ................... ................... ........ Crm Coordinator Note From Mathew Lara: Strong language barrier all information through on scene family hourly sign language interpreter. Patient complains of wound on the [...] signs of spreading, no discharge or bleeding. [facility] advises supportive care and follow up with PCP if needed. Patient and caregiver demonstrate understanding of care and plan. Red flags, patient education discussed. ................... ................... ................... ................... ................... ................... ................... ........ [facility] Consulted: Wong Francois ................... ................... ................... ................... ................... ................... ................... ........ Disposition: Jose Francois MD [address] [facility],[address], [place], [address], [employer] 08/06/2024 13:39:49 OBGyn Episode No OBEpisode recorded.
--- OUTSIDE RECORDS SUMMARY | 2025-01-14 16:26 | XMS_ITS | Clinical Summary ---
Author Organization [facility] [employer] Address [address] [place] [address] Phone Care Team Providers Care Websphere Message Broker Developer Name Role Phone Tiara Bran MD Primary Care Provider [phone] Allergies Active Allergy Reactions Criticality Noted Date [...] Diagnosed Date Coronary artery disease invo lving snoqualmie coronary artery of [place] heart without angina pectoris 02/11/2024 Assessment & [...] SGL2 inhibitor: None Candidate for ICD or UTILIZATION MANAGEMENT MANAGER: Not a candidate due to the LVEF Plan of care: 1. Continue current dose of spironolactone and Entresto. 2. Echocardiogram to reevaluate the LVEF. Orders: Comprehensive metabolic panel; Future Comprehensive metabolic panel GERD (gastroesophageal reflux disease) Overview (01/06/2024): EGD 03/23/12 Dr. Rodriguez, Stomach revealed reactive gastropathy/chemical gastritis/active esophagitis. Asthma-COPD overlap syndrome ([facility] V24, [facility] V28) 04/11/2017 DM (diabetes mellitus), type 2 with renal complications ([facility] V24, [facility] V28) 03/29/2017 Hyperlipidemia 03/29/2017 Overview (01/06/2024): Last [...] prior CT) No hypermetabolic activity. Done at [facility] Follows with Dr Yon frances (pulmonary) [facility] Resolved Problems Problem Noted Date Diagnosed Date Resolved Date CAD (coronary artery disease) 05/20/2020 02/11/2024 Overview (01/06/2024): Last Assessment & Plan: Patient has a history of nonobstructive coronary artery disease. She denies any exertional anginal symptoms. She continues on medical therapy with aspirin and statin. She is not on a beta-lisas due to history of baseline bradycardia. We will continue current therapies. Patient advised to seek emergency medical attention by calling 911 if they were to develop severe dyspnea, chest pain that did not resolve with rest or nitroglycerin, or if they were to faint. History of AZ (myocardial infarction) 12/24/2016 02/11/2024 Overview (01/06/2024): NSTEMI 12/09/16 Encounters Date Type Department Care Team Description 10/27/2024 10:15 AM EDT Office Visit Orthopedic Surgery - [place] [address] [address] Gideon Mojica, ETHEL Acquired hallux valgus of left foot (Primary Dx); Hammer toe of left foot; Acquired hallux valgus of right foot; Dermatophytosis of nail; Pain in toe of right foot; Pain in toe of left foot; Corns and callosities; Metatarsalgia of both feet; Type II diabetes mellitus with peripheral circulatory disorder ([facility] V24, [facility] V28); Acquired hammer toe of right foot; Diabetic mononeuropathy simplex ([facility] V24, [facility] V28) from Last 3 Months Surgical History Surgery Date Site/Laterality Comments COLONOSCOPY 08/2012 PROCEDURE: HISTORICAL COLONOSCOPY; COMMENT: Recommended: Repeat colonoscopy August 2013 (in 1 yr) CHOLECYSTECTOMY PROCEDURE: HISTORICAL CHOLECYSTECTOMY ESOPHAGOGASTRODUODENOSCOPY PROCEDURE: MD ESOPHAGOGASTRODUODENOSCOPY TRANSORAL DIAGNOSTIC COLONOSCOPY 05/08/2017 PROCEDURE: HISTORICAL COLONOSCOPY COLONOSCOPY 07/31/2016 PROCEDURE: HISTORICAL COLONOSCOPY COLONOSCOPY 06/01/2014 PROCEDURE: HISTORICAL COLONOSCOPY OTHER SURGICAL HISTORY 12/05/2018 PROCEDURE: MD ERCP W/SPHINCTEROTOMY/PAPILLOTOMY Medical History Medical History Date Comments Asthma 03/29/2017 DX:Asthma Hypothyroid 03/29/2017 DX:Hypothyroid Osteopenia 03/29/2017 DX:Osteopenia Renal insufficiency 03/29/2017 DX:Renal ins ufficiency DM (diabetes mellitus), type 2 with renal complications (CMS/HCC V24, CMS/[facility] V28) 03/29/2017 DX:DM (diabetes mellitus), t ype 2 with renal complications ([facility]) Hyperlipidemia 03/29/2017 DX:Hyperlipidemi a Hypertension 03/29/2017 DX:Hypertension Colon polyps 12/29/2012 DX:Colon polyps; COMMENT: Overview: Of benign appearance, biopsy pending. Colonoscopy recommended in 1 year (August 2013) History of AZ (myocardial infarction) 12/24/2016 DX:History of AZ (myocardial infarction); COMMENT: NSTEMI 12/09/16 GERD (gastroesophageal [...] prior CT) No hypermetabolic activity. 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 LV EF is 52%. Diverticulitis DX:Diverticuliti s Nephropathy DX:Nephropathy Chest pain DX:Chest pain Social History Tobacco Use Types Packs/Day Years Used Date Smoking Tobacco: Former Cigarettes 1 Q uit: 03/04/1999 Smokeless Tobacco: Former Alcohol [...] AM EST Office Visit Orthopedic Surgery - [place] [address] [address] Gideon Mojica, DPM [address] [address] Health Maintenance Due Date Last [...] 9:47 AM EDT Coronary artery disease involving snoqualmie coronary artery of s[place] heart without angina pectoris Heart failure with reduced ejection fraction (CMS/HCC V24, CMS/HCC V28) Primary hypertension Coronary artery disease, unspecified vessel or lesion type, unspecified whether angina present, unspecified whether s[place]mie or transplanted heart LIPID PANEL Routine 05/05/2024 10:09 AM EST Coronary artery disease involving s[place]qualmie coronary artery of snoqualmie heart without angina pectoris Pure hypercholesterolemia HM [...] 05/13/2024 11:06 PM EDT Performed at: [address] [id number] Lighting Designer: Erin Gardiner MD, Phone: [phone] Bibiana Deluna NP LAB BLOOD ORDERABLES Final Result [facility] 1 * Lipid panel (05/05/2024 10:09 AM EST) Pathologist [facility] Cholesterol Total 124 100 - 199 mg/dL [...] AM EST Performed at: 01 - [facility] [address] [id number] Lighting Designer: Erin Gardiner MD, Phone: [phone] us Keo Mcmillan MD LAB BLOOD ORDERABLES F inal Result [facility] 1 * Colonoscopy (08/28/2012) HM Colonoscopy No Interpretation , Abstracted Anatomical Region Laterality Modality Other us Historical Provider HEALTH MAINTENANCE Final Result from Last 3 Months or Most Recently Relevant to Health Maintenance Insurance [facility] MEDIC[facility] Member Subscriber Plan / Payer (Ef fective 2016-Present) Name:Luz Hicks Relation to Subscriber:Self Name:Luz Hicks Payer ID:[id number] Group ID:[id number] Type:Not on file Address: [place] [address] [address] [id number] Care Teams Websphere Message Broker Developer Relationship Specialty Start Date End Date Tiara Bran MD [address] [place] [address] [place] [address] PCP - General 07/05/17
--- OUTSIDE RECORDS SUMMARY | 2025-01-14 16:26 | XMS_ITS | Encounter Summary ---
Author Organization [employer] Address [address] [place] [address] 7 [place] [address] Care Team Providers Care Gluer And Slicer Hand Name Role Phone Tiara Bran MD Primary Care Provider [phone] Reason for Visit * Reason Comments Med Refill Encounter Details Date Type Department Care Team ([facility] st Contact Info) Description 10/05/2022 Refill [facility] [address] [place] [address] Tiara Bran MD [address] [place] [address] Type 2 diabetes mellitus without complication, with long-term current use of insulin ([facility]); Chest pain, unspecified type; Allergy, [...] documented as of this encounter Care Teams Gluer And Slicer Hand Relationship Specialty Start Date End Date Tiara Bran MD [address] [place] [address] PCP - General Family Medicine 11/21/16 documented as of this encounter
--- OUTSIDE RECORDS SUMMARY | 2025-01-14 16:27 | XMS_ITS | Encounter Summary ---
Author Organization [employer] Address [address] 7 [place] [address] Care Team Providers Care Spanish Teacher Name Role Phone Tiara Bran MD Primary Care Provider [phone] Reason for Visit * Reason Onset Date Comments Pre Op 12/25/2023 Encounter Details Date Type Department Care Team ([facility] st Contact Info) Description 12/25/2023 Telephone [facility] [address] [place] [address] Tiara Bran MD [address] [facility] [place] [phone] Pre Op Social History Tobacco Use Types [...] [facility] Surgeon's office number: [phone] Surgeon's office fax number: [phone] Contact name: Cynthia documented in this encounter Plan of Treatment Not on file documented as of this encounter Visit Diagnoses Not on filedocumented in this encounter Additional Health Concerns Assessment Noted Time PHQ-9 Depression Total Score: 0 06/22/19 3:15 PM EDT documented as of this encounter Care Teams Spanish Teacher Relationship Specialty Start Date End Date Tiara Bran MD [address] [place] [phone] PCP - General Family Medicine 11/21/16 documented as of this encounter
--- OUTSIDE RECORDS SUMMARY | 2025-01-14 16:27 | XMS_ITS | Encounter Summary ---
Author Organization [facility] [employer] Address [address] [facility] 7t [place] [address] Care Team Providers Care Sound Effects Manager Name Role Phone Tiara Bran MD Primary Care Provider [phone] Encounter Details Date Type Department Care Team (Late st Contact Info) Description 02/12/2024 Orders Only [facility]S [address] [place] [address] Provider, MD Luis Eduardo Social History Tobacco [...] documented as of this encounter Care Teams Sound Effects Manager Relationship Specialty Start Date End Date Tiara Bran MD [address] [place] [phone] PCP - General Family Medicine 11/21/16 documented as of this encounter
--- OUTSIDE RECORDS SUMMARY | 2025-01-14 16:27 | XMS_ITS | Clinical Summary ---
Author Organization [employer] Address [address] [place] [address] 7t [place] [address] Care Team Providers Care Taxi Servicer Name Role Phone Tiara Bran MD Primary Care Provider [phone] Allergies Active Allergy Reactions Criticality Noted Date [...] TAKE ONE TABLET EVERY MORNING 30 tablet Active bacitracin-sheng ymyxin b (Polysporin) ointment Apply topically 2 times daily. 15 g Active azithromycin (Zithromax) 250 MG tablet TAKE [...] mouth Once per day. 30 tablet 025 2025 Active insulin aspart (NovoLOG FLEXPEN) 100 UNIT/ML penIndications :Type 2 diabetes mellitus without complication, with long-term current use of insulin ([facility]) INJECT 2 TO 12 UNITS SUBCUTANEOUSLY THREE TIMES DAILY DIRECTED PER SLIDING SCALE 15 mL 5 11/12/202 5 9:53 AM EST Active atorvastatin (Lipitor) 80 MG tablet TAKE ONE TABLET EVERY NIGHT AT BEDTIME 90 tablet 2 025 Active Lantus SoloStar 100 UNIT/ML penIndications :Type 2 diabetes mellitus without complication, with long-term current use of insulin ([facility]) INJECT 20 UNITS SUBCUTANEOUSLY EVERY EVENING 15 mL 11 Active Aspirin Adult Low Strength 81 MG [...] TAKE ONE TABLET EVERY MORNING 30 tablet Active fluticasone (Flonase) 50 MCG/ACT nasal sprayIndicatio [...] subsequent encounter USE FIVE DAILY 100 each 025 Active nitroglycerin (Nitrostat) 0.4 MG SL [...] MORNING AND EVENING 60 capsule 1 Active albuterol (2.5 MG/3ML) 0.083% nebulizer solution INHALE ONE AMPULE USING A NEBULIZER EVERY 6 HOURS NEEDED 90 mL 11 Active albuterol (2.5 MG/3ML) 0.083% nebulizer solution INHALE ONE AMPULE USING A NEBULIZER EVERY 6 HOURS NEEDED 90 mL 11 024 2024 Discontinued celecoxib (CeleBREX) 100 MG capsule Take 1 capsule (100 mg) by mouth 2 times daily. 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) 02/05/2022 Assessment [...] Encounters Date Type Department Care Team Description 12/30/2024 Results Follow-Up [facility] [address] [place] [address] Venessa Johnson RN Comprehensive Metabolic Panel 12/28/2024 Orders Only [facility] [address] [place] [address] Tiara Bran MD Type 2 diabetes mellitus with stage 3b chronic kidney disease, unspecified whether tank terminal gauger insulin use (HCC) (Primary Dx) 12/28/2024 Refill [facility] [address] [place] [address] Tiara Bran MD 12/23/2024 Orders Only GENERIC EXTERNAL DATA DEPARTMENT Provider, Generic External Data 12/23/2024 Refill [facility] [address] [place] [address] Tiara Bran MD 12/15/2024 Refill [facility] [address] [place] [address] Tiara Bran MD 12/10/2024 Refill [facility] [address] [place] [address] Tiara Bran MD Type 2 diabetes mellitus without complication, with long-term current use of insulin (HCC) 12/07/2024 Orders Only GENERIC EXTERNAL DATA DEPARTMENT Provider, Generic External Data 12/07/2024 Refill [facility] [address] [place] [address] Tiara Bran MD Type 2 diabetes mellitus without complication, with long-term current use of insulin (HCC); Chest pain, unspecified type; Allergy, subsequent encounter 11/10/2024 Refill [facility] [address] [place] [address] Tiara Bran MD Type 2 diabetes mellitus without complication, with long-term current use of insulin (CMS/HCC); Chest pain, unspecified type; Allergy, subsequent encounter 10/28/2024 10:15 AM EDT Office Visit [facility] [address] [place] [address] Tiara Bran MD Mixed hyperlipidemia (Primary Dx); Type 2 diabetes mellitus without complication, with long-term current use of insulin (CMS/HCC); Chronic obstructive pulmonary disease, unspecified COPD type (CMS/HCC); Acquired hypothyroidism 10/28/2024 Travel 10/27/2024 Telephone [facility] [address] [place] [address] Tiara Bran MD chart prep from Last [...] complication, with long-term current use of insulin ([facility]) POCT GLUCOSE Routine 10/28/2024 10:26 AM EDT Type 2 diabetes mellitus without complication, with long-term current use of insulin ([facility]) LIPID PANEL, STANDARD Routine 08/05/2024 9:59 AM EDT Type 2 diabetes mellitus without complication, with long-term current use of insulin ([facility]) ALBUMIN, RANDOM URINE W/CREATININE Routine 06/12/2021 9:13 AM EDT from Last 3 Months or Most Recently Relevant to Health Maintenance Results * (ABNORMAL) Comprehensive Metabolic Panel (12/23/2024 11:57 AM EDT) Sodium 143 135 - 145 mmol/L [facility] Potassium 4.2 3.3 - 5.1 mmol/L [facility] Chloride 109(H) 96 - 108 mmol/L [facility] Carbon Dioxide 31(H) 22 - 29 mmol/L [facility] Anion Gap 7(L) 12 - 20 [facility] Urea Nitrogen (BUN) 18(H) 9 - 16 mg/dL [facility] Creatinine, Serum 1.30 0.5 - 1.4 mg/dL [facility] Estimated Glomerular Filt Rate 40 [facility] Comment:Chronic Kidney Disea se: Estimated GFR < 60 mL/min/1.22b2Vvsmyk Kidney Disease: Estimated GFR < 15 mL/min/1.73m2 Glucose 153(H) 60 - 115 mg/dL [facility] Calcium 9.6 8.4 - 10.2 mg/dL [facility] Bilirubin, Total 0.4 0.0 - 1.0 mg/dL [facility] Aspartate Amino Transferase 21 5 - 31 U/L [facility] Alanine Aminotransferase 18 0 - 31 U/L [facility] Total Protein 6.7 6.5 - 8.0 g/dL [facility] Albumin Level 4.3 3.5 - 5.0 g/dL [facility] Alkaline Phosphatase 93 39 - 117 U/L [facility] 12/23/2024 11:5 7 AM EDT 12/23/2024 11:57 AM EDT us Generic External Data Provider LAB BLOOD ORDERAB LES Final Result [facility] [address] [place] [address] [phone] * (ABNORMAL) CBC auto differential (12/07/2024 10:21 AM EDT) White Blood Count 8.6 4.8 - 10.8 X10*3/uL [facility] Red Blood Count 4.96 4.20 - 5.50 X10*6/uL [facility] Hemoglobin 11.5(L) 12.0 - 16.0 g/dl [facility] Hematocrit 37.0 37.0 - 47.0 % [facility] Mean Corpuscular Volume 74.6(L) 80.0 - 98.0 fL [facility] Mean Corpuscular Hemoglobin 23.2(L) 27.0 - 33.0 pg [facility] Mean Corpuscular HGB Conc 31.1 31.0 - 35.0 g/dl [facility] Red Cell Distribution Width 18.2(H) 11.0 - 16.0 % [facility] Platelet Count 410(H) 160 - 400 X10*3/uL [facility] Mean Platelet Volume 10.4 9.4 - 12.3 fL [facility] Neutrophils Percent Auto 49.5 45 - 73 % [facility] Imm Gran Pct Auto 0.2 0.0 - 0.4 % [facility] Lymphocytes Percent Auto 36.8 20 - 40 % [facility] Monocytes Percent Auto 7.8 2 - 11 % [facility] Eosinophils Percent Auto 5.2(H) 0 - 4 % [facility] Basophils Percent Auto 0.5 0 - 2 % [facility] NRBC Pct Auto 0.0 0.0 - 0.2 /100WBC [facility] Neutrophils Absolute Auto 4.3 2.0 - 8.3 x10*3/uL [facility] Imm Gran Abs Auto 0.02 0.00 - 0.03 X10*3/uL [facility] Lymphocytes Absolute Auto 3.2 1.2 - 4.9 X10*3/uL [facility] Monocytes Absolute Auto 0.7 0.1 - 1.2 X10*3/uL [facility] Eosinophils Absolute Auto 0.5(H) 0.0 - 0.4 X10*3/uL [facility] Basophils Absolute Auto 0.0 0.0 - 0.2 X10*3/uL [facility] NRBC Abs Auto 0.000 0.0 - 0.012 X10*3/uL [facility] 12/07/2024 10:2 1 AM EDT 12/07/2024 10:21 AM EDT us Generic External Data Provider LAB BLOOD ORDERAB LES Final Result [facility] [address] [place] [phone] * Hypersensitivity Pneumonitis Screen (12/07/2024 10:21 AM EDT) Aspergillus fumigatus Ab NEGATIVE NEGATIVE [facility] Micropolyspora Faeni NEGATIVE NEGATIVE [facility] [place] Serum Abs NEGATIVE NEGATIVE [facility] Thermoactinomyces candidus NEGATIVE NEGATIVE [facility] Thermoactinomyces vulgaris Ab NEGATIVE NEGATIVE [facility] Saccharomonospora viridis Ab NEGATIVE NEGATIVE [facility] Comment:This test was develo ped and its analytical performancecharacteristics have been determined by [employer].It has not been cleared or approved by the FDA. This assayhas been validated pursuant to the CLIA regulations and isused for clinical purposes.THIS TEST WAS PERFORMED AT:[id number] [place] [id number] JOYCE MD,PHD,ANA 12/07/2024 10:2 1 AM EDT 12/07/2024 10:21 AM EDT us Generic External Data Provider LAB BLOOD ORDERAB LES Final Result Performing Organization Address [facility] Co de Phone Number [facility] [address] [place] [address] [phone] * Sed Rate by Modified Serafinergren (12/07/2024 10:21 AM EDT) Pathologist [facility] Erythrocyte Sedimentation Rate 6 0 - 20 MM/HR [facility] Comment:Patients with polycy themia and many hemoglobin abnormalitiesmay have depressed sed rates whereas patients with anemiamay have elevated sed rates. 12/07/2024 10:2 1 AM EDT 12/07/2024 10:21 AM EDT Generic External Data Provider LAB BLOOD ORDERAB LES Final Result Performing Organization Address [facility] de Phone Number [facility] [address] [place] [phone] * Immunoglobulins, Quantitative, IgA, IgG, IgM (12/07/2024 10:21 AM EDT) Pathologist [facility] IMMUNOGLOBULIN G 941 600 - 1540 mg/dL [facility] IMMUNOGLOBULIN A 165 70 - 320 mg/dL [facility] Immunoglobulin M 62 50 - 300 mg/dL [facility] Comment:THIS TEST WAS PERFOR MED AT:[email or web address] [place] [id number] OROURKE MD 12/07/2024 10:2 1 AM EDT 12/07/2024 10:21 AM EDT Generic External Data Provider LAB BLOOD ORDERAB LES Final Result Performing Organization Address [facility] Co de Phone Number [facility] [address] [place] [address] [phone] * (ABNORMAL) POCT HGB A1C (10/28/2024 [...] 9:59 AM EDT) Triglycerides 95 <150 mg/dL [facility] Comment:Desirable Triglyceri de: less than 150 mg/dLBorderline High Triglyceride 150-199 mg/dLHigh Triglyceride: 200-499 mg/dLVery High Triglyceride: greater than or equal to 5OO mg/dL Cholesterol 107 <200 mg/dL [facility] Comment:Desirable Cholestero l: less than 200 mg/dLBorderline High Cholesterol: 200-239 mg/dLHigh Cholesterol: greater than 239 mg/dL LDL Cholesterol Calculated 48 <100 mg/dL [facility] Comment:Desirable LDL: less than 100 mg/dLNear Optimal/Above Optimal LDL: 110- 129 mg/dLBorderline High LDL: 130-159 mg/dLHigh LDL: 160-189 mg/dLVery High LDL: greater than or equal to 190 mg/dL HDL Cholesterol 40(L) >40 mg/dL [facility] Comment:Desirable HDL: great er than 40 mg/dL Note: This HDL assay may give artificially low results in patients with liver disease. Blood Venous blood specimen / Unknown 08/05/2024 9:59 AM EDT 08/05/2024 2:15 PM EDT us Tiara Bran MD LAB BLOOD ORDERABLES Final Re sult Performing Organization Address City/[facility]/ZIP Co de Phone Number [facility] [address] [place] [address] [phone] * ALBUMIN, RANDOM URINE W/CREATININE (06/12/2021 [...] ORDERABLES Final Re sult Performing Organization Address City/[facility]/ZIP Co de Phone Number [facility] [address] from Last 3 Months or Most Recently Relevant to Health Maintenance Insurance [facility] [employer] [employer] (O D-SNP) [place] [id number] Care Teams Taxi Servicer Relationship Specialty Start Date End Date Tiara Bran MD [address] [facility] [place] [address] PCP - General Family Medicine 11/21/16
--- OUTSIDE RECORDS SUMMARY | 2025-01-14 16:27 | XMS_ITS | Encounter Summary ---
Author Organization [employer] Address [address] [facility] 7t [place] [address] Care Team Providers Care Clinical Liaison Name Role Phone Tiara Bran MD Primary Care Provider [phone] Encounter Details Date Type Department Care Team (Late st Contact Info) Description 06/10/2024 Orders Only [facility] [address] [place] [address] Provider, MD Luis Eduardo Social History Tobacco [...] documented as of this encounter Care Teams Clinical Liaison Relationship Specialty Start Date End Date Tiara Bran MD [address] [place] [phone] PCP - General Family Medicine 11/21/16 documented as of this encounter
--- OUTSIDE RECORDS SUMMARY | 2025-01-14 16:27 | XMS_ITS | Encounter Summary ---
Author Organization [employer] Address [address] [facility] [address] [place] [address] Care Team Providers Care Senior Product Designer Name Role Phone Tiara Bran MD Primary Care Provider [phone] Encounter Details Date Type Department Care Team (Latest Contact Info) Description 12/30/2024 Results Follow-Up [facility] [address] [place] [id number] Venessa Johnson RN Comprehensive Metabolic Panel Social History Tobacco Use Types Packs/Day Years [...] documented as of this encounter Care Teams Senior Product Designer Relationship Specialty Start Date End Date Tiara Bran MD [address] [place] [address] PCP - General Family Medicine 11/21/16 documented as of this encounter
--- OUTSIDE RECORDS SUMMARY | 2025-01-14 16:27 | XMS_ITS | Clinical Summary ---
Author Organization [facility] Address [address] [place] [address] Care Team Providers Care Jack Spooler Tender Name Role Phone Ashley Henao LIBRARY PARAPROFESSIONAL Primary Care Provider [phone] Source Comments PLEASE NOTE, if this patient [...] 120 Syringe 12 05/12/19 14 Active Insulin Philo, Disposable, (OSCAR PEN NEEDLE) 32 x 5/32 [...] Type 2 diabetes mellitus without complication, unspecified mcc insulin use status,Essential hypertension Take 1 Tab by mouth once daily 90 Tab 3 06/20/19 17 Active simvastatin (ZOCOR) 10 mg tabletIndications: Type 2 diabetes mellitus without complication, unspecified mcc insulin use status,Dyslipidemi a Take 1 Tab [...] Type 2 diabetes mellitus without complication, unspecified exterminator termite insulin use status Take 1 Tab by [...] prior CT) No hypermetabolic activity. Done at [facility] Follows with Dr Yon frances (pulmonary) [facility] H/O colonoscopy 08/28/2012 Overview (12/29/2012): August 28 2012 DX: Diverticulosis of Sigmoid Colon Polyps in descending colon (resected: biopsy results pending) Recommended: Repeat colonoscopy August 2013 (in 1 yr) Diverticulosis of sigmoid colon 08/28/2012 Overview (12/29/2012): Dx by Colonoscopy on August 28 2012 Osteopenia 06/17/2012 Overview (12/03/2016): DEXA 06/17/12.Lowest Tscore -1.2 (rt and left femoral neck >> DEXA( 11/14/16, [facility]): Osteopenia. Lowest Tscore -1.5 (rt and left femoral necks) HTN (hypertension) COPD (chronic obstructive pulmonary disease) Overview (03/26/2014): Pulm F/u at [facility]. Dr Eloy Shah On Advair diskus powder [...] type 2) Overview (01/19/2015): Endo F/u at [facility]. Hypothyroidism GERD (gastroesophageal reflux disease) Overview (09/25/2012): [...] Screen 03/04/2024 015 (Managed by Outside Provider) [id number] ( season) 2024 Imm-Influenza (#1) 2024 12/01/2014, [...] TSH CASCADE 11.92(H) 0.40 - 4.00 uIU/ml [facility] Blood specimen (specimen) Blood / Unknown 09/27/2016 10:35 AM EDT 09/27/2016 10:[address] [facility] - 09/27/2016 12:53 PM EDT [facility] [address] [place] [address] [place] [id number] ORD# [id number] Aroldo Caballero MD LAB - BLOOD DRAW Final Resul t Performing Organization Address City/[facility]/ZIP Co de Phone Number [address] [address], * (ABNORMAL) HEMOGLOBIN, GLYCOSYLATED (A1C) (09/27/2016 10:35 AM EDT) GLYCATED HEMOGLOBIN A1C 8.4(H) <6.5 % [facility] ESTIMATED AVERAGE GLUCOSE 194 mg/dL [facility] Blood specimen (specimen) Blood / Unknown 09/27/2016 10:35 AM EDT 09/27/2016 10:[address] [facility] - 09/27/2016 1:37 PM EDT [facility] [address] [place] [address] [place] [id number] ORD# [id number] Aroldo Caballero MD LAB - BLOOD DRAW Final Resul t [address] [address], [place] [phone] * (ABNORMAL) BASIC METABOLIC PANEL CALCIUM TOTAL (09/27/2016 10:35 AM EDT) GLUCOSE 124(H) 70 - 100 mg/dL [facility] Comment:Reference range appl icable to fasting specimens only BUN 24 5 - 25 mg/dL [facility] CREAT 1.24(H) 0.5 - 1.1 mg/dL [facility] GLOMERULAR FILTRATION RATE 43 [facility] Comment: If patient is -Austrian, multiply result by 1.21 Chronic Kidney Disease: < 60 ml/min/1.73 square meters Kidney Failure: < 15 ml/min/1.73 square meters SODIUM 140 133 - 145 mmol/L [facility] POTASSIUM 4.5 3.5 - 5.5 mmol/L [facility] CHLORIDE 101 96 - 110 mmol/L [facility] CO2 30 21 - 32 mmol/L [facility] ANION GAP 9 3 - 11 [facility] CALCIUM 10.1 8.5 - 10.5 mg/dL [facility] Blood specimen (specimen) Blood / Unknown 09/27/2016 10:35 AM EDT 09/27/2016 10:47 AM EDT Narrative [facility] - 09/27/2016 12:42 PM EDT [facility] [address] [place] [address] [place] [id number] ORD# [id number] Aroldo Caballero MD LAB - BLOOD DRAW Final Resul t [address] [address], * MICROALBUMIN/CREATININE RATIO, URINE, RANDOM (06/19/2016 11:52 AM EDT) CREATININE, RANDOM URINE 89 mg/dL [facility] MICROALBUMIN, RANDOM < 5.0 0.0 - 29.0 mg/L [facility] MICROALB/CRE RATIO RANDOM < 5.6 0.0 - 30.0 mg/G [facility] Urine specimen (specimen) Urine specimen / Unknown 06/19/2016 11:52 AM EDT 06/19/2016 12:35 PM EDT Narrative [facility] - 06/19/2016 4:26 PM EDT [facility] [address] [place] [address] [place] [address] [place] [id number] ORD# [id number] Odessa Shaver MD LAB URINE AMBUL ATORY Edited Result - Final Performing Organization Address City/[facility]/ZIP Co de Phone Number [facility] [address] [place] [address], [place] [phone] * (ABNORMAL) LIPID PANEL (04/17/2016 10:20 AM EST) CHOLESTEROL 206(H) 0 - 200 mg/dL [facility] TRIGLYCERIDES 171(H) 0 - 150 mg/dL [facility] HDL CHOLESTEROL 45 >40 mg/dL [facility] LDL CALCULATED 127(H) 0 - 100 mg/dL [facility] TC-HDLC RATIO 4.6(H) 0 - 4.4 mg/dL [facility] Blood specimen (specimen) Blood / Unknown 04/17/2016 10:20 AM EST 04/17/2016 10:40 AM EST Narrative [facility] - 04/17/2016 1:52 PM EST [facility] [address] [place] [address] [place] [id number] ORD# [id number] Odessa Shaver MD LAB - BLOOD INDU W Edited Result - Final [facility] [address] [place] [address], [place] [phone] from Last 3 Months or Most Recently Relevant to Health Maintenance Insurance [place] Care Teams Jack Spooler Tender Relationship Specialty Start Date End Date Ashley Henao FNP [address] [place] [address] PCP - General 04/29/18
== END 2025-01-14 13:55 | disposition home or self-care (01) ==
LOC: HO.HKAS 13:10
PROVIDERS: PCP Pediatrics; Referring Provider Pediatrics; Visit Provider Internal Medicine Nephrology
DX: N18.31 Chronic kidney disease, stage 3a (principal); I10 Essential (primary) hypertension
CPT/HCPCS: 99204

== ENCOUNTER → 2025-01-14 13:09 | Outpatient (BNVA) | payer OTHER, SELFPAY | PROVIDERS: PCP Pediatrics; Referring Provider Pediatrics; Visit Provider Internal Medicine Nephrology | DX: I12.9 Hypertensive chronic kidney disease with stage 1 through stage 4 chronic kidney disease, or unspecified chronic kidney disease (principal); E11.22 Type 2 diabetes mellitus with diabetic chronic kidney disease; N18.31 Chronic kidney disease, stage 3a | CPT/HCPCS: 99202 ==